=== PATIENT | female | born 1955 | race Caucasian/White ===

== ENCOUNTER → 2016-07-31 | Outpatient (CLI) | payer MEDICARE ==
[2016-07-31 10:47] LABS: APPEARANCE,URINE CLEAR; BILIRUBIN,URINE NEGATIVE (NEGATIVE); GLUCOSE, URINE >=500 mg/dL (NEGATIVE); KETONES,URINE NEGATIVE (NEGATIVE); LEUKOCYTE ESTERASE,URINE NEGATIVE (NEGATIVE); NITRITE,URINE NEGATIVE (NEGATIVE); PROTEIN,URINE >=500 mg/dL (NEGATIVE); URINE SPECIFIC GRAVITY 1.008; UROBILINOGEN,URINE NEGATIVE mg/dL (<2.0)
[2016-07-31 11:06] LABS: ANION GAP 12 (5-19); BLOOD UREA NITROGEN 33 mg/dL (7-20); CALCIUM 8.7 mg/dL (8.4-10.2); CARBON DIOXIDE 21 mmol/L (22-30); CHLORIDE 105 mmol/L (98-107); CREATININE RESULT 1.72 mg/dL (0.52-1.25); GLUCOSE 338 mg/dL (75-110); POTASSIUM 4.9 mmol/L (3.6-5.0); SODIUM 138.2 mmol/L (137-145)
== END ==
LOC: OD 09:41
PROVIDERS: ATTEND Internal Medicine Nephrology
DX: N18.4 Chronic kidney disease, stage 4 (severe) (principal); E11.9 Type 2 diabetes mellitus without complications; E87.5 Hyperkalemia; R80.9 Proteinuria, unspecified
CPT/HCPCS: 36415; 80048; 81001; 82570; 84156

== ENCOUNTER 2016-10-22 12:32 | Emergency (ER) | payer MEDICARE ==
[2016-10-22] MEDS ORDERED: NORMAL SALINE 1000 ML 1,000 ML IV ONE (13:02)
[2016-10-22] MEDS ORDERED: ONDANSETRON 4 MG TAB.RAPDIS PO ONE (13:02)
--- NOTE | 2016-10-22 13:04 | ER Document Report ---
ED Medical Screen (RME) - General Chief Complaint: Vomiting Stated Complaint: NAUSEA VOMITING Time Seen by Provider: 10/22/16 13:02 Notes: Patient started vomiting about 1 AM this morning and has vomited 4 or 5 times. Still feeling nauseated. Did have some diarrhea about 2 or 3 times but that has stopped now. Some mild nonspecific abdominal pain. Denies chest pain. No fevers. Seen at her private doctor's office this morning and referred here. Patient is an insulin-dependent diabetic. TRAVEL OUTSIDE OF THE [place] IN LAST 30 DAYS: No - Related Data Allergies/Adverse Reactions: metformin [Metformin] Allergy (Intermediate, Verified 01/05/16 13:28) Nausea Sulfa (Sulfonamide Antibiotics) Allergy (Mild, Verified 01/05/16 13:28) Nausea fluoxetine Allergy (Verified 10/22/16 12:46) trimethoprim Allergy (Verified 10/22/16 12:46) diazepam [From Valium] Adverse Reaction (Verified 01/05/16 13:28) "BOUNCES ME OFF THE STRAUSS, DOES NOT RELAX" Past Medical History - Past Medical History Cardiac Medical History: Reports: Hx Congestive Heart Failure, Hx Coronary Artery Disease, Hx Heart Attack, Hx Hypercholesterolemia, Hx Hypertension Pulmonary Medical History: Reports: Hx COPD, Hx Pneumonia, Hx Sleep Apnea Endocrine Medical History: Reports: Hx Diabetes Mellitus Type 1, Hx Diabetes Mellitus Type 2, Hx Hypothyroidism Renal/ Medical History: Reports: Hx Renal Insufficiency. Denies: Hx Peritoneal Dialysis GI Medical History: Reports: Hx Gastroesophageal Reflux Disease Musculoskeltal Medical History: Psychiatric Medical History: Reports: Hx Depression Infectious Medical History: Reports: Hx MRSA Past Surgical History: Reports: Hx Cardiac Surgery - A hole in the heart closed at age 65 years old., Hx Cholecystectomy, Hx Hysterectomy, Hx Open Heart Surgery - ASD or VSD closed at 4 years of age, Hx Orthopedic Surgery - 2 screws in the distal left femur, Hx Thyroid Surgery - Thyroidectomy, Hx Tonsillectomy. Denies : Hx Mastectomy - Immunizations Hx Diphtheria, Pertussis, Tetanus Vaccination: Yes Physical Exam - Vital signs Vitals: Temp Pulse Resp BP Pulse Ox 97.4 F 52 L 20 130/61 H 99 10/22/16 12:47 10/22/16 12:47 10/22/16 12:47 10/22/16 12:47 10/22/16 12:47 Course - Vital Signs Vital signs: Temp Pulse Resp BP Pulse Ox 97.4 F 52 L 20 130/61 H 99 10/22/16 12:47 10/22/16 12:47 10/22/16 12:47 10/22/16 12:47 10/22/16 12:47
[2016-10-22 13:43] LABS: ABSOLUTE BASOPHILS # (AUTO) 0.1 10^3/uL (0.0-0.2); ABSOLUTE EOSINOPHILS # (AUTO) 0.1 10^3/uL (0.0-0.6); ABSOLUTE LYMPHOCYTES (AUTO) 1.5 10^3/uL (0.5-4.7); ABSOLUTE MONOCYTES (AUTO) 0.6 10^3/uL (0.1-1.4); ABSOLUTE NEUT (AUTO) 6.4 10^3/uL (1.7-8.2); APPEARANCE,URINE CLOUDY; BASOPHILS % (AUTO) 1.1 % (0-2); BILIRUBIN,URINE NEGATIVE (NEGATIVE); EOSINOPHILS % (AUTO) 1.7 % (0-6); GLUCOSE, URINE >=500 mg/dL (NEGATIVE); HEMATOCRIT 35.4 % (36.0-47.0); HEMOGLOBIN 11.7 g/dL (12.0-15.5); HGB HCT DIFFERENCE -0.3; KETONES,URINE NEGATIVE (NEGATIVE); LEUKOCYTE ESTERASE,URINE MODERATE (NEGATIVE); LYMPHOCYTES % (AUTO) 16.9 % (13-45); MEAN CORPUSCULAR HEMOGLOBIN 30.7 pg (27.0-33.4); MEAN CORPUSCULAR VOLUME 93 fl (80-97); MONOCYTES % (AUTO) 7.2 % (3-13); NITRITE,URINE NEGATIVE (NEGATIVE); PROTEIN,URINE >=500 mg/dL (NEGATIVE); SEGMENTED NEUTROPHILS % (AUTO) 73.1 % (42-78); UROBILINOGEN,URINE NEGATIVE mg/dL (<2.0); WHITE BLOOD COUNT 8.7 10^3/uL (4.0-10.5)
[2016-10-22 13:52] LABS: ALANINE AMINOTRANSFERASE 23 U/L (9-52); ALBUMIN 3.6 g/dL (3.5-5.0); ALKALINE PHOSPHATASE 87 U/L (38-126); ANION GAP 14 (5-19); ASPARTATE AMINO TRANSFERASE 13 U/L (14-36); BILIRUBIN,DIRECT 0.4 mg/dL (0.0-0.4); BILIRUBIN,TOTAL 0.6 mg/dL (0.2-1.3); BLOOD UREA NITROGEN 28 mg/dL (7-20); CALCIUM 8.2 mg/dL (8.4-10.2); CARBON DIOXIDE 22 mmol/L (22-30); CHLORIDE 108 mmol/L (98-107); CREATININE RESULT 1.92 mg/dL (0.52-1.25); GLUCOSE 179 mg/dL (75-110); LIPASE 77.8 U/L (23-300); POTASSIUM 4.4 mmol/L (3.6-5.0); SODIUM 143.9 mmol/L (137-145); TOTAL PROTEIN 6.6 g/dL (6.3-8.2)
[2016-10-22] MEDS ORDERED: PHENAZOPYRIDINE HCL 200 MG TABLET PO ONE (15:14)
[2016-10-22] MEDS ORDERED: NITROFURANTOIN MONOHYD/M-CRYST 100 MG CAPSULE PO ONE (15:14)
--- NOTE | 2016-10-22 15:17 | ER Document Report ---
ED GI/ - General Chief Complaint: Vomiting Stated Complaint: NAUSEA VOMITING Time Seen by Provider: 10/22/16 13:02 TRAVEL OUTSIDE OF THE [place] IN LAST 30 DAYS: No - Related Data Allergies/Adverse Reactions: metformin [Metformin] Allergy (Intermediate, Verified 10/22/16 13:06) Nausea Sulfa (Sulfonamide Antibiotics) Allergy (Mild, Verified 10/22/16 13:06) Nausea fluoxetine Allergy (Verified 10/22/16 13:06) trimethoprim Allergy (Verified 10/22/16 13:06) diazepam [From Valium] Adverse Reaction (Verified 10/22/16 13:06) "BOUNCES ME OFF THE STRAUSS, DOES NOT RELAX" Past Medical History - Social History Smoking Status: Never Smoker Chew tobacco use (# tins/day): No Frequency of alcohol use: None Drug Abuse: None Family History: Reviewed & Not Pertinent Patient has suicidal ideation: No Patient has homicidal ideation: No - Past Medical History Cardiac Medical History: Reports: Hx Congestive Heart Failure, Hx Coronary Artery Disease, Hx Heart Attack, Hx Hypercholesterolemia, Hx Hypertension Pulmonary Medical History: Reports: Hx COPD, Hx Pneumonia, Hx Sleep Apnea Endocrine Medical History: Reports: Hx Diabetes Mellitus Type 1, Hx Diabetes Mellitus Type 2, Hx Hypothyroidism Renal/ Medical History: Reports: Hx Renal Insufficiency. Denies: Hx Peritoneal Dialysis GI Medical History: Reports: Hx Gastroesophageal Reflux Disease Musculoskeltal Medical History: Reports Hx Arthritis Psychiatric Medical History: Reports: Hx Depression Infectious Medical History: Reports: Hx MRSA Past Surgical History: Reports: Hx Cardiac Surgery - A hole in the heart closed at age 65 years old., Hx Cholecystectomy, Hx Hysterectomy, Hx Open Heart Surgery - ASD or VSD closed at 4 years of age, Hx Orthopedic Surgery - 2 screws in the distal left femur, Hx Thyroid Surgery - Thyroidectomy, Hx Tonsillectomy. Denies : Hx Mastectomy - Immunizations Hx Diphtheria, Pertussis, Tetanus Vaccination: Yes - unknown Hx Pneumococcal Vaccination: 04/23/12 Physical Exam - Vital signs Vitals: Temp Pulse Resp BP Pulse Ox 97.4 F 52 L 20 130/61 H 99 10/22/16 12:47 10/22/16 12:47 10/22/16 12:47 10/22/16 12:47 10/22/16 12:47 Course - Vital Signs Vital signs: Temp Pulse Resp BP Pulse Ox 97.4 F 52 L 20 130/61 H 99 10/22/16 12:47 10/22/16 12:47 10/22/16 12:47 10/22/16 12:47 10/22/16 12:47 - Laboratory Result Diagrams: 10/22/16 13:18 10/22/16 13:18 Laboratory results interpreted by me: 10/22/16 10/22/16 10/22/16 13:18 13:18 13:18 Hgb 11.7 L Hct 35.4 L Chloride 108 H BUN 28 H Creatinine 1.92 H Est GFR ( Amer) 32 L Est GFR (Non-Af Amer) 26 L Glucose 179 H Calcium 8.2 L AST 13 L Urine Protein >=500 H Urine Glucose (UA) >=500 H Ur Leukocyte Esterase MODERATE H
[2016-10-22] MEDS ORDERED: CEFTRIAXONE 1 GM/D5W RTU 50 ML IV ONE (15:18)
--- NOTE | 2016-10-22 15:57 | ER Document Report ---
ED GI/ - General Chief Complaint: Vomiting Stated Complaint: NAUSEA VOMITING Time Seen by Provider: 10/22/16 13:02 Mode of Arrival: Ambulatory Information source: Patient Notes: Patient is a 61-year-old female who presents to the ER today for burning with urination 1 week with lower abdominal pain in the center. Patient also complains of nausea and vomiting that began this morning when she woke up. Patient admits to chills but does not know she had a fever or not. She denies any acute low back pain. She denies any blood in her urine that she is seen. She has no history of kidney stones. TRAVEL OUTSIDE OF THE [place] IN LAST 30 DAYS: No - Related Data Allergies/Adverse Reactions: metformin [Metformin] Allergy (Intermediate, Verified 10/22/16 13:06) Nausea Sulfa (Sulfonamide Antibiotics) Allergy (Mild, Verified 10/22/16 13:06) Nausea fluoxetine Allergy (Verified 10/22/16 13:06) trimethoprim Allergy (Verified 10/22/16 13:06) diazepam [From Valium] Adverse Reaction (Verified 10/22/16 13:06) "BOUNCES ME OFF THE STRAUSS, DOES NOT RELAX" Past Medical History - General Information source: Patient - Social History Smoking Status: Never Smoker Chew tobacco use (# tins/day): No Frequency of alcohol use: None Drug Abuse: None Family History: Reviewed & Not Pertinent Patient has suicidal ideation: No Patient has homicidal ideation: No - Past Medical History Cardiac Medical History: Reports: Hx Congestive Heart Failure, Hx Coronary Artery Disease, Hx Heart Attack, Hx Hypercholesterolemia, Hx Hypertension Pulmonary Medical History: Reports: Hx COPD, Hx Pneumonia, Hx Sleep Apnea Endocrine Medical History: Reports: Hx Diabetes Mellitus Type 1, Hx Diabetes Mellitus Type 2, Hx Hypothyroidism Renal/ Medical History: Reports: Hx Renal Insufficiency. Denies: Hx Peritoneal Dialysis GI Medical History: Reports: Hx Gastroesophageal Reflux Disease Musculoskeltal Medical History: Reports Hx Arthritis Psychiatric Medical History: Reports: Hx Depression Infectious Medical History: Reports: Hx MRSA Past Surgical History: Reports: Hx Cardiac Surgery - A hole in the heart closed at age 65 years old., Hx Cholecystectomy, Hx Hysterectomy, Hx Open Heart Surgery - ASD or VSD closed at 4 years of age, Hx Orthopedic Surgery - 2 screws in the distal left femur, Hx Thyroid Surgery - Thyroidectomy, Hx Tonsillectomy. Denies : Hx Mastectomy - Immunizations Hx Diphtheria, Pertussis, Tetanus Vaccination: Yes - unknown Hx Pneumococcal Vaccination: 04/23/12 Review of Systems - Review of Systems Constitutional: See HPI EENT: No symptoms reported Cardiovascular: No symptoms reported Respiratory: No symptoms reported Gastrointestinal: See HPI Genitourinary: See HPI Female Genitourinary: No symptoms reported Musculoskeletal: No symptoms reported Skin: No symptoms reported Hematologic/Lymphatic: No symptoms reported Neurological/Psychological: No symptoms reported Physical Exam - Vital signs Vitals: Temp Pulse Resp BP Pulse Ox 97.4 F 52 L 20 130/61 H 99 10/22/16 12:47 10/22/16 12:47 10/22/16 12:47 10/22/16 12:47 10/22/16 12:47 - Notes Notes: PHYSICAL EXAMINATION: GENERAL: Chronically ill-appearing, but in no acute distress. HEAD: Atraumatic, normocephalic. EYES: Pupils equal round and reactive to light, extraocular movements intact, sclera anicteric, conjunctiva are normal. NECK: Normal range of motion, supple without lymphadenopathy LUNGS: CTAB and equal. No wheezes rales or rhonchi. HEART: Regular rate and rhythm without murmurs ABDOMEN: Soft, suprapubic mild tenderness. No guarding, no rebound BACK: no vertebral tenderness, normal ROM GI/: Left CVA tenderness EXTREMITIES: Normal range of motion, no pitting edema. No cyanosis. NEUROLOGICAL: Cranial nerves grossly intact. Normal sensory/motor exams. PSYCH: Normal mood, normal affect. SKIN: Warm, Dry, normal turgor, no rashes or lesions noted Course - Re-evaluation Re-evalutation: 10/22/16 15:54 Lab work today reveals more than 182 WBC on urinalysis. Patient has had E. coli and Klebsiella pneumoniae in the past and they are both susceptible to Macrobid. 10/22/16 15:56 - Vital Signs Vital signs: Temp Pulse Resp BP Pulse Ox 97.4 F 52 L 20 130/61 H 99 10/22/16 12:47 10/22/16 12:47 10/22/16 12:47 10/22/16 12:47 10/22/16 12:47 10/22/16 15:56 - Laboratory Result Diagrams: 10/22/16 13:18 10/22/16 13:18 Laboratory results interpreted by me: 10/22/16 10/22/16 10/22/16 13:18 13:18 13:18 Hgb 11.7 L Hct 35.4 L Chloride 108 H BUN 28 H Creatinine 1.92 H Est GFR ( Amer) 32 L Est GFR (Non-Af Amer) 26 L Glucose 179 H Calcium 8.2 L AST 13 L Urine Protein >=500 H Urine Glucose (UA) >=500 H Ur Leukocyte Esterase MODERATE H Discharge - Discharge Clinical Impression: UTI (urinary tract infection) Qualifiers: Urinary tract infection type: acute cystitis Hematuria presence: with hematuria Qualified Code(s): N30.01 - Acute cystitis with hematuria Nausea & vomiting Qualifiers: Vomiting type: unspecified Vomiting Intractability: non-intractable Qualified Code(s): R11.2 - Nausea with vomiting, unspecified Condition: Stable Disposition: HOME, SELF-CARE Instructions: Urinary Tract Infection ([facility]) Additional Instructions: Drink plenty of fluids. Return immediately for any new or worsening symptoms. Follow up with primary care provider, call tomorrow to make followup appointment. Prescriptions: Nitrofurantoin/Nitrofuran Mac [Macrobid 100 mg Capsule] 1 tab PO BID #20 capsule Phenazopyridine HCl [Pyridium 200 mg Tablet] 200 mg PO TID #15 tablet Promethazine HCl [Phenergan 25 mg Tablet] 1 - 2 tab PO Q6H PRN #15 tablet PRN Reason:
[2016-10-22] MEDS ORDERED: ONDANSETRON ODT 4 MG TAB (6 TAB/DSPK) PO PRN (16:00)
[2016-10-22] MEDS ORDERED: PROMETHAZINE HCL INJ 50 MG/1 ML VIAL IM PRN (16:03)
[2016-10-22 16:32] VITALS: BP 156/58
== END 2016-10-22 16:28 | disposition home or self-care (01) ==
LOC: ER 12:32
DX: N30.01 Acute cystitis with hematuria (principal); R11.2 Nausea with vomiting, unspecified; R30.0 Dysuria; R10.30 Lower abdominal pain, unspecified; I50.9 Heart failure, unspecified; I25.10 Atherosclerotic heart disease of native coronary artery without angina pectoris; E78.00 Pure hypercholesterolemia, unspecified; I11.0 Hypertensive heart disease with heart failure; J44.9 Chronic obstructive pulmonary disease, unspecified; E11.9 Type 2 diabetes mellitus without complications; E03.9 Hypothyroidism, unspecified; Z88.2 Allergy status to sulfonamides; Z86.14 Personal history of Methicillin resistant Staphylococcus aureus infection; Z90.49 Acquired absence of other specified parts of digestive tract; Z90.710 Acquired absence of both cervix and uterus; I25.2 Old myocardial infarction
CPT/HCPCS: 99283; 96372; 36415; 87086; 83690; 85025; 87088; 80053; 81001; 87186; A9270 ×4; J2550; J3490; J8499; S0119

== ENCOUNTER 2017-05-21 23:15 | Inpatient (IN) | payer MEDICARE ==
[2017-05-22] MEDS ORDERED: NORMAL SALINE 1000 ML 1,000 ML IV ONE (00:12)
--- NOTE | 2017-05-22 00:50 | ER Document Report ---
ED General - General Chief Complaint: Nausea/Vomiting/Diarrhea Stated Complaint: WEAKNESS Time Seen by Provider: 05/22/17 00:12 Notes: Patient is a 61-year-old female with a past medical history of hypertension, insulin-dependent diabetes, morbid obesity, coronary artery disease who presents with 24 hours of nausea, vomiting and diarrhea. Patient states that she has had difficulty tolerating oral intake over the last 24 hours. She denies any localized abdominal pain. Nothing improves or worsens her symptoms. She denies a history of similar symptoms in the past. No known sick contacts. She has not had a fever, chest pain or shortness of breath. No cough. No headache or neck pain. She has not seen her primary doctor regarding today's concerns. Symptoms were abrupt in onset and have gotten progressively worse since that time. TRAVEL OUTSIDE OF THE [place] IN LAST 30 DAYS: No - Related Data Allergies/Adverse Reactions: metformin [Metformin] Allergy (Intermediate, Verified 10/22/16 13:06) Nausea Sulfa (Sulfonamide Antibiotics) Allergy (Mild, Verified 10/22/16 13:06) Nausea fluoxetine Allergy (Verified 10/22/16 13:06) trimethoprim Allergy (Verified 10/22/16 13:06) diazepam [From Valium] Adverse Reaction (Verified 10/22/16 13:06) "BOUNCES ME OFF THE STRAUSS, DOES NOT RELAX" Past Medical History - General Information source: Patient - Social History Smoking Status: Never Smoker Frequency of alcohol use: None Drug Abuse: None Lives with: Alone Family History: Reviewed & Not Pertinent Patient has suicidal ideation: No Patient has homicidal ideation: No - Past Medical History Cardiac Medical History: Reports: Hx Congestive Heart Failure, Hx Coronary Artery Disease, Hx Heart Attack, Hx Hypercholesterolemia, Hx Hypertension Pulmonary Medical History: Reports: Hx COPD, Hx Pneumonia, Hx Sleep Apnea Endocrine Medical History: Reports: Hx Diabetes Mellitus Type 1, Hx Diabetes Mellitus Type 2, Hx Hypothyroidism Renal/ Medical History: Reports: Hx Renal Insufficiency. Denies: Hx Peritoneal Dialysis GI Medical History: Reports: Hx Gastroesophageal Reflux Disease Musculoskeltal Medical History: Reports Hx Arthritis Psychiatric Medical History: Reports: Hx Depression Infectious Medical History: Reports: Hx MRSA Past Surgical History: Reports: Hx Cardiac Surgery - A hole in the heart closed at age 65 years old., Hx Cholecystectomy, Hx Hysterectomy, Hx Open Heart Surgery - ASD or VSD closed at 4 years of age, Hx Orthopedic Surgery - 2 screws in the distal left femur, Hx Thyroid Surgery - Thyroidectomy, Hx Tonsillectomy. Denies : Hx Mastectomy - Immunizations Hx Diphtheria, Pertussis, Tetanus Vaccination: Yes - unknown Hx Pneumococcal Vaccination: 04/23/12 Review of Systems - Review of Systems Notes: Constitutional: Negative for fever. HENT: Negative for sore throat. Eyes: Negative for visual changes. Cardiovascular: Negative for chest pain. Respiratory: Negative for shortness of breath. Gastrointestinal: Positive for vomiting and diarrhea Genitourinary: Negative for dysuria. Musculoskeletal: Negative for back pain. Skin: Negative for rash. Neurological: Negative for headaches, weakness or numbness. 10 point ROS negative except as marked above and in HPI. Physical Exam - Vital signs Vitals: Temp Resp Pulse Ox 98.2 F 17 99 05/21/17 23:32 05/21/17 23:32 05/21/17 23:32 Interpretation: Normal Notes: PHYSICAL EXAMINATION: GENERAL: Somewhat lethargic but wakes and responds to questioning HEAD: Atraumatic, normocephalic. EYES: Pupils equal round and reactive to light, extraocular movements intact, sclera anicteric, conjunctiva are normal. ENT: nares patent, oropharynx clear without exudates. Dry mucous membranes. NECK: Normal range of motion, supple without lymphadenopathy LUNGS: Breath sounds clear to auscultation bilaterally and equal. No wheezes rales or rhonchi. HEART: Regular rate and rhythm without murmurs ABDOMEN: Soft, nontender, normoactive bowel sounds. No guarding, no rebound. No masses appreciated. EXTREMITIES: Normal range of motion, no pitting or edema. No cyanosis. NEUROLOGICAL: No focal neurological deficits. Moves all extremities spontaneously and on command. PSYCH: Normal mood, normal affect. SKIN: Warm, Dry, normal turgor, no rashes or lesions noted. Course - Re-evaluation Re-evalutation: 05/22/17 00:50 Patient presents with vomiting, diarrhea, initially hypotensive per EMS at 82 and 52 improved after 250 cc of fluid administration who presents somewhat lethargic but responsive to questions. Patient denies any focal symptoms on examination other than some mild generalized abdominal tenderness. Her laboratories demonstrate that she has acute on chronic kidney injury with a creatinine that is elevated relative to her December value. She also has pyelonephritis with clumps of white blood cells, greater than 180 white blood cells as well as large amounts of bacteria in her urinalysis. This likely accounts for her vomiting, increase acute kidney injury, as well as diarrhea. Given her worsening renal function initial hypotension, and moderate lethargy here in the emergency department along with pyelonephritis I do not believe it is safe for her to be discharged home. She has been started on IV ceftriaxone, IV fluids and will be hospitalized. I have discussed with Dr. Church was accepted the patient for admission. - Vital Signs Vital signs: Temp Pulse Resp BP Pulse Ox 98.2 F 16 120/40 L 99 05/21/17 23:32 05/21/17 23:34 05/21/17 23:34 05/21/17 23:34 - Laboratory Result Diagrams: 05/22/17 00:50 05/22/17 00:50 Laboratory results interpreted by me: 05/22/17 05/22/17 05/22/17 00:50 00:50 01:30 WBC 12.7 H RBC 3.52 L Hgb 10.6 L Hct 31.7 L RDW 14.5 H Seg Neutrophils % 81.3 H Lymphocytes % 10.7 L Absolute Neutrophils 10.3 H Chloride 113 H Carbon Dioxide 20 L BUN 52 H Creatinine 2.79 H Est GFR ( Amer) 21 L Est GFR (Non-Af Amer) 17 L Glucose 130 H Calcium 8.2 L AST 13 L Total Protein 6.1 L Albumin 3.2 L Urine Protein >=500 H Urine Glucose (UA) 50 H Urine Blood SMALL H Ur Leukocyte Esterase LARGE H - EKG Interpretation by Me Additional EKG results interpreted by me: 05/22/17 03:07 Sinus rhythm. Rate 66. No ST elevations or depressions. LVH. QTC is 508. Right bundle branch block pattern is present Discharge - Discharge Clinical Impression: Pyelonephritis [id number] kidney injury Qualifiers: Acute renal failure type: unspecified Chronic kidney disease stage: unspecified stage Qualified Code(s): N17.9 - Acute kidney failure, unspecified Condition: Fair Disposition: ADMITTED INPATIENT Admitting Provider: Eric Church Unit Admitted: [facility]
[2017-05-22 01:01] LABS: ABSOLUTE BASOPHILS # (AUTO) 0.1 10^3/uL (0.0-0.2); ABSOLUTE EOSINOPHILS # (AUTO) 0.1 10^3/uL (0.0-0.6); ABSOLUTE LYMPHOCYTES (AUTO) 1.4 10^3/uL (0.5-4.7); ABSOLUTE MONOCYTES (AUTO) 0.9 10^3/uL (0.1-1.4); ABSOLUTE NEUT (AUTO) 10.3 10^3/uL (1.7-8.2); BASOPHILS % (AUTO) 0.8 % (0-2); EOSINOPHILS % (AUTO) 0.5 % (0-6); HEMATOCRIT 31.7 % (36.0-47.0); HEMOGLOBIN 10.6 g/dL (12.0-15.5); LYMPHOCYTES % (AUTO) 10.7 % (13-45); MEAN CORPUSCULAR HEMOGLOBIN 30.1 pg (27.0-33.4); MEAN CORPUSCULAR HGB CONC 33.3 g/dL (32.0-36.0); MEAN CORPUSCULAR VOLUME 90 fl (80-97); MONOCYTES % (AUTO) 6.7 % (3-13); PLATELET COUNT 267 10^3/uL (150-450); RED BLOOD COUNT 3.52 10^6/uL (3.72-5.28); RED CELL DISTRIBUTION WIDTH 14.5 % (11.5-14.0); SEGMENTED NEUTROPHILS % (AUTO) 81.3 % (42-78); TOTAL CELLS COUNTED % (AUTO) 100 %; WHITE BLOOD COUNT 12.7 10^3/uL (4.0-10.5)
[2017-05-22 01:16] LABS: ALANINE AMINOTRANSFERASE 26 U/L (9-52); ALBUMIN 3.2 g/dL (3.5-5.0); ALKALINE PHOSPHATASE 97 U/L (38-126); ANION GAP 11 (5-19); ASPARTATE AMINO TRANSFERASE 13 U/L (14-36); BILIRUBIN,DIRECT 0.2 mg/dL (0.0-0.4); BILIRUBIN,TOTAL 0.2 mg/dL (0.2-1.3); BLOOD UREA NITROGEN 52 mg/dL (7-20); CALCIUM 8.2 mg/dL (8.4-10.2); CARBON DIOXIDE 20 mmol/L (22-30); CHLORIDE 113 mmol/L (98-107); GLUCOSE 130 mg/dL (75-110); LIPASE 192.4 U/L (23-300); SODIUM 143.8 mmol/L (137-145); TOTAL PROTEIN 6.1 g/dL (6.3-8.2)
[2017-05-22 01:58] LABS: APPEARANCE,URINE TURBID; BILIRUBIN,URINE NEGATIVE (NEGATIVE); GLUCOSE, URINE 50 mg/dL (NEGATIVE); KETONES,URINE NEGATIVE (NEGATIVE); LEUKOCYTE ESTERASE,URINE LARGE (NEGATIVE); NITRITE,URINE NEGATIVE (NEGATIVE); PROTEIN,URINE >=500 mg/dL (NEGATIVE); UROBILINOGEN,URINE NEGATIVE mg/dL (<2.0)
[2017-05-22 01:59] LABS: COLOR,URINE YELLOW
[2017-05-22] MEDS ORDERED: ACETAMINOPHEN 325 MG TABLET PO PRN (02:42)
[2017-05-22] MEDS ORDERED: CEFTRIAXONE 1 GM/D5W RTU 1 GM/50 ML RTUPB IV ONE (03:00)
[2017-05-22] MEDS ORDERED: NORMAL SALINE 1000 ML 500 ML IV ONE (03:06)
[2017-05-22] MEDS ORDERED: GLUCAGON,HUMAN RECOMB 1 MG INJ IM PRN (03:13)
[2017-05-22] MEDS ORDERED: DEXTROSE 40% GEL 15 GM TUBE PO PRN ×2 (03:13)
[2017-05-22] MEDS ORDERED: DEXTROSE 50%-WATER 25 GM/50 ML DISP.SYRIN IV PRN ×2 (03:13)
[2017-05-22] MEDS ORDERED: PHARMACY COMMUNICATION ORDER MC NR (03:15)
[2017-05-22] MEDS: NORMAL SALINE 1000 ML 1,000 ML IV PRN (03:31)
--- NOTE | 2017-05-22 03:53 | PDOC H&P ---
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 Patient reported that beginning yesterday she began having nausea and vomiting. She also complains of right-sided back pain. Patient reports chills. She reports some intermittent chest pain and shortness of breath but she reports these are no worse than normal. Patient does report diarrhea without hematochezia or melena. She denies going outside of the country or eating raw or undercooked meat. Patient is found to have significant urinary tract infection associated with right-sided back pain likely pyelonephritis with sepsis. Patient's medications are currently undergoing reconciliation. Current list is automatically generated by [employer] and does not reflect an accurate description of her medications. Due to the urgent/emergent nature of her condition, she is admitted without a full list. Bedside review of patient's medication reveals that she takes Brio Isosorbide mononitrate 120 mg p.o. daily Wellbutrin 150 mg p.o. daily Lipitor 80 mg p.o. nightly Plavix 75 mg p.o. daily Metoprolol XL 100 mg p.o. twice daily Zetia 10 mg p.o. daily Prilosec 20 mg p.o. daily Lasix 40 mg p.o. twice daily Ranexa 500 mg p.o. twice daily Levothyroxine 300 mcg p.o. every morning Patient reports that she takes Lantus 26 units subcu twice daily and a sliding scale prior to meals Past Medical History Cardiac Medical History: Reports: Congestive Heart Failure, Coronary Artery Disease, Myocardial Infarction, Hyperlipidema, Hypertension, Other - Structural heart disease repaired as a child Pulmonary Medical History: Reports: Chronic Obstructive Pulmonary Disease (COPD) , Pneumonia, Sleep Apnea Endocrine Medical History: Reports: Diabetes Mellitus Type 2, Hypothyroidism, Obesity Renal/ Medical History: Reports: Chronic Kidney Disease GI Medical History: Reports: Gastroesophageal Reflux Disease Musculoskeltal Medical History: Reports: Arthritis Psychiatric Medical History: Reports: Depression Hematology: Denies: Anemia, Sickle Cell Disease Infectious Medical History: Reports: Methicillin-Resistant Staph Aureus Past Surgical History Past Surgical History: Reports: Cholecystectomy, Hysterectomy, Orthopedic Surgery - 2 screws in the distal left femur, Tonsillectomy Denies: Amputation, Mastectomy Social History Lives with: Friend Smoking Status: Never Smoker Frequency of Alcohol Use: None Hx Recreational Drug Use: No Drugs: None Hx Prescription Drug Abuse: No - Advance Directive Resuscitation Status: Do Not Resuscitate Surrogate healthcare decision maker:: Miguelangel Moraes, roommate Family History Family History: CAD, CVA, DM, Hypertension, Thyroid Disfunction Parental Family History Reviewed: Yes Children Family History Reviewed: Yes Sibling(s) Family History Reviewed.: Yes Medication/Allergy Home Medications: Bupropion HCl [Bupropion HCl Sr] 150 mg PO DAILY 09/12/14 Furosemide [Lasix 20 mg Tablet] 40 mg PO QAM 09/12/14 Insulin Lispro [Humalog] 3 unit SQ Q1H 09/12/14 Isosorbide Mononitrate [Isosorbide Mononitrate ER] 120 mg PO DAILY 09/12/14 Ranolazine [Ranexa 500 mg Tab.sr] 500 mg PO Q12 #60 tab.sr.12h 09/14/14 Aspirin [Aspirin 81 mg Chewable Tablet] 81 mg PO DAILY #30 tab.chew 01/21/15 Clopidogrel Bisulfate [Plavix 75 mg Tablet] 75 mg PO DAILY #30 tablet 01/21/15 Ezetimibe [Zetia 10 mg Tablet] 10 mg PO DAILY #30 tablet 01/21/15 Hydralazine HCl 50 mg PO TID 09/10/15 Nitroglycerin [Nitrostat 0.4 mg (1/150 Gr) Tabs 25/Bottle] 1 tab SL Q5MP PRN Rosuvastatin Calcium [Crestor] 40 mg PO DAILY 09/10/15 Levothyroxine Sodium [Synthroid] 200 mcg PO DAILY 11/03/15 Metoprolol Succinate [Toprol Xl 50 mg Tab.sr] 100 mg PO Q12A 11/03/15 Amlodipine Besylate [Norvasc 5 mg Tablet] 5 mg PO DAILY 11/26/15 Docusate Sodium [Colace 100 mg Capsule] 100 mg PO BID 11/26/15 Nitrofurantoin/Nitrofuran Mac [Macrobid 100 mg Capsule] 1 tab PO BID #20 capsule 11/26/15 Nitrofurantoin/Nitrofuran Mac [Macrobid 100 mg Capsule] 1 tab PO BID #20 capsule 10/22/16 Phenazopyridine HCl [Pyridium 200 mg Tablet] 200 mg PO TID #15 tablet 10/22/16 Promethazine HCl [Phenergan 25 mg Tablet] 1 - 2 tab PO Q6H PRN #15 tablet Allergies/Adverse Reactions: metformin [Metformin] Allergy (Intermediate, Verified 10/22/16 13:06) Nausea Sulfa (Sulfonamide Antibiotics) Allergy (Mild, Verified 10/22/16 13:06) Nausea fluoxetine Allergy (Verified 10/22/16 13:06) trimethoprim Allergy (Verified 10/22/16 13:06) diazepam [From Valium] Adverse Reaction (Verified 10/22/16 13:06) "BOUNCES ME OFF THE STRAUSS, DOES NOT RELAX" Review of Systems Constitutional: PRESENT: anorexia, chills, fatigue, fever(s), weakness. ABSENT : headache(s), weight gain, weight loss Eyes: ABSENT: visual disturbances Ears: ABSENT: hearing changes Cardiovascular: PRESENT: chest pain. ABSENT: dyspnea on exertion, edema, orthropnea, palpitations Respiratory: PRESENT: dyspnea. ABSENT: cough, hemoptysis, sputum Gastrointestinal: PRESENT: abdominal pain, diarrhea, heartburn, nausea, vomiting. ABSENT: constipation, hematemesis, hematochezia, melena Genitourinary: ABSENT: dysuria, hematuria, nocturia Musculoskeletal: PRESENT: back pain. ABSENT: joint swelling Integumentary: ABSENT: rash, wounds Neurological: ABSENT: abnormal gait, abnormal speech, confusion, dizziness, focal weakness, syncope Psychiatric: PRESENT: depression. ABSENT: anxiety, homidical ideation, suicidal ideation Endocrine: ABSENT: cold intolerance, heat intolerance, polydipsia, polyuria Hematologic/Lymphatic: ABSENT: easy bleeding, easy bruising Physical Exam Vital Signs: Temp Pulse Resp BP Pulse Ox 98.2 F 16 120/40 L 99 05/21/17 23:32 05/21/17 23:34 05/21/17 23:34 05/21/17 23:34 General appearance: PRESENT: morbidly obese, well-developed, well-nourished Head exam: PRESENT: atraumatic, normocephalic Eye exam: PRESENT: conjunctiva pink, EOMI, PERRLA. ABSENT: scleral icterus Ear exam: PRESENT: normal external ear exam Mouth exam: PRESENT: dry mucosa, tongue midline Neck exam: ABSENT: JVD, lymphadenopathy, thyromegaly, tracheal deviation Respiratory exam: PRESENT: clear to auscultation paula, symmetrical, unlabored. ABSENT: accessory muscle use, prolonged expiratory phas, rales, retraction, rhonchi, tachypnea, wheezes Cardiovascular exam: PRESENT: RRR, +S1, +S2, systolic murmur. ABSENT: diastolic murmur, gallop, rubs Pulses: PRESENT: normal dorsalis pedis pul Vascular exam: PRESENT: normal capillary refill GI/Abdominal exam: PRESENT: normal bowel sounds, soft. ABSENT: distended, firm , guarding, mass, Arriaga's sign, organolmegaly, rebound, rigid, tenderness Rectal exam: PRESENT: deferred Extremities exam: PRESENT: calf tenderness - Left leg, reports this is chronic, full ROM, +1 edema. ABSENT: clubbing Neurological exam: PRESENT: alert, awake, oriented to person, oriented to place , oriented to time, oriented to situation, CN II-XII grossly intact. ABSENT: motor sensory deficit Psychiatric exam: PRESENT: appropriate affect, normal mood. ABSENT: homicidal ideation, suicidal ideation Skin exam: PRESENT: dry, intact, warm. ABSENT: cyanosis, rash Results Laboratory Results: 05/22/17 05/22/17 05/22/17 00:50 00:50 00:50 WBC 12.7 H Hgb 10.6 L Hct 31.7 L Plt Count 267 Sodium 143.8 Potassium 5.0 Chloride 113 H Carbon Dioxide 20 L Anion Gap 11 BUN 52 H Creatinine 2.79 H Est GFR (Non-Af Amer) 17 L Glucose 130 H Calcium 8.2 L Total Bilirubin 0.2 Direct Bilirubin 0.2 AST 13 L ALT 26 Alkaline Phosphatase 97 Troponin I 0.051 Total Protein 6.1 L Albumin 3.2 L Lipase 192.4 Ur Specific [place] Urine Protein Urine Glucose (UA) Urine Blood Ur Leukocyte Esterase Urine WBC (Auto) Urine RBC (Auto) U Hyaline Cast (Auto) Urine Bacteria (Auto) Urine WBC Clumps 05/22/17 01:30 WBC Hgb Hct Plt Count Sodium Potassium Chloride Carbon Dioxide Anion Gap BUN Creatinine Est GFR (Non-Af Amer) Glucose Calcium Total Bilirubin Direct Bilirubin AST ALT Alkaline Phosphatase Troponin I Total Protein Albumin Lipase Ur Specific [place] 1.020 Urine Protein >=500 H Urine Glucose (UA) 50 H Urine Blood SMALL H Ur Leukocyte Esterase LARGE H Urine WBC (Auto) >182 Urine RBC (Auto) 11 U Hyaline Cast (Auto) 73 Urine Bacteria (Auto) 3+ Urine WBC Clumps MOD Assessment & Plan - Diagnosis (1) Pyelonephritis Is this a current diagnosis for this admission?: Yes Plan: Place patient on Rocephin pending culture. Patient has grown out Klebsiella and E. coli in the past with which have been sensitive to this. Place patient on IV fluids gently as patient reports a history of severe congestive heart failure (2) Tabes-hy-zispifh kidney injury Qualifiers: Acute renal failure type: unspecified Chronic kidney disease stage: unspecified stage Qualified Code(s): N17.9 - Acute kidney failure, unspecified ; N18.9 - Chronic kidney disease, unspecified; N18.9 - Chronic kidney disease, unspecified Is this a current diagnosis for this admission?: Yes Plan: Gently rehydrate patient. It appears as though her baseline creatinine is approximately 1.9-2.2. 09/16/16 10/22/16 12/21/16 10:00 13:18 13:15 Creatinine 2.01 H 1.92 H 1.90 H 02/18/17 05/22/17 10:50 00:50 Creatinine 2.21 H 2.79 H (3) Coronary artery disease Qualifiers: Coronary Disease-Associated Artery/Lesion type: [place] artery [place] vs. transplanted heart: [place] heart Associated angina: angina presence unspecified Qualified Code(s): I25.10 - Atherosclerotic heart disease of [place] coronary artery without angina pectoris Is this a current diagnosis for this admission?: Yes (4) Diabetes mellitus Qualifiers: Diabetes mellitus type: type 2 Diabetes mellitus complication status: with neurologic complications Diabetes mellitus complication detail: with polyneuropathy Diabetes mellitus nipple threader insulin use: with nipple threader use Qualified Code(s): E11.42 - Type 2 diabetes mellitus with diabetic polyneuropathy; Z79.4 - [facility] (current) use of insulin; Z79.4 - [facility] ( current) use of insulin; Z79.4 - [facility] (current) use of insulin; 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 insulin Is this a current diagnosis for this admission?: Yes Plan: Continue patient's home Lantus and sliding scale insulin ADA diet (5) Hypertension Qualifiers: Hypertension type: essential hypertension Qualified Code(s): I10 - Essential (primary) hypertension Is this a current diagnosis for this admission?: Yes Plan: Hold antihypertensives as patient is hypotensive (6) Sleep apnea syndrome Qualifiers: Sleep apnea type: unspecified type Qualified Code(s): G47.30 - Sleep apnea , unspecified Is this a current diagnosis for this admission?: Yes Plan: Place patient on CPAP and will ask her sleep specialist/hand picker to evaluate her (7) CKD (chronic kidney disease) stage 3, GFR 30-59 ml/min Is this a current diagnosis for this admission?: Yes Plan: Renally adjust all medication (8) Hyperlipidemia Qualifiers: Hyperlipidemia type: unspecified Qualified Code(s): E78.5 - Hyperlipidemia , unspecified Is this a current diagnosis for this admission?: Yes Plan: Continue Lipitor and Zetia (9) Hypothyroidism Qualifiers: Hypothyroidism type: postoperative Qualified Code(s): E89.0 - Postprocedural hypothyroidism Is this a current diagnosis for this admission?: Yes Plan: Will check TSH. Continue levothyroxine (10) Morbid obesity with BMI of 50.0-59.9, adult Is this a current diagnosis for this admission?: Yes Plan: Patient is advised to engage actively in weight loss and increase activity as tolerated under the guidance/care of her primary care physician (11) DVT prophylaxis Is this a current diagnosis for this admission?: Yes Plan: Heparin and SCDs (12) Chronic congestive heart failure Qualifiers: Congestive heart failure type: unspecified congestive heart failure type Qualified Code(s): I50.9 - Heart failure, unspecified Is this a current diagnosis for this admission?: Yes Plan: will consult her hand picker At this time unable to resume her home medications due to her hypotension will be judicious with fluid administration in light of this - Time Time Spent: 50 to 70 Minutes Medications reviewed and adjusted accordingly: Yes Anticipated discharge: Home with Homehealth - Inpatient Certification Based on my medical assessment, after consideration of the patient's comorbidities, presenting symptoms, or acuity I expect that the services needed warrant INPATIENT care.: Yes I certify that my determination is in accordance with my understanding of Medicare's requirements for reasonable and necessary INPATIENT services [42 CFR 412.3e].: Yes Medical Necessity: Need For IV Fluids, Need For Continuous Telemetry Monitoring , Need for IV Antibiotics Post Hospital Care: D/C Associate Financial Advisor Documentation
[2017-05-22] MEDS: HEPARIN SOD (PORCINE) 5,000 UNIT/ML 1 ML SYRINGE SUBCUT SCH ×3 (06:20→22:42)
[2017-05-22] MEDS: DOCUSATE SODIUM 100 MG CAPSULE PO SCH ×2 (10:49→17:36)
[2017-05-22] MEDS: CLOPIDOGREL BISULFATE 75 MG TABLET PO SCH (10:50)
[2017-05-22] MEDS: ASPIRIN 81 MG TABLET, CHEWABLE PO SCH (10:52)
[2017-05-22] MEDS: RANOLAZINE 500 MG TAB.SR.12H PO SCH ×2 (10:52→22:43)
[2017-05-22] MEDS: CEFTRIAXONE 2 GM/D5W RTU 2 GM/50 ML RTUPB IV SCH (10:52)
[2017-05-22] MEDS: INSULIN GLARGINE,HUM.REC.ANLOG 300 UNIT/3 ML INSULN.PEN SUBCUT SCH ×2 (10:54→22:44)
--- NOTE | 2017-05-22 12:10 | EKG REPORT ---
SEVERITY:- ABNORMAL ECG - SINUS RHYTHM RIGHT BUNDLE BRANCH BLOCK LVH WITH IVCD AND SECONDARY REPOL ABNRM : Confirmed by: Breonna Llanes MD 22-May-2017 12:10:12
--- NOTE | 2017-05-22 12:11 | EKG REPORT ---
SEVERITY:- ABNORMAL ECG - SINUS RHYTHM RIGHT BUNDLE BRANCH BLOCK LVH WITH IVCD AND SECONDARY REPOL ABNRM : Confirmed by: Breonna Llanes MD 22-May-2017 12:10:52
--- NOTE | 2017-05-22 13:27 | PDOC PROGRESS REPORT ---
Subjective Progress Note for:: 05/22/17 Subjective:: Feeling better today. Reason For Visit: SEPSIS, PYELONEPHRITIS Physical Exam Vital Signs: Temp Pulse Resp BP Pulse Ox 98.2 F 68 18 149/37 H 97 05/22/17 07:38 05/22/17 07:38 05/22/17 07:38 05/22/17 07:38 05/22/17 07:38 Intake & Output 05/21/17 05/22/17 05/23/17 06:59 06:59 06:59 Weight 120.8 kg 120.8 kg General appearance: PRESENT: no acute distress, cooperative, morbidly obese Head exam: PRESENT: atraumatic, normocephalic Eye exam: PRESENT: conjunctiva pink, EOMI, PERRLA Mouth exam: PRESENT: moist Neck exam: ABSENT: carotid bruit, JVD, lymphadenopathy, thyromegaly Respiratory exam: PRESENT: clear to auscultation paula. ABSENT: rales, rhonchi, wheezes Cardiovascular exam: PRESENT: RRR. ABSENT: diastolic murmur, rubs, systolic murmur GI/Abdominal exam: PRESENT: normal bowel sounds, soft. ABSENT: distended, guarding, mass, organolmegaly, rebound, tenderness Extremities exam: PRESENT: full ROM, +2 edema - right pretibial. ABSENT: calf tenderness, clubbing, pedal edema Neurological exam: PRESENT: alert, awake, oriented to person, oriented to place , oriented to time, oriented to situation, CN II-XII grossly intact. ABSENT: motor sensory deficit Psychiatric exam: PRESENT: appropriate affect, normal mood. ABSENT: homicidal ideation, suicidal ideation Skin exam: PRESENT: dry, intact, warm. ABSENT: cyanosis, rash Results Laboratory Results: 05/22/17 06:50 Troponin I 0.040 Assessment & Plan - Diagnosis (1) Pyelonephritis Is this a current diagnosis for this admission?: Yes Plan: Day 2 ceftriaxone. follow up cultures. (2) [id number] kidney injury Qualifiers: Acute renal failure type: unspecified Chronic kidney disease stage: stage 3 (moderate) Qualified Code(s): N17.9 - Acute kidney failure, unspecified; N18.3 - Chronic kidney disease, stage 3 (moderate); N18.3 - Chronic kidney disease, stage 3 (moderate) Is this a current diagnosis for this admission?: Yes Plan: continue IVFs. recheck creatinine in am. (3) Chronic congestive heart failure Qualifiers: Congestive heart failure type: diastolic Qualified Code(s): I50.32 - Chronic diastolic (congestive) heart failure Is this a current diagnosis for this admission?: Yes Plan: She is asymptomatic. No changes for now. (4) Hypertension Qualifiers: Hypertension type: essential hypertension Qualified Code(s): I10 - Essential (primary) hypertension Is this a current diagnosis for this admission?: Yes Plan: BP okay. (5) Sleep apnea syndrome Qualifiers: Sleep apnea type: unspecified type Qualified Code(s): G47.30 - Sleep apnea , unspecified Is this a current diagnosis for this admission?: Yes Plan: CPAP Qhs (6) Hyperlipidemia Qualifiers: Hyperlipidemia type: unspecified Qualified Code(s): E78.5 - Hyperlipidemia , unspecified Is this a current diagnosis for this admission?: Yes Plan: Continue atorvastatin 80 mg Qhs. (7) Hypothyroidism Qualifiers: Hypothyroidism type: postoperative Qualified Code(s): E89.0 - Postprocedural hypothyroidism Is this a current diagnosis for this admission?: Yes Plan: TSH is low, suggesting that the dose of levothyroxine is too high. I will decrease the dose to 200 mcg daily (8) Morbid obesity with BMI of 50.0-59.9, adult Is this a current diagnosis for this admission?: Yes Plan: stable - Time Time Spent with patient: 25-34 minutes Medications reviewed and adjusted accordingly: Yes Anticipated discharge: Home - Inpatient Certification Medical Necessity: Need For IV Fluids, Need for IV Antibiotics
[2017-05-22] MEDS ORDERED: ATORVASTATIN CALCIUM 80 MG TABLET PO SCH (13:30)
--- NOTE | 2017-05-22 16:45 | PDOC CONSULTATION ---
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 Patient reported that beginning yesterday she began having nausea and vomiting. She also complains of right-sided back pain. Patient reports chills. She reports some intermittent chest pain and shortness of breath but she reports these are no worse than normal. Patient does report diarrhea without hematochezia or melena. She denies going outside of the country or eating raw or undercooked meat. Patient is found to have significant urinary tract infection associated with right-sided back pain likely pyelonephritis with sepsis. Patient's medications are currently undergoing reconciliation. Current list is automatically generated by [facility] and does not reflect an accurate description of her medications. Due to the urgent/emergent nature of her condition, she is admitted without a full list. Bedside review of patient's medication reveals that she takes Brio Isosorbide mononitrate 120 mg p.o. daily Wellbutrin 150 mg p.o. daily Lipitor 80 mg p.o. nightly Plavix 75 mg p.o. daily Metoprolol XL 100 mg p.o. twice daily Zetia 10 mg p.o. daily Prilosec 20 mg p.o. daily Lasix 40 mg p.o. twice daily Ranexa 500 mg p.o. twice daily Levothyroxine 300 mcg p.o. every morning Patient reports that she takes Lantus 26 units subcu twice daily and a sliding scale prior to meals. This history was reviewed and confirmed. Patient claims no recurrence of chest pain. She does have some shortness of breath. Patient did describe severe chills needing 4 out of 5 blankets. She did complain of some intermittently low blood pressures. Entries by other physicians on the chart was reviewed. This history was reviewed, supplemented and confirmed. Past Medical History Cardiac Medical History: Reports: Congestive Heart Failure, Coronary Artery Disease, Myocardial Infarction, Hyperlipidema, Hypertension, Other - Structural heart disease repaired as a child Pulmonary Medical History: Reports: Chronic Obstructive Pulmonary Disease (COPD) , Pneumonia, Sleep Apnea Endocrine Medical History: Reports: Diabetes Mellitus Type 1, Diabetes Mellitus Type 2, Hypothyroidism, Obesity Renal/ Medical History: Reports: Chronic Kidney Disease GI Medical History: Reports: Gastroesophageal Reflux Disease Musculoskeltal Medical History: Reports: Arthritis Psychiatric Medical History: Reports: Depression Hematology: Denies: Anemia, Sickle Cell Disease Infectious Medical History: Reports: Methicillin-Resistant Staph Aureus Past Surgical History Past Surgical History: Reports: Cardiac Catheterization, Cholecystectomy, Coronary Stent, Hysterectomy, Orthopedic Surgery - 2 screws in the distal left femur, Tonsillectomy Denies: Amputation, Mastectomy Social History Information Source: Patient Lives with: Friend Smoking Status: Never Smoker Frequency of Alcohol Use: None Hx Recreational Drug Use: No Drugs: None Hx Prescription Drug Abuse: No - Advance Directive Resuscitation Status: Do Not Resuscitate Surrogate healthcare decision maker:: Patient's daughter is the surrogate decision-maker Family History Family History: CAD, CVA, DM, Hypertension, Thyroid Disfunction Parental Family History Reviewed: Yes Children Family History Reviewed: Yes Sibling(s) Family History Reviewed.: Yes Medication/Allergy Home Medications: Aspirin [Ecotrin 325 mg EC Tablet] 325 mg PO QAM 05/22/17 Atorvastatin Calcium [Lipitor 80 mg Tablet] 80 mg PO QHS 05/22/17 Bupropion HCl [Wellbutrin Xl 150 mg 24hr Tablet] 150 mg PO DAILY 05/22/17 Clopidogrel Bisulfate [Plavix 75 mg Tablet] 75 mg PO DAILY 05/22/17 Ezetimibe [Zetia 10 mg Tablet] 10 mg PO DAILY 05/22/17 Fluticasone/Vilanterol [Breo Ellipta 100-25 Mcg INH] 1 puff IH DAILY 05/22/17 Insulin Aspart [Novolog Insulin (Aspart) 100 unit/mL] 0 units SQ .PERSLIDINGSCALE 05/22/17 Insulin Glargine,Hum.rec.anlog [Lantus Solostar] 26 units SQ BID 05/22/17 Isosorbide Mononitrate [Isosorbide Mononitrate ER] 120 mg PO DAILY 05/22/17 Levothyroxine Sodium [Synthroid] 300 mcg PO QAM 05/22/17 Nitroglycerin [Nitrostat] 0.4 mg SL Q5MP PRN 05/22/17 Omeprazole 20 mg PO QPM 05/22/17 Ranolazine [Ranexa 500 mg Tab.sr] 500 mg PO Q12 05/22/17 Amlodipine Besylate [Norvasc 10 mg Tablet] 10 mg PO DAILY #30 tablet 05/26/17 Cephalexin Monohydrate [Keflex 250 mg Capsule] 250 mg PO DAILY #30 capsule 05/26 Metoprolol Succinate [Toprol XL 100 mg Tablet] 50 mg PO DAILY #30 tab.sr.24h 08/08 Allergies/Adverse Reactions: metformin [Metformin] Allergy (Intermediate, Verified 10/22/16 13:06) Nausea Sulfa (Sulfonamide Antibiotics) Allergy (Mild, Verified 10/22/16 13:06) Nausea fluoxetine Allergy (Verified 10/22/16 13:06) trimethoprim Allergy (Verified 10/22/16 13:06) diazepam [From Valium] Adverse Reaction (Verified 10/22/16 13:06) "BOUNCES ME OFF THE STRAUSS, DOES NOT RELAX" Review of Systems Review of Systems: Please see history of present illness and past medical history as wall. Constitutional: Fever and chills reported. Head : No recent chronic headaches, recent head injury. Eyes: No recent eye pain, diplopia, redness, discharge, acute visual changes. Ears: No recent chronic ear pain, acute hearing loss, ear discharge. Oral cavity: No recent ulcerations, bleeding, oral cavity discomfort. Neck: No recent acute neck pain reported. Hematologic: No recent easy bruising or bleeding or hematologic malignancy reported. Lymphatic: No recent lymphatic malignancy, chronic lymphadenopathy reported yet Cardiovascular system review: See history of present illness. Respiratory system review: No recent chronic cough, hemoptysis, blood clots in the lungs reported. Mild Shortness of breath on exertion Gastrointestinal system review: Denies hematemesis, melena. Acute presentation with nausea vomiting and diarrhea as noted in HPI Genitourinary system review: No recent acute or chronic hematuria, flank pain, UTI etc. reported. Skin system review: Negative for any recent abnormal bruising, no rash, no pruritus reported. Neurologic: No prior history of strokes, mini strokes, seizure disorder. Psychologic: No history of major psychosis or major depression reported. Musculoskeletal: Minor aches and pains reported. No acute joint swelling reported. Endocrine: No recent polyuria, polydipsia, recent heat or cold intolerance. Physical Exam Vital Signs: Temp Pulse Resp BP Pulse Ox 98.7 F 66 18 152/49 H 99 05/22/17 12:19 05/22/17 12:19 05/22/17 12:19 05/22/17 12:19 05/22/17 12:19 Intake & Output 05/21/17 05/22/17 05/23/17 06:59 06:59 06:59 Intake Total 651 Balance 651 Weight 120.8 kg 120.8 kg Exam: GENERAL: well-nourished and in no acute distress. Alert and oriented x3 HEAD: Atraumatic, normocephalic. EYES: Pupils equal round and reactive to light, extraocular movements intact, sclera anicteric, conjunctiva are normal. ENT: TMs normal, nares patent, oropharynx clear without exudates. Moist mucous membranes. No oral ulcerations or bleeding gums noted NECK: supple without lymphadenopathy. Trachea is central. No cervical or axillary lymphadenopathy noted. Carotids are 2+, JVD WNL LUNGS: Respiration seems nonlabored, no significant accessory muscle action noted. Breath sounds clear to auscultation bilaterally and equal noted. No wheezes rales or rhonchi noted. No significant dullness noted on percussion. CHEST: Palpation of the chest wall shows no significant chest wall tenderness. No other significant abnormalities noted. HEART: [place] HOG PUSHER, No PSH, 1/6 [place] aortic area, 1/6 quinones systolic murmur mitral area, no rubs, no gallops. ABDOMEN: Soft, no significant tenderness appreciated, normoactive bowel sounds. No guarding, no rebound. No rigidity noted . No masses appreciated. EXTREMITIES: Pedal pulses are 1-2+, no calf tenderness noted. No clubbing or cyanosis. 1-2 + pedal edema noted NEUROLOGICAL: Focused neurological exam showed no significant neurologic deficit. Normal speech, no focal weakness appreciated. PSYCH: Normal mood, normal affect. Judgment and insight within normal limits. SKIN: No significant ecchymosis, rash, ulcerations or signs of pruritus noted. MUSCULOSKELETAL EXAM: No significant joint swelling noted. Results Laboratory Results: 05/22/17 05/22/17 06:50 12:55 Troponin I 0.040 0.039 EKG Comments: Sinus rhythm, nonspecific IVCD, nonspecific ST-T wave changes, left axis deviation Assessment & Plan - Diagnosis (1) Chest pain Qualifiers: Chest pain type: unspecified Qualified Code(s): R07.9 - Chest pain, unspecified Is this a current diagnosis for this admission?: Yes (2) Coronary artery disease Qualifiers: Coronary Disease-Associated Artery/Lesion type: [place] artery [place] vs. transplanted heart: [place] heart Associated angina: angina presence unspecified Qualified Code(s): I25.10 - Atherosclerotic heart disease of [place] coronary artery without angina pectoris Is this a current diagnosis for this admission?: Yes (3) Diabetes mellitus Qualifiers: Diabetes mellitus type: type 2 Diabetes mellitus complication status: with neurologic complications Diabetes mellitus complication detail: with polyneuropathy Diabetes mellitus fdc insulin use: with fdc use Qualified Code(s): E11.42 - Type 2 diabetes mellitus with diabetic polyneuropathy; Z79.4 - buttermaker continuous churn (current) use of insulin; Z79.4 - detention ( current) use of insulin; Z79.4 - buttermaker continuous churn (current) use of insulin; Z79.4 - buttermaker continuous churn (current) use of insulin Is this a current diagnosis for this admission?: Yes (4) Hypertension Qualifiers: Hypertension type: essential hypertension Qualified Code(s): I10 - Essential (primary) hypertension Is this a current diagnosis for this admission?: Yes (5) Sleep apnea syndrome Qualifiers: Sleep apnea type: unspecified type Qualified Code(s): G47.30 - Sleep apnea , unspecified Is this a current diagnosis for this admission?: Yes (6) Hyperlipidemia Qualifiers: Hyperlipidemia type: unspecified Qualified Code(s): E78.5 - Hyperlipidemia , unspecified Is this a current diagnosis for this admission?: Yes (7) Chronic kidney disease (CKD) Qualifiers: Chronic kidney disease stage: stage 4 (severe) Qualified Code(s): N18.4 - Chronic kidney disease, stage 4 (severe) Is this a current diagnosis for this admission?: Yes (8) Chronic congestive heart failure Qualifiers: Congestive heart failure type: diastolic Qualified Code(s): I50.32 - Chronic diastolic (congestive) heart failure Is this a current diagnosis for this admission?: No - Notes Notes: Chest pain: Patient describes history of chronic chest pain. Cardiac enzymes are negative. Currently chest pain-free. Patient has significant comorbid diagnosis including significant renal failure. Ischemia workup is not being planned at this time unless patient continues with recurrent chest pain. Coronary artery disease: Currently is stable. Will continue to observe very closely. Will optimize medical therapy. Patient seems to have been on metoprolol as an outpatient but currently not on MAR. Will start patient on metoprolol succinate at 25 mg p.o. twice daily and gradually increase as tolerated. Diabetes: Recommend good control but avoid any hyper or hypoglycemia. Sleep apnea syndrome: Patient advised to bring her own CPAP machine to the hospital and use it. Discussed improvement in cardiac status with treatment of sleep apnea. Dyslipidemia: Recommend high potency statin therapy. Chronic kidney disease: Currently stable. Patient maintaining her renal function. [place] to be stage III. Chronic congestive heart failure: Patient does have some residual edema however seems fairly compensated. Continue on current medications. - Time Time Spent: 30 to 50 Minutes - CODE STATUS was discussed, patient remains full code. Surrogate decision-maker unchanged. Multiple medical problems were addressed. More than 50% of the time spent coordinating care, discussing management plans with involved caregivers. Management plans discussed with involved personnels. Medical decision making was of moderate to high complexity , patient's has multiple comorbidities. Medications reviewed and adjusted accordingly: Yes
[2017-05-22] MEDS: INSULIN LISPRO 100 UNIT/ML 3 ML VIAL SUBCUT PRN ×2 (17:37→22:42)
[2017-05-22] MEDS ORDERED: METOPROLOL SUCCINATE 25 MG TAB.SR.24H PO ONE (17:45)
[2017-05-22] MEDS ORDERED: METOPROLOL SUCCINATE 25 MG TAB.SR.24H PO SCH (22:00)
[2017-05-22] MEDS: ATORVASTATIN CALCIUM 80 MG TABLET PO SCH (22:42)
[2017-05-22] MEDS: METOPROLOL SUCCINATE 25 MG TAB.SR.24H PO SCH (22:44)
[2017-05-23] MEDS: PROMETHAZINE HCL 25 MG TABLET PO PRN ×2 (04:05→21:40)
[2017-05-23] MEDS: LEVOTHYROXINE SODIUM 0.1 MG TABLET PO SCH (05:30)
[2017-05-23] MEDS: HEPARIN SOD (PORCINE) 5,000 UNIT/ML 1 ML SYRINGE SUBCUT SCH ×3 (05:30→21:30)
[2017-05-23 06:55] LABS: ABSOLUTE BASOPHILS # (AUTO) 0.1 10^3/uL (0.0-0.2); ABSOLUTE EOSINOPHILS # (AUTO) 0.1 10^3/uL (0.0-0.6); ABSOLUTE LYMPHOCYTES (AUTO) 1.3 10^3/uL (0.5-4.7); ABSOLUTE MONOCYTES (AUTO) 0.7 10^3/uL (0.1-1.4); ABSOLUTE NEUT (AUTO) 6.4 10^3/uL (1.7-8.2); BASOPHILS % (AUTO) 0.7 % (0-2); EOSINOPHILS % (AUTO) 1.4 % (0-6); HEMATOCRIT 32.7 % (36.0-47.0); HEMOGLOBIN 10.7 g/dL (12.0-15.5); MEAN CORPUSCULAR HEMOGLOBIN 29.8 pg (27.0-33.4); MEAN CORPUSCULAR HGB CONC 32.8 g/dL (32.0-36.0); MEAN CORPUSCULAR VOLUME 91 fl (80-97); MONOCYTES % (AUTO) 8.1 % (3-13); PLATELET COUNT 208 10^3/uL (150-450); RED CELL DISTRIBUTION WIDTH 14.8 % (11.5-14.0); SEGMENTED NEUTROPHILS % (AUTO) 74.8 % (42-78); TOTAL CELLS COUNTED % (AUTO) 100 %; WHITE BLOOD COUNT 8.5 10^3/uL (4.0-10.5)
[2017-05-23 07:28] LABS: ALANINE AMINOTRANSFERASE 28 U/L (9-52); ALBUMIN 3.3 g/dL (3.5-5.0); ALKALINE PHOSPHATASE 98 U/L (38-126); ANION GAP 13 (5-19); ASPARTATE AMINO TRANSFERASE 14 U/L (14-36); BILIRUBIN,DIRECT 0.3 mg/dL (0.0-0.4); BILIRUBIN,TOTAL 0.3 mg/dL (0.2-1.3); BLOOD UREA NITROGEN 53 mg/dL (7-20); CARBON DIOXIDE 14 mmol/L (22-30); CHLORIDE 113 mmol/L (98-107); GLUCOSE 211 mg/dL (75-110); MAGNESIUM 1.4 mg/dL (1.6-2.3); POTASSIUM 5.3 mmol/L (3.6-5.0); SODIUM 139.9 mmol/L (137-145); TOTAL PROTEIN 6.3 g/dL (6.3-8.2)
[2017-05-23] MEDS: INSULIN LISPRO 100 UNIT/ML 3 ML VIAL SUBCUT PRN ×4 (07:59→21:30)
[2017-05-23] MEDS: METOPROLOL SUCCINATE 25 MG TAB.SR.24H PO SCH ×2 (10:14→21:30)
[2017-05-23] MEDS: CEFTRIAXONE 2 GM/D5W RTU 2 GM/50 ML RTUPB IV SCH (10:15)
[2017-05-23] MEDS: ASPIRIN 81 MG TABLET, CHEWABLE PO SCH (10:15)
[2017-05-23] MEDS: CLOPIDOGREL BISULFATE 75 MG TABLET PO SCH (10:15)
[2017-05-23] MEDS: RANOLAZINE 500 MG TAB.SR.12H PO SCH ×2 (10:15→21:30)
[2017-05-23] MEDS: INSULIN GLARGINE,HUM.REC.ANLOG 300 UNIT/3 ML INSULN.PEN SUBCUT SCH ×2 (10:16→21:45)
[2017-05-23] MEDS: NORMAL SALINE 1000 ML 1,000 ML IV PRN (10:16)
[2017-05-23] MEDS: DOCUSATE SODIUM 100 MG CAPSULE PO SCH ×2 (10:29→17:13)
--- NOTE | 2017-05-23 11:41 | PDOC PROGRESS REPORT ---
Subjective Progress Note for:: 05/23/17 Subjective:: Patient seems to be doing better with gradual improvement. Pt is denying any chest arm or neck discomfort. Patient denying any PND, orthopnea. Patient denied any sustained palpitations, dizziness, syncope, near syncope. Patient denying any fever chills. Patient denying any other significant discomfort. Patient is maintaining sinus rhythm. Lab review shows worsening renal functions Review of systems: Rest review of systems negative. Medications: Medications have been reviewed. Reason For Visit: SEPSIS, PYELONEPHRITIS Physical Exam Vital Signs: Temp Pulse Resp BP Pulse Ox 98.1 F 66 16 177/39 H 99 05/23/17 07:44 05/23/17 07:44 05/23/17 07:44 05/23/17 07:44 05/23/17 07:44 Intake & Output 05/22/17 05/23/17 05/24/17 06:59 06:59 06:59 Intake Total 3577 Balance 3577 Weight 120.8 kg 120.9 kg Exam: GENERAL: well-nourished and in no acute distress. Alert and oriented x3 HEAD: Atraumatic, normocephalic. EYES: Pupils equal round and reactive to light, extraocular movements intact, sclera anicteric, conjunctiva are normal. ENT: TMs normal, nares patent, oropharynx clear without exudates. Moist mucous membranes. No oral ulcerations or bleeding gums noted NECK: supple without lymphadenopathy. Trachea is central. No cervical or axillary lymphadenopathy noted. Carotids are 2+, JVD WNL LUNGS: Respiration seems nonlabored, no significant accessory muscle action noted. Breath sounds clear to auscultation bilaterally and equal noted. No wheezes rales or rhonchi noted. No significant dullness noted on percussion. CHEST: Palpation of the chest wall shows no significant chest wall tenderness. No other significant abnormalities noted. 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 ABDOMEN: Soft, no significant tenderness appreciated, normoactive bowel sounds. No guarding, no rebound. No rigidity noted . No masses appreciated. EXTREMITIES: Pedal pulses are 1-2+, no calf tenderness noted. No clubbing or cyanosis. 1+ pedal edema noted NEUROLOGICAL: Focused neurological exam showed no significant neurologic deficit. Normal speech, no focal weakness appreciated. PSYCH: Normal mood, normal affect. Judgment and insight within normal limits. SKIN: No significant ecchymosis, rash, ulcerations or signs of pruritus noted. MUSCULOSKELETAL EXAM: No significant joint swelling noted. Results Laboratory Results: 05/23/17 05:56 05/23/17 05:56 05/23/17 05/23/17 05:56 05:56 WBC 8.5 RBC 3.60 L Hgb 10.7 L Hct 32.7 L MCV 91 MCH 29.8 MCHC 32.8 RDW 14.8 H Plt Count 208 Seg Neutrophils % 74.8 Lymphocytes % 15.0 Monocytes % 8.1 Eosinophils % 1.4 Basophils % 0.7 Absolute Neutrophils 6.4 Absolute Lymphocytes 1.3 Absolute Monocytes 0.7 Absolute Eosinophils 0.1 Absolute Basophils 0.1 Sodium 139.9 Potassium 5.3 H Chloride 113 H Carbon Dioxide 14 L Anion Gap 13 BUN 53 H Creatinine 3.26 H Est GFR ( Amer) 17 L Est GFR (Non-Af Amer) 14 L Glucose 211 H Calcium 8.0 L Phosphorus 5.0 H Magnesium 1.4 L Total Bilirubin 0.3 AST 14 ALT 28 Alkaline Phosphatase 98 Total Protein 6.3 Albumin 3.3 L 05/22/17 05/22/17 05/22/17 06:50 12:55 19:00 Troponin I 0.040 0.039 0.044 EKG Comments: Telemetry strips shows sinus rhythm without any sustained tachycardia or bradycardia arrhythmias. Assessment & Plan - Diagnosis (1) Chest pain Qualifiers: Chest pain type: unspecified Qualified Code(s): R07.9 - Chest pain, unspecified Is this a current diagnosis for this admission?: Yes (2) Coronary artery disease Qualifiers: Coronary Disease-Associated Artery/Lesion type: [place] artery [place] vs. transplanted heart: [place] heart Associated angina: angina presence unspecified Qualified Code(s): I25.10 - Atherosclerotic heart disease of [place] coronary artery without angina pectoris Is this a current diagnosis for this admission?: Yes (3) Diabetes mellitus Qualifiers: Diabetes mellitus type: type 2 Diabetes mellitus complication status: with neurologic complications Diabetes mellitus complication detail: with polyneuropathy Diabetes mellitus call center receptionist insulin use: with call center receptionist use Qualified Code(s): E11.42 - Type 2 diabetes mellitus with diabetic polyneuropathy; Z79.4 - sales account manager (current) use of insulin; Z79.4 - jail ( current) use of insulin; Z79.4 - jail (current) use of insulin; Z79.4 - jail (current) use of insulin Is this a current diagnosis for this admission?: Yes (4) Hypertension Qualifiers: Hypertension type: essential hypertension Qualified Code(s): I10 - Essential (primary) hypertension Is this a current diagnosis for this admission?: Yes (5) Sleep apnea syndrome Qualifiers: Sleep apnea type: unspecified type Qualified Code(s): G47.30 - Sleep apnea , unspecified Is this a current diagnosis for this admission?: Yes (6) Hyperlipidemia Qualifiers: Hyperlipidemia type: unspecified Qualified Code(s): E78.5 - Hyperlipidemia , unspecified Is this a current diagnosis for this admission?: Yes (7) Chronic kidney disease (CKD) Qualifiers: Chronic kidney disease stage: stage 4 (severe) Qualified Code(s): N18.4 - Chronic kidney disease, stage 4 (severe) Is this a current diagnosis for this admission?: Yes (8) Chronic congestive heart failure Qualifiers: Congestive heart failure type: diastolic Qualified Code(s): I50.32 - Chronic diastolic (congestive) heart failure Is this a current diagnosis for this admission?: No - Notes Notes: Chest pain: Patient denied any recurrence. Coronary artery disease: Symptomatically stable. Diabetes: Currently running high blood sugars. Hypertension: Seems reasonably well-controlled. Sleep apnea syndrome: Patient encouraged with compliance. Chronic kidney disease: Currently stage IV. Patient does follow-up with her reweaver. Chronic congestive heart failure: Currently stable. Continue with salt restriction. Patient seems euvolemic clinically. - Time Time with patient: 15-25 minutes - CODE STATUS : was discussed, patient remains DO NOT RESUSCITATE. Surrogate decision-maker unchanged. Multiple medical problems were addressed. More than 50% of the time spent coordinating care, discussing management plans with involved caregivers. Management plans discussed with involved personnels. Medical decision making was of moderate to high complexity, patient's has multiple comorbidities. Medications reviewed and adjusted accordingly: Yes
--- NOTE | 2017-05-23 12:20 | PDOC PROGRESS REPORT ---
Subjective Progress Note for:: 05/23/17 Subjective:: The patient is a 61-year-old female with complicated comorbid medical illnesses to include hypothyroidism, insulin-dependent diabetes mellitus, COPD, myocardial infarction, GERD, congestive heart failure, hyperlipidemia, hypertension, obstructive sleep apnea on CPAP and super morbid obesity. She is currently admitted with pyelonephritis. She is receiving 2 g of Rocephin every 24 hours. She has a chronic kidney disease stage III with acute impairment. Cardiology is following. Today, she is complaining of diarrhea. Reason For Visit: SEPSIS, PYELONEPHRITIS Physical Exam Vital Signs: Temp Pulse Resp BP Pulse Ox 98.1 F 66 16 177/39 H 99 05/23/17 07:44 05/23/17 07:44 05/23/17 07:44 05/23/17 07:44 05/23/17 07:44 Intake & Output 05/22/17 05/23/17 05/24/17 06:59 06:59 06:59 Intake Total 3577 Balance 3577 Weight 120.8 kg 120.9 kg Additional comments: The patient was asleep when I entered the room. Initially, she did not wake up with name call, but, she was able to wake up with making my voice latter. When she did wake up her mentation appeared to be appropriate. She appears to be pickwickian due to her super morbid obesity. She has a lesion on her top right shoulder which appears to be secondary to scratching. It does not appear to be superinfected. Her facial appearance is noteworthy for obesity but otherwise unremarkable. Her lungs are fairly clear anteriorly. Posteriorly, she has a few scattered crackles. Her cardiac exam is distant but regular without murmurs. The abdomen is obese and difficult to examine. The lower extremities are obese but she does not have any pitting edema. Other than the top of the right shoulder there are no acute skin lesions or rashes. Results Laboratory Results: 05/23/17 05:56 05/23/17 05:56 05/23/17 05/23/17 05:56 05:56 WBC 8.5 RBC 3.60 L Hgb 10.7 L Hct 32.7 L MCV 91 MCH 29.8 MCHC 32.8 RDW 14.8 H Plt Count 208 Seg Neutrophils % 74.8 Lymphocytes % 15.0 Monocytes % 8.1 Eosinophils % 1.4 Basophils % 0.7 Absolute Neutrophils 6.4 Absolute Lymphocytes 1.3 Absolute Monocytes 0.7 Absolute Eosinophils 0.1 Absolute Basophils 0.1 Sodium 139.9 Potassium 5.3 H Chloride 113 H Carbon Dioxide 14 L Anion Gap 13 BUN 53 H Creatinine 3.26 H Est GFR ( Amer) 17 L Est GFR (Non-Af Amer) 14 L Glucose 211 H Calcium 8.0 L Phosphorus 5.0 H Magnesium 1.4 L Total Bilirubin 0.3 AST 14 ALT 28 Alkaline Phosphatase 98 Total Protein 6.3 Albumin 3.3 L 05/22/17 05/22/17 05/22/17 06:50 12:55 19:00 Troponin I 0.040 0.039 0.044 Assessment & Plan - Diagnosis (1) Nekdr-jo-gjeilkd kidney injury Qualifiers: Acute renal failure type: unspecified Chronic kidney disease stage: stage 3 (moderate) Qualified Code(s): N17.9 - Acute kidney failure, unspecified; N18.3 - Chronic kidney disease, stage 3 (moderate); N18.3 - Chronic kidney disease, stage 3 (moderate) Is this a current diagnosis for this admission?: Yes Plan: The patient appears euvolemic. She does not appear to require fluids. IV fluids have aggravated a non-anion gap metabolic acidosis. Therefore, I am stopping fluids as her creatinine continues to rise despite fluids. This is certainly worrisome. We need to involve nephrology when able. (2) Chronic congestive heart failure Qualifiers: Congestive heart failure type: diastolic Qualified Code(s): I50.32 - Chronic diastolic (congestive) heart failure Is this a current diagnosis for this admission?: Yes Plan: Being managed by cardiology. I do agree that the patient is euvolemic. (3) Pyelonephritis Is this a current diagnosis for this admission?: Yes Plan: Culture is growing gram-negative rods. I will ensure that she is on an appropriate dose of ceftriaxone. (4) Coronary artery disease Qualifiers: Coronary Disease-Associated Artery/Lesion type: [place] artery [place] vs. transplanted heart: [place] heart Associated angina: angina presence unspecified Qualified Code(s): I25.10 - Atherosclerotic heart disease of [place] coronary artery without angina pectoris Is this a current diagnosis for this admission?: Yes Plan: Stable. Continue medical management. (5) DVT prophylaxis Is this a current diagnosis for this admission?: Yes Plan: Continue subcu heparin. (6) Diabetes mellitus Qualifiers: Diabetes mellitus type: type 2 Diabetes mellitus complication status: with neurologic complications Diabetes mellitus complication detail: with polyneuropathy Diabetes mellitus replenishment buyer insulin use: with replenishment buyer use Qualified Code(s): E11.42 - Type 2 diabetes mellitus with diabetic polyneuropathy; Z79.4 - snf (current) use of insulin; Z79.4 - snf ( current) use of insulin; Z79.4 - snf (current) use of insulin; Z79.4 - prop worker (current) use of insulin Is this a current diagnosis for this admission?: Yes Plan: Continue glargine and sliding scale insulin (7) Hyperkalemia Is this a current diagnosis for this admission?: Yes Plan: Mild. Will continue to follow. Patient is not receiving JOSE RAMON inhibitors or ARBS. (8) Hypertension Qualifiers: Hypertension type: essential hypertension Qualified Code(s): I10 - Essential (primary) hypertension Is this a current diagnosis for this admission?: Yes Plan: Patient has moderate systolic HTN, but, in the setting of worsening renal failure I do not want to overtreat as hypotension will be extremely deleterious. (9) Sleep apnea syndrome Qualifiers: Sleep apnea type: unspecified type Qualified Code(s): G47.30 - Sleep apnea , unspecified Is this a current diagnosis for this admission?: Yes Plan: Continue CPAP at at bedtime. (10) CKD (chronic kidney disease) stage 3, GFR 30-59 ml/min Is this a current diagnosis for this admission?: Yes Plan: See above. (11) Hyperlipidemia Qualifiers: Hyperlipidemia type: unspecified Qualified Code(s): E78.5 - Hyperlipidemia , unspecified Is this a current diagnosis for this admission?: Yes Plan: Continue statin. (12) Hypothyroidism Qualifiers: Hypothyroidism type: postoperative Qualified Code(s): E89.0 - Postprocedural hypothyroidism Is this a current diagnosis for this admission?: Yes Plan: Continue hypothyroidism supplementation (13) Morbid obesity with BMI of 50.0-59.9, adult Is this a current diagnosis for this admission?: Yes - Time Time Spent with patient: 25-34 minutes - Inpatient Certification Medical Necessity: Significant Comorbidiites Make Outpatient Treatment Too Risky , Need Close Monitoring Due to Risk of Patient Decompensation, Need For IV Fluids, Need for IV Antibiotics
[2017-05-23] MEDS: MAGNESIUM SULFATE/D5W 1 GM/100 ML RTUPB IV SCH ×3 (12:37→18:58)
[2017-05-23] MEDS ORDERED: LOPERAMIDE HCL 2 MG CAPSULE PO PRN (17:15)
[2017-05-23] MEDS: ATORVASTATIN CALCIUM 80 MG TABLET PO SCH (21:30)
[2017-05-24 05:12] LABS: ABSOLUTE EOSINOPHILS # (AUTO) 0.2 10^3/uL (0.0-0.6); ABSOLUTE LYMPHOCYTES (AUTO) 1.4 10^3/uL (0.5-4.7); ABSOLUTE MONOCYTES (AUTO) 0.7 10^3/uL (0.1-1.4); ABSOLUTE NEUT (AUTO) 5.3 10^3/uL (1.7-8.2); BASOPHILS % (AUTO) 0.4 % (0-2); EOSINOPHILS % (AUTO) 2.7 % (0-6); HEMATOCRIT 31.7 % (36.0-47.0); HEMOGLOBIN 10.4 g/dL (12.0-15.5); MEAN CORPUSCULAR HEMOGLOBIN 29.9 pg (27.0-33.4); MEAN CORPUSCULAR HGB CONC 32.9 g/dL (32.0-36.0); MEAN CORPUSCULAR VOLUME 91 fl (80-97); PLATELET COUNT 208 10^3/uL (150-450); RED BLOOD COUNT 3.49 10^6/uL (3.72-5.28); RED CELL DISTRIBUTION WIDTH 14.8 % (11.5-14.0); SEGMENTED NEUTROPHILS % (AUTO) 69.9 % (42-78); TOTAL CELLS COUNTED % (AUTO) 100 %; WHITE BLOOD COUNT 7.6 10^3/uL (4.0-10.5)
[2017-05-24 05:41] LABS: ANION GAP 11 (5-19); BLOOD UREA NITROGEN 49 mg/dL (7-20); CALCIUM 8.5 mg/dL (8.4-10.2); CARBON DIOXIDE 16 mmol/L (22-30); CHLORIDE 117 mmol/L (98-107); GLUCOSE 116 mg/dL (75-110); MAGNESIUM 2.2 mg/dL (1.6-2.3); PHOSPHORUS 5.1 mg/dL (2.5-4.5); POTASSIUM 4.7 mmol/L (3.6-5.0)
[2017-05-24] MEDS: LEVOTHYROXINE SODIUM 0.1 MG TABLET PO SCH (06:23)
[2017-05-24] MEDS: HEPARIN SOD (PORCINE) 5,000 UNIT/ML 1 ML SYRINGE SUBCUT SCH ×3 (06:23→22:35)
[2017-05-24] MEDS: CEFTRIAXONE 1 GM/D5W RTU 1 GM/50 ML RTUPB IV SCH (10:19)
[2017-05-24] MEDS: RANOLAZINE 500 MG TAB.SR.12H PO SCH ×2 (10:19→22:36)
[2017-05-24] MEDS: CLOPIDOGREL BISULFATE 75 MG TABLET PO SCH (10:19)
[2017-05-24] MEDS: METOPROLOL SUCCINATE 25 MG TAB.SR.24H PO SCH ×2 (10:20→22:36)
[2017-05-24] MEDS: ASPIRIN 81 MG TABLET, CHEWABLE PO SCH (10:20)
[2017-05-24] MEDS: INSULIN GLARGINE,HUM.REC.ANLOG 300 UNIT/3 ML INSULN.PEN SUBCUT SCH ×2 (10:22→22:35)
[2017-05-24] MEDS: DOCUSATE SODIUM 100 MG CAPSULE PO SCH ×2 (10:23→18:26)
--- NOTE | 2017-05-24 12:50 | PDOC PROGRESS REPORT ---
Subjective Progress Note for:: 05/24/17 Subjective:: The patient is a 61-year-old female with complicated comorbid medical illnesses to include hypothyroidism, insulin-dependent diabetes mellitus, COPD, myocardial infarction, GERD, congestive heart failure, hyperlipidemia, hypertension, obstructive sleep apnea on CPAP and super morbid obesity. She is currently admitted with pyelonephritis. She was receiving 2 g of Rocephin every 24 hours. Yesterday, I decreased this to 1 g per day. She has a chronic kidney disease stage III with acute impairment. Cardiology is following. Yesterday, she is complaining of diarrhea. She was ruled out for C. difficile colitis. The diarrhea has improved significantly without any intervention. Reason For Visit: SEPSIS, PYELONEPHRITIS Physical Exam Vital Signs: Temp Pulse Resp BP Pulse Ox 98.0 F 73 18 161/73 H 100 05/24/17 12:19 05/24/17 12:19 05/24/17 12:19 05/24/17 12:19 05/24/17 12:19 Intake & Output 05/23/17 05/24/17 05/25/17 06:59 06:59 06:59 Intake Total 3577 2485 Balance 3577 2485 Weight 120.9 kg 128.1 kg Additional comments: The patient actually looks well. She is nontoxic in appearance. She does not appear to be in any distress. Her cognition and mentation are normal. Her lungs do sound diminished throughout but are clear. Her cardiac exam is very distant but appears to be regular and I do not appreciate any murmurs, gallops or rubs. The abdomen is obese but soft. Bowel sounds are present in the lower quadrants. She does not have guarding or rebound noted. The lower extremities do not demonstrate any pitting edema. The skin demonstrates a few abrasions. She also has a burn area on the left upper extremity. She also has a small lesion on the left side of her nose. She states that this was a burn from hot oil when she was cooking for [employer]. Results Laboratory Results: 05/24/17 04:40 05/24/17 04:40 05/24/17 05/24/17 04:40 04:40 WBC 7.6 RBC 3.49 L Hgb 10.4 L Hct 31.7 L MCV 91 MCH 29.9 MCHC 32.9 RDW 14.8 H Plt Count 208 Seg Neutrophils % 69.9 Lymphocytes % 18.0 Monocytes % 9.0 Eosinophils % 2.7 Basophils % 0.4 Absolute Neutrophils 5.3 Absolute Lymphocytes 1.4 Absolute Monocytes 0.7 Absolute Eosinophils 0.2 Absolute Basophils 0.0 Sodium 144.0 Potassium 4.7 Chloride 117 H Carbon Dioxide 16 L Anion Gap 11 BUN 49 H Creatinine 3.25 H Est GFR ( Amer) 17 L Est GFR (Non-Af Amer) 14 L Glucose 116 H Calcium 8.5 Phosphorus 5.1 H Magnesium 2.2 05/22/17 05/22/17 05/22/17 06:50 12:55 19:00 Troponin I 0.040 0.039 0.044 Assessment & Plan - Diagnosis (1) Gxgop-kh-hlpwldp kidney injury Qualifiers: Acute renal failure type: unspecified Chronic kidney disease stage: stage 3 (moderate) Qualified Code(s): N17.9 - Acute kidney failure, unspecified; N18.3 - Chronic kidney disease, stage 3 (moderate); N18.3 - Chronic kidney disease, stage 3 (moderate) Is this a current diagnosis for this admission?: Yes Plan: The patient appears euvolemic. She does not appear to require fluids. IV fluids have aggravated a non-anion gap metabolic acidosis. Therefore, I stopped fluids yesterday as her creatinine continued to rise despite fluids. This is certainly worrisome. We need to involve nephrology when able. (2) Chronic congestive heart failure Qualifiers: Congestive heart failure type: diastolic Qualified Code(s): I50.32 - Chronic diastolic (congestive) heart failure Is this a current diagnosis for this admission?: Yes Plan: Being managed by cardiology. I do agree that the patient is euvolemic. (3) Pyelonephritis Is this a current diagnosis for this admission?: Yes Plan: The culture is growing E. coli. Yesterday, I decreased the dose of ceftriaxone. I do not see that an imaging study has been done. I will order a renal us (clarence in setting of renal failure). (4) Coronary artery disease Qualifiers: Coronary Disease-Associated Artery/Lesion type: [place] artery [place] vs. transplanted heart: [place] heart Associated angina: angina presence unspecified Qualified Code(s): I25.10 - Atherosclerotic heart disease of [place] coronary artery without angina pectoris Is this a current diagnosis for this admission?: Yes Plan: Stable. Continue medical management. (5) DVT prophylaxis Is this a current diagnosis for this admission?: Yes Plan: Continue subcu heparin. (6) Diabetes mellitus Qualifiers: Diabetes mellitus type: type 2 Diabetes mellitus complication status: with neurologic complications Diabetes mellitus complication detail: with polyneuropathy Diabetes mellitus mcc insulin use: with vermin exterminator use Qualified Code(s): E11.42 - Type 2 diabetes mellitus with diabetic polyneuropathy; Z79.4 - termite control representative (current) use of insulin; Z79.4 - [facility] ( current) use of insulin; Z79.4 - [facility] (current) use of insulin; Z79.4 - termite control representative (current) use of insulin Is this a current diagnosis for this admission?: Yes Plan: Continue glargine and sliding scale insulin (7) Hyperkalemia Is this a current diagnosis for this admission?: Yes Plan: Normal today. Will continue to follow. Patient is not receiving JOSE RAMON inhibitors or ARBS. (8) Hypertension Qualifiers: Hypertension type: essential hypertension Qualified Code(s): I10 - Essential (primary) hypertension Is this a current diagnosis for this admission?: Yes Plan: Patient has moderate systolic HTN, but, in the setting of worsening renal failure I do not want to overtreat as hypotension will be extremely deleterious. (9) Sleep apnea syndrome Qualifiers: Sleep apnea type: unspecified type Qualified Code(s): G47.30 - Sleep apnea , unspecified Is this a current diagnosis for this admission?: Yes Plan: Continue CPAP at at bedtime. (10) CKD (chronic kidney disease) stage 3, GFR 30-59 ml/min Is this a current diagnosis for this admission?: Yes Plan: See above. (11) Hyperlipidemia Qualifiers: Hyperlipidemia type: unspecified Qualified Code(s): E78.5 - Hyperlipidemia , unspecified Is this a current diagnosis for this admission?: Yes Plan: Continue statin. (12) Hypothyroidism Qualifiers: Hypothyroidism type: postoperative Qualified Code(s): E89.0 - Postprocedural hypothyroidism Is this a current diagnosis for this admission?: Yes Plan: Continue hypothyroidism supplementation (13) Morbid obesity with BMI of 50.0-59.9, adult Is this a current diagnosis for this admission?: Yes - Time Time Spent with patient: 25-34 minutes - Inpatient Certification Medical Necessity: Significant Comorbidiites Make Outpatient Treatment Too Risky , Need Close Monitoring Due to Risk of Patient Decompensation, Need for IV Antibiotics
--- NOTE | 2017-05-24 14:37 | PDOC PROGRESS REPORT ---
Subjective Progress Note for:: 05/24/17 Subjective:: Patient seems to be doing better with gradual improvement. Pt is denying any chest arm or neck discomfort. Patient denying any PND, orthopnea. Patient denied any sustained palpitations, dizziness, syncope, near syncope. Patient denying any fever chills. Patient denying any other significant discomfort. Patient is maintaining sinus rhythm. Patient claims to have had some diarrhea yesterday. Review of systems: Rest review of systems negative. Medications: Medications have been reviewed. Reason For Visit: SEPSIS, PYELONEPHRITIS Physical Exam Vital Signs: Temp Pulse Resp BP Pulse Ox 98.0 F 73 18 161/73 H 100 05/24/17 12:19 05/24/17 12:19 05/24/17 12:19 05/24/17 12:19 05/24/17 12:19 Intake & Output 05/23/17 05/24/17 05/25/17 06:59 06:59 06:59 Intake Total 3577 2485 Balance 3577 2485 Weight 120.9 kg 128.1 kg Exam: GENERAL: well-nourished and in no acute distress. Alert and oriented x3 HEAD: Atraumatic, normocephalic. EYES: Pupils equal round and reactive to light, extraocular movements intact, sclera anicteric, conjunctiva are normal. ENT: TMs normal, nares patent, oropharynx clear without exudates. Moist mucous membranes. No oral ulcerations or bleeding gums noted NECK: supple without lymphadenopathy. Trachea is central. No cervical or axillary lymphadenopathy noted. Carotids are 2+, JVD WNL LUNGS: Respiration seems nonlabored, no significant accessory muscle action noted. Breath sounds clear to auscultation bilaterally and equal noted. No wheezes rales or rhonchi noted. No significant dullness noted on percussion. CHEST: Palpation of the chest wall shows no significant chest wall tenderness. No other significant abnormalities noted. HEART: [place] MACHINE STAMPER, No PSH, 1/6 [place] aortic area, 1/6 quin[place] systolic murmur mitral area, no rubs, no gallops. ABDOMEN: Soft, no significant tenderness appreciated, normoactive bowel sounds. No guarding, no rebound. No rigidity noted . No masses appreciated. EXTREMITIES: Pedal pulses are 1-2+, no calf tenderness noted. No clubbing or cyanosis. 1+ pedal edema noted NEUROLOGICAL: Focused neurological exam showed no significant neurologic deficit. Normal speech, no focal weakness appreciated. PSYCH: Normal mood, normal affect. Judgment and insight within normal limits. SKIN: No significant ecchymosis, rash, ulcerations or signs of pruritus noted. MUSCULOSKELETAL EXAM: No significant joint swelling noted. Results Laboratory Results: 05/24/17 04:40 05/24/17 04:40 05/24/17 05/24/17 04:40 04:40 WBC 7.6 RBC 3.49 L Hgb 10.4 L Hct 31.7 L MCV 91 MCH 29.9 MCHC 32.9 RDW 14.8 H Plt Count 208 Seg Neutrophils % 69.9 Lymphocytes % 18.0 Monocytes % 9.0 Eosinophils % 2.7 Basophils % 0.4 Absolute Neutrophils 5.3 Absolute Lymphocytes 1.4 Absolute Monocytes 0.7 Absolute Eosinophils 0.2 Absolute Basophils 0.0 Sodium 144.0 Potassium 4.7 Chloride 117 H Carbon Dioxide 16 L Anion Gap 11 BUN 49 H Creatinine 3.25 H Est GFR ( Amer) 17 L Est GFR (Non-Af Amer) 14 L Glucose 116 H Calcium 8.5 Phosphorus 5.1 H Magnesium 2.2 05/22/17 05/22/17 05/22/17 06:50 12:55 19:00 Troponin I 0.040 0.039 0.044 EKG Comments: Telemetry strips shows sinus rhythm without any sustained tacky or bradycardia arrhythmias. Assessment & Plan - Diagnosis (1) Chest pain Qualifiers: Chest pain type: unspecified Qualified Code(s): R07.9 - Chest pain, unspecified Is this a current diagnosis for this admission?: Yes (2) Coronary artery disease Qualifiers: Coronary Disease-Associated Artery/Lesion type: [place] artery [place] vs. transplanted heart: [place] heart Associated angina: angina presence unspecified Qualified Code(s): I25.10 - Atherosclerotic heart disease of [place] coronary artery without angina pectoris Is this a current diagnosis for this admission?: Yes (3) Diabetes mellitus Qualifiers: Diabetes mellitus type: type 2 Diabetes mellitus complication status: with neurologic complications Diabetes mellitus complication detail: with polyneuropathy Diabetes mellitus marine oil terminal superintendent insulin use: with residential use Qualified Code(s): E11.42 - Type 2 diabetes mellitus with diabetic polyneuropathy; Z79.4 - group home (current) use of insulin; Z79.4 - group home ( current) use of insulin; Z79.4 - terminologist (current) use of insulin; Z79.4 - terminologist (current) use of insulin Is this a current diagnosis for this admission?: Yes (4) Hypertension Qualifiers: Hypertension type: essential hypertension Qualified Code(s): I10 - Essential (primary) hypertension Is this a current diagnosis for this admission?: Yes (5) Sleep apnea syndrome Qualifiers: Sleep apnea type: unspecified type Qualified Code(s): G47.30 - Sleep apnea , unspecified Is this a current diagnosis for this admission?: Yes (6) Hyperlipidemia Qualifiers: Hyperlipidemia type: unspecified Qualified Code(s): E78.5 - Hyperlipidemia , unspecified Is this a current diagnosis for this admission?: Yes (7) Chronic kidney disease (CKD) Qualifiers: Chronic kidney disease stage: stage 4 (severe) Qualified Code(s): N18.4 - Chronic kidney disease, stage 4 (severe) Is this a current diagnosis for this admission?: Yes (8) Chronic congestive heart failure Qualifiers: Congestive heart failure type: diastolic Qualified Code(s): I50.32 - Chronic diastolic (congestive) heart failure Is this a current diagnosis for this admission?: Yes - Notes Notes: Chest pain: Patient denied any recurrence. Coronary artery disease: Symptomatically stable. Diabetes: Currently under reasonable control. Hypertension: Seems reasonably well-controlled. Sleep apnea syndrome: Patient encouraged with compliance. Patient today has her own CPAP machine. Chronic kidney disease: Currently stage IV. Patient does follow-up with her graphite mill operator. Labs reviewed. Renal functions have stabilized. Chronic congestive heart failure: Currently stable. Continue with salt restriction. Patient seems euvolemic clinically. Continue current antibiotic therapy. - Time Time with patient: 15-25 minutes - CODE STATUS : was discussed, patient remains DO NOT RESUSCITATE. Surrogate decision-maker unchanged. Multiple medical problems were addressed. More than 50% of the time spent coordinating care, discussing management plans with involved caregivers. Management plans discussed with involved personnels. Medical decision making was of moderate to high complexity, patient's has multiple comorbidities. Medications reviewed and adjusted accordingly: Yes
--- NOTE | 2017-05-24 16:46 | RADIOLOGY REPORT (SQ) ---
EXAM DESCRIPTION: [facility] COMPLETED DATE/TIME: 05/24/2017 4:10 pm REASON FOR STUDY: Pyelonephritis and acute on chronic renal failure COMPARISON: CT 2016. TECHNIQUE: Dynamic and static grayscale images acquired of the kidneys and bladder and recorded on P ACS. Additional selected color Doppler and spectral images recorded. LIMITATIONS: This study is significantly compromised by body habitus and difficulty penetrating the soft tissues to visualize the kidneys. FINDINGS: RIGHT KIDNEY: 13.9 cm, grossly normal size. Limited assessment for mass or stones, but no suggestion of overt hydronephrosis. LEFT KIDNEY: Not visualized as a discrete structure. Regional obscuring bowel gas and soft tissues. BLADDER: Relatively decompressed and difficult to further evaluate. OTHER FINDINGS: No other significant finding. IMPRESSION: Extremely limited study. No evidence of right urinary obstruction. Left kidney not vis ualized and bladder poorly assessed. TECHNICAL DOCUMENTATION: JOB ID: [id number] [employer]- All Rights Reserved
[2017-05-24] MEDS: LACTOBACILLUS ACIDOPHILUS 250 MG TAB PO SCH (18:25)
[2017-05-24] MEDS: INSULIN LISPRO 100 UNIT/ML 3 ML VIAL SUBCUT PRN (22:35)
[2017-05-24] MEDS: ATORVASTATIN CALCIUM 80 MG TABLET PO SCH (22:36)
[2017-05-25] MEDS: PROMETHAZINE HCL 25 MG TABLET PO PRN (02:51)
[2017-05-25] MEDS: HEPARIN SOD (PORCINE) 5,000 UNIT/ML 1 ML SYRINGE SUBCUT SCH ×3 (06:22→21:12)
[2017-05-25] MEDS: LEVOTHYROXINE SODIUM 0.1 MG TABLET PO SCH (06:23)
[2017-05-25 06:37] LABS: ANION GAP 13 (5-19); BLOOD UREA NITROGEN 44 mg/dL (7-20); CALCIUM 9.1 mg/dL (8.4-10.2); CARBON DIOXIDE 16 mmol/L (22-30); CHLORIDE 112 mmol/L (98-107); GLUCOSE 140 mg/dL (75-110); POTASSIUM 5.1 mmol/L (3.6-5.0); SODIUM 140.8 mmol/L (137-145)
[2017-05-25] MEDS: ASPIRIN 81 MG TABLET, CHEWABLE PO SCH (10:19)
[2017-05-25] MEDS: CLOPIDOGREL BISULFATE 75 MG TABLET PO SCH (10:19)
[2017-05-25] MEDS: RANOLAZINE 500 MG TAB.SR.12H PO SCH ×2 (10:19→21:12)
[2017-05-25] MEDS: METOPROLOL SUCCINATE 25 MG TAB.SR.24H PO SCH ×2 (10:20→21:12)
[2017-05-25] MEDS: LACTOBACILLUS ACIDOPHILUS 250 MG TAB PO SCH ×2 (10:20→17:34)
[2017-05-25] MEDS: CEFTRIAXONE 1 GM/D5W RTU 1 GM/50 ML RTUPB IV SCH (10:21)
[2017-05-25] MEDS: INSULIN GLARGINE,HUM.REC.ANLOG 300 UNIT/3 ML INSULN.PEN SUBCUT SCH ×2 (10:22→21:14)
[2017-05-25] MEDS: DOCUSATE SODIUM 100 MG CAPSULE PO SCH ×2 (10:23→17:35)
[2017-05-25] MEDS: INSULIN LISPRO 100 UNIT/ML 3 ML VIAL SUBCUT PRN ×2 (17:34→21:23)
--- NOTE | 2017-05-25 17:36 | PDOC PROGRESS REPORT ---
Subjective Progress Note for:: 05/25/17 Subjective:: The patient is a 61-year-old female with complicated comorbid medical illnesses to include hypothyroidism, insulin-dependent diabetes mellitus, COPD, myocardial infarction, GERD, congestive heart failure, hyperlipidemia, hypertension, obstructive sleep apnea on CPAP and super morbid obesity. She is currently admitted with pyelonephritis. She was receiving 2 g of Rocephin every 24 hours. 05/23/17, I decreased this to 1 g per day. She has a chronic kidney disease stage III with acute impairment. Cardiology is following. 05/23 diarrhea began. She was ruled out for C. difficile colitis. The diarrhea has improved significantly without any intervention. Reason For Visit: SEPSIS, PYELONEPHRITIS Physical Exam Vital Signs: Temp Pulse Resp BP Pulse Ox 97.5 F 69 20 186/47 H 97 05/25/17 15:43 05/25/17 15:43 05/25/17 15:43 05/25/17 15:43 05/25/17 15:43 Intake & Output 05/24/17 05/25/17 05/26/17 06:59 06:59 06:59 Intake Total 2485 2007 Balance 2485 2007 Weight 128.1 kg 123.4 kg Additional comments: The patient was in good spirits this morning. Her cognition and mentation are appropriate. Her lungs are clear to auscultation bilaterally. Her cardiac exam demonstrates a regular rate and rhythm without murmurs, gallops or rubs. The abdomen is obese but soft. She does not have any guarding or rebound or hernias or masses. The lower extremities demonstrate 1+ edema. The skin is otherwise warm, dry and intact without lesions or rashes. Results Laboratory Results: 05/24/17 04:40 05/25/17 05:21 05/25/17 05:21 Sodium 140.8 Potassium 5.1 H Chloride 112 H Carbon Dioxide 16 L Anion Gap 13 BUN 44 H Creatinine 3.09 H Est GFR ( Amer) 18 L Est GFR (Non-Af Amer) 15 L Glucose 140 H Calcium 9.1 Magnesium 2.0 05/22/17 05/22/17 05/22/17 06:50 12:55 19:00 Troponin I 0.040 0.039 0.044 Impressions: Renal Ultrasound 05/24/17 00:00 IMPRESSION: Extremely limited study. No evidence of right urinary obstruction. Left kidney not visualized and bladder poorly assessed. Assessment & Plan - Diagnosis (1) Qrmbz-dx-alujdcz kidney injury Qualifiers: Acute renal failure type: unspecified Chronic kidney disease stage: stage 3 (moderate) Qualified Code(s): N17.9 - Acute kidney failure, unspecified; N18.3 - Chronic kidney disease, stage 3 (moderate); N18.3 - Chronic kidney disease, stage 3 (moderate) Is this a current diagnosis for this admission?: Yes Plan: The patient appears euvolemic. She does not appear to require fluids. IV fluids have aggravated a non-anion gap metabolic acidosis. Therefore, I stopped fluids 2 days as her creatinine continued to rise despite fluids. This is certainly worrisome. We need to involve nephrology when able. (2) Chronic congestive heart failure Qualifiers: Congestive heart failure type: diastolic Qualified Code(s): I50.32 - Chronic diastolic (congestive) heart failure Is this a current diagnosis for this admission?: Yes Plan: Being managed by cardiology. I do agree that the patient is euvolemic. (3) Pyelonephritis Is this a current diagnosis for this admission?: Yes Plan: The culture is growing E. coli. Renal ultrasound was done yesterday. This was a poor study but did not demonstrate any obvious obstruction or reason for pyelonephritis. The patient is on ceftriaxone. (4) Coronary artery disease Qualifiers: Coronary Disease-Associated Artery/Lesion type: [place] artery [place] vs. transplanted heart: [place] heart Associated angina: angina presence unspecified Qualified Code(s): I25.10 - Atherosclerotic heart disease of [place] coronary artery without angina pectoris Is this a current diagnosis for this admission?: Yes Plan: Stable. Continue medical management. Input from cardiology is appreciated. (5) DVT prophylaxis Is this a current diagnosis for this admission?: Yes Plan: Continue subcu heparin. (6) Diabetes mellitus Qualifiers: Diabetes mellitus type: type 2 Diabetes mellitus complication status: with neurologic complications Diabetes mellitus complication detail: with polyneuropathy Diabetes mellitus intermodal truck driver insulin use: with intermodal truck driver use Qualified Code(s): E11.42 - Type 2 diabetes mellitus with diabetic polyneuropathy; Z79.4 - ferry terminal supervisor (current) use of insulin; Z79.4 - ferry terminal supervisor ( current) use of insulin; Z79.4 - ferry terminal supervisor (current) use of insulin; Z79.4 - ferry terminal supervisor (current) use of insulin Is this a current diagnosis for this admission?: Yes Plan: Continue glargine and sliding scale insulin (7) Hyperkalemia Is this a current diagnosis for this admission?: Yes Plan: Mildly elevated. Will continue to follow. Patient is not receiving JOSE RAMON inhibitors or ARBS. (8) Hypertension Qualifiers: Hypertension type: essential hypertension Qualified Code(s): I10 - Essential (primary) hypertension Is this a current diagnosis for this admission?: Yes Plan: Patient has moderate systolic HTN, but, in the setting of worsening renal failure I do not want to overtreat as hypotension will be extremely deleterious. (9) Sleep apnea syndrome Qualifiers: Sleep apnea type: unspecified type Qualified Code(s): G47.30 - Sleep apnea , unspecified Is this a current diagnosis for this admission?: Yes Plan: Continue CPAP at at bedtime. (10) CKD (chronic kidney disease) stage 3, GFR 30-59 ml/min Is this a current diagnosis for this admission?: Yes Plan: See above. (11) Hyperlipidemia Qualifiers: Hyperlipidemia type: unspecified Qualified Code(s): E78.5 - Hyperlipidemia , unspecified Is this a current diagnosis for this admission?: Yes Plan: Continue statin. (12) Hypothyroidism Qualifiers: Hypothyroidism type: postoperative Qualified Code(s): E89.0 - Postprocedural hypothyroidism Is this a current diagnosis for this admission?: Yes Plan: Continue hypothyroidism supplementation (13) Morbid obesity with BMI of 50.0-59.9, adult Is this a current diagnosis for this admission?: Yes - Time Time Spent with patient: 15-24 minutes - Inpatient Certification Medical Necessity: Need for IV Antibiotics
[2017-05-25] MEDS: ATORVASTATIN CALCIUM 80 MG TABLET PO SCH (21:11)
--- NOTE | 2017-05-25 21:18 | PDOC PROGRESS REPORT ---
Subjective Progress Note for:: 05/25/17 Subjective:: Patient seems to be doing better with gradual improvement. Pt is denying any chest arm or neck discomfort. Patient denying any PND, orthopnea. Patient denied any sustained palpitations, dizziness, syncope, near syncope. Patient denying any fever chills. Patient denying any other significant discomfort. Patient claims diarrhea has resolved. Patient is maintaining sinus rhythm. Review of systems: Rest review of systems negative. Medications: Medications have been reviewed. Reason For Visit: SEPSIS, PYELONEPHRITIS Physical Exam Vital Signs: Temp Pulse Resp BP Pulse Ox 97.5 F 69 20 186/47 H 97 05/25/17 15:43 05/25/17 15:43 05/25/17 15:43 05/25/17 15:43 05/25/17 15:43 Intake & Output 05/24/17 05/25/17 05/26/17 06:59 06:59 06:59 Intake Total 2485 2007 111 Balance 2485 2007 111 Weight 128.1 kg 123.4 kg Exam: GENERAL: well-nourished and in no acute distress. Alert and oriented x3 HEAD: Atraumatic, normocephalic. EYES: Pupils equal round and reactive to light, extraocular movements intact, sclera anicteric, conjunctiva are normal. ENT: TMs normal, nares patent, oropharynx clear without exudates. Moist mucous membranes. No oral ulcerations or bleeding gums noted NECK: supple without lymphadenopathy. Trachea is central. No cervical or axillary lymphadenopathy noted. Carotids are 2+, JVD WNL LUNGS: Respiration seems nonlabored, no significant accessory muscle action noted. Breath sounds clear to auscultation bilaterally and equal noted. No wheezes rales or rhonchi noted. No significant dullness noted on percussion. CHEST: Palpation of the chest wall shows no significant chest wall tenderness. No other significant abnormalities noted. HEART: Andreas HOUSING INSPECTORS, No PSH, 1/6 [place] aortic area, 1/6 quinones systolic murmur mitral area, no rubs, no gallops. ABDOMEN: Soft, no significant tenderness appreciated, normoactive bowel sounds. No guarding, no rebound. No rigidity noted . No masses appreciated. EXTREMITIES: Pedal pulses are 1-2+, no calf tenderness noted. No clubbing or cyanosis. 1+ pedal edema noted NEUROLOGICAL: Focused neurological exam showed no significant neurologic deficit. Normal speech, no focal weakness appreciated. PSYCH: Normal mood, normal affect. Judgment and insight within normal limits. SKIN: No significant ecchymosis, rash, ulcerations or signs of pruritus noted. MUSCULOSKELETAL EXAM: No significant joint swelling noted. Results Laboratory Results: 05/24/17 04:40 05/25/17 05:21 05/25/17 05:21 Sodium 140.8 Potassium 5.1 H Chloride 112 H Carbon Dioxide 16 L Anion Gap 13 BUN 44 H Creatinine 3.09 H Est GFR ( Amer) 18 L Est GFR (Non-Af Amer) 15 L Glucose 140 H Calcium 9.1 Magnesium 2.0 05/22/17 05/22/17 05/22/17 06:50 12:55 19:00 Troponin I 0.040 0.039 0.044 EKG Comments: Telemetry strip shows sinus rhythm without any sustained tacky or bradyarrhythmias. Impressions: Renal Ultrasound 05/24/17 00:00 IMPRESSION: Extremely limited study. No evidence of right urinary obstruction. Left kidney not visualized and bladder poorly assessed. Assessment & Plan - Diagnosis (1) Chest pain Qualifiers: Chest pain type: unspecified Qualified Code(s): R07.9 - Chest pain, unspecified Is this a current diagnosis for this admission?: Yes (2) Coronary artery disease Qualifiers: Coronary Disease-Associated Artery/Lesion type: [place] artery [place] vs. transplanted heart: [place] heart Associated angina: angina presence unspecified Qualified Code(s): I25.10 - Atherosclerotic heart disease of [place] coronary artery without angina pectoris Is this a current diagnosis for this admission?: Yes (3) Diabetes mellitus Qualifiers: Diabetes mellitus type: type 2 Diabetes mellitus complication status: with neurologic complications Diabetes mellitus complication detail: with polyneuropathy Diabetes mellitus penitentiary insulin use: with penitentiary use Qualified Code(s): E11.42 - Type 2 diabetes mellitus with diabetic polyneuropathy; Z79.4 - skilled nursing (current) use of insulin; Z79.4 - assistant terminal manager ( current) use of insulin; Z79.4 - skilled nursing (current) use of insulin; Z79.4 - assistant terminal manager (current) use of insulin Is this a current diagnosis for this admission?: Yes (4) Hypertension Qualifiers: Hypertension type: essential hypertension Qualified Code(s): I10 - Essential (primary) hypertension Is this a current diagnosis for this admission?: Yes (5) Sleep apnea syndrome Qualifiers: Sleep apnea type: unspecified type Qualified Code(s): G47.30 - Sleep apnea , unspecified Is this a current diagnosis for this admission?: Yes (6) Hyperlipidemia Qualifiers: Hyperlipidemia type: unspecified Qualified Code(s): E78.5 - Hyperlipidemia , unspecified Is this a current diagnosis for this admission?: Yes (7) Chronic kidney disease (CKD) Qualifiers: Chronic kidney disease stage: stage 4 (severe) Qualified Code(s): N18.4 - Chronic kidney disease, stage 4 (severe) Is this a current diagnosis for this admission?: Yes (8) Chronic congestive heart failure Qualifiers: Congestive heart failure type: diastolic Qualified Code(s): I50.32 - Chronic diastolic (congestive) heart failure Is this a current diagnosis for this admission?: Yes - Notes Notes: Chest pain: Patient describes history of chronic chest pain. Cardiac enzymes are negative. Currently chest pain-free. Patient has significant comorbid diagnosis including significant renal failure. Ischemia workup is not being planned at this time unless patient continues with recurrent chest pain. Patient has been chest pain-free for several days. Coronary artery disease: Currently is stable. Will continue to observe very closely. Continue current regimen., Continue home medication as patient's regimen was satisfactory.. Diabetes: Recommend good control but avoid any hyper or hypoglycemia. Sleep apnea syndrome: Patient advised compliance with CPAP therapy.. Discussed improvement in cardiac status with treatment of sleep apnea. Dyslipidemia: Recommend high potency statin therapy. Chronic kidney disease: Currently stable. Patient maintaining her renal function. [place] to be a stage IV. Patient being monitored by ornamenter. Chronic congestive heart failure: Patient does have some residual edema however seems fairly compensated. Continue on current medications. Patient has been stable from cardiac standpoint for several days. Will therefore sign off. Please reconsult if needed. - Time Time with patient: 15-25 minutes - CODE STATUS was discussed, patient remains DNR. Surrogate decision-maker unchanged. Multiple medical problems were addressed. More than 50% of the time spent coordinating care, discussing management plans with involved caregivers. Management plans discussed with involved personnels. Medical decision making was of moderate to high complexity , patient's has multiple comorbidities. Medications reviewed and adjusted accordingly: Yes
[2017-05-26] MEDS: LEVOTHYROXINE SODIUM 0.1 MG TABLET PO SCH (05:37)
[2017-05-26] MEDS: HEPARIN SOD (PORCINE) 5,000 UNIT/ML 1 ML SYRINGE SUBCUT SCH (05:38)
[2017-05-26 07:06] LABS: ANION GAP 12 (5-19); BLOOD UREA NITROGEN 44 mg/dL (7-20); CALCIUM 8.7 mg/dL (8.4-10.2); CARBON DIOXIDE 18 mmol/L (22-30); CHLORIDE 112 mmol/L (98-107); GLUCOSE 131 mg/dL (75-110); SODIUM 141.9 mmol/L (137-145)
[2017-05-26 09:35] VITALS: BP 187/51
[2017-05-26] MEDS: LACTOBACILLUS ACIDOPHILUS 250 MG TAB PO SCH (09:45)
[2017-05-26] MEDS: ASPIRIN 81 MG TABLET, CHEWABLE PO SCH (09:45)
[2017-05-26] MEDS: RANOLAZINE 500 MG TAB.SR.12H PO SCH (09:45)
[2017-05-26] MEDS: METOPROLOL SUCCINATE 25 MG TAB.SR.24H PO SCH (09:46)
[2017-05-26] MEDS: CLOPIDOGREL BISULFATE 75 MG TABLET PO SCH (09:46)
[2017-05-26] MEDS: INSULIN GLARGINE,HUM.REC.ANLOG 300 UNIT/3 ML INSULN.PEN SUBCUT SCH (09:49)
[2017-05-26] MEDS: CEFTRIAXONE 1 GM/D5W RTU 1 GM/50 ML RTUPB IV SCH (09:50)
[2017-05-26] MEDS: DOCUSATE SODIUM 100 MG CAPSULE PO SCH (09:50)
--- NOTE | 2017-05-26 10:07 | RADIOLOGY REPORT (SQ) ---
EXAM DESCRIPTION: CT LTD RENAL STONE PROTOCOL ON CLINICAL HISTORY: 61 years Female, pyelo CKD COMPARISON: 11/03/2015, report only. TECHNIQUE: No contrast. This exam was performed according to our departmental dose-optimization program, which includes automated exposure control, adjustment of the mA and/or kV according to patient size and/or use of iterative reconstruction technique. Limitation: As below. FINDINGS: No acute findings. No significant free fluid. No hydronephrosis or hydroureter. No evidence of appendicitis. 5.9 cm right adrenal lesion with fat and calcific components consistent with adrenal myolipoma as also described on prior CT, 11/03/2015. Cholecystectomy clips and small intrabiliary gas. Moderate malrotation of the right kidney. Mild bilateral perinephric fat stranding. Protuberant abdomen is partially clipped off the image anteriorly. Atherosclerosis. Moderate vacuum disc desiccation. Small coronary arterial calcification. Subcentimeter bilateral lower lobar calcified granulomata. Unenhanced inferior chest, intra-abdominal/intrapelvic structures, and musculoskeleton appear otherwise grossly intact. IMPRESSION: No acute findings. 5.9 cm right adrenal myelolipoma.
--- NOTE | 2017-05-26 10:46 | PDOC DISCHARGE SUMMARY ---
General - Admit/Disc Date/PCP Admission Date/Primary Care Provider: 05/22/17 02:27 MATIAS SOLIZ MD Discharge Date: 05/26/17 - Discharge Diagnosis (1) Yzqql-cy-frombgs kidney injury Is this a current diagnosis for this admission?: Yes (2) Chronic kidney disease (CKD) Is this a current diagnosis for this admission?: Yes (3) Pyelonephritis Is this a current diagnosis for this admission?: Yes (4) Sleep apnea syndrome Is this a current diagnosis for this admission?: Yes (5) Chronic congestive heart failure Is this a current diagnosis for this admission?: Yes (6) Hyperlipidemia Is this a current diagnosis for this admission?: Yes - Additional Information Resuscitation Status: Do Not Resuscitate Home Medications: Aspirin [Ecotrin 325 mg EC Tablet] 325 mg PO QAM 05/22/17 Atorvastatin Calcium [Lipitor 80 mg Tablet] 80 mg PO QHS 05/22/17 Bupropion HCl [Wellbutrin Xl 150 mg 24hr Tablet] 150 mg PO DAILY 05/22/17 Clopidogrel Bisulfate [Plavix 75 mg Tablet] 75 mg PO DAILY 05/22/17 Ezetimibe [Zetia 10 mg Tablet] 10 mg PO DAILY 05/22/17 Fluticasone/Vilanterol [Breo Ellipta 100-25 Mcg INH] 1 puff IH DAILY 05/22/17 Furosemide [Lasix 40 mg Tablet] 40 mg PO Q48H 05/22/17 Insulin Aspart [Novolog Insulin (Aspart) 100 unit/mL] 0 units SQ .PERSLIDINGSCALE 05/22/17 Insulin Glargine,Hum.rec.anlog [Lantus Solostar] 26 units SQ BID 05/22/17 Isosorbide Mononitrate [Isosorbide Mononitrate ER] 120 mg PO DAILY 05/22/17 Levothyroxine Sodium [Synthroid] 300 mcg PO QAM 05/22/17 Metoprolol Succinate [Toprol XL 100 mg Tablet] 100 mg PO BID 05/22/17 Nitroglycerin [Nitrostat] 0.4 mg SL Q5MP PRN 05/22/17 Omeprazole 20 mg PO QPM 05/22/17 Ranolazine [Ranexa 500 mg Tab.sr] 500 mg PO Q12 05/22/17 History of Present Illness History of Present Illness: KARINA ROGERS is a 61 year old female with past medical history of hypothyroidism, insulin dependent diabetes mellitus, COPD, myocardial infarction , GERD, congestive heart failure, hyperlipidemia, hypertension, obstructive sleep apnea on CPAP, 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 Patient reported that beginning yesterday she began having nausea and vomiting. She also complains of right-sided back pain. Patient reports chills. She reports some intermittent chest pain and shortness of breath but she reports these are no worse than normal. Patient does report diarrhea without hematochezia or melena. She denies going outside of the country or eating raw or undercooked meat. Patient is found to have significant urinary tract infection associated with right-sided back pain likely pyelonephritis with sepsis. Hospital Course Hospital Course: (1) Sivva-nl-npszzmr kidney injury Qualifiers: Acute renal failure type: unspecified Chronic kidney disease stage: stage 3 (moderate) Qualified Code(s): N17.9 - Acute kidney failure, unspecified; N18.3 - Chronic kidney disease, stage 3 (moderate); N18.3 - Chronic kidney disease, stage 3 (moderate) Is this a current diagnosis for this admission?: Yes Plan: Baseline creatinine is 2.7; creatinine is now 3.3 did not improve with hydration Creatinine likely to be secondary to uncontrolled hypertension patient is not on any nephrotoxic medications We will prescribe Norvasc to control the blood pressure and referred the patient to Dr. Zhu in a week with a repeat BMP There no evidence of post obstructive uropathy. (2) Chronic congestive heart failure Qualifiers: Congestive heart failure type: diastolic Qualified Code(s): I50.32 - Chronic diastolic (congestive) heart failure Is this a current diagnosis for this admission?: Yes Plan: Being managed by cardiology. I do agree that the patient is euvolemic. (3) Pyelonephritis Is this a current diagnosis for this admission?: Yes Plan: CT abdomen and pelvis showed no evidence of post obstructive uropathy; for 10 days patient will be discharged on Keflex p.o. (4) Coronary artery disease Qualifiers: Coronary Disease-Associated Artery/Lesion type: [place] artery [place] vs. transplanted heart: [place] heart Associated angina: angina presence unspecified Qualified Code(s): I25.10 - Atherosclerotic heart disease of [place] coronary artery without angina pectoris Is this a current diagnosis for this admission?: Yes Plan: Stable. Continue medical management. (5) DVT prophylaxis Is this a current diagnosis for this admission?: Yes Plan: Patient received subcu heparin (6) Diabetes mellitus Qualifiers: Diabetes mellitus type: type 2 Diabetes mellitus complication status: with neurologic complications Diabetes mellitus complication detail: with polyneuropathy Diabetes mellitus ad terminal makeup operator insulin use: with ad terminal makeup operator use Qualified Code(s): E11.42 - Type 2 diabetes mellitus with diabetic polyneuropathy; Z79.4 - residential (current) use of insulin; Z79.4 - rat exterminator ( current) use of insulin; Z79.4 - rat exterminator (current) use of insulin; Z79.4 - rat exterminator (current) use of insulin Is this a current diagnosis for this admission?: Yes Plan: Continue Lantus and sliding scale (7) Hyperkalemia Is this a current diagnosis for this admission?: Yes Plan: Normal today. Will continue to follow. Patient is not receiving JOSE RAMON inhibitors or ARBS. (8) Hypertension Qualifiers: Hypertension type: essential hypertension Qualified Code(s): I10 - Essential (primary) hypertension Is this a current diagnosis for this admission?: Yes Plan: Patient's blood pressure remained elevated during her stay ; we added Norvasc 10 mg p.o. daily to her present medication (9) Sleep apnea syndrome Qualifiers: Sleep apnea type: unspecified type Qualified Code(s): G47.30 - Sleep apnea , unspecified Is this a current diagnosis for this admission?: Yes Plan: Continue CPAP at at bedtime. (10) CKD (chronic kidney disease) stage 3, GFR 30-59 ml/min Is this a current diagnosis for this admission?: Yes Plan: Stable (11) Hyperlipidemia Qualifiers: Hyperlipidemia type: unspecified Qualified Code(s): E78.5 - Hyperlipidemia , unspecified Is this a current diagnosis for this admission?: Yes Plan: Continue statin. (12) Hypothyroidism Qualifiers: Hypothyroidism type: postoperative Qualified Code(s): E89.0 - Postprocedural hypothyroidism Is this a current diagnosis for this admission?: Yes Plan: Continue hypothyroidism supplementation (13) Morbid obesity with BMI of 50.0-59.9, adult Is this a current diagnosis for this admission?: Yes Physical Exam Vital Signs: Temp Pulse Resp BP Pulse Ox 97.5 F 66 16 187/51 H 100 01/03/18 08:11 05/26/17 08:11 05/26/17 08:11 05/26/17 08:11 05/26/17 08:11 Intake & Output 05/25/17 05/26/17 05/27/17 00:59 00:59 00:59 Intake Total 2579 1588 400 Balance 2579 1588 400 Weight 128.1 kg 123.4 kg 127.3 kg General appearance: PRESENT: no acute distress, obese Head exam: PRESENT: atraumatic, normocephalic Eye exam: PRESENT: conjunctiva pink, EOMI, PERRLA. ABSENT: scleral icterus Neck exam: ABSENT: carotid bruit, JVD, lymphadenopathy, thyromegaly Respiratory exam: PRESENT: clear to auscultation [place]. ABSENT: rales, rhonchi, wheezes Cardiovascular exam: PRESENT: RRR. ABSENT: diastolic murmur, rubs, systolic murmur GI/Abdominal exam: PRESENT: normal bowel sounds, soft. ABSENT: distended, guarding, mass, organolmegaly, rebound, tenderness Extremities exam: PRESENT: full ROM. ABSENT: calf tenderness, clubbing, pedal edema Results Laboratory Results: 05/24/17 04:40 05/26/17 05:53 05/26/17 05:53 Sodium 141.9 Potassium 5.0 Chloride 112 H Carbon Dioxide 18 L Anion Gap 12 BUN 44 H Creatinine 3.33 H Est GFR ( Amer) 17 L Est GFR (Non-Af Amer) 14 L Glucose 131 H Calcium 8.7 Magnesium 2.0 05/22/17 05/22/17 05/22/17 06:50 12:55 19:00 Troponin I 0.040 0.039 0.044 Impressions: Renal Ultrasound 05/24/17 00:00 IMPRESSION: Extremely limited study. No evidence of right urinary obstruction. Left kidney not visualized and bladder poorly assessed. Limited or Localized CT 05/26/17 06:44 IMPRESSION: No acute findings. 5.9 cm right adrenal myelolipoma. Plan Discharge Plan: We prescribed Keflex p.o. for 10 days Continue Norvasc 10 mg daily Resume prior medications Follow-up within a week time with Dr. Zhu and Dr. Prado
[2017-05-26] MEDS ORDERED: AMLODIPINE BESYLATE 10 MG TABLET PO ONE (11:30)
[2017-05-27] MEDS ORDERED: AMLODIPINE BESYLATE 10 MG TABLET PO SCH (10:00)
--- NOTE | 2017-06-18 09:00 | Physician Advisory Note ---
Physician Advisor ProgressNote .: Pursuant to the plan for [facility], I have reviewed the medical record for this patient. Physician Advisor Statement: Nice documentation of chronic diastolic CHF, RAMÓN on CKD stage 3. Please consider documenting, if you agree: 1. "ACUTE pyelo" (otherwise, a payer will be happy to say it was "chronic pyelo" with correspondingly lower severity of illness/reimbursement - nothing can be assumed or inferred - must be spelled out) 2. "suspected sepsis, present on adm, due to acute pyelo, evidenced by (1) acute metabolic acidosis due to sepsis, (2) altered mental status w/lethargy due to sepsis, (3) hypotension as low as 82/52 due to sepsis, (4) leukocytosis, (5) tachypnea up to 23; I expect there would have been (6) tachycardia, too, if she were not on high dose beta-erich" (only state those points with which you agree) - or do you feel the acidosis, AMS, hypotension were due to other issues? - or do you feel sepsis was ruled out? Thanks! CK
--- NOTE | 2017-07-06 19:29 | Progress Note ---
Provider Note Provider Note: 07/06 patient was admitted with sepsis sepsis was secondary to urinary tract infection and acute pyelonephritis
== END 2017-05-26 12:31 | disposition home or self-care (01) | DRG 872 ==
LOC: ER 23:15 → EH 05-22 02:27 → 3S 05-22 06:35
PROVIDERS: ADMIT Family Medicine; ATTEND Family Medicine
DX: A41.9 Sepsis, unspecified organism (principal); N10 Acute pyelonephritis; I13.0 Hypertensive heart and chronic kidney disease with heart failure and stage 1 through stage 4 chronic kidney disease, or unspecified chronic kidney disease; I50.32 Chronic diastolic (congestive) heart failure; Z68.43 Body mass index [BMI] 50.0-59.9, adult; E66.2 Morbid (severe) obesity with alveolar hypoventilation; N17.9 Acute kidney failure, unspecified; E11.22 Type 2 diabetes mellitus with diabetic chronic kidney disease; E78.5 Hyperlipidemia, unspecified; E11.42 Type 2 diabetes mellitus with diabetic polyneuropathy; I25.10 Atherosclerotic heart disease of native coronary artery without angina pectoris; N18.3 Chronic kidney disease, stage 3 (moderate); I25.2 Old myocardial infarction; K21.9 Gastro-esophageal reflux disease without esophagitis; J44.9 Chronic obstructive pulmonary disease, unspecified; M19.90 Unspecified osteoarthritis, unspecified site; E89.0 Postprocedural hypothyroidism; F32.9 Major depressive disorder, single episode, unspecified; Z66 Do not resuscitate; B96.20 Unspecified Escherichia coli [E. coli] as the cause of diseases classified elsewhere; E87.5 Hyperkalemia; Z79.02 Long term (current) use of antithrombotics/antiplatelets; Z79.4 Long term (current) use of insulin; Z86.14 Personal history of Methicillin resistant Staphylococcus aureus infection; Z90.49 Acquired absence of other specified parts of digestive tract; Z90.710 Acquired absence of both cervix and uterus; Z88.2 Allergy status to sulfonamides; Z88.8 Allergy status to other drugs, medicaments and biological substances; T22.00XA Burn of unspecified degree of shoulder and upper limb, except wrist and hand, unspecified site, initial encounter; T20.04XA Burn of unspecified degree of nose (septum), initial encounter; X10.2XXA Contact with fats and cooking oils, initial encounter; Y92.000 Kitchen of unspecified non-institutional (private) residence as the place of occurrence of the external cause; Z82.49 Family history of ischemic heart disease and other diseases of the circulatory system; Z83.3 Family history of diabetes mellitus; Z82.3 Family history of stroke
CPT/HCPCS: 36415; 76380; 76775; 80048; 80053; 81001; 82962; 83690; 83735; 84100; 84443; 84484; 85025; 87040; 87086; 87088; 87186; 87493; 93005; 93010; 94660; 99285; J0696; J1644; J1815; J3475; J7030

== ENCOUNTER → 2017-06-02 | Outpatient (CLI) | payer MEDICARE ==
[2017-06-02 15:16] LABS: HEMATOCRIT 31.4 % (36.0-47.0); HEMOGLOBIN 10.3 g/dL (12.0-15.5); MEAN CORPUSCULAR HEMOGLOBIN 29.6 pg (27.0-33.4); MEAN CORPUSCULAR HGB CONC 32.9 g/dL (32.0-36.0); MEAN CORPUSCULAR VOLUME 90 fl (80-97); PLATELET COUNT 290 10^3/uL (150-450); RED BLOOD COUNT 3.48 10^6/uL (3.72-5.28); RED CELL DISTRIBUTION WIDTH 14.9 % (11.5-14.0); WHITE BLOOD COUNT 12.7 10^3/uL (4.0-10.5)
[2017-06-02 15:30] LABS: APPEARANCE,URINE SLIGHTLY-CLOUDY; BILIRUBIN,URINE NEGATIVE (NEGATIVE); COLOR,URINE YELLOW; GLUCOSE, URINE 150 mg/dL (NEGATIVE); KETONES,URINE NEGATIVE (NEGATIVE); LEUKOCYTE ESTERASE,URINE NEGATIVE (NEGATIVE); NITRITE,URINE NEGATIVE (NEGATIVE); PROTEIN,URINE >=500 mg/dL (NEGATIVE); URINE SPECIFIC GRAVITY 1.012; UROBILINOGEN,URINE NEGATIVE mg/dL (<2.0)
[2017-06-02 15:48] LABS: URINE CREATININE 96.2 mg/dL (15-278)
[2017-06-02 15:53] LABS: ALANINE AMINOTRANSFERASE 30 U/L (9-52); ALBUMIN 3.4 g/dL (3.5-5.0); ALKALINE PHOSPHATASE 98 U/L (38-126); ANION GAP 15 (5-19); ASPARTATE AMINO TRANSFERASE 19 U/L (14-36); BILIRUBIN,DIRECT 0.2 mg/dL (0.0-0.4); BILIRUBIN,TOTAL 0.5 mg/dL (0.2-1.3); BLOOD UREA NITROGEN 41 mg/dL (7-20); CALCIUM 8.8 mg/dL (8.4-10.2); CARBON DIOXIDE 16 mmol/L (22-30); CHLORIDE 111 mmol/L (98-107); GLUCOSE 157 mg/dL (75-110); POTASSIUM 5.5 mmol/L (3.6-5.0); TOTAL PROTEIN 6.2 g/dL (6.3-8.2)
[2017-06-02 16:21] LABS: UR PRO/CREAT RATIO RESULT 6.7 mg/mg (0.0-0.2); URINE PROTEIN 646.1 mg/dL (<12)
== END ==
LOC: OD 14:05
PROVIDERS: ATTEND Internal Medicine Nephrology
DX: N18.4 Chronic kidney disease, stage 4 (severe) (principal); E11.9 Type 2 diabetes mellitus without complications; R80.9 Proteinuria, unspecified
CPT/HCPCS: 36415; 80053; 81001; 82570; 84156; 85027

== ENCOUNTER → 2017-06-04 | Outpatient (CLI) | payer MEDICARE | LOC: OD 14:11 | PROVIDERS: ATTEND Internal Medicine Nephrology | DX: E87.5 Hyperkalemia (principal) | CPT/HCPCS: 36415; 84132 ==

== ENCOUNTER → 2017-06-14 | Outpatient (CLI) | payer MEDICARE ==
[2017-06-14 09:32] LABS: HEMATOCRIT 29.6 % (36.0-47.0); HEMOGLOBIN 9.9 g/dL (12.0-15.5); MEAN CORPUSCULAR HEMOGLOBIN 30.1 pg (27.0-33.4); MEAN CORPUSCULAR HGB CONC 33.5 g/dL (32.0-36.0); MEAN CORPUSCULAR VOLUME 90 fl (80-97); PLATELET COUNT 242 10^3/uL (150-450); RED CELL DISTRIBUTION WIDTH 14.3 % (11.5-14.0); WHITE BLOOD COUNT 9.7 10^3/uL (4.0-10.5)
[2017-06-14 09:38] LABS: APPEARANCE,URINE CLEAR; BILIRUBIN,URINE NEGATIVE (NEGATIVE); COLOR,URINE YELLOW; GLUCOSE, URINE >=500 mg/dL (NEGATIVE); KETONES,URINE NEGATIVE (NEGATIVE); LEUKOCYTE ESTERASE,URINE NEGATIVE (NEGATIVE); NITRITE,URINE NEGATIVE (NEGATIVE); PROTEIN,URINE >=500 mg/dL (NEGATIVE); URINE SPECIFIC GRAVITY 1.008; UROBILINOGEN,URINE NEGATIVE mg/dL (<2.0)
[2017-06-14 09:52] LABS: ALANINE AMINOTRANSFERASE 22 U/L (9-52); ALBUMIN 3.2 g/dL (3.5-5.0); ALKALINE PHOSPHATASE 96 U/L (38-126); ANION GAP 10 (5-19); ASPARTATE AMINO TRANSFERASE 10 U/L (14-36); BILIRUBIN,DIRECT 0.3 mg/dL (0.0-0.4); BILIRUBIN,TOTAL 0.3 mg/dL (0.2-1.3); BLOOD UREA NITROGEN 46 mg/dL (7-20); CALCIUM 8.1 mg/dL (8.4-10.2); CARBON DIOXIDE 19 mmol/L (22-30); CHLORIDE 107 mmol/L (98-107); GLUCOSE 390 mg/dL (75-110); PHOSPHORUS 5.8 mg/dL (2.5-4.5); POTASSIUM 5.2 mmol/L (3.6-5.0); TOTAL PROTEIN 5.7 g/dL (6.3-8.2)
[2017-06-14 09:54] LABS: URINE CREATININE 54.8 mg/dL (15-278)
[2017-06-14 10:02] LABS: URINE PROTEIN 384.9 mg/dL (<12)
[2017-06-14 10:40] LABS: URINE CREATININE 69.6 mg/dL (15-278)
[2017-06-14 10:49] LABS: CREATININE 2.71 mg/dL (0.52-1.25)
== END ==
LOC: OD 08:55
PROVIDERS: ATTEND Physician Assistant Medical
DX: N18.4 Chronic kidney disease, stage 4 (severe) (principal); E11.9 Type 2 diabetes mellitus without complications; N04.9 Nephrotic syndrome with unspecified morphologic changes
CPT/HCPCS: 36415; 80053; 81001; 82533; 82570; 82575; 83970; 84100; 84156; 85027

== ENCOUNTER 2017-07-12 12:18 | Inpatient (IN) | payer MEDICARE ==
--- NOTE | 2017-07-12 13:29 | EKG REPORT ---
SEVERITY:- ABNORMAL ECG - SINUS RHYTHM FIRST DEGREE AV BLOCK RBBB AND LAFB POSSIBLE OLD ANTERIOR [place] : Confirmed by: Martin Bear MD 12-Jul-2017 13:29:27
[2017-07-12] MEDS ORDERED: NORMAL SALINE 1000 ML 1,000 ML IV ONE (13:48)
--- NOTE | 2017-07-12 13:49 | ER Document Report ---
ED Medical Screen (RME) - General Chief Complaint: Abdominal Pain Stated Complaint: NAUSEA Time Seen by Provider: 07/12/17 13:47 Mode of Arrival: Wheelchair Information source: Patient Notes: Patient complains of weakness fatigue nausea shortness of breath and dysuria. TRAVEL OUTSIDE OF THE [place] IN LAST 30 DAYS: No - Related Data Allergies/Adverse Reactions: metformin [Metformin] Allergy (Intermediate, Verified 07/12/17 12:19) Nausea Sulfa (Sulfonamide Antibiotics) Allergy (Mild, Verified 07/12/17 12:19) Nausea fluoxetine Allergy (Verified 07/12/17 12:19) trimethoprim Allergy (Verified 07/12/17 12:19) diazepam [From Valium] Adverse Reaction (Verified 07/12/17 12:19) "BOUNCES ME OFF THE STRAUSS, DOES NOT RELAX" Past Medical History - Social History Chew tobacco use (# tins/day): No Frequency of alcohol use: None Drug Abuse: None - Past Medical History Cardiac Medical History: Reports: Hx Congestive Heart Failure, Hx Coronary Artery Disease, Hx Heart Attack, Hx Hypercholesterolemia, Hx Hypertension Pulmonary Medical History: Reports: Hx COPD, Hx Pneumonia, Hx Sleep Apnea Endocrine Medical History: Reports: Hx Diabetes Mellitus Type 1, Hx Diabetes Mellitus Type 2, Hx Hypothyroidism Renal/ Medical History: Reports: Hx Renal Insufficiency. Denies: Hx Peritoneal Dialysis GI Medical History: Reports: Hx Gastroesophageal Reflux Disease Musculoskeltal Medical History: Reports Hx Arthritis Psychiatric Medical History: Reports: Hx Depression Infectious Medical History: Reports: Hx MRSA Past Surgical History: Reports: Hx Cardiac Catheterization, Hx Cardiac Surgery - A hole in the heart closed at age 65 years old., Hx Cholecystectomy, Hx Coronary Stent, Hx Hysterectomy, Hx Open Heart Surgery - ASD or VSD closed at 4 years of age, Hx Orthopedic Surgery - 2 screws in the distal left femur, Hx Thyroid Surgery - Thyroidectomy, Hx Tonsillectomy. Denies: Hx Mastectomy - Immunizations Hx Diphtheria, Pertussis, Tetanus Vaccination: Yes - unknown History of Influenza Vaccine for 02/2017 - 07/2017 Season: Yes Influenza Administration Date for 02/2017 - 07/2017 Season: 02/25/17 Physical Exam - Vital signs Vitals: Temp Pulse Resp BP Pulse Ox 97.5 F 57 L 22 H 119/50 L 97 07/12/17 12:36 07/12/17 12:36 07/12/17 12:36 07/12/17 12:36 07/12/17 12:36 Course - Vital Signs Vital signs: Temp Pulse Resp BP Pulse Ox 97.5 F 57 L 22 H 119/50 L 97 07/12/17 12:36 07/12/17 12:36 07/12/17 12:36 07/12/17 12:36 07/12/17 12:36
[2017-07-12 14:03] LABS: ABSOLUTE BASOPHILS # (AUTO) 0.1 10^3/uL (0.0-0.2); ABSOLUTE EOSINOPHILS # (AUTO) 0.3 10^3/uL (0.0-0.6); ABSOLUTE MONOCYTES (AUTO) 0.7 10^3/uL (0.1-1.4); ABSOLUTE NEUT (AUTO) 4.9 10^3/uL (1.7-8.2); BASOPHILS % (AUTO) 1.4 % (0-2); EOSINOPHILS % (AUTO) 3.9 % (0-6); HEMATOCRIT 30.9 % (36.0-47.0); HEMOGLOBIN 10.3 g/dL (12.0-15.5); LYMPHOCYTES % (AUTO) 13.6 % (13-45); MEAN CORPUSCULAR HEMOGLOBIN 29.8 pg (27.0-33.4); MEAN CORPUSCULAR HGB CONC 33.4 g/dL (32.0-36.0); MEAN CORPUSCULAR VOLUME 89 fl (80-97); MONOCYTES % (AUTO) 10.6 % (3-13); PLATELET COUNT 263 10^3/uL (150-450); RED BLOOD COUNT 3.46 10^6/uL (3.72-5.28); RED CELL DISTRIBUTION WIDTH 14.4 % (11.5-14.0); SEGMENTED NEUTROPHILS % (AUTO) 70.5 % (42-78); TOTAL CELLS COUNTED % (AUTO) 100 %
[2017-07-12 14:43] LABS: ALANINE AMINOTRANSFERASE 19 U/L (9-52); ALBUMIN 3.3 g/dL (3.5-5.0); ALKALINE PHOSPHATASE 105 U/L (38-126); ANION GAP 10 (5-19); ASPARTATE AMINO TRANSFERASE 12 U/L (14-36); BILIRUBIN,DIRECT 0.3 mg/dL (0.0-0.4); BILIRUBIN,TOTAL 0.3 mg/dL (0.2-1.3); BLOOD UREA NITROGEN 38 mg/dL (7-20); CARBON DIOXIDE 20 mmol/L (22-30); CHLORIDE 108 mmol/L (98-107); GLUCOSE 316 mg/dL (75-110); SODIUM 137.9 mmol/L (137-145); TOTAL PROTEIN 6.1 g/dL (6.3-8.2)
[2017-07-12] MEDS ORDERED: SODIUM POLYSTYRENE SULFONATE 15 GM/60 ML PO ONE (14:54)
[2017-07-12] MEDS ORDERED: CALCIUM GLUCONATE 1000 MG/10 ML INJ IV ONE (14:56)
[2017-07-12 14:58] LABS: CALCIUM 6.8 mg/dL (8.4-10.2); POTASSIUM 6.6 mmol/L (3.6-5.0)
[2017-07-12 15:24] LABS: APPEARANCE,URINE CLOUDY; BILIRUBIN,URINE NEGATIVE (NEGATIVE); COLOR,URINE YELLOW; GLUCOSE, URINE >=500 mg/dL (NEGATIVE); KETONES,URINE NEGATIVE (NEGATIVE); LEUKOCYTE ESTERASE,URINE SMALL (NEGATIVE); NITRITE,URINE NEGATIVE (NEGATIVE); PROTEIN,URINE >=500 mg/dL (NEGATIVE); URINE SPECIFIC GRAVITY 1.021; UROBILINOGEN,URINE NEGATIVE mg/dL (<2.0)
[2017-07-12] MEDS ORDERED: DEXTROSE 50%-WATER 25 GM/50 ML DISP.SYRIN IV ONE (15:25)
[2017-07-12] MEDS ORDERED: ALBUTEROL SULFATE 0.083% NEB 2.5 MG/3 ML AMPUL NEB ONE (15:25)
[2017-07-12] MEDS ORDERED: INSULIN REG, HUMAN 100 UNIT/ML 3 ML VIAL (PYX) IV ONE (15:25)
[2017-07-12] MEDS ORDERED: SODIUM BICARBONATE 4.2% INJ 5 MEQ/10 ML DISP.SYRIN IV ONE (15:25)
[2017-07-12] MEDS ORDERED: CEFTRIAXONE INJ 1000 MG VIAL IV ONE (15:27)
--- NOTE | 2017-07-12 15:29 | ER Document Report ---
ED General - General Chief Complaint: Abdominal Pain Stated Complaint: NAUSEA Time Seen by Provider: 07/12/17 13:47 Mode of Arrival: Wheelchair Information source: Patient Notes: 61-year-old female history of chronic kidney disease presents with complaints of 4 day duration of nausea vomiting not feeling well, patient notes she has not been able to hold anything down. Patient denies any fevers or chills TRAVEL OUTSIDE OF THE [place] IN LAST 30 DAYS: No - HPI Onset: Last week Onset/Duration: Persistent Quality of pain: Achy Severity: Mild Pain Level: 1 Associated symptoms: Nausea, Vomiting Exacerbated by: Denies Relieved by: Denies Similar symptoms previously: Yes Recently seen / treated by doctor: Yes - Related Data Allergies/Adverse Reactions: metformin [Metformin] Allergy (Intermediate, Verified 07/12/17 12:19) Nausea Sulfa (Sulfonamide Antibiotics) Allergy (Mild, Verified 07/12/17 12:19) Nausea fluoxetine Allergy (Verified 07/12/17 12:19) trimethoprim Allergy (Verified 07/12/17 12:19) diazepam [From Valium] Adverse Reaction (Verified 07/12/17 12:19) "BOUNCES ME OFF THE STRAUSS, DOES NOT RELAX" Past Medical History - General Information source: Patient - Social History Smoking Status: Former Smoker Cigarette use (# per day): No Chew tobacco use (# tins/day): No Smoking Education Provided: No Frequency of alcohol use: None Drug Abuse: None Family History: CAD, CVA, DM, Hypertension, Thyroid Disfunction Patient has suicidal ideation: No Patient has homicidal ideation: No - Past Medical History Cardiac Medical History: Reports: Hx Congestive Heart Failure, Hx Coronary Artery Disease, Hx Heart Attack, Hx Hypercholesterolemia, Hx Hypertension Pulmonary Medical History: Reports: Hx COPD, Hx Pneumonia, Hx Sleep Apnea Endocrine Medical History: Reports: Hx Diabetes Mellitus Type 1, Hx Diabetes Mellitus Type 2, Hx Hypothyroidism Renal/ Medical History: Reports: Hx Renal Insufficiency. Denies: Hx Peritoneal Dialysis GI Medical History: Reports: Hx Gastroesophageal Reflux Disease Musculoskeltal Medical History: Reports Hx Arthritis Psychiatric Medical History: Reports: Hx Depression Infectious Medical History: Reports: Hx MRSA Past Surgical History: Reports: Hx Cardiac Catheterization, Hx Cardiac Surgery - A hole in the heart closed at age 65 years old., Hx Cholecystectomy, Hx Coronary Stent, Hx Hysterectomy, Hx Open Heart Surgery - ASD or VSD closed at 4 years of age, Hx Orthopedic Surgery - 2 screws in the distal left femur, Hx Thyroid Surgery - Thyroidectomy, Hx Tonsillectomy. Denies: Hx Mastectomy - Immunizations Hx Diphtheria, Pertussis, Tetanus Vaccination: Yes - unknown Hx Pneumococcal Vaccination: 04/23/12 Review of Systems - Review of Systems Notes: REVIEW OF SYSTEMS: CONSTITUTIONAL : Denies fever, chills, or sweats. Denies recent illness. EENT: Denies eye, ear, throat, or mouth pain or symptoms. Denies nasal or sinus congestion or discharge. Denies throat, tongue, or mouth swelling or difficulty swallowing. CARDIOVASCULAR: Denies chest pain. Denies palpitations or racing or irregular heart beat. Denies ankle edema. RESPIRATORY: Denies cough, cold, or chest congestion. Denies shortness of breath, difficulty breathing, or wheezing. GASTROINTESTINAL: Admits to nausea vomiting GENITOURINARY: Denies difficulty urinating, painful urination, burning, frequency, blood in urine, or discharge. FEMALE GENITOURINARY: Denies vaginal bleeding, heavy or abnormal periods, irregular periods. Denies vaginal discharge or odor. MUSCULOSKELETAL: Denies back or neck pain or stiffness. Denies joint pain or swelling. SKIN: Denies rash, lesions or sores. HEMATOLOGIC : Denies easy bruising or bleeding. LYMPHATIC: Denies swollen, enlarged glands. NEUROLOGICAL: Denies confusion or altered mental status. Denies passing out or loss of consciousness. Denies dizziness or lightheadedness. Denies headache. Denies weakness or paralysis or loss of use of either side. Denies problems with gait or speech. Denies sensory loss, numbness, or tingling. Denies seizures. PSYCHIATRIC: Denies anxiety or stress. Denies depression, suicidal ideation, or homicidal ideation. ALL OTHER SYSTEMS REVIEWED AND NEGATIVE. PHYSICAL EXAMINATION: GENERAL: Obese female no acute distress HEAD: Atraumatic, normocephalic. EYES: Pupils equal round and reactive to light, extraocular movements intact, conjunctiva are normal. ENT: Nares patent, oropharynx clear without exudates. Moist mucous membranes. NECK: Normal range of motion, supple without lymphadenopathy LUNGS: Breath sounds clear to auscultation bilaterally and equal. No wheezes rales or rhonchi. HEART: Regular rate and rhythm without murmurs ABDOMEN: Soft, nontender, nondistended abdomen. No guarding, no rebound. No masses appreciated. Female : deferred Musculoskeletal: Normal range of motion, no pitting or edema. No cyanosis. NEUROLOGICAL: Cranial nerves grossly intact. Normal speech, normal gait. Normal sensory, motor exams PSYCH: Normal mood, normal affect. SKIN: Warm, Dry, normal turgor, no rashes or lesions noted. Dictation was performed using [employer] voice recognition software Physical Exam - Vital signs Vitals: Temp Pulse Resp BP Pulse Ox 97.5 F 57 L 22 H 119/50 L 97 07/12/17 12:36 07/12/17 12:36 07/12/17 12:36 07/12/17 12:36 07/12/17 12:36 Course - Re-evaluation Re-evalutation: 07/12/17 15:28 It is noted that the patient creatinine has worsened from her baseline, her potassium is noted to be 6.6, she has been given emergent dosages of medications. It is noted on urinalysis that her white blood cell count was significantly elevated consistent with a UTI Rocephin has been ordered. Patient will be admitted to the hospitalist service at this time - Vital Signs Vital signs: Temp Pulse Resp BP Pulse Ox 97.5 F 57 L 15 165/54 H 97 07/12/17 12:36 07/12/17 12:36 07/12/17 18:01 07/12/17 18:01 07/12/17 18:01 - Laboratory Result Diagrams: 07/12/17 11:37 07/12/17 18:00 Laboratory results interpreted by me: 07/12/17 07/12/17 07/12/17 11:37 14:15 15:05 RBC 3.46 L Hgb 10.3 L Hct 30.9 L RDW 14.4 H Potassium 6.6 H* Chloride 108 H Carbon Dioxide 20 L BUN 38 H Creatinine 3.24 H Est GFR ( Amer) 18 L Est GFR (Non-Af Amer) 14 L Glucose 316 H Calcium 6.8 L* AST 12 L Total Protein 6.1 L Albumin 3.3 L Urine Protein >=500 H Urine Glucose (UA) >=500 H Ur Leukocyte Esterase SMALL H Critical Care Note - Critical Care Note Total time excluding time spent on procedures (mins): 34 Comments: 34 minutes of critical care time spent in direct contact evaluating and reevaluating the patient, treating symptoms, reviewing labs and studies and speaking with family and consultants excluding any procedures Discharge - Discharge Clinical Impression: Hyperkalemia, CKD (chronic kidney disease) stage 3, GFR 30-59 ml/min, Pyelonephritis [id number] kidney injury Qualifiers: Acute renal failure type: unspecified Chronic kidney disease stage: stage 3 ( moderate) Qualified Code(s): N17.9 - Acute kidney failure, unspecified Condition: Fair Disposition: ADMITTED INPATIENT Admitting Provider: Hospitalist Unit Admitted: [facility]
[2017-07-12] MEDS ORDERED: SODIUM BICARBONATE 8.4% INJ 50 MEQ/50 ML DISP.SYRIN IV ONE (15:38)
[2017-07-12] MEDS ORDERED: MAGNESIUM HYDROXIDE SUSP 30 ML UDCUP PO PRN (15:53)
[2017-07-12] MEDS ORDERED: NITROGLYCERIN 0.4 MG/TAB 25 TAB/BOTTLE SL PRN (16:02)
[2017-07-12] MEDS ORDERED: DEXTROSE 40% GEL 15 GM TUBE PO PRN ×2 (16:04)
[2017-07-12] MEDS ORDERED: DEXTROSE 50%-WATER 25 GM/50 ML DISP.SYRIN IV PRN ×2 (16:04)
[2017-07-12] MEDS ORDERED: GLUCAGON,HUMAN RECOMB 1 MG INJ IM PRN (16:04)
[2017-07-12] MEDS: ONDANSETRON HCL INJ/PF 4 MG/2 ML SDV IV PRN ×2 (17:03→23:39)
[2017-07-12] MEDS: OXYCODONE-ACETAMINOPHEN 5-325 MG TABLET PO PRN (17:05)
[2017-07-12] MEDS: DOCUSATE SODIUM 100 MG CAPSULE PO SCH (17:30)
--- NOTE | 2017-07-12 17:43 | PDOC H&P ---
History of Present Illness Admission Date/PCP: 07/12/17 16:01 MATIAS SOLIZ MD Patient complains of: Nausea, vomiting, and diarrhea History of Present Illness: KARINA ROGERS is a 61 year old female 61-year-old history of chronic kidney disease who presents with complaints of 4 day duration of nausea, vomiting, diarrhea and not feeling well. The patient notes she has not been able to hold anything down for the last 2 days. Patient denies any fevers or chills at present. Her diarrhea has resolved. She denies any other symptoms Past Medical History Cardiac Medical History: Reports: Congestive Heart Failure, Coronary Artery Disease - Grade 2/4 diastolic dysfunction, Myocardial Infarction, Hyperlipidema , Hypertension Pulmonary Medical History: Reports: Chronic Obstructive Pulmonary Disease (COPD) , Pneumonia, Sleep Apnea EENT Medical History: Reports: None Neurological Medical History: Reports: None Endocrine Medical History: Reports: Diabetes Mellitus Type 1, Hypothyroidism Renal/ Medical History: Reports: Chronic Kidney Disease Malignancy Medical History: Reports: None GI Medical History: Reports: Gastroesophageal Reflux Disease Musculoskeltal Medical History: Reports: Arthritis Skin Medical History: Reports: None Psychiatric Medical History: Reports: Depression Traumatic Medical History: Reports: None Hematology: Denies: Anemia, Sickle Cell Disease Infectious Medical History: Reports: Methicillin-Resistant Staph Aureus Past Surgical History Past Surgical History: Reports: Cardiac Catheterization, Cholecystectomy, Hysterectomy, Orthopedic Surgery - 2 screws in the distal left femur, Tonsillectomy, Other - Cardiac surgery at age 4, Patent ductus? Denies: Amputation, Mastectomy Social History Information Source: Patient Lives with: Friend Smoking Status: Never Smoker Frequency of Alcohol Use: None Hx Recreational Drug Use: No Drugs: None Hx Prescription Drug Abuse: No - Advance Directive Resuscitation Status: Full Code Family History Family History: CAD, CVA, DM, Hypertension, Thyroid Disfunction Parental Family History Reviewed: Yes Children Family History Reviewed: Yes Sibling(s) Family History Reviewed.: Yes Medication/Allergy Home Medications: Aspirin [Ecotrin 325 mg EC Tablet] 325 mg PO QAM 05/22/17 Atorvastatin Calcium [Lipitor 80 mg Tablet] 80 mg PO QHS 05/22/17 Bupropion HCl [Wellbutrin Xl 150 mg 24hr Tablet] 150 mg PO DAILY 05/22/17 Clopidogrel Bisulfate [Plavix 75 mg Tablet] 75 mg PO DAILY 05/22/17 Ezetimibe [Zetia 10 mg Tablet] 10 mg PO DAILY 05/22/17 Fluticasone/Vilanterol [Breo Ellipta 100-25 Mcg INH] 1 puff IH DAILY 05/22/17 Insulin Aspart [Novolog Insulin (Aspart) 100 unit/mL] 0 units SQ .PERSLIDINGSCALE 05/22/17 Insulin Glargine,Hum.rec.anlog [Lantus Solostar] 26 units SQ BID 05/22/17 Isosorbide Mononitrate [Isosorbide Mononitrate ER] 120 mg PO DAILY 05/22/17 Levothyroxine Sodium [Synthroid] 300 mcg PO QAM 05/22/17 Nitroglycerin [Nitrostat] 0.4 mg SL Q5MP PRN 05/22/17 Omeprazole 20 mg PO QPM 05/22/17 Ranolazine [Ranexa 500 mg Tab.sr] 500 mg PO Q12 05/22/17 Amlodipine Besylate [Norvasc 10 mg Tablet] 10 mg PO DAILY #30 tablet 05/26/17 Cephalexin Monohydrate [Keflex 250 mg Capsule] 250 mg PO DAILY #30 capsule 05/26 Metoprolol Succinate [Toprol XL 100 mg Tablet] 50 mg PO DAILY #30 tab.sr.24h 08/08 Allergies/Adverse Reactions: metformin [Metformin] Allergy (Intermediate, Verified 07/12/17 12:19) Nausea Sulfa (Sulfonamide Antibiotics) Allergy (Mild, Verified 07/12/17 12:19) Nausea fluoxetine Allergy (Verified 07/12/17 12:19) trimethoprim Allergy (Verified 07/12/17 12:19) diazepam [From Valium] Adverse Reaction (Verified 07/12/17 12:19) "BOUNCES ME OFF THE STRAUSS, DOES NOT RELAX" Review of Systems Constitutional: PRESENT: anorexia, chills, fatigue, weakness Eyes: ABSENT: visual disturbances Ears: ABSENT: hearing changes Cardiovascular: ABSENT: chest pain, dyspnea on exertion, edema, orthropnea, palpitations Respiratory: ABSENT: cough, hemoptysis Gastrointestinal: PRESENT: abdominal pain, nausea, vomiting Genitourinary: ABSENT: dysuria, hematuria Musculoskeletal: ABSENT: joint swelling Integumentary: ABSENT: rash, wounds Neurological: ABSENT: abnormal gait, abnormal speech, confusion, dizziness, focal weakness, syncope Psychiatric: ABSENT: anxiety, depression, homidical ideation, suicidal ideation Endocrine: ABSENT: cold intolerance, heat intolerance, polydipsia, polyuria Hematologic/Lymphatic: ABSENT: easy bleeding, easy bruising Physical Exam Vital Signs: Temp Pulse Resp BP Pulse Ox 97.5 F 57 L 23 H 135/53 H 99 07/12/17 12:36 07/12/17 12:36 07/12/17 16:00 07/12/17 15:45 07/12/17 16:00 Intake & Output 07/11/17 07/12/17 07/13/17 06:59 06:59 06:59 Weight 124.738 kg General appearance: PRESENT: no acute distress, morbidly obese, well-developed, well-nourished Head exam: PRESENT: atraumatic, normocephalic Eye exam: PRESENT: conjunctiva pale Ear exam: PRESENT: normal external ear exam Mouth exam: PRESENT: dry mucosa, neck supple, tongue midline Neck exam: ABSENT: carotid bruit, JVD, lymphadenopathy, thyromegaly Respiratory exam: PRESENT: clear to auscultation [place]. ABSENT: rales, rhonchi, wheezes Cardiovascular exam: PRESENT: RRR. ABSENT: diastolic murmur, rubs, systolic murmur Vascular exam: PRESENT: normal capillary refill GI/Abdominal exam: PRESENT: normal bowel sounds, soft. ABSENT: distended, guarding, mass, organolmegaly, rebound, tenderness Rectal exam: PRESENT: deferred Extremities exam: PRESENT: full ROM. ABSENT: calf tenderness, clubbing, pedal edema Musculoskeletal exam: PRESENT: ambulatory, full ROM, normal inspection Neurological exam: PRESENT: alert, awake, oriented to person, oriented to place , oriented to time, oriented to situation, CN II-XII grossly intact. ABSENT: motor sensory deficit Psychiatric exam: PRESENT: appropriate affect, normal mood. ABSENT: homicidal ideation, suicidal ideation Skin exam: PRESENT: dry, intact, warm. ABSENT: cyanosis, rash Results Laboratory Results: 07/12/17 16:17 07/12/17 16:17 Potassium 5.8 H Assessment & Plan - Diagnosis (1) Hyperkalemia Is this a current diagnosis for this admission?: Yes Plan: Patient was given D50, insulin, calcium, sodium bicarbonate and albuterol for hypokalemia. Potassium one hour later was 5.8 will recheck again in 2 hours (2) [id number] kidney injury Qualifiers: Acute renal failure type: unspecified Chronic kidney disease stage: stage 3 (moderate) Qualified Code(s): N17.9 - Acute kidney failure, unspecified; N18.3 - Chronic kidney disease, stage 3 (moderate); N18.3 - Chronic kidney disease, stage 3 (moderate) Is this a current diagnosis for this admission?: Yes Plan: We will gently rehydrate and monitor. Avoid nephrotoxic dosages and medications Will consult Dr. Zhu, patient's certified hyperbaric technician (3) UTI (urinary tract infection) Qualifiers: Urinary tract infection type: acute cystitis Is this a current diagnosis for this admission?: Yes Plan: Ceftriazone (4) Coronary artery disease Qualifiers: Coronary Disease-Associated Artery/Lesion type: [place] artery [place] vs. transplanted heart: [place] heart Associated angina: angina presence unspecified Qualified Code(s): I25.10 - Atherosclerotic heart disease of [place] coronary artery without angina pectoris Is this a current diagnosis for this admission?: Yes Plan: Continue home medications (5) Diabetes mellitus Qualifiers: Diabetes mellitus type: type 2 Diabetes mellitus complication status: with neurologic complications Diabetes mellitus complication detail: with polyneuropathy Diabetes mellitus group home insulin use: with remote computer terminal operator use Qualified Code(s): E11.42 - Type 2 diabetes mellitus with diabetic polyneuropathy; Z79.4 - residential (current) use of insulin; Z79.4 - termite exterminator helper ( current) use of insulin; Z79.4 - termite exterminator helper (current) use of insulin; Z79.4 - termite exterminator helper (current) use of insulin Is this a current diagnosis for this admission?: Yes Plan: Continue insulin and sliding scale (6) Hypertension Qualifiers: Hypertension type: essential hypertension Qualified Code(s): I10 - Essential (primary) hypertension Plan: She is presently normotensive (7) Sleep apnea syndrome Qualifiers: Sleep apnea type: unspecified type Qualified Code(s): G47.30 - Sleep apnea , unspecified Is this a current diagnosis for this admission?: Yes Plan: CPAP at (8) Hyperlipidemia Qualifiers: Hyperlipidemia type: unspecified Qualified Code(s): E78.5 - Hyperlipidemia , unspecified Is this a current diagnosis for this admission?: Yes Plan: Continue statin (9) Morbid obesity with BMI of 50.0-59.9, adult Is this a current diagnosis for this admission?: Yes Plan: Counseled - Time Time Spent: 50 to 70 Minutes Critical Time spent with patient: 25-34 minutes Medications reviewed and adjusted accordingly: Yes Anticipated discharge: Home with Homehealth - Inpatient Certification Based on my medical assessment, after consideration of the patient's comorbidities, presenting symptoms, or acuity I expect that the services needed warrant INPATIENT care.: Yes Medical Necessity: Need For IV Fluids, Need For Continuous Telemetry Monitoring
[2017-07-12] MEDS: NORMAL SALINE 1000 ML 1,000 ML IV PRN (18:22)
[2017-07-12] MEDS ORDERED: (PENDING PHARMACY ID) (Fluticasone/Vilanterol [Breo Ellipta 100-25 Mcg Inh] 1 PUFF) IH SCH (19:00)
[2017-07-12] MEDS ORDERED: CEFTRIAXONE SODIUM 1,000 MG in DEXTROSE 5%-WATER 50 ML IV SCH (22:00)
[2017-07-12] MEDS ORDERED: FAMOTIDINE 20 MG TABLET PO SCH (22:00)
[2017-07-12] MEDS: CEFTRIAXONE SODIUM 1,000 MG in NORMAL SALINE 100 ML IV SCH (23:39)
[2017-07-12] MEDS: ATORVASTATIN CALCIUM 80 MG TABLET PO SCH (23:39)
[2017-07-12] MEDS: RANOLAZINE 500 MG TAB.SR.12H PO SCH (23:40)
[2017-07-12] MEDS: INSULIN LISPRO 100 UNIT/ML 3 ML VIAL SUBCUT PRN (23:53)
[2017-07-13] MEDS: OXYCODONE-ACETAMINOPHEN 5-325 MG TABLET PO PRN (02:15)
[2017-07-13] MEDS: IPRATROPIUM/ALBUTEROL 0.5-2.5 MG/3 ML AMPUL NEB PRN (02:46)
[2017-07-13 05:10] LABS: ABSOLUTE BASOPHILS # (AUTO) 0.1 10^3/uL (0.0-0.2); ABSOLUTE EOSINOPHILS # (AUTO) 0.1 10^3/uL (0.0-0.6); ABSOLUTE LYMPHOCYTES (AUTO) 0.8 10^3/uL (0.5-4.7); ABSOLUTE MONOCYTES (AUTO) 0.9 10^3/uL (0.1-1.4); ABSOLUTE NEUT (AUTO) 9.2 10^3/uL (1.7-8.2); EOSINOPHILS % (AUTO) 0.7 % (0-6); HEMATOCRIT 29.4 % (36.0-47.0); HEMOGLOBIN 9.8 g/dL (12.0-15.5); LYMPHOCYTES % (AUTO) 7.5 % (13-45); MEAN CORPUSCULAR HEMOGLOBIN 29.6 pg (27.0-33.4); MEAN CORPUSCULAR HGB CONC 33.2 g/dL (32.0-36.0); MEAN CORPUSCULAR VOLUME 89 fl (80-97); MONOCYTES % (AUTO) 8.1 % (3-13); PLATELET COUNT 247 10^3/uL (150-450); RED CELL DISTRIBUTION WIDTH 14.4 % (11.5-14.0); SEGMENTED NEUTROPHILS % (AUTO) 82.7 % (42-78); TOTAL CELLS COUNTED % (AUTO) 100 %; WHITE BLOOD COUNT 11.2 10^3/uL (4.0-10.5)
[2017-07-13 05:28] LABS: ANION GAP 16 (5-19); BLOOD UREA NITROGEN 34 mg/dL (7-20); CARBON DIOXIDE 15 mmol/L (22-30); CHLORIDE 110 mmol/L (98-107); GLUCOSE 227 mg/dL (75-110); PHOSPHORUS 4.5 mg/dL (2.5-4.5); POTASSIUM 4.8 mmol/L (3.6-5.0); SODIUM 140.9 mmol/L (137-145)
[2017-07-13 05:46] LABS: CALCIUM 6.7 mg/dL (8.4-10.2)
[2017-07-13] MEDS: LEVOTHYROXINE SODIUM 0.15 MG TABLET PO SCH (06:29)
--- NOTE | 2017-07-13 07:45 | EKG REPORT ---
SEVERITY:- ABNORMAL ECG - SINUS RHYTHM RBBB AND LAFB : Confirmed by: Martin Bear MD 13-Jul-2017 07:44:15
[2017-07-13] MEDS ORDERED: (PENDING PHARMACY ID) (Levothyroxine Sodium [Synthroid] 300 MCG) PO SCH (08:00)
[2017-07-13] MEDS: INSULIN LISPRO 100 UNIT/ML 3 ML VIAL SUBCUT PRN ×4 (08:18→22:37)
[2017-07-13] MEDS: ASPIRIN 325 MG TABLET, ENT COATED PO SCH (08:19)
[2017-07-13] MEDS: NORMAL SALINE 1000 ML 1,000 ML IV PRN (08:20)
[2017-07-13] MEDS ORDERED: MAGNESIUM OXIDE 400 MG TABLET PO ONE (08:56)
[2017-07-13] MEDS: ENOXAPARIN SODIUM INJ 30 MG/0.3 ML DISP.SYRIN SUBCUT SCH (09:54)
[2017-07-13] MEDS: AMLODIPINE BESYLATE 10 MG TABLET PO SCH (09:56)
[2017-07-13] MEDS: DOCUSATE SODIUM 100 MG CAPSULE PO SCH ×2 (09:56→17:23)
[2017-07-13] MEDS: ISOSORBIDE MONONITRATE 60 MG TAB.ER.24H PO SCH (09:57)
[2017-07-13] MEDS: RANOLAZINE 500 MG TAB.SR.12H PO SCH ×2 (09:59→22:37)
[2017-07-13] MEDS: FAMOTIDINE 20 MG TABLET PO SCH (09:59)
[2017-07-13] MEDS ORDERED: (PENDING PHARMACY ID) (Metoprolol Succinate [Toprol Xl 100 Mg Tablet] 50 MG) PO SCH (10:00)
[2017-07-13] MEDS ORDERED: METOPROLOL SUCCINATE 50 MG TAB.SR.24H PO SCH (10:00)
[2017-07-13] MEDS ORDERED: METOPROLOL SUCCINATE 25 MG TAB.SR.24H PO SCH ×2 (10:00→11:12)
[2017-07-13] MEDS ORDERED: (PENDING PHARMACY ID) (Isosorbide Mononitrate [Isosorbide Mononitrate Er] 120 MG) PO SCH (10:00)
[2017-07-13] MEDS ORDERED: (PENDING PHARMACY ID) (Fluticasone/Vilanterol [Breo Ellipta 100-25 Mcg Inh] 1 PUFF) IH SCH (10:00)
[2017-07-13] MEDS ORDERED: CEFTRIAXONE 1 GM/D5W RTU 1 GM/50 ML RTUPB IV SCH (10:00)
[2017-07-13] MEDS ORDERED: CALCIUM GLUCONATE 1,000 MG in DEXTROSE 5%-WATER 50 ML IV SCH (10:00)
[2017-07-13] MEDS: MAGNESIUM SULFATE/D5W 1 GM/100 ML RTUPB IV SCH ×2 (10:01→13:17)
--- NOTE | 2017-07-13 11:13 | PDOC CONSULTATION ---
Consultation Consult Date: 07/13/17 Consult reason:: RAMÓN on CKD History of Present Illness Admission Date/PCP: 07/12/17 16:01 MATIAS SOLIZ MD History of Present Illness: KARINA ROGERS is a 61 year old female 61-year-old history of long standing and complicated diabetes with retinopathy, neuropathy, autonomic dysfunction , Hypertension, chronic kidney disease 3/4, presented with generalised weakness and pre syncope. She has been having dysuria x few days without any abdominal pains, fever or chills. She does have a h/o recurrent UTI. Patient denies any fevers or chills at present. She had an episode of transient diarrhea 2 weeks or so ago that has resolved. No c/o chest pains, cough, headaches, focal deficits. She denies any other symptoms. Admission vitals were stable though her BP was lowish as to now. Past Medical History Cardiac Medical History: Reports: Coronary Artery Disease, Hyperlipidemia, Hypertension-primary, Myocardial Infarction Pulmonary Medical History: Reports: Chronic Obstructive Pulmonary Disease (COPD) , Pneumonia, Sleep Apnea EENT Medical History: Reports: None Neurological Medical History: Reports: None Endocrine Medical History: Reports: Diabetes Mellitus Type 1, Diabetes Mellitus Type 2, Hypothyroidism Complications of Diabetes: Reports: None Renal/ Medical History: Reports: Chronic Kidney Disease Stage III Malignancy Medical History: Reports: None GI Medical History: Reports: Gastroesophageal Reflux Disease Musculoskeltal Medical History: Reports: Arthritis Skin Medical History: Reports: None Psychiatric Medical History: Reports: Depression Traumatic Medical History: Reports: None Infectious Medical History: Reports: Methicillin-resist Staph Aureus Past Surgical History Past Surgical History: Reports: Cardiac Catheterization, Cholecystectomy, Coronary Stent, Hysterectomy, Orthopedic Surgery - 2 screws in the distal left femur, Tonsillectomy, Other - Cardiac surgery at age 4, Patent ductus? Denies: Mastectomy Social History Lives with: Friend Smoking Status: Former Smoker Frequency of Alcohol Use: None Hx Recreational Drug Use: No Drugs: None Hx Prescription Drug Abuse: No - Advance Directive Resuscitation Status: Full Code Family History Parental Family History Reviewed: Yes Children Family History Reviewed: No Sibling(s) Family History Reviewed.: No Medication/Allergy Home Medications: Amlodipine Besylate [Norvasc 10 mg Tablet] 10 mg PO DAILY 07/12/17 Aspirin [Ecotrin] 325 mg PO DAILY 07/12/17 Atorvastatin Calcium [Lipitor 80 mg Tablet] 80 mg PO QHS 07/12/17 Bupropion HCl [Wellbutrin Xl 150 mg 24hr Tablet] 1 tab PO DAILY 07/12/17 Clopidogrel Bisulfate [Plavix 75 mg Tablet] 75 mg PO DAILY 07/12/17 Ezetimibe [Zetia 10 mg Tablet] 10 mg PO DAILY 07/12/17 Fluticasone/Vilanterol [Breo Ellipta 100-25 Mcg INH] 1 puff IH DAILY 07/12/17 Furosemide [Lasix 40 mg Tablet] 40 mg PO DAILYP PRN 07/12/17 Insulin Aspart [Novolog Insulin 100 Unit/1 ml 10 ml] 0 unit SUBCUT .SLD SCALE Insulin Glargine,Hum.rec.anlog [Lantus Solostar] 26 unit SQ Q12 07/12/17 Isosorbide Mononitrate [Isosorbide Mononitrate ER] 120 mg PO DAILY 07/12/17 Levothyroxine Sodium [Synthroid] 300 mcg PO Q6AM 07/12/17 Metoprolol Succinate [Toprol Xl 25 mg Tab.sr] 25 mg PO DAILY 07/12/17 Nitroglycerin [Nitrostat 0.4 mg (1/150 Gr) Tabs 25/Bottle] 1 tab SL Q5MP PRN Omeprazole 20 mg PO QHS 07/12/17 Ondansetron [Zofran Odt 4 mg Tablet] 4 mg PO Q8HP PRN 07/12/17 Ranolazine [Ranexa 500 mg Tab.sr] 500 mg PO Q12 07/12/17 Allergies/Adverse Reactions: metformin [Metformin] Allergy (Intermediate, Verified 07/12/17 12:19) Nausea Sulfa (Sulfonamide Antibiotics) Allergy (Mild, Verified 07/12/17 12:19) Nausea fluoxetine Allergy (Verified 07/12/17 12:19) trimethoprim Allergy (Verified 07/12/17 12:19) diazepam [From Valium] Adverse Reaction (Verified 07/12/17 12:19) "BOUNCES ME OFF THE STRAUSS, DOES NOT RELAX" Review of Systems Constitutional: PRESENT: fatigue, weakness. ABSENT: fever(s), headache(s), night sweats Nose, Mouth, and Throat: ABSENT: mouth pain, sore throat Cardiovascular: PRESENT: dyspnea on exertion. ABSENT: edema, orthropnea, palpitations Respiratory: ABSENT: cough, hemoptysis Gastrointestinal: PRESENT: nausea. ABSENT: abdominal pain, bloating, coffee ground emesis, constipation, diarrhea, hematemesis, melena Genitourinary: PRESENT: dysuria. ABSENT: difficulty urinating Integumentary: ABSENT: pruritus Neurological: PRESENT: dizziness. ABSENT: abnormal speech, confusion, convulsions, focal weakness Hematologic/Lymphatic: ABSENT: easy bruising, lymphadenopathy Physical Exam Vital Signs: Temp Pulse Resp BP Pulse Ox 99.4 F 79 16 177/58 H 97 07/13/17 08:05 07/13/17 08:09 07/13/17 08:05 07/13/17 08:09 07/13/17 08:05 Intake & Output 07/12/17 07/13/17 07/14/17 06:59 06:59 06:59 Intake Total 1290 Balance 1290 Weight 134.1 kg General appearance: PRESENT: no acute distress Eye exam: PRESENT: conjunctiva pink, EOMI, PERRLA. ABSENT: nystagmus, scleral icterus Ear exam: PRESENT: normal external ear exam Mouth exam: PRESENT: dry mucosa, moist, neck supple Neck exam: ABSENT: lymphadenopathy, meningismus, tenderness, thyromegaly, tracheal deviation Respiratory exam: PRESENT: clear to auscultation paula. ABSENT: crackles, rhonchi Cardiovascular exam: PRESENT: +S1, +S2 GI/Abdominal exam: PRESENT: normal bowel sounds, soft. ABSENT: organomegaly, tenderness Extremities exam: PRESENT: pedal edema, +1 edema Neurological exam: PRESENT: alert, awake, oriented to person, oriented to place Skin exam: ABSENT: cyanosis, mottled, petechiae Results Laboratory Results: 07/13/17 04:54 07/13/17 04:54 07/12/17 07/12/17 07/13/17 16:17 18:00 04:54 WBC 11.2 H RBC 3.30 L Hgb 9.8 L Hct 29.4 L MCV 89 MCH 29.6 MCHC 33.2 RDW 14.4 H Plt Count 247 Seg Neutrophils % 82.7 H Lymphocytes % 7.5 L Monocytes % 8.1 Eosinophils % 0.7 Basophils % 1.0 Absolute Neutrophils 9.2 H Absolute Lymphocytes 0.8 Absolute Monocytes 0.9 Absolute Eosinophils 0.1 Absolute Basophils 0.1 Sodium Potassium 5.8 H 5.5 H Chloride Carbon Dioxide Anion Gap BUN Creatinine Est GFR ( Amer) Est GFR (Non-Af Amer) Glucose Calcium Phosphorus Magnesium 07/13/17 04:54 WBC RBC Hgb Hct MCV MCH MCHC RDW Plt Count Seg Neutrophils % Lymphocytes % Monocytes % Eosinophils % Basophils % Absolute Neutrophils Absolute Lymphocytes Absolute Monocytes Absolute Eosinophils Absolute Basophils Sodium 140.9 Potassium 4.8 Chloride 110 H Carbon Dioxide 15 L Anion Gap 16 BUN 34 H Creatinine 2.58 H Est GFR ( Amer) 23 L Est GFR (Non-Af Amer) 19 L Glucose 227 H Calcium 6.7 L* Phosphorus 4.5 Magnesium 1.4 L Assessment & Plan - Diagnosis (1) Deblb-jv-hrgiwnr kidney injury Qualifiers: Acute renal failure type: unspecified Chronic kidney disease stage: stage 3 (moderate) Qualified Code(s): N17.9 - Acute kidney failure, unspecified; N18.3 - Chronic kidney disease, stage 3 (moderate); N18.3 - Chronic kidney disease, stage 3 (moderate) Is this a current diagnosis for this admission?: Yes Plan: Likely from UTI and sepsis. Monitor. (2) Hyperkalemia Is this a current diagnosis for this admission?: Yes Plan: resolving with hydration. Monitor. (3) UTI (urinary tract infection) Qualifiers: Urinary tract infection type: acute cystitis Is this a current diagnosis for this admission?: Yes Plan: Will order c&s.She is on IV rocephin and will wait c&s before confirming antibiotics. (4) Diabetes mellitus Qualifiers: Diabetes mellitus type: type 2 Diabetes mellitus complication status: with neurologic complications Diabetes mellitus complication detail: with polyneuropathy Diabetes mellitus snf insulin use: with oil heaterman use Qualified Code(s): E11.42 - Type 2 diabetes mellitus with diabetic polyneuropathy; Z79.4 - nursing home (current) use of insulin; Z79.4 - nursing home ( current) use of insulin; Z79.4 - marine oil terminal superintendent (current) use of insulin; Z79.4 - marine oil terminal superintendent (current) use of insulin Is this a current diagnosis for this admission?: Yes Plan: Adv on need for tight control. (5) Hypertension Qualifiers: Hypertension type: essential hypertension Qualified Code(s): I10 - Essential (primary) hypertension Plan: Uncontrolled.Titrate meds. Increased toprol xl to 50 mg.
[2017-07-13] MEDS: CALCIUM GLUCONATE 1000 MG/10 ML INJ IV SCH ×2 (11:34→22:37)
[2017-07-13] MEDS: ONDANSETRON HCL INJ/PF 4 MG/2 ML SDV IV PRN ×2 (11:53→22:50)
[2017-07-13] MEDS ORDERED: LABETALOL HCL INJ 20 MG/4 ML DISP.SYRIN IV ONE (13:00)
[2017-07-13] MEDS ORDERED: NITROGLYCERIN 0.4 MG/TAB 25 TAB/BOTTLE SL PRN (20:38)
[2017-07-13] MEDS: ATORVASTATIN CALCIUM 80 MG TABLET PO SCH (22:37)
[2017-07-13] MEDS: CEFTRIAXONE SODIUM 1,000 MG in NORMAL SALINE 100 ML IV SCH (22:37)
[2017-07-13] MEDS: BUPROPION HCL 75 MG TABLET PO SCH (22:37)
[2017-07-14] MEDS: LEVOTHYROXINE SODIUM 0.15 MG TABLET PO SCH (05:03)
[2017-07-14] MEDS ORDERED: LEVOTHYROXINE SODIUM 0.15 MG TABLET PO SCH (06:00)
[2017-07-14] MEDS ORDERED: (PENDING PHARMACY ID) (Levothyroxine Sodium [Synthroid] 300 MCG) PO SCH (06:00)
[2017-07-14 07:22] LABS: ABSOLUTE BASOPHILS # (AUTO) 0.1 10^3/uL (0.0-0.2); ABSOLUTE MONOCYTES (AUTO) 0.8 10^3/uL (0.1-1.4); ABSOLUTE NEUT (AUTO) 9.1 10^3/uL (1.7-8.2); BASOPHILS % (AUTO) 1.3 % (0-2); EOSINOPHILS % (AUTO) 0.4 % (0-6); HEMATOCRIT 27.5 % (36.0-47.0); HEMOGLOBIN 9.2 g/dL (12.0-15.5); LYMPHOCYTES % (AUTO) 9.1 % (13-45); MEAN CORPUSCULAR HEMOGLOBIN 29.8 pg (27.0-33.4); MEAN CORPUSCULAR HGB CONC 33.2 g/dL (32.0-36.0); MEAN CORPUSCULAR VOLUME 90 fl (80-97); MONOCYTES % (AUTO) 7.6 % (3-13); PLATELET COUNT 255 10^3/uL (150-450); RED BLOOD COUNT 3.08 10^6/uL (3.72-5.28); RED CELL DISTRIBUTION WIDTH 14.5 % (11.5-14.0); SEGMENTED NEUTROPHILS % (AUTO) 81.6 % (42-78); TOTAL CELLS COUNTED % (AUTO) 100 %; WHITE BLOOD COUNT 11.2 10^3/uL (4.0-10.5)
[2017-07-14 07:27] LABS: ANION GAP 13 (5-19); BLOOD UREA NITROGEN 30 mg/dL (7-20); CALCIUM 7.7 mg/dL (8.4-10.2); CARBON DIOXIDE 17 mmol/L (22-30); CHLORIDE 109 mmol/L (98-107); GLUCOSE 246 mg/dL (75-110); PHOSPHORUS 4.9 mg/dL (2.5-4.5); POTASSIUM 5.2 mmol/L (3.6-5.0); SODIUM 139.3 mmol/L (137-145)
[2017-07-14] MEDS: ASPIRIN 325 MG TABLET, ENT COATED PO SCH (07:40)
[2017-07-14] MEDS: ONDANSETRON HCL INJ/PF 4 MG/2 ML SDV IV PRN ×3 (07:40→19:57)
[2017-07-14] MEDS: INSULIN LISPRO 100 UNIT/ML 3 ML VIAL SUBCUT PRN ×4 (08:57→22:55)
[2017-07-14] MEDS: CALCIUM GLUCONATE 1000 MG/10 ML INJ IV SCH ×2 (09:39→22:53)
[2017-07-14] MEDS: DOCUSATE SODIUM 100 MG CAPSULE PO SCH ×2 (09:39→18:07)
[2017-07-14] MEDS: METOPROLOL SUCCINATE 50 MG TAB.SR.24H PO SCH (09:39)
[2017-07-14] MEDS: ENOXAPARIN SODIUM INJ 30 MG/0.3 ML DISP.SYRIN SUBCUT SCH (09:39)
[2017-07-14] MEDS: CLOPIDOGREL BISULFATE 75 MG TABLET PO SCH (09:40)
[2017-07-14] MEDS: RANOLAZINE 500 MG TAB.SR.12H PO SCH ×2 (09:40→22:50)
[2017-07-14] MEDS: BUPROPION HCL 75 MG TABLET PO SCH ×2 (09:40→22:51)
[2017-07-14] MEDS: ISOSORBIDE MONONITRATE 60 MG TAB.ER.24H PO SCH (09:40)
[2017-07-14] MEDS: FAMOTIDINE 20 MG TABLET PO SCH (09:40)
[2017-07-14] MEDS: AMLODIPINE BESYLATE 10 MG TABLET PO SCH (09:40)
[2017-07-14] MEDS ORDERED: METOPROLOL SUCCINATE 25 MG TAB.SR.24H PO SCH (10:00)
[2017-07-14] MEDS ORDERED: (PENDING PHARMACY ID) (Bupropion Hcl [Wellbutrin Xl 150 Mg 24hr Tablet] 1 TAB) PO SCH (10:00)
[2017-07-14] MEDS: IPRATROPIUM/ALBUTEROL 0.5-2.5 MG/3 ML AMPUL NEB PRN (12:00)
[2017-07-14] MEDS: NORMAL SALINE 1000 ML 1,000 ML IV PRN (16:05)
--- NOTE | 2017-07-14 22:23 | PDOC PROGRESS REPORT ---
Subjective Progress Note for:: 07/14/17 Subjective:: Patient at the time of examination was laying comfortably in her bed. She was not short of breath at the time. She has been on and off nauseas without vomiting. She says right now she is not able to drink water or consume food. She also has not had a bowel movement since she has gotten here. Reason For Visit: HYPERKALEMIA,ACUTE ON CHRONIC KIDNEY INJURY, UTI Physical Exam Vital Signs: Temp Pulse Resp BP Pulse Ox 98.7 F 84 22 H 176/68 H 95 07/14/17 16:58 07/14/17 16:58 07/14/17 16:58 07/14/17 16:58 07/14/17 16:58 Intake & Output 07/13/17 07/14/17 07/15/17 06:59 06:59 06:59 Intake Total 1290 3763 1216 Output Total 1225 975 Balance 1290 2538 241 Weight 134.1 kg 134.6 kg 134.6 kg General appearance: PRESENT: no acute distress, well-developed, well-nourished Mouth exam: PRESENT: moist, neck supple Neck exam: PRESENT: full ROM. ABSENT: JVD Respiratory exam: PRESENT: clear to auscultation paula. ABSENT: accessory muscle use, crackles, rales, rhonchi, wheezes Cardiovascular exam: PRESENT: +S1, +S2 GI/Abdominal exam: PRESENT: soft. ABSENT: normal bowel sounds, organomegaly, tenderness Extremities exam: ABSENT: pedal edema, tenderness Musculoskeletal exam: PRESENT: normal inspection. ABSENT: tenderness Neurological exam: PRESENT: alert, awake, oriented to person, oriented to place , oriented to time, oriented to situation Psychiatric exam: PRESENT: appropriate affect, normal mood Skin exam: PRESENT: dry, intact, warm Results Laboratory Results: 07/14/17 05:19 07/14/17 05:19 07/14/17 07/14/17 07/14/17 05:19 05:19 05:19 WBC 11.2 H RBC 3.08 L Hgb 9.2 L Hct 27.5 L MCV 90 MCH 29.8 MCHC 33.2 RDW 14.5 H Plt Count 255 Seg Neutrophils % 81.6 H Lymphocytes % 9.1 L Monocytes % 7.6 Eosinophils % 0.4 Basophils % 1.3 Absolute Neutrophils 9.1 H Absolute Lymphocytes 1.0 Absolute Monocytes 0.8 Absolute Eosinophils 0.0 Absolute Basophils 0.1 Sodium 139.3 Potassium 5.2 H Chloride 109 H Carbon Dioxide 17 L Anion Gap 13 BUN 30 H Creatinine 2.53 H Est GFR ( Amer) 23 L Est GFR (Non-Af Amer) 19 L Glucose 246 H Calcium 7.7 L Phosphorus 4.9 H Magnesium 2.0 PTH Intact 127.9 H Assessment & Plan - Diagnosis (1) Jbsed-hv-zxeyuzy kidney injury Qualifiers: Acute renal failure type: unspecified Chronic kidney disease stage: stage 3 (moderate) Qualified Code(s): N17.9 - Acute kidney failure, unspecified; N18.3 - Chronic kidney disease, stage 3 (moderate); N18.3 - Chronic kidney disease, stage 3 (moderate) Is this a current diagnosis for this admission?: Yes Plan: currently no growth for the blood and urine cultures, other consideration is dehydration from the patient not being able to drink fluids. Continue current IV fluid regiment. (2) Nausea Plan: currently nauseated, considering constipation with small bowel obstruction. If she is not having BMs after tomorrow, will consider a KUB. (3) Hyperkalemia Is this a current diagnosis for this admission?: Yes Plan: If potassium keeps elevating may need to switch from her current beta erich (5) UTI (urinary tract infection) Qualifiers: Urinary tract infection type: acute cystitis Is this a current diagnosis for this admission?: Yes Plan: currently no growth (6) Anemia Plan: will start work up (7) Diabetes mellitus Qualifiers: Diabetes mellitus type: type 2 Diabetes mellitus complication status: with neurologic complications Diabetes mellitus complication detail: with polyneuropathy Diabetes mellitus chcf insulin use: with chcf use Qualified Code(s): E11.42 - Type 2 diabetes mellitus with diabetic polyneuropathy; Z79.4 - senior care (current) use of insulin; Z79.4 - rn long term care ( current) use of insulin; Z79.4 - rn long term care (current) use of insulin; Z79.4 - rn long term care (current) use of insulin Is this a current diagnosis for this admission?: Yes - Notes Notes: Patient was reviewed with Dr. Zhu
[2017-07-14] MEDS: ATORVASTATIN CALCIUM 80 MG TABLET PO SCH (22:50)
[2017-07-14] MEDS: ACETAMINOPHEN 325 MG TABLET PO PRN (22:52)
[2017-07-14] MEDS: CEFTRIAXONE SODIUM 1,000 MG in NORMAL SALINE 100 ML IV SCH (22:54)
[2017-07-15] MEDS: LEVOTHYROXINE SODIUM 0.15 MG TABLET PO SCH (05:43)
[2017-07-15 06:01] LABS: ABSOLUTE RETICS # 0.072 10^6/uL (0.028-0.122); HEMATOCRIT 26.8 % (36.0-47.0); HEMOGLOBIN 8.8 g/dL (12.0-15.5); MEAN CORPUSCULAR HEMOGLOBIN 29.5 pg (27.0-33.4); MEAN CORPUSCULAR HGB CONC 32.9 g/dL (32.0-36.0); MEAN CORPUSCULAR VOLUME 90 fl (80-97); PLATELET COUNT 249 10^3/uL (150-450); RED BLOOD COUNT 2.99 10^6/uL (3.72-5.28); RED CELL DISTRIBUTION WIDTH 14.3 % (11.5-14.0); RETICULOCYTE COUNT (AUTO) 2.42 % (0.66-2.85)
[2017-07-15 06:18] LABS: ANION GAP 12 (5-19); BLOOD UREA NITROGEN 27 mg/dL (7-20); CALCIUM 8.3 mg/dL (8.4-10.2); CARBON DIOXIDE 20 mmol/L (22-30); CHLORIDE 109 mmol/L (98-107); GLUCOSE 184 mg/dL (75-110); IRON(TIBC) 14.3 ug/dL (37-170); POTASSIUM 4.7 mmol/L (3.6-5.0); SODIUM 141.4 mmol/L (137-145)
[2017-07-15] MEDS: NORMAL SALINE 1000 ML 1,000 ML IV PRN ×2 (07:10→08:05)
[2017-07-15] MEDS: INSULIN LISPRO 100 UNIT/ML 3 ML VIAL SUBCUT PRN ×3 (08:03→17:05)
[2017-07-15] MEDS: ASPIRIN 325 MG TABLET, ENT COATED PO SCH (08:04)
[2017-07-15] MEDS: ENOXAPARIN SODIUM INJ 30 MG/0.3 ML DISP.SYRIN SUBCUT SCH (09:15)
[2017-07-15] MEDS: FAMOTIDINE 20 MG TABLET PO SCH (09:15)
[2017-07-15] MEDS: METOPROLOL SUCCINATE 50 MG TAB.SR.24H PO SCH (09:16)
[2017-07-15] MEDS: BUPROPION HCL 75 MG TABLET PO SCH ×2 (09:16→22:32)
[2017-07-15] MEDS: RANOLAZINE 500 MG TAB.SR.12H PO SCH ×2 (09:16→22:32)
[2017-07-15] MEDS: ISOSORBIDE MONONITRATE 60 MG TAB.ER.24H PO SCH (09:16)
[2017-07-15] MEDS: AMLODIPINE BESYLATE 10 MG TABLET PO SCH (09:16)
[2017-07-15] MEDS: CLOPIDOGREL BISULFATE 75 MG TABLET PO SCH (09:17)
[2017-07-15] MEDS: DOCUSATE SODIUM 100 MG CAPSULE PO SCH ×2 (09:17→17:06)
[2017-07-15] MEDS ORDERED: FERUMOXYTOL 510 MG in NORMAL SALINE 100 ML IV ONE (11:13)
[2017-07-15] MEDS ORDERED: DIPHENHYDRAMINE HCL 50 MG/ML VIAL IV PRN (11:14)
[2017-07-15] MEDS ORDERED: NORMAL SALINE 1000 ML 1,000 ML IV PRN (11:21)
[2017-07-15] MEDS ORDERED: LISINOPRIL 10 MG TABLET PO SCH (11:30)
[2017-07-15] MEDS ORDERED: FUROSEMIDE INJ/PF 20 MG/2 ML SDV IV ONE (11:45)
[2017-07-15] MEDS ORDERED: FERUMOXYTOL (NON-ESRD) 510 MG/NS 100 ML IV ONE ×2 (12:30)
[2017-07-15] MEDS: HYDRALAZINE HCL 25 MG TABLET PO SCH ×2 (14:00→22:32)
--- NOTE | 2017-07-15 16:04 | PDOC PROGRESS REPORT ---
Subjective Progress Note for:: 07/15/17 Subjective:: Patient at the time of examination was laying in her bed on bipap and appeared to be more short of breath than yesterday. She denies chest pain, nausea, vomiting, fevers or chills. She still has not had a bowel movement, but she also has not eaten due to nausea. According to the nurse she was going to try eating something. Reason For Visit: HYPERKALEMIA,ACUTE ON CHRONIC KIDNEY INJURY, UTI Physical Exam Vital Signs: Temp Pulse Resp BP Pulse Ox 98.3 F 82 19 150/53 H 95 07/15/17 12:10 07/15/17 14:00 07/15/17 12:10 07/15/17 12:10 07/15/17 12:10 Intake & Output 07/14/17 07/15/17 07/16/17 06:59 06:59 06:59 Intake Total 3763 2628 150 Output Total 1225 975 950 Balance 2538 1653 -800 Weight 134.6 kg 134 kg General appearance: PRESENT: no acute distress, well-developed, well-nourished Mouth exam: PRESENT: moist, neck supple Respiratory exam: PRESENT: accessory muscle use, decreased breath sounds, tachypnea, other - -unable to hear lung sounds due to body habitus and position of the patient Cardiovascular exam: PRESENT: +S1, +S2 GI/Abdominal exam: PRESENT: soft. ABSENT: normal bowel sounds, organomegaly, tenderness Extremities exam: PRESENT: +1 edema. ABSENT: tenderness Musculoskeletal exam: ABSENT: normal inspection, tenderness Neurological exam: PRESENT: alert, awake, oriented to person, oriented to place , oriented to time, oriented to situation Psychiatric exam: PRESENT: appropriate affect, normal mood Skin exam: PRESENT: dry, intact, warm. ABSENT: cyanosis Results Laboratory Results: 07/15/17 05:11 07/15/17 05:11 07/15/17 07/15/17 05:11 05:11 WBC 11.0 H RBC 2.99 L Hgb 8.8 L Hct 26.8 L MCV 90 MCH 29.5 MCHC 32.9 RDW 14.3 H Plt Count 249 Retic Count (auto) 2.42 Absolute Retic 0.072 Sodium 141.4 Potassium 4.7 Chloride 109 H Carbon Dioxide 20 L Anion Gap 12 BUN 27 H Creatinine 2.35 H Est GFR ( Amer) 25 L Est GFR (Non-Af Amer) 21 L Glucose 184 H Calcium 8.3 L Iron 14.3 L TIBC 222 L % Saturation 6 Ferritin 123.00 Vitamin B12 294.0 Folate 8.10 Assessment & Plan - Diagnosis (1) Uytpt-iw-lrrpqum kidney injury Qualifiers: Acute renal failure type: unspecified Chronic kidney disease stage: stage 3 (moderate) Qualified Code(s): N17.9 - Acute kidney failure, unspecified; N18.3 - Chronic kidney disease, stage 3 (moderate); N18.3 - Chronic kidney disease, stage 3 (moderate) Is this a current diagnosis for this admission?: Yes Plan: looks to be fluid overloaded now, will hold fluids and start on IV lasix at a low dose. Also will do a chest x-ray (2) Nausea Plan: will reassess tomorrow to see if she was able to eat (3) Hyperkalemia Is this a current diagnosis for this admission?: Yes Plan: stable (4) CKD (chronic kidney disease) stage 3, GFR 30-59 ml/min Plan: previous creatinine at last couple of visits has been in the 2.7 to 3.1 range. Her baseline prior to RAMÓN was 1.8. (5) Anemia Qualifiers: Anemia type: unspecified type Qualified Code(s): D64.9 - Anemia, unspecified Plan: low iron saturations, giving 500mg of feraheme. Reassess tomorrow after receiving IV iron. Patient was made aware of the risk and benefits of IV feraheme, including the risk allergic reaction/anaphylaxis. (6) UTI (urinary tract infection) Qualifiers: Urinary tract infection type: acute cystitis Is this a current diagnosis for this admission?: Yes Plan: no growth seen after 48 hours (7) Diabetes mellitus Qualifiers: Diabetes mellitus type: type 2 Diabetes mellitus complication status: with neurologic complications Diabetes mellitus complication detail: with polyneuropathy Diabetes mellitus custodial insulin use: with termite renewal inspector use Qualified Code(s): E11.42 - Type 2 diabetes mellitus with diabetic polyneuropathy; Z79.4 - senior care (current) use of insulin; Z79.4 - buttermilk drier operator ( current) use of insulin; Z79.4 - senior care (current) use of insulin; Z79.4 - buttermilk drier operator (current) use of insulin Is this a current diagnosis for this admission?: Yes - Notes Notes: Patient was reviewed with Dr. Zhu.
--- NOTE | 2017-07-15 16:45 | RADIOLOGY REPORT (SQ) ---
EXAM DESCRIPTION: CHEST SINGLE VIEW COMPLETED DATE/TIME: 07/15/2017 4:12 pm REASON FOR STUDY: SOB, possible CHF COMPARISON: None. EXAM PARAMETERS: NUMBER OF VIEWS: One view. TECHNIQUE: Single frontal radiographic view of the chest acquired. RADIATION DOSE: NA LIMITATIONS: None. FINDINGS: LUNGS AND PLEURA: Patchy abnormal air space density throughout the right lung and to a les ser extent the left parahilar distribution. Differential includes pneumonia and asymmetric pulmonary edema. No effusions are identified. MEDIASTINUM AND HILAR STRUCTURES: No masses. Contour normal. HEART AND VASCULAR STRUCTURES: Heart normal in size. Normal vasculature. BONES: No acute findings. HARDWARE: None in the chest. OTHER: No other significant finding. IMPRESSION: Abnormal air space density bilaterally greater on the right than left with differential including pulmonary edema and pneumonia. Appearance is more suggestive of pneumonia. TECHNICAL DOCUMENTATION: JOB ID: [id number] [employer]- All Rights Reserved
[2017-07-15] MEDS: FUROSEMIDE INJ/PF 20 MG/2 ML SDV IV SCH (17:06)
[2017-07-15] MEDS: ONDANSETRON HCL INJ/PF 4 MG/2 ML SDV IV PRN ×2 (17:06→21:34)
--- NOTE | 2017-07-15 17:51 | PDOC PROGRESS REPORT ---
Subjective Progress Note for:: 07/15/17 Subjective:: .Patient complains of shortness of breath. She has not been able to move her bowels since she came in Review of system All organ systems evaluated and negative except as in subjective All laboratories and significant diagnostics have been reviewed Reason For Visit: HYPERKALEMIA,ACUTE ON CHRONIC KIDNEY INJURY, UTI Physical Exam Vital Signs: Temp Pulse Resp BP Pulse Ox 97.6 F 78 24 H 149/73 H 97 07/15/17 04:17 07/15/17 04:17 07/15/17 04:17 07/15/17 04:17 07/15/17 04:17 Intake & Output 07/14/17 07/15/17 07/16/17 06:59 06:59 06:59 Intake Total 3763 2628 Output Total 1225 975 Balance 2538 1653 Weight 134.6 kg 134 kg General appearance: PRESENT: cooperative, morbidly obese Head exam: PRESENT: atraumatic, normocephalic Eye exam: PRESENT: conjunctiva pink, EOMI, PERRLA Ear exam: PRESENT: normal external ear exam Mouth exam: PRESENT: moist Neck exam: PRESENT: full ROM. ABSENT: JVD, lymphadenopathy, tenderness Respiratory exam: PRESENT: crackles, decreased breath sounds Cardiovascular exam: PRESENT: RRR. ABSENT: diastolic murmur, systolic murmur Vascular exam: PRESENT: normal capillary refill GI/Abdominal exam: PRESENT: normal bowel sounds, soft. ABSENT: tenderness Extremities exam: PRESENT: full ROM, +2 edema Musculoskeletal exam: ABSENT: ambulatory Neurological exam: PRESENT: alert, awake, oriented to person, oriented to place , oriented to time, oriented to situation Psychiatric exam: PRESENT: appropriate affect, normal mood Skin exam: PRESENT: intact, normal color Results Laboratory Results: 07/15/17 05:11 07/15/17 05:11 07/14/17 07/14/17 07/15/17 05:19 05:19 05:11 WBC 11.2 H 11.0 H RBC 3.08 L 2.99 L Hgb 9.2 L 8.8 L Hct 27.5 L 26.8 L MCV 90 90 MCH 29.8 29.5 MCHC 33.2 32.9 RDW 14.5 H 14.3 H Plt Count 255 249 Seg Neutrophils % 81.6 H Lymphocytes % 9.1 L Monocytes % 7.6 Eosinophils % 0.4 Basophils % 1.3 Absolute Neutrophils 9.1 H Absolute Lymphocytes 1.0 Absolute Monocytes 0.8 Absolute Eosinophils 0.0 Absolute Basophils 0.1 Retic Count (auto) 2.42 Absolute Retic 0.072 Sodium Potassium Chloride Carbon Dioxide Anion Gap BUN Creatinine Est GFR ( Amer) Est GFR (Non-Af Amer) Glucose Calcium Iron TIBC % Saturation Ferritin Vitamin B12 Folate PTH Intact 127.9 H 07/15/17 05:11 WBC RBC Hgb Hct MCV MCH MCHC RDW Plt Count Seg Neutrophils % Lymphocytes % Monocytes % Eosinophils % Basophils % Absolute Neutrophils Absolute Lymphocytes Absolute Monocytes Absolute Eosinophils Absolute Basophils Retic Count (auto) Absolute Retic Sodium 141.4 Potassium 4.7 Chloride 109 H Carbon Dioxide 20 L Anion Gap 12 BUN 27 H Creatinine 2.35 H Est GFR ( Amer) 25 L Est GFR (Non-Af Amer) 21 L Glucose 184 H Calcium 8.3 L Iron 14.3 L TIBC 222 L % Saturation 6 Ferritin 123.00 Vitamin B12 294.0 Folate 8.10 PTH Intact Assessment & Plan - Diagnosis (1) Right-sided congestive heart failure Qualifiers: Heart failure chronicity: acute on chronic Qualified Code(s): I50.813 - Acute on chronic right heart failure Is this a current diagnosis for this admission?: Yes Plan: Will reduce IV fluids. Will place patient on IV Lasix and will trend renal since expected may worsen which likely contributes to her current presentation (2) Constipation Qualifiers: Constipation type: unspecified constipation type Qualified Code(s): K59.00 - Constipation, unspecified Is this a current diagnosis for this admission?: Yes Plan: Will place on bowel regimen (3) Fvrck-hd-orezhyn kidney injury Qualifiers: Acute renal failure type: unspecified Chronic kidney disease stage: stage 3 (moderate) Qualified Code(s): N17.9 - Acute kidney failure, unspecified; N18.3 - Chronic kidney disease, stage 3 (moderate); N18.3 - Chronic kidney disease, stage 3 (moderate) Is this a current diagnosis for this admission?: Yes Plan: Suspect acute component may relate to right-sided failure (4) Anemia Qualifiers: Anemia type: unspecified type Qualified Code(s): D64.9 - Anemia, unspecified Is this a current diagnosis for this admission?: Yes Plan: Stable (5) Diabetes mellitus Qualifiers: Diabetes mellitus type: type 2 Diabetes mellitus complication status: with neurologic complications Diabetes mellitus complication detail: with polyneuropathy Diabetes mellitus paper carrier insulin use: with longterm use Qualified Code(s): E11.42 - Type 2 diabetes mellitus with diabetic polyneuropathy; Z79.4 - cutting and printing machine operator (current) use of insulin; Z79.4 - cutting and printing machine operator ( current) use of insulin; Z79.4 - cutting and printing machine operator (current) use of insulin; Z79.4 - long-term (current) use of insulin Is this a current diagnosis for this admission?: Yes Plan: Continue current management (6) Morbid obesity with BMI of 50.0-59.9, adult Is this a current diagnosis for this admission?: Yes Plan: Will educate once patient feels better (7) PNA (pneumonia) Qualifiers: Pneumonia type: due to unspecified organism Laterality: bilateral Is this a current diagnosis for this admission?: Yes Plan: Will place on Rocephin and Zithromax - Time Time Spent with patient: 15-24 minutes Medications reviewed and adjusted accordingly: Yes Anticipated discharge: Acute Rehab Within: within 72 hours - Inpatient Certification Based on my medical assessment, after consideration of the patient's comorbidities, presenting symptoms, or acuity I expect that the services needed warrant INPATIENT care.: Yes I certify that my determination is in accordance with my understanding of Medicare's requirements for reasonable and necessary INPATIENT services [42 CFR 412.3e].: Yes Medical Necessity: Need Close Monitoring Due to Risk of Patient Decompensation, Need For IV Fluids, Need for IV Antibiotics
[2017-07-15] MEDS: AZITHROMYCIN 250 MG TABLET PO SCH (17:57)
[2017-07-15] MEDS ORDERED: CEFTRIAXONE 1 GM/D5W RTU 1 GM/50 ML RTUPB IV SCH (18:00)
[2017-07-15] MEDS ORDERED: FUROSEMIDE INJ/PF 100 MG/10 ML SDV IV SCH ×2 (22:00)
[2017-07-15] MEDS: CEFTRIAXONE SODIUM 1,000 MG in NORMAL SALINE 100 ML IV SCH (22:30)
[2017-07-15] MEDS: ATORVASTATIN CALCIUM 80 MG TABLET PO SCH (22:32)
[2017-07-16 05:47] LABS: ABSOLUTE BASOPHILS # (AUTO) 0.1 10^3/uL (0.0-0.2); ABSOLUTE EOSINOPHILS # (AUTO) 0.1 10^3/uL (0.0-0.6); ABSOLUTE LYMPHOCYTES (AUTO) 1.1 10^3/uL (0.5-4.7); ABSOLUTE NEUT (AUTO) 8.3 10^3/uL (1.7-8.2); BASOPHILS % (AUTO) 1.1 % (0-2); EOSINOPHILS % (AUTO) 1.1 % (0-6); HEMATOCRIT 27.1 % (36.0-47.0); HEMOGLOBIN 9.3 g/dL (12.0-15.5); LYMPHOCYTES % (AUTO) 10.1 % (13-45); MEAN CORPUSCULAR HEMOGLOBIN 29.9 pg (27.0-33.4); MEAN CORPUSCULAR HGB CONC 34.1 g/dL (32.0-36.0); MEAN CORPUSCULAR VOLUME 88 fl (80-97); MONOCYTES % (AUTO) 9.6 % (3-13); PLATELET COUNT 294 10^3/uL (150-450); RED BLOOD COUNT 3.09 10^6/uL (3.72-5.28); RED CELL DISTRIBUTION WIDTH 14.5 % (11.5-14.0); SEGMENTED NEUTROPHILS % (AUTO) 78.1 % (42-78); TOTAL CELLS COUNTED % (AUTO) 100 %; WHITE BLOOD COUNT 10.6 10^3/uL (4.0-10.5)
[2017-07-16 06:01] LABS: ANION GAP 11 (5-19); BLOOD UREA NITROGEN 30 mg/dL (7-20); CALCIUM 7.7 mg/dL (8.4-10.2); CARBON DIOXIDE 19 mmol/L (22-30); CHLORIDE 109 mmol/L (98-107); GLUCOSE 201 mg/dL (75-110); POTASSIUM 4.2 mmol/L (3.6-5.0)
[2017-07-16] MEDS: HYDRALAZINE HCL 25 MG TABLET PO SCH ×3 (06:51→22:23)
[2017-07-16] MEDS: LEVOTHYROXINE SODIUM 0.15 MG TABLET PO SCH (06:51)
[2017-07-16] MEDS: FUROSEMIDE INJ/PF 20 MG/2 ML SDV IV SCH ×2 (06:53→17:32)
[2017-07-16] MEDS: INSULIN LISPRO 100 UNIT/ML 3 ML VIAL SUBCUT PRN ×4 (07:51→22:24)
[2017-07-16] MEDS: ONDANSETRON HCL INJ/PF 4 MG/2 ML SDV IV PRN ×2 (07:51→22:24)
[2017-07-16] MEDS: ASPIRIN 325 MG TABLET, ENT COATED PO SCH (07:51)
[2017-07-16] MEDS: ENOXAPARIN SODIUM INJ 30 MG/0.3 ML DISP.SYRIN SUBCUT SCH (10:23)
[2017-07-16] MEDS: ISOSORBIDE MONONITRATE 60 MG TAB.ER.24H PO SCH (10:25)
[2017-07-16] MEDS: BUPROPION HCL 75 MG TABLET PO SCH ×2 (10:25→22:24)
[2017-07-16] MEDS: AMLODIPINE BESYLATE 10 MG TABLET PO SCH (10:26)
[2017-07-16] MEDS: CLOPIDOGREL BISULFATE 75 MG TABLET PO SCH (10:26)
[2017-07-16] MEDS: RANOLAZINE 500 MG TAB.SR.12H PO SCH ×2 (10:26→22:24)
[2017-07-16] MEDS: FAMOTIDINE 20 MG TABLET PO SCH (10:27)
[2017-07-16] MEDS: METOPROLOL SUCCINATE 50 MG TAB.SR.24H PO SCH (10:27)
[2017-07-16] MEDS: POLYETHYLENE GLYCOL 3350 POWDER 17 GM/1 PACKET PO SCH (10:29)
[2017-07-16] MEDS: DOCUSATE SODIUM 100 MG CAPSULE PO SCH ×2 (10:29→17:32)
--- NOTE | 2017-07-16 11:40 | PDOC PROGRESS REPORT ---
Subjective Progress Note for:: 07/16/17 Subjective:: Patient at the time of examination was sitting up in her bed. She felt much better and did not feel SOB. She said that she was able to eat her full meal this morning, which was the first time since Wednesday. She currently has not had bowel movement, but that is because she says she won't go if she is not at home. Yesterday she produced 2.2L of urine. Reason For Visit: HYPERKALEMIA,ACUTE ON CHRONIC KIDNEY INJURY, UTI Physical Exam Vital Signs: Temp Pulse Resp BP Pulse Ox 98.3 F 79 21 H 153/55 H 97 07/16/17 08:08 07/16/17 08:08 07/16/17 08:08 07/16/17 08:08 07/16/17 08:13 Intake & Output 07/15/17 07/16/17 07/17/17 06:59 06:59 06:59 Intake Total 2628 1285 Output Total 975 2250 Balance 1653 -965 Weight 134 kg 133.3 kg General appearance: PRESENT: no acute distress, well-developed, well-nourished Mouth exam: PRESENT: moist, neck supple Respiratory exam: PRESENT: crackles - -bases, rhonchi, wheezes. ABSENT: accessory muscle use Cardiovascular exam: PRESENT: RRR, +S1, +S2 GI/Abdominal exam: PRESENT: soft. ABSENT: normal bowel sounds, organomegaly, tenderness Extremities exam: PRESENT: pedal edema, +1 edema. ABSENT: tenderness Musculoskeletal exam: PRESENT: normal inspection. ABSENT: tenderness Neurological exam: PRESENT: alert, awake, oriented to person, oriented to place , oriented to time, oriented to situation Psychiatric exam: PRESENT: appropriate affect, normal mood Skin exam: PRESENT: dry, intact, warm Results Laboratory Results: 07/16/17 05:35 07/16/17 05:35 07/15/17 07/16/17 07/16/17 05:11 05:35 05:35 WBC 10.6 H RBC 3.09 L Hgb 9.3 L Hct 27.1 L MCV 88 MCH 29.9 MCHC 34.1 RDW 14.5 H Plt Count 294 Seg Neutrophils % 78.1 H Lymphocytes % 10.1 L Monocytes % 9.6 Eosinophils % 1.1 Basophils % 1.1 Absolute Neutrophils 8.3 H Absolute Lymphocytes 1.1 Absolute Monocytes 1.0 Absolute Eosinophils 0.1 Absolute Basophils 0.1 Sodium 139.0 Potassium 4.2 Chloride 109 H Carbon Dioxide 19 L Anion Gap 11 BUN 30 H Creatinine 2.41 H Est GFR ( Amer) 25 L Est GFR (Non-Af Amer) 20 L Glucose 201 H Calcium 7.7 L Magnesium 1.8 Transferrin 148 L 07/13/17 11:45 Clean Catch Midstream Urine Culture - Final NO GROWTH 2 DAYS Impressions: Chest X-Ray 07/15/17 15:49 IMPRESSION: Abnormal air space density bilaterally greater on the right than left with differential including pulmonary edema and pneumonia. Appearance is more suggestive of pneumonia. Assessment & Plan - Diagnosis (1) Jvpfe-yq-afxcsig kidney injury Qualifiers: Acute renal failure type: unspecified Chronic kidney disease stage: stage 3 (moderate) Qualified Code(s): N17.9 - Acute kidney failure, unspecified; N18.3 - Chronic kidney disease, stage 3 (moderate); N18.3 - Chronic kidney disease, stage 3 (moderate) Is this a current diagnosis for this admission?: Yes Plan: currently creatinine is stable, currently producing a significant amount of urine. (2) Right-sided congestive heart failure Qualifiers: Heart failure chronicity: acute on chronic Qualified Code(s): I50.813 - Acute on chronic right heart failure Is this a current diagnosis for this admission?: Yes Plan: On IV lasix, showing some improvement (3) Nausea Plan: looks to have resolved (4) Hyperkalemia Is this a current diagnosis for this admission?: Yes Plan: stable (5) CKD (chronic kidney disease) stage 3, GFR 30-59 ml/min Plan: previous creatinine at last couple of visits has been in the 2.7 to 3.1 range. Her baseline prior to RAMÓN was 1.8. (6) Anemia Qualifiers: Anemia type: due to chronic kidney disease Chronic kidney disease stage: stage 3 (moderate) Is this a current diagnosis for this admission?: Yes Plan: looks to be improving after receiving IV feraheme (7) UTI (urinary tract infection) Qualifiers: Urinary tract infection type: acute cystitis Is this a current diagnosis for this admission?: Yes Plan: no growth on the culture after 72 hours (8) Diabetes mellitus Qualifiers: Diabetes mellitus type: type 2 Diabetes mellitus complication status: with neurologic complications Diabetes mellitus complication detail: with polyneuropathy Diabetes mellitus assisted insulin use: with assisted use Qualified Code(s): E11.42 - Type 2 diabetes mellitus with diabetic polyneuropathy; Z79.4 - halfway (current) use of insulin; Z79.4 - terminal operator ( current) use of insulin; Z79.4 - halfway (current) use of insulin; Z79.4 - terminal operator (current) use of insulin Is this a current diagnosis for this admission?: Yes - Notes Notes: Patients case was reviewed and discussed with Dr. Zhu.
[2017-07-16] MEDS ORDERED: SORBITOL 70% SOLUTION 30 ML UDC PO PRN (12:15)
--- NOTE | 2017-07-16 12:22 | PDOC PROGRESS REPORT ---
Subjective Progress Note for:: 07/16/17 Subjective:: Patient relates that shortness of breath is better and was wondering if she could go home because her [birth year] is on [birth year]. She still has not been able to move her bowels. Accordingly whenever she is outside home she gets constipated. Patient had been seen by renal and that she was refusing second dose of Lasix. Patient was approached and accordingly is difficult for her to get to the bathroom on time. She was offered a bedside commode Review of system All organ systems evaluated and negative except as in subjective All laboratories and significant diagnostics have been reviewed Reason For Visit: HYPERKALEMIA,ACUTE ON CHRONIC KIDNEY INJURY, UTI Physical Exam Vital Signs: Temp Pulse Resp BP Pulse Ox 98.7 F 79 22 H 149/58 H 92 07/16/17 03:29 07/16/17 03:29 07/16/17 04:03 07/16/17 03:29 07/16/17 04:03 Intake & Output 07/15/17 07/16/17 07/17/17 06:59 06:59 06:59 Intake Total 2628 1285 Output Total 975 2250 Balance 1653 -965 Weight 134 kg 133.3 kg General appearance: PRESENT: cooperative, morbidly obese Head exam: PRESENT: atraumatic, normocephalic Eye exam: PRESENT: conjunctiva pink, EOMI, PERRLA Ear exam: PRESENT: normal external ear exam Mouth exam: PRESENT: moist Neck exam: PRESENT: full ROM. ABSENT: JVD, lymphadenopathy, tenderness Respiratory exam: PRESENT: clear to auscultation paula, decreased breath sounds Cardiovascular exam: PRESENT: RRR. ABSENT: diastolic murmur, systolic murmur Vascular exam: PRESENT: normal capillary refill GI/Abdominal exam: PRESENT: normal bowel sounds, soft. ABSENT: tenderness Extremities exam: PRESENT: full ROM Musculoskeletal exam: PRESENT: ambulatory - 1+ edema right lower extremity 2+ edema left lower extremity (patient states that is mostly chronic after injury) Neurological exam: PRESENT: alert, awake, oriented to person, oriented to place , oriented to time, oriented to situation, CN II-XII grossly intact Psychiatric exam: PRESENT: appropriate affect, normal mood Skin exam: PRESENT: intact, normal color Results Laboratory Results: 07/16/17 05:35 07/16/17 05:35 07/15/17 07/16/1707/16/18 05:11 05:35 05:35 WBC 10.6 H RBC 3.09 L Hgb 9.3 L Hct 27.1 L MCV 88 MCH 29.9 MCHC 34.1 RDW 14.5 H Plt Count 294 Seg Neutrophils % 78.1 H Lymphocytes % 10.1 L Monocytes % 9.6 Eosinophils % 1.1 Basophils % 1.1 Absolute Neutrophils 8.3 H Absolute Lymphocytes 1.1 Absolute Monocytes 1.0 Absolute Eosinophils 0.1 Absolute Basophils 0.1 Sodium 139.0 Potassium 4.2 Chloride 109 H Carbon Dioxide 19 L Anion Gap 11 BUN 30 H Creatinine 2.41 H Est GFR ( Amer) 25 L Est GFR (Non-Af Amer) 20 L Glucose 201 H Calcium 7.7 L Magnesium 1.8 Ferritin 123.00 Vitamin B12 294.0 Folate 8.10 Impressions: Chest X-Ray 07/15/17 15:49 IMPRESSION: Abnormal air space density bilaterally greater on the right than left with differential including pulmonary edema and pneumonia. Appearance is more suggestive of pneumonia. Assessment & Plan - Diagnosis (1) Right-sided congestive heart failure Qualifiers: Heart failure chronicity: acute on chronic Qualified Code(s): I50.813 - Acute on chronic right heart failure Is this a current diagnosis for this admission?: Yes Plan: Will discontinue IV fluids. Continue Lasix IV with close monitoring of renal function as she may become cardiorenal. Discussed with renal (2) Constipation Qualifiers: Constipation type: unspecified constipation type Qualified Code(s): K59.00 - Constipation, unspecified Is this a current diagnosis for this admission?: Yes Plan: To add Reglan IV as promotility agent. Continue MiraLAX and sorbitol (3) Uvwpi-fq-wyfawih kidney injury Qualifiers: Acute renal failure type: unspecified Chronic kidney disease stage: stage 3 (moderate) Qualified Code(s): N17.9 - Acute kidney failure, unspecified; N18.3 - Chronic kidney disease, stage 3 (moderate); N18.3 - Chronic kidney disease, stage 3 (moderate) Is this a current diagnosis for this admission?: Yes Plan: Suspect acute component may relate to right-sided failure. Stable (4) Anemia Qualifiers: Anemia type: due to chronic kidney disease Chronic kidney disease stage: stage 3 (moderate) Qualified Code(s): N18.3 - Chronic kidney disease, stage 3 (moderate); D63.1 - Anemia in chronic kidney disease; D63.1 - Anemia in chronic kidney disease Is this a current diagnosis for this admission?: Yes Plan: Stable (5) Diabetes mellitus Qualifiers: Diabetes mellitus type: type 2 Diabetes mellitus complication status: with neurologic complications Diabetes mellitus complication detail: with polyneuropathy Diabetes mellitus mcc insulin use: with extermination inspector use Qualified Code(s): E11.42 - Type 2 diabetes mellitus with diabetic polyneuropathy; Z79.4 - [facility] (current) use of insulin; Z79.4 - extermination inspector ( current) use of insulin; Z79.4 - extermination inspector (current) use of insulin; Z79.4 - extermination inspector (current) use of insulin Is this a current diagnosis for this admission?: Yes Plan: Will restart Lantus 25 units subcu twice daily. Will add Humalog pre-meal doses and continue Humalog sliding scale (6) Morbid obesity with BMI of 50.0-59.9, adult Is this a current diagnosis for this admission?: Yes Plan: Patient educated about losing weight and is receptive (7) PNA (pneumonia) Qualifiers: Pneumonia type: due to unspecified organism Laterality: bilateral Is this a current diagnosis for this admission?: Yes Plan: Continue Rocephin and Zithromax. Will order follow-up chest x-ray in a.m. - Time Time Spent with patient: 15-24 minutes Medications reviewed and adjusted accordingly: Yes Anticipated discharge: Home with Homehealth Within: within 48 hours - Inpatient Certification Based on my medical assessment, after consideration of the patient's comorbidities, presenting symptoms, or acuity I expect that the services needed warrant INPATIENT care.: Yes I certify that my determination is in accordance with my understanding of Medicare's requirements for reasonable and necessary INPATIENT services [42 CFR 412.3e].: Yes Medical Necessity: Need Close Monitoring Due to Risk of Patient Decompensation, Need For Continuous Telemetry Monitoring, Need for IV Antibiotics
[2017-07-16] MEDS ORDERED: METOCLOPRAMIDE HCL INJ/PF 10 MG/2 ML SDV IV ONE (13:00)
[2017-07-16] MEDS: INSULIN LISPRO 100 UNIT/ML 3 ML VIAL SUBCUT SCH (16:34)
[2017-07-16] MEDS: METOCLOPRAMIDE HCL INJ/PF 10 MG/2 ML SDV IV SCH (17:31)
[2017-07-16] MEDS: AZITHROMYCIN 250 MG TABLET PO SCH (17:32)
[2017-07-16] MEDS: INSULIN GLARGINE,HUM.REC.ANLOG 1,000 UNIT/10 ML UNIT SUBCUT SCH (17:52)
[2017-07-16] MEDS ORDERED: INSULIN GLARGINE,HUM.REC.ANLOG 1,000 UNIT/10 ML UNIT SUBCUT SCH (18:00)
--- NOTE | 2017-07-16 18:09 | XCELERA REPORT ---
[address] [address] Transthoracic Echocardiogram Report Name: KARINA ROGERS Age: 61 yrs Gender: Female : 1955 Patient Status: Inpatient Patient Location: [address] [place] [address] Study Date: 07/16/2017 09:48 AM Height: 61 in Weight: 295 lb BSA: 2.2 m2 Procedure: A complete two-dimensional transthoracic echocardiogram was performed (2D, M-mode, spectral and color flow Doppler). The study was technically difficult with many images being suboptimal in quality. Reason For Study: dyspnea Ordering Physician: SYBIL CASE Performed By: Lorna Hodge Interpretation Summary The study was technically difficult with many images being suboptimal in quality. The left ventricular ejection fraction is preserved. Consider additional methods to assess LVEF such as MUGA scan, CTA heart, cardiac MRI, LATHA, etc. if clinically indicated. There is mild to moderate concentric left ventricular hypertrophy. Doppler measurements suggest pseudonormalized left ventricular relaxation, which is associated with grade II/IV or mild to moderate diastolic dysfunction The left ventricle is grossly normal size. Regional wall motion abnormalities cannot be excluded due to limited visualization. The right ventricle is mild to moderately dilated. The right ventricular systolic function is borderline reduced. The left atrium is mildly dilated. The right atrium is mildly dilated. There is a trace amount of mitral regurgitation There is no mitral valve stenosis. There is no aortic valve stenosis No aortic regurgitation is present. There is a trace or physiologic amount of tricuspid regurgitation Tricuspid regurgitation jet envelope not well defined to measure RV systolic pressure accurately. The aortic root is not well visualized but is probably normal size. The inferior vena cava appeared normal and decreased > 50% with respiration (RAP 5-10 mmHg) Minimal pericardial effusion. MMode/2D Measurements & Calculations RVDd: 3.9 cm LVIDd: 4.4 cm FS: 43.5 % Ao root diam: 2.4 cm IVSd: 1.4 cm LVIDs: 2.5 cm EDV(Teich): 87.9 ml LVPWd: 1.4 cm ESV(Teich): 22.1 ml Ao root area: 4.4 cm2 EF(Teich): 74.9 % LA dimension: 3.9 cm Doppler Measurements & Calculations MV E max mc: MV P1/2t max mc: Ao V2 max: LV V1 max P.0 cm/sec 116.5 cm/sec 164.0 cm/sec 7.4 mmHg MV A max mc: MV P1/2t: 62.7 msec Ao max PG: LV V1 max: 105.6 cm/sec 10.8 mmHg 136.2 cm/sec MV E/A: 1.1 MVA(P1/2t): 3.5 cm2 MV dec slope: 544.4 cm/sec2 MV dec time: 0.21 sec PA V2 max: TR max mc: 106.1 cm/sec 259.5 cm/sec PA max PG: TR max P.9 mmHg 4.5 mmHg Left Ventricle The left ventricle is grossly normal size. There is mild to moderate concentric left ventricular hypertrophy. The left ventricular ejection fraction is preserved. Consider additional methods to assess LVEF such as MUGA scan, CTA heart, cardiac MRI, LATHA, etc. if clinically indicated. Doppler measurements suggest pseudonormalized left ventricular relaxation, which is associated with grade II/IV or mild to moderate diastolic dysfunction. Regional wall motion abnormalities cannot be excluded due to limited visualization. Right Ventricle The right ventricle is mild to moderately dilated. There is normal right ventricular wall thickness. The right ventricular systolic function is borderline reduced. Atria The right atrium is mildly dilated. The left atrium is mildly dilated. Interarterial septum not well visualized and not well dopplered. Cannot comment on ASD/PFO presence. Mitral Valve There is mild to moderate mitral annular calcification. There is no mitral valve stenosis. There is a trace amount of mitral regurgitation. Aortic Valve The aortic valve is not well visualized secondary to technical limitations. There is no aortic valve stenosis. No aortic regurgitation is present. Tricuspid Valve The tricuspid valve is not well visualized secondary to technical limitations. There is no tricuspid stenosis. There is a trace or physiologic amount of tricuspid regurgitation. Tricuspid regurgitation jet envelope not well defined to measure RV systolic pressure accurately. Pulmonic Valve The pulmonic valve is not well visualized. Great Vessels The aortic root is not well visualized but is probably normal size. The inferior vena cava appeared normal and decreased > 50% with respiration (RAP 5-10 mmHg). Effusions Minimal pericardial effusion. : SYBIL CASE > Toni Heller
[2017-07-16] MEDS: ATORVASTATIN CALCIUM 80 MG TABLET PO SCH (22:23)
[2017-07-16] MEDS: CEFTRIAXONE SODIUM 1,000 MG in NORMAL SALINE 100 ML IV SCH (22:23)
[2017-07-16] MEDS: OXYCODONE-ACETAMINOPHEN 5-325 MG TABLET PO PRN (22:24)
[2017-07-17] MEDS: METOCLOPRAMIDE HCL INJ/PF 10 MG/2 ML SDV IV SCH ×5 (00:08→23:29)
[2017-07-17] MEDS: LEVOTHYROXINE SODIUM 0.15 MG TABLET PO SCH (06:05)
[2017-07-17] MEDS: FUROSEMIDE INJ/PF 20 MG/2 ML SDV IV SCH (06:05)
[2017-07-17] MEDS: HYDRALAZINE HCL 25 MG TABLET PO SCH (06:05)
[2017-07-17 06:48] LABS: ABSOLUTE BASOPHILS # (AUTO) 0.1 10^3/uL (0.0-0.2); ABSOLUTE EOSINOPHILS # (AUTO) 0.3 10^3/uL (0.0-0.6); ABSOLUTE LYMPHOCYTES (AUTO) 1.2 10^3/uL (0.5-4.7); ABSOLUTE MONOCYTES (AUTO) 0.8 10^3/uL (0.1-1.4); ABSOLUTE NEUT (AUTO) 7.3 10^3/uL (1.7-8.2); BASOPHILS % (AUTO) 0.9 % (0-2); EOSINOPHILS % (AUTO) 2.8 % (0-6); HEMATOCRIT 27.9 % (36.0-47.0); HEMOGLOBIN 9.4 g/dL (12.0-15.5); LYMPHOCYTES % (AUTO) 12.3 % (13-45); MEAN CORPUSCULAR HEMOGLOBIN 29.9 pg (27.0-33.4); MEAN CORPUSCULAR HGB CONC 33.6 g/dL (32.0-36.0); MEAN CORPUSCULAR VOLUME 89 fl (80-97); MONOCYTES % (AUTO) 7.9 % (3-13); PLATELET COUNT 340 10^3/uL (150-450); RED BLOOD COUNT 3.14 10^6/uL (3.72-5.28); RED CELL DISTRIBUTION WIDTH 14.3 % (11.5-14.0); SEGMENTED NEUTROPHILS % (AUTO) 76.1 % (42-78); TOTAL CELLS COUNTED % (AUTO) 100 %; WHITE BLOOD COUNT 9.6 10^3/uL (4.0-10.5)
[2017-07-17 07:33] LABS: ANION GAP 14 (5-19); BLOOD UREA NITROGEN 38 mg/dL (7-20); CARBON DIOXIDE 20 mmol/L (22-30); CHLORIDE 107 mmol/L (98-107); GLUCOSE 225 mg/dL (75-110); POTASSIUM 4.4 mmol/L (3.6-5.0); SODIUM 141.2 mmol/L (137-145)
[2017-07-17] MEDS: ASPIRIN 325 MG TABLET, ENT COATED PO SCH (07:42)
[2017-07-17] MEDS: INSULIN LISPRO 100 UNIT/ML 3 ML VIAL SUBCUT PRN ×4 (07:42→23:29)
[2017-07-17] MEDS: INSULIN LISPRO 100 UNIT/ML 3 ML VIAL SUBCUT SCH ×3 (07:43→17:47)
[2017-07-17] MEDS: ENOXAPARIN SODIUM INJ 30 MG/0.3 ML DISP.SYRIN SUBCUT SCH (10:23)
[2017-07-17] MEDS: ISOSORBIDE MONONITRATE 60 MG TAB.ER.24H PO SCH (10:25)
[2017-07-17] MEDS: INSULIN GLARGINE,HUM.REC.ANLOG 1,000 UNIT/10 ML UNIT SUBCUT SCH ×2 (10:25→17:47)
[2017-07-17] MEDS: AMLODIPINE BESYLATE 10 MG TABLET PO SCH (10:26)
[2017-07-17] MEDS: CLOPIDOGREL BISULFATE 75 MG TABLET PO SCH (10:26)
[2017-07-17] MEDS: FAMOTIDINE 20 MG TABLET PO SCH (10:26)
[2017-07-17] MEDS: BUPROPION HCL 75 MG TABLET PO SCH ×2 (10:26→21:19)
[2017-07-17] MEDS: METOPROLOL SUCCINATE 50 MG TAB.SR.24H PO SCH (10:27)
[2017-07-17] MEDS: ASPIRIN 81 MG TABLET, ENT COATED PO SCH (10:27)
[2017-07-17] MEDS: RANOLAZINE 500 MG TAB.SR.12H PO SCH ×2 (10:27→21:19)
[2017-07-17] MEDS: POLYETHYLENE GLYCOL 3350 POWDER 17 GM/1 PACKET PO SCH (10:29)
[2017-07-17] MEDS: DOCUSATE SODIUM 100 MG CAPSULE PO SCH ×2 (10:29→17:21)
[2017-07-17] MEDS ORDERED: BUMETANIDE 1 MG TABLET PO ONE (10:30)
[2017-07-17] MEDS ORDERED: CEFUROXIME 250 MG TABLET PO ONE (10:30)
--- NOTE | 2017-07-17 12:27 | PDOC PROGRESS REPORT ---
Subjective Progress Note for:: 07/17/17 Subjective:: Patient relates that her breathing is a lot better. No other complaints Review of system All organ systems evaluated and negative except as in subjective All laboratories and significant diagnostics have been reviewed Reason For Visit: HYPERKALEMIA,ACUTE ON CHRONIC KIDNEY INJURY, UTI Physical Exam Vital Signs: Temp Pulse Resp BP Pulse Ox 97.8 F 70 16 129/76 H 97 07/17/17 03:17 07/17/17 03:17 07/17/17 03:17 07/17/17 03:17 07/17/17 03:17 Intake & Output 07/16/17 07/17/17 07/18/17 06:59 06:59 06:59 Intake Total 1285 1305 Output Total 2250 900 Balance -965 405 Weight 133.3 kg 132.2 kg General appearance: PRESENT: cooperative, morbidly obese Head exam: PRESENT: atraumatic, normocephalic Eye exam: PRESENT: conjunctiva pink, EOMI, PERRLA Ear exam: PRESENT: normal external ear exam Mouth exam: PRESENT: moist Neck exam: PRESENT: full ROM. ABSENT: JVD, lymphadenopathy, tenderness Respiratory exam: PRESENT: clear to auscultation paula Cardiovascular exam: PRESENT: RRR. ABSENT: diastolic murmur, systolic murmur Vascular exam: PRESENT: normal capillary refill GI/Abdominal exam: PRESENT: normal bowel sounds, soft. ABSENT: tenderness Extremities exam: PRESENT: +2 edema. ABSENT: full ROM Musculoskeletal exam: PRESENT: ambulatory Neurological exam: PRESENT: alert, awake, oriented to person, oriented to place , oriented to time, oriented to situation, CN II-XII grossly intact Psychiatric exam: PRESENT: appropriate affect, normal mood Skin exam: PRESENT: intact, normal color Results Laboratory Results: 07/17/17 06:30 07/15/17 07/17/17 05:11 06:30 WBC 9.6 RBC 3.14 L Hgb 9.4 L Hct 27.9 L MCV 89 MCH 29.9 MCHC 33.6 RDW 14.3 H Plt Count 340 Seg Neutrophils % 76.1 Lymphocytes % 12.3 L Monocytes % 7.9 Eosinophils % 2.8 Basophils % 0.9 Absolute Neutrophils 7.3 Absolute Lymphocytes 1.2 Absolute Monocytes 0.8 Absolute Eosinophils 0.3 Absolute Basophils 0.1 Transferrin 148 L 07/13/17 11:45 Clean Catch Midstream Urine Culture - Final NO GROWTH 2 DAYS Impressions: Chest X-Ray 07/15/17 15:49 IMPRESSION: Abnormal air space density bilaterally greater on the right than left with differential including pulmonary edema and pneumonia. Appearance is more suggestive of pneumonia. Assessment & Plan - Diagnosis (1) Right-sided congestive heart failure Qualifiers: Heart failure chronicity: acute on chronic Qualified Code(s): I50.813 - Acute on chronic right heart failure Is this a current diagnosis for this admission?: Yes Plan: Improve. To discontinue Lasix IV and place patient on Bumex 1 mg twice a day (2) Constipation Qualifiers: Constipation type: unspecified constipation type Qualified Code(s): K59.00 - Constipation, unspecified Is this a current diagnosis for this admission?: Yes Plan: Continue current regimen (3) Ftqyn-vk-akzmdkx kidney injury Qualifiers: Acute renal failure type: unspecified Chronic kidney disease stage: stage 3 (moderate) Qualified Code(s): N17.9 - Acute kidney failure, unspecified; N18.3 - Chronic kidney disease, stage 3 (moderate); N18.3 - Chronic kidney disease, stage 3 (moderate) Is this a current diagnosis for this admission?: Yes Plan: Patient at the present time at baseline (4) Anemia Qualifiers: Anemia type: due to chronic kidney disease Chronic kidney disease stage: stage 3 (moderate) Qualified Code(s): N18.3 - Chronic kidney disease, stage 3 (moderate); D63.1 - Anemia in chronic kidney disease; D63.1 - Anemia in chronic kidney disease Is this a current diagnosis for this admission?: Yes Plan: Stable (5) Diabetes mellitus Qualifiers: Diabetes mellitus type: type 2 Diabetes mellitus complication status: with neurologic complications Diabetes mellitus complication detail: with polyneuropathy Diabetes mellitus alf insulin use: with alf use Qualified Code(s): E11.42 - Type 2 diabetes mellitus with diabetic polyneuropathy; Z79.4 - intermediate accountant (current) use of insulin; Z79.4 - jail ( current) use of insulin; Z79.4 - jail (current) use of insulin; Z79.4 - jail (current) use of insulin Is this a current diagnosis for this admission?: Yes Plan: Continue Lantus 25 units subcu twice daily, Humalog pre-meal doses and Humalog sliding scale (6) Morbid obesity with BMI of 50.0-59.9, adult Is this a current diagnosis for this admission?: Yes Plan: Patient educated about losing weight and is receptive (7) PNA (pneumonia) Qualifiers: Pneumonia type: due to unspecified organism Laterality: bilateral Is this a current diagnosis for this admission?: Yes Plan: Discontinue Rocephin IV and placed on Ceftin. Continue Zithromax. Chest x-ray order an official result pending - Time Time Spent with patient: 15-24 minutes Medications reviewed and adjusted accordingly: Yes Anticipated discharge: Home Within: within 48 hours - Inpatient Certification Based on my medical assessment, after consideration of the patient's comorbidities, presenting symptoms, or acuity I expect that the services needed warrant INPATIENT care.: Yes I certify that my determination is in accordance with my understanding of Medicare's requirements for reasonable and necessary INPATIENT services [42 CFR 412.3e].: Yes Medical Necessity: Need Close Monitoring Due to Risk of Patient Decompensation
[2017-07-17] MEDS ORDERED: HYDRALAZINE HCL 25 MG TABLET PO SCH (14:00)
[2017-07-17] MEDS: HYDRALAZINE HCL 50 MG TABLET PO SCH ×2 (14:08→21:19)
--- NOTE | 2017-07-17 14:27 | RADIOLOGY REPORT (SQ) ---
EXAM DESCRIPTION: CHEST PA/LAT COMPLETED DATE/TIME: 07/17/2017 8:53 am REASON FOR STUDY: follow up COMPARISON: Chest films 09/09/2015, 11/02/2015, 01/05/2016, 07/15/2017 EXAM PARAMETERS: NUMBER OF VIEWS: two views TECHNIQUE: Digital Frontal and Lateral radiographic views of the chest acquired. RADIATION DOSE: NA LIMITATIONS: none FINDINGS: LUNGS AND PLEURA: Diffuse pulmonary vascular congestion is present with trace fluid in the fissures. Opacification of the right and left posterior costophrenic sulci, effusions versus atelectasis/pneumo rebeka. There is multifocal airspace disease edema versus pneumonia. No pneumothorax MEDIASTINUM AND HILAR STRUCTURES: No masses or contour abnormalities. HEART AND VASCULAR STRUCTURES: Mild cardiomegaly BONES: No acute findings. HARDWARE: Clips post thyroidectomy OTHER: No other significant finding. IMPRESSION: Pulmonary vascular congestion with multifocal airspace disease worrisome for edema. Trace pleural fluid in the fissures and small pleural effusions in the posterior costophrenic sulci TECHNICAL DOCUMENTATION: JOB ID: [id number] [employer]- All Rights Reserved Reading location - IP/workstation name: [email or web address]
[2017-07-17] MEDS: AZITHROMYCIN 250 MG TABLET PO SCH (17:46)
[2017-07-17] MEDS: CEFUROXIME 250 MG TABLET PO SCH (17:46)
[2017-07-17] MEDS ORDERED: BUMETANIDE 1 MG TABLET PO SCH (18:00)
[2017-07-17] MEDS: ATORVASTATIN CALCIUM 80 MG TABLET PO SCH (21:18)
[2017-07-17] MEDS: OXYCODONE-ACETAMINOPHEN 5-325 MG TABLET PO PRN (21:19)
[2017-07-18] MEDS: LEVOTHYROXINE SODIUM 0.15 MG TABLET PO SCH (05:25)
[2017-07-18] MEDS: METOCLOPRAMIDE HCL INJ/PF 10 MG/2 ML SDV IV SCH ×4 (05:25→23:37)
[2017-07-18] MEDS: HYDRALAZINE HCL 50 MG TABLET PO SCH ×3 (05:25→22:47)
[2017-07-18 06:23] LABS: HEMATOCRIT 28.7 % (36.0-47.0); HEMOGLOBIN 9.6 g/dL (12.0-15.5); MEAN CORPUSCULAR HEMOGLOBIN 29.7 pg (27.0-33.4); MEAN CORPUSCULAR HGB CONC 33.4 g/dL (32.0-36.0); MEAN CORPUSCULAR VOLUME 89 fl (80-97); PLATELET COUNT 379 10^3/uL (150-450); RED BLOOD COUNT 3.23 10^6/uL (3.72-5.28); RED CELL DISTRIBUTION WIDTH 14.6 % (11.5-14.0); WHITE BLOOD COUNT 9.6 10^3/uL (4.0-10.5)
[2017-07-18 06:31] LABS: ANION GAP 16 (5-19); BLOOD UREA NITROGEN 39 mg/dL (7-20); CALCIUM 8.3 mg/dL (8.4-10.2); CARBON DIOXIDE 18 mmol/L (22-30); CHLORIDE 107 mmol/L (98-107); GLUCOSE 196 mg/dL (75-110); POTASSIUM 4.1 mmol/L (3.6-5.0); SODIUM 141.4 mmol/L (137-145)
[2017-07-18 07:11] LABS: ABSOLUTE LYMPHOCYTES# (MANUAL) 1.1 10^3/uL (0.5-4.7); ABSOLUTE MONOCYTES # (MANUAL) 0.3 10^3/uL (0.1-1.4); ABSOLUTE NEUTROPHILS# (MANUAL) 7.6 10^3/uL (1.7-8.2); BASOPHILS % (MANUAL) 1 % (0-2); EOSINOPHILS % (MANUAL) 4 % (0-6); LYMPHOCYTES % (MANUAL) 11 % (13-45); MONOCYTES % (MANUAL) 3 % (3-13); SEGMENTED NEUTROPHILS % (MAN) 79 % (42-78); TOTAL CELLS COUNTED 100
[2017-07-18 07:13] LABS: PLATELET COMMENT ADEQUATE; POLYCHROMASIA SLIGHT; RBC MORPHOLOGY COMMENT NORMO-CYTIC/CHROMIC
[2017-07-18 07:14] LABS: IMMATURE MONONUCLEAR% (MANUAL) 2 % (0)
[2017-07-18] MEDS: INSULIN LISPRO 100 UNIT/ML 3 ML VIAL SUBCUT PRN ×4 (07:50→22:47)
[2017-07-18] MEDS: INSULIN LISPRO 100 UNIT/ML 3 ML VIAL SUBCUT SCH ×3 (07:50→15:35)
[2017-07-18] MEDS: ACETAMINOPHEN 325 MG TABLET PO PRN (07:50)
[2017-07-18] MEDS: ENOXAPARIN SODIUM INJ 30 MG/0.3 ML DISP.SYRIN SUBCUT SCH (09:51)
[2017-07-18] MEDS: CLOPIDOGREL BISULFATE 75 MG TABLET PO SCH (09:53)
[2017-07-18] MEDS: FAMOTIDINE 20 MG TABLET PO SCH (09:53)
[2017-07-18] MEDS: INSULIN GLARGINE,HUM.REC.ANLOG 1,000 UNIT/10 ML UNIT SUBCUT SCH ×2 (09:53→17:11)
[2017-07-18] MEDS: AMLODIPINE BESYLATE 10 MG TABLET PO SCH (09:53)
[2017-07-18] MEDS: BUPROPION HCL 75 MG TABLET PO SCH ×2 (09:54→22:47)
[2017-07-18] MEDS: ASPIRIN 81 MG TABLET, ENT COATED PO SCH (09:54)
[2017-07-18] MEDS: CEFUROXIME 250 MG TABLET PO SCH (09:54)
[2017-07-18] MEDS: METOPROLOL SUCCINATE 50 MG TAB.SR.24H PO SCH (09:55)
[2017-07-18] MEDS: ISOSORBIDE MONONITRATE 60 MG TAB.ER.24H PO SCH (09:55)
[2017-07-18] MEDS: RANOLAZINE 500 MG TAB.SR.12H PO SCH ×2 (09:55→22:47)
[2017-07-18] MEDS: DOCUSATE SODIUM 100 MG CAPSULE PO SCH ×2 (09:56→16:58)
[2017-07-18] MEDS: POLYETHYLENE GLYCOL 3350 POWDER 17 GM/1 PACKET PO SCH (09:56)
[2017-07-18] MEDS: FUROSEMIDE INJ/PF 20 MG/2 ML SDV IV SCH ×2 (12:14→22:47)
[2017-07-18] MEDS ORDERED: ALBUTEROL SULFATE 0.083% NEB 2.5 MG/3 ML AMPUL NEB PRN (12:54)
--- NOTE | 2017-07-18 13:05 | PDOC PROGRESS REPORT ---
Subjective Progress Note for:: 07/18/17 Subjective:: Patient refers that she feels better. Nurse reports that patient refused a second dose of Lasix and that patient was quite short of breath last night Review of system All organ systems evaluated and negative except as in subjective All laboratories and significant diagnostics have been reviewed Reason For Visit: HYPERKALEMIA,ACUTE ON CHRONIC KIDNEY INJURY, UTI Physical Exam Vital Signs: Temp Pulse Resp BP Pulse Ox 97.4 F 74 22 H 143/59 H 95 07/18/17 03:12 07/18/17 03:12 07/18/17 03:12 07/18/17 03:12 07/18/17 03:12 Intake & Output 07/17/17 07/18/17 07/19/17 06:59 06:59 06:59 Intake Total 1305 575 Output Total 900 1100 Balance 405 -525 Weight 132.2 kg 135.4 kg General appearance: PRESENT: cooperative, morbidly obese Head exam: PRESENT: atraumatic, normocephalic Eye exam: PRESENT: conjunctiva pink, EOMI, PERRLA Ear exam: PRESENT: normal external ear exam Mouth exam: PRESENT: moist Neck exam: PRESENT: full ROM. ABSENT: JVD, lymphadenopathy, tenderness Respiratory exam: PRESENT: crackles, decreased breath sounds, wheezes Cardiovascular exam: PRESENT: RRR. ABSENT: diastolic murmur, systolic murmur Vascular exam: PRESENT: normal capillary refill GI/Abdominal exam: PRESENT: normal bowel sounds, soft. ABSENT: tenderness Extremities exam: PRESENT: full ROM, +2 edema Musculoskeletal exam: PRESENT: ambulatory Neurological exam: PRESENT: alert, awake, oriented to person, oriented to place , oriented to time, oriented to situation, CN II-XII grossly intact Psychiatric exam: PRESENT: appropriate affect, normal mood Skin exam: PRESENT: intact, normal color Results Laboratory Results: 07/18/17 05:45 07/18/17 05:45 07/17/17 07/18/17 07/18/17 06:30 05:45 05:45 WBC 9.6 RBC 3.23 L Hgb 9.6 L Hct 28.7 L MCV 89 MCH 29.7 MCHC 33.4 RDW 14.6 H Plt Count 379 Seg Neutrophils % Not Reportable Lymphocytes % Not Reportable Monocytes % Not Reportable Eosinophils % Not Reportable Basophils % Not Reportable Absolute Neutrophils Not Reportable Absolute Lymphocytes Not Reportable Absolute Monocytes Not Reportable Absolute Eosinophils Not Reportable Absolute Basophils Not Reportable Sodium 141.2 141.4 Potassium 4.4 4.1 Chloride 107 107 Carbon Dioxide 20 L 18 L Anion Gap 14 16 BUN 38 H 39 H Creatinine 2.65 H 2.93 H Est GFR ( Amer) 22 L 20 L Est GFR (Non-Af Amer) 18 L 16 L Glucose 225 H 196 H Calcium 8.0 L 8.3 L Magnesium 1.9 2.0 07/12/17 16:36 Blood Blood Culture - Final NO GROWTH IN 5 DAYS 07/12/17 16:17 Blood Blood Culture - Final NO GROWTH IN 5 DAYS Impressions: Chest X-Ray 07/17/17 00:00 IMPRESSION: Pulmonary vascular congestion with multifocal airspace disease worrisome for edema. Trace pleural fluid in the fissures and small pleural effusions in the posterior costophrenic sulci Assessment & Plan - Diagnosis (1) Right-sided congestive heart failure Qualifiers: Heart failure chronicity: acute on chronic Qualified Code(s): I50.813 - Acute on chronic right heart failure Is this a current diagnosis for this admission?: Yes Plan: Chest x-ray is discouraging and patient has been informed. Will order Delgado cath and patient made aware need to not to refuse Lasix treatment as ordered. She was made aware that this sort of habit will put her in a dangerous situation as outpatient (2) Constipation Qualifiers: Constipation type: unspecified constipation type Qualified Code(s): K59.00 - Constipation, unspecified Is this a current diagnosis for this admission?: Yes Plan: Continue current regimen (3) Mvlot-bj-aokachy kidney injury Qualifiers: Acute renal failure type: unspecified Chronic kidney disease stage: stage 3 (moderate) Qualified Code(s): N17.9 - Acute kidney failure, unspecified; N18.3 - Chronic kidney disease, stage 3 (moderate); N18.3 - Chronic kidney disease, stage 3 (moderate) Is this a current diagnosis for this admission?: Yes Plan: There has been a slight bump in creatinine and as expected patient comes cardiorenal. 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 insulin use: with residential use Qualified Code(s): E11.42 - Type 2 diabetes mellitus with diabetic polyneuropathy; Z79.4 - nursing home (current) use of insulin; Z79.4 - nursing home ( current) use of insulin; Z79.4 - petroleum terminal plant operator (current) use of insulin; Z79.4 - nursing home (current) use of insulin Is this a current diagnosis for this admission?: Yes Plan: Continue lantus twice daily, increase Humalog pre-meal doses and continue Humalog sliding scale (6) Morbid obesity with BMI of 50.0-59.9, adult Is this a current diagnosis for this admission?: Yes Plan: Patient educated about losing weight and is receptive (7) PNA (pneumonia) Qualifiers: Pneumonia type: due to unspecified organism Laterality: bilateral Is this a current diagnosis for this admission?: Yes Plan: Since chest x-ray raises the concern about pneumonia and will place on Zosyn instead of going back to rocephin and continue Zithromax - Time Time Spent with patient: 15-24 minutes Medications reviewed and adjusted accordingly: Yes Anticipated discharge: Home with Homehealth Within: within 72 hours - Inpatient Certification Based on my medical assessment, after consideration of the patient's comorbidities, presenting symptoms, or acuity I expect that the services needed warrant INPATIENT care.: Yes I certify that my determination is in accordance with my understanding of Medicare's requirements for reasonable and necessary INPATIENT services [42 CFR 412.3e].: Yes Medical Necessity: Need Close Monitoring Due to Risk of Patient Decompensation, Need for IV Antibiotics
[2017-07-18] MEDS: IPRATROPIUM/ALBUTEROL 0.5-2.5 MG/3 ML AMPUL NEB SCH ×2 (13:58→20:11)
[2017-07-18] MEDS: PIPERACILLIN SODIUM/TAZOBACTAM 2.25 GM in NORMAL SALINE 50 ML IV SCH ×2 (15:36→20:55)
[2017-07-18] MEDS: AZITHROMYCIN 250 MG TABLET PO SCH (17:11)
[2017-07-18] MEDS: BUDESONIDE NEB 0.5 MG/2 ML AMPUL NEB SCH (20:11)
[2017-07-18] MEDS: ATORVASTATIN CALCIUM 80 MG TABLET PO SCH (22:47)
[2017-07-19] MEDS: PIPERACILLIN SODIUM/TAZOBACTAM 2.25 GM in NORMAL SALINE 50 ML IV SCH ×2 (03:34→08:12)
[2017-07-19] MEDS: HYDRALAZINE HCL 50 MG TABLET PO SCH ×3 (05:31→21:46)
[2017-07-19] MEDS: LEVOTHYROXINE SODIUM 0.15 MG TABLET PO SCH (05:32)
[2017-07-19] MEDS: METOCLOPRAMIDE HCL INJ/PF 10 MG/2 ML SDV IV SCH ×2 (05:32→12:14)
[2017-07-19 05:45] LABS: HEMATOCRIT 27.7 % (36.0-47.0); HEMOGLOBIN 9.2 g/dL (12.0-15.5); MEAN CORPUSCULAR HEMOGLOBIN 29.9 pg (27.0-33.4); MEAN CORPUSCULAR HGB CONC 33.3 g/dL (32.0-36.0); MEAN CORPUSCULAR VOLUME 90 fl (80-97); PLATELET COUNT 382 10^3/uL (150-450); RED BLOOD COUNT 3.09 10^6/uL (3.72-5.28); RED CELL DISTRIBUTION WIDTH 14.6 % (11.5-14.0); WHITE BLOOD COUNT 10.4 10^3/uL (4.0-10.5)
[2017-07-19 06:14] LABS: ANION GAP 17 (5-19); BLOOD UREA NITROGEN 40 mg/dL (7-20); CALCIUM 7.7 mg/dL (8.4-10.2); CARBON DIOXIDE 20 mmol/L (22-30); CHLORIDE 104 mmol/L (98-107); GLUCOSE 164 mg/dL (75-110); POTASSIUM 4.1 mmol/L (3.6-5.0); SODIUM 140.8 mmol/L (137-145)
[2017-07-19 06:24] LABS: ABSOLUTE MONOCYTES # (MANUAL) 0.8 10^3/uL (0.1-1.4); ABSOLUTE NEUTROPHILS# (MANUAL) 8.2 10^3/uL (1.7-8.2); BAND NEUTROPHILS % (MANUAL) 3 % (3-5); BASOPHILS % (MANUAL) 0 % (0-2); EOSINOPHILS % (MANUAL) 3 % (0-6); LYMPHOCYTES % (MANUAL) 8 % (13-45); MONOCYTES % (MANUAL) 8 % (3-13); SEGMENTED NEUTROPHILS % (MAN) 76 % (42-78); TOTAL CELLS COUNTED 100
[2017-07-19 06:26] LABS: ANISOCYTOSIS SLIGHT; OVALOCYTES SLIGHT; PLATELET COMMENT ADEQUATE; POIKILOCYTOSIS SLIGHT
[2017-07-19] MEDS: INSULIN LISPRO 100 UNIT/ML 3 ML VIAL SUBCUT SCH ×3 (08:12→16:56)
[2017-07-19] MEDS: INSULIN LISPRO 100 UNIT/ML 3 ML VIAL SUBCUT PRN ×3 (08:12→23:33)
[2017-07-19] MEDS: IPRATROPIUM/ALBUTEROL 0.5-2.5 MG/3 ML AMPUL NEB SCH ×3 (08:24→20:21)
[2017-07-19] MEDS: BUDESONIDE NEB 0.5 MG/2 ML AMPUL NEB SCH ×2 (08:24→20:21)
[2017-07-19] MEDS: CLOPIDOGREL BISULFATE 75 MG TABLET PO SCH (10:00)
[2017-07-19] MEDS: BUPROPION HCL 75 MG TABLET PO SCH ×2 (10:00→21:47)
[2017-07-19] MEDS: FUROSEMIDE INJ/PF 20 MG/2 ML SDV IV SCH (10:00)
[2017-07-19] MEDS: ENOXAPARIN SODIUM INJ 30 MG/0.3 ML DISP.SYRIN SUBCUT SCH (10:00)
[2017-07-19] MEDS: FAMOTIDINE 20 MG TABLET PO SCH (10:00)
[2017-07-19] MEDS: METOPROLOL SUCCINATE 50 MG TAB.SR.24H PO SCH (10:00)
[2017-07-19] MEDS: AMLODIPINE BESYLATE 10 MG TABLET PO SCH (10:00)
[2017-07-19] MEDS: INSULIN GLARGINE,HUM.REC.ANLOG 1,000 UNIT/10 ML UNIT SUBCUT SCH ×2 (10:00→17:26)
[2017-07-19] MEDS: DOCUSATE SODIUM 100 MG CAPSULE PO SCH ×2 (10:01→17:27)
[2017-07-19] MEDS: RANOLAZINE 500 MG TAB.SR.12H PO SCH ×2 (10:01→21:47)
[2017-07-19] MEDS: ISOSORBIDE MONONITRATE 60 MG TAB.ER.24H PO SCH (10:01)
[2017-07-19] MEDS: ASPIRIN 81 MG TABLET, ENT COATED PO SCH (10:01)
[2017-07-19] MEDS: POLYETHYLENE GLYCOL 3350 POWDER 17 GM/1 PACKET PO SCH (10:02)
--- NOTE | 2017-07-19 10:28 | PDOC PROGRESS REPORT ---
Subjective Progress Note for:: 07/19/17 Subjective:: Patient states she feels better less shortness of breath no chest pain Reason For Visit: HYPERKALEMIA,ACUTE ON CHRONIC KIDNEY INJURY, UTI Physical Exam Vital Signs: Temp Pulse Resp BP Pulse Ox 98.0 F 79 16 161/52 H 97 07/19/17 07:30 07/19/17 08:25 07/19/17 08:25 07/19/17 07:30 07/19/17 08:25 Intake & Output 07/18/17 07/19/17 07/20/17 00:59 00:59 00:59 Intake Total 919 1095 500 Output Total 1100 1400 600 Balance -181 -305 -100 Weight 132.2 kg 135.4 kg 131.7 kg General appearance: PRESENT: no acute distress, morbidly obese Head exam: PRESENT: atraumatic, normocephalic Eye exam: PRESENT: conjunctiva pink, EOMI, PERRLA. ABSENT: scleral icterus Neck exam: ABSENT: carotid bruit, JVD, lymphadenopathy, thyromegaly Respiratory exam: PRESENT: decreased breath sounds. ABSENT: accessory muscle use, rhonchi, wheezes Cardiovascular exam: PRESENT: RRR. ABSENT: diastolic murmur, rubs, systolic murmur GI/Abdominal exam: PRESENT: normal bowel sounds, soft. ABSENT: distended, guarding, mass, organolmegaly, rebound, tenderness Extremities exam: PRESENT: +1 edema. ABSENT: clubbing, tenderness Neurological exam: PRESENT: alert, CN II-XII grossly intact Results Laboratory Results: 07/19/17 04:28 07/19/17 04:28 07/19/17 07/19/17 04:28 04:28 WBC 10.4 RBC 3.09 L Hgb 9.2 L Hct 27.7 L MCV 90 MCH 29.9 MCHC 33.3 RDW 14.6 H Plt Count 382 Seg Neutrophils % Not Reportable Lymphocytes % Not Reportable Monocytes % Not Reportable Eosinophils % Not Reportable Basophils % Not Reportable Absolute Neutrophils Not Reportable Absolute Lymphocytes Not Reportable Absolute Monocytes Not Reportable Absolute Eosinophils Not Reportable Absolute Basophils Not Reportable Sodium 140.8 Potassium 4.1 Chloride 104 Carbon Dioxide 20 L Anion Gap 17 BUN 40 H Creatinine 2.93 H Est GFR ( Amer) 20 L Est GFR (Non-Af Amer) 16 L Glucose 164 H Calcium 7.7 L Impressions: Chest X-Ray 07/17/17 00:00 IMPRESSION: Pulmonary vascular congestion with multifocal airspace disease worrisome for edema. Trace pleural fluid in the fissures and small pleural effusions in the posterior costophrenic sulci Assessment & Plan - Time Time Spent with patient: (1) Right-sided congestive heart failure Qualifiers: Heart failure chronicity: acute on chronic Qualified Code(s): I50.813 - Acute on chronic right heart failure Is this a current diagnosis for this admission?: Yes Plan: Lasix is currently on hold because of worsening renal function reevaluate management We will repeat labs and chest x-ray in a.m. Patient is clinically very stable (2) Constipation Qualifiers: Constipation type: unspecified constipation type Qualified Code(s): K59.00 - Constipation, unspecified Is this a current diagnosis for this admission?: Yes Plan: Continue current regimen (3) Pgydu-ra-fdapxux kidney injury Qualifiers: Acute renal failure type: unspecified Chronic kidney disease stage: stage 3 (moderate) Qualified Code(s): N17.9 - Acute kidney failure, unspecified; N18.3 - Chronic kidney disease, stage 3 (moderate); N18.3 - Chronic kidney disease, stage 3 (moderate) Is this a current diagnosis for this admission?: Yes Plan: There has been a slight bump in creatinine and as expected patient comes cardiorenal. Continue trending since will place her on IV lasix again Creatinine is stable at 2.9 Continue to hold diuretics We will discussed the case with nephrology (4) Anemia Qualifiers: Anemia type: due to chronic kidney disease Chronic kidney disease stage: stage 3 (moderate) Qualified Code(s): N18.3 - Chronic kidney disease, stage 3 (moderate); D63.1 - Anemia in chronic kidney disease; D63.1 - Anemia in chronic kidney disease Is this a current diagnosis for this admission?: Yes Plan: Stable (5) Diabetes mellitus Qualifiers: Diabetes mellitus type: type 2 Diabetes mellitus complication status: with neurologic complications Diabetes mellitus complication detail: with polyneuropathy 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: with long lines operator use Qualified Code(s): E11.42 - Type 2 diabetes mellitus with diabetic polyneuropathy; 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: Yes Plan: Since chest x-ray raises the concern about pneumonia and will place on Zosyn instead of going back to rocephin and continue Zithromax Continue antibiotic management Overall patient is extremely stable She wishes to go home with home health We will initiate physical therapy
--- NOTE | 2017-07-19 11:18 | PDOC PROGRESS REPORT ---
Subjective Progress Note for:: 07/13/17 Subjective:: Patient states she is nauseated and vomiting. Patient vomiting when she drinks water. Patient complains of swelling and pain in her left leg which is chronic. Despite feeling nauseated patient will still like to eat. Reason For Visit: HYPERKALEMIA,ACUTE ON CHRONIC KIDNEY INJURY, UTI Physical Exam Vital Signs: Temp Pulse Resp BP Pulse Ox 99.0 F 78 22 H 151/62 H 99 07/13/17 17:24 07/13/17 17:24 07/13/17 17:24 07/13/17 17:24 07/13/17 17:24 Intake & Output 07/12/17 07/13/17 07/14/17 06:59 06:59 06:59 Intake Total 1290 1547 Balance 1290 1547 Weight 134.1 kg General appearance: PRESENT: no acute distress, obese Head exam: PRESENT: normocephalic Eye exam: PRESENT: EOMI. ABSENT: scleral icterus Ear exam: PRESENT: normal external ear exam Mouth exam: PRESENT: moist, neck supple - thick Neck exam: ABSENT: carotid bruit, JVD, lymphadenopathy, thyromegaly Respiratory exam: PRESENT: clear to auscultation paula. ABSENT: rales, rhonchi, wheezes Cardiovascular exam: PRESENT: RRR. ABSENT: diastolic murmur, rubs, systolic murmur Pulses: PRESENT: normal dorsalis pedis pul Vascular exam: PRESENT: normal capillary refill GI/Abdominal exam: PRESENT: normal bowel sounds, soft. ABSENT: distended, guarding, mass, organolmegaly, rebound, tenderness Rectal exam: PRESENT: deferred Extremities exam: PRESENT: full ROM, tenderness - left leg. ABSENT: calf tenderness, clubbing, pedal edema Musculoskeletal exam: PRESENT: other Neurological exam: PRESENT: alert, awake, oriented to person, oriented to place , oriented to time, oriented to situation, CN II-XII grossly intact. ABSENT: motor sensory deficit Psychiatric exam: PRESENT: appropriate affect, normal mood. ABSENT: homicidal ideation, suicidal ideation Skin exam: PRESENT: dry, intact, warm. ABSENT: cyanosis, rash Results Laboratory Results: 07/13/17 04:54 07/13/17 04:54 07/13/17 07/13/17 04:54 04:54 WBC 11.2 H RBC 3.30 L Hgb 9.8 L Hct 29.4 L MCV 89 MCH 29.6 MCHC 33.2 RDW 14.4 H Plt Count 247 Seg Neutrophils % 82.7 H Lymphocytes % 7.5 L Monocytes % 8.1 Eosinophils % 0.7 Basophils % 1.0 Absolute Neutrophils 9.2 H Absolute Lymphocytes 0.8 Absolute Monocytes 0.9 Absolute Eosinophils 0.1 Absolute Basophils 0.1 Sodium 140.9 Potassium 4.8 Chloride 110 H Carbon Dioxide 15 L Anion Gap 16 BUN 34 H Creatinine 2.58 H Est GFR ( Amer) 23 L Est GFR (Non-Af Amer) 19 L Glucose 227 H Calcium 6.7 L* Phosphorus 4.5 Magnesium 1.4 L Assessment & Plan - Diagnosis (1) Uihbr-kj-swhhxkr kidney injury Qualifiers: Acute renal failure type: unspecified Chronic kidney disease stage: stage 3 (moderate) Qualified Code(s): N17.9 - Acute kidney failure, unspecified; N18.3 - Chronic kidney disease, stage 3 (moderate); N18.3 - Chronic kidney disease, stage 3 (moderate) Is this a current diagnosis for this admission?: Yes (2) Anemia Qualifiers: Anemia type: due to chronic kidney disease Chronic kidney disease stage: stage 3 (moderate) Is this a current diagnosis for this admission?: Yes (3) Hyperkalemia Is this a current diagnosis for this admission?: Yes Plan: Secondary to acute on chronic renal failure. Resolved but will continue to monitor. (4) Nausea Is this a current diagnosis for this admission?: Yes Plan: Possible gastroporesis as patient does have history of diabetes. Patient may benefit from reglan which should be used cautiously considering history of CKD. (5) Right-sided congestive heart failure Qualifiers: Heart failure chronicity: acute on chronic Qualified Code(s): I50.813 - Acute on chronic right heart failure Is this a current diagnosis for this admission?: Yes Plan: Patient with diastolic heart failure and swelling. Patient currently receiving gentle hydration for acute on chronic renal failure. Monitor for volume overload. Continue beta erich. NO ACEI or ARB due to renal failure. (6) UTI (urinary tract infection) Qualifiers: Urinary tract infection type: acute cystitis Is this a current diagnosis for this admission?: Yes Plan: No growth on urine culture. Will discontinue ceftriaxone. (7) CKD (chronic kidney disease) stage 3, GFR 30-59 ml/min Is this a current diagnosis for this admission?: Yes Plan: Nephrology consulted and following. Dr. 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 (8) Coronary artery disease Qualifiers: Coronary Disease-Associated Artery/Lesion type: [place] artery [place] vs. transplanted heart: [place] heart Associated angina: angina presence unspecified Qualified Code(s): I25.10 - Atherosclerotic heart disease of [place] coronary artery without angina pectoris Is this a current diagnosis for this admission?: Yes Plan: Continue medications. (9) Diabetes mellitus Qualifiers: Diabetes mellitus type: type 2 Diabetes mellitus complication status: with neurologic complications Diabetes mellitus complication detail: with polyneuropathy Diabetes mellitus fci insulin use: with long term care pharmacist use Qualified Code(s): E11.42 - Type 2 diabetes mellitus with diabetic polyneuropathy; Z79.4 - buttermaker continuous churn (current) use of insulin; Z79.4 - buttermaker continuous churn ( current) use of insulin; Z79.4 - buttermaker continuous churn (current) use of insulin; Z79.4 - buttermaker continuous churn (current) use of insulin Is this a current diagnosis for this admission?: Yes Plan: Continue insulin regimen. Monitor and adjust accordingly. (10) Sleep apnea syndrome Qualifiers: Sleep apnea type: unspecified type Qualified Code(s): G47.30 - Sleep apnea , unspecified Is this a current diagnosis for this admission?: Yes (11) Hyperlipidemia Qualifiers: Hyperlipidemia type: unspecified Qualified Code(s): E78.5 - Hyperlipidemia , unspecified Is this a current diagnosis for this admission?: Yes Plan: Continue statin. (12) Morbid obesity with BMI of 50.0-59.9, adult Is this a current diagnosis for this admission?: Yes Plan: Patient need counseling and diet and physical activity. Patient weight is contributing to her ANUPAM, diabetes and heart failure. - Time Time Spent with patient: 15-24 minutes Anticipated discharge: Home - Inpatient Certification Medical Necessity: Significant Comorbidiites Make Outpatient Treatment Too Risky , Need Close Monitoring Due to Risk of Patient Decompensation, Need For IV Fluids
--- NOTE | 2017-07-19 11:30 | PDOC PROGRESS REPORT ---
Subjective Progress Note for:: 07/14/17 Subjective:: Patient resting. Nurse dose not report any vomiting. Reason For Visit: HYPERKALEMIA,ACUTE ON CHRONIC KIDNEY INJURY, UTI Physical Exam Vital Signs: Temp Pulse Resp BP Pulse Ox 98.7 F 84 22 H 176/68 H 95 07/14/17 16:58 07/14/17 16:58 07/14/17 16:58 07/14/17 16:58 07/14/17 16:58 Intake & Output 07/13/17 07/14/17 07/15/17 06:59 06:59 06:59 Intake Total 1290 3763 1216 Output Total 1225 975 Balance 1290 2538 241 Weight 134.1 kg 134.6 kg 134.6 kg General appearance: PRESENT: no acute distress, obese Head exam: PRESENT: normocephalic Eye exam: PRESENT: EOMI. ABSENT: scleral icterus Ear exam: PRESENT: normal external ear exam Mouth exam: PRESENT: moist, neck supple - thick Neck exam: ABSENT: carotid bruit, JVD, lymphadenopathy, thyromegaly Respiratory exam: PRESENT: clear to auscultation paula. ABSENT: rales, rhonchi, wheezes Cardiovascular exam: PRESENT: RRR. ABSENT: diastolic murmur, rubs, systolic murmur Vascular exam: PRESENT: normal capillary refill GI/Abdominal exam: PRESENT: normal bowel sounds, soft. ABSENT: distended, guarding, mass, organolmegaly, rebound, tenderness Rectal exam: PRESENT: deferred Extremities exam: PRESENT: full ROM, pedal edema, tenderness. ABSENT: calf tenderness, clubbing Neurological exam: ABSENT: motor sensory deficit Psychiatric exam: ABSENT: homicidal ideation, suicidal ideation Skin exam: PRESENT: dry, intact, warm. ABSENT: cyanosis, rash Results Laboratory Results: 07/14/17 05:19 07/14/17 05:19 07/14/17 07/14/17 07/14/17 05:19 05:19 05:19 WBC 11.2 H RBC 3.08 L Hgb 9.2 L Hct 27.5 L MCV 90 MCH 29.8 MCHC 33.2 RDW 14.5 H Plt Count 255 Seg Neutrophils % 81.6 H Lymphocytes % 9.1 L Monocytes % 7.6 Eosinophils % 0.4 Basophils % 1.3 Absolute Neutrophils 9.1 H Absolute Lymphocytes 1.0 Absolute Monocytes 0.8 Absolute Eosinophils 0.0 Absolute Basophils 0.1 Sodium 139.3 Potassium 5.2 H Chloride 109 H Carbon Dioxide 17 L Anion Gap 13 BUN 30 H Creatinine 2.53 H Est GFR ( Amer) 23 L Est GFR (Non-Af Amer) 19 L Glucose 246 H Calcium 7.7 L Phosphorus 4.9 H Magnesium 2.0 PTH Intact 127.9 H Assessment & Plan - Diagnosis (1) Nausea Is this a current diagnosis for this admission?: Yes Plan: Possible gastroporesis as patient does have history of diabetes. Will continue PRN antiemetics. (2) Hypomagnesemia Is this a current diagnosis for this admission?: Yes Plan: Patient given IV and oral replacement. Will monitor and replace accordingly. (3) Bbeme-iw-uuatrvh kidney injury Qualifiers: Acute renal failure type: unspecified Chronic kidney disease stage: stage 3 (moderate) Qualified Code(s): N17.9 - Acute kidney failure, unspecified; N18.3 - Chronic kidney disease, stage 3 (moderate); N18.3 - Chronic kidney disease, stage 3 (moderate) Is this a current diagnosis for this admission?: Yes Plan: Creatinine in the 3's now trending down in the 2's with IV fluids. Nephrology following. Will continue to monitor creatinine and urine output. (4) Anemia Qualifiers: Anemia type: due to chronic kidney disease Chronic kidney disease stage: stage 3 (moderate) Is this a current diagnosis for this admission?: Yes Plan: Continue to monitor. (5) Hyperkalemia Is this a current diagnosis for this admission?: Yes Plan: Secondary to acute on chronic renal failure. Potassium trending back up. Will continue to monitor. (6) Right-sided congestive heart failure Qualifiers: Heart failure chronicity: acute on chronic Qualified Code(s): I50.813 - Acute on chronic right heart failure Is this a current diagnosis for this admission?: Yes Plan: Patient with diastolic heart failure and swelling. Patient currently receiving gentle hydration for acute on chronic renal failure. Monitor for volume overload. Continue beta erich. NO ACEI or ARB due to renal failure. (7) UTI (urinary tract infection) Qualifiers: Urinary tract infection type: acute cystitis Is this a current diagnosis for this admission?: Yes Plan: No growth on urine culture. Will discontinue ceftriaxone. (8) CKD (chronic kidney disease) stage 3, GFR 30-59 ml/min Is this a current diagnosis for this admission?: Yes Plan: Nephrology consulted and following. Dr. Zhu is patient's restoration ecologist. Avoid nephrotoxins. (9) Diabetes mellitus Qualifiers: Diabetes mellitus type: type 2 Diabetes mellitus complication status: with neurologic complications Diabetes mellitus complication detail: with polyneuropathy Diabetes mellitus termination clerk insulin use: with termination clerk use Qualified Code(s): E11.42 - Type 2 diabetes mellitus with diabetic polyneuropathy; Z79.4 - senior living (current) use of insulin; Z79.4 - senior living ( current) use of insulin; Z79.4 - senior living (current) use of insulin; Z79.4 - senior living (current) use of insulin Is this a current diagnosis for this admission?: Yes Plan: Continue insulin regimen. Monitor and adjust accordingly. (10) Hypertension Qualifiers: Hypertension type: essential hypertension Qualified Code(s): I10 - Essential (primary) hypertension (11) Sleep apnea syndrome Qualifiers: Sleep apnea type: unspecified type Qualified Code(s): G47.30 - Sleep apnea , unspecified Is this a current diagnosis for this admission?: Yes Plan: Continue CPAP. (12) Hyperlipidemia Qualifiers: Hyperlipidemia type: unspecified Qualified Code(s): E78.5 - Hyperlipidemia , unspecified Is this a current diagnosis for this admission?: Yes Plan: Continue statin. (13) Hypothyroidism Qualifiers: Hypothyroidism type: postoperative Qualified Code(s): E89.0 - Postprocedural hypothyroidism Plan: Continue thyroid replacement. (14) Morbid obesity with BMI of 50.0-59.9, adult Is this a current diagnosis for this admission?: Yes Plan: Patient need counseling and diet and physical activity. Patient weight is contributing to her ANUPAM, diabetes and heart failure. - Time Time Spent with patient: Less than 15 minutes Anticipated discharge: Home - Inpatient Certification Medical Necessity: Significant Comorbidiites Make Outpatient Treatment Too Risky , Need Close Monitoring Due to Risk of Patient Decompensation
--- NOTE | 2017-07-19 13:44 | PDOC PROGRESS REPORT ---
Subjective Progress Note for:: 07/19/17 Subjective:: Patient at the time of exam denied chest pain, SOB, nausea/vomiting, fevers, chills, sputum production. She says she feels much better since coming into the hospital. She is also talking about wanting to head home soon. Reason For Visit: HYPERKALEMIA,ACUTE ON CHRONIC KIDNEY INJURY, UTI Physical Exam Vital Signs: Temp Pulse Resp BP Pulse Ox 97.7 F 78 24 H 138/44 H 97 07/19/17 12:46 07/19/17 12:46 07/19/17 12:46 07/19/17 12:46 07/19/17 12:46 Intake & Output 07/18/17 07/19/17 07/20/17 06:59 06:59 06:59 Intake Total 575 1583 277 Output Total 1100 2000 400 Balance -525 -417 -123 Weight 135.4 kg 131.7 kg General appearance: PRESENT: no acute distress, morbidly obese, obese, well- developed, well-nourished Mouth exam: PRESENT: moist, neck supple Respiratory exam: PRESENT: crackles, rhonchi, wheezes. ABSENT: accessory muscle use, clear to auscultation paula Cardiovascular exam: PRESENT: RRR, +S1, +S2 GI/Abdominal exam: PRESENT: soft. ABSENT: normal bowel sounds, organomegaly, tenderness Extremities exam: PRESENT: pedal edema - -trace+. ABSENT: tenderness Musculoskeletal exam: PRESENT: normal inspection. ABSENT: tenderness Neurological exam: PRESENT: alert, awake, oriented to person, oriented to place , oriented to time, oriented to situation Psychiatric exam: PRESENT: appropriate affect, normal mood Skin exam: PRESENT: dry, intact, warm. ABSENT: cyanosis, skin tears Results Laboratory Results: 07/19/17 04:28 07/19/17 04:28 07/19/17 07/19/17 04:28 04:28 WBC 10.4 RBC 3.09 L Hgb 9.2 L Hct 27.7 L MCV 90 MCH 29.9 MCHC 33.3 RDW 14.6 H Plt Count 382 Seg Neutrophils % Not Reportable Lymphocytes % Not Reportable Monocytes % Not Reportable Eosinophils % Not Reportable Basophils % Not Reportable Absolute Neutrophils Not Reportable Absolute Lymphocytes Not Reportable Absolute Monocytes Not Reportable Absolute Eosinophils Not Reportable Absolute Basophils Not Reportable Sodium 140.8 Potassium 4.1 Chloride 104 Carbon Dioxide 20 L Anion Gap 17 BUN 40 H Creatinine 2.93 H Est GFR ( Amer) 20 L Est GFR (Non-Af Amer) 16 L Glucose 164 H Calcium 7.7 L Impressions: Chest X-Ray 07/17/17 00:00 IMPRESSION: Pulmonary vascular congestion with multifocal airspace disease worrisome for edema. Trace pleural fluid in the fissures and small pleural effusions in the posterior costophrenic sulci Assessment & Plan - Diagnosis (1) [id number] kidney injury Qualifiers: Acute renal failure type: unspecified Chronic kidney disease stage: stage 3 (moderate) Qualified Code(s): N17.9 - Acute kidney failure, unspecified; N18.3 - Chronic kidney disease, stage 3 (moderate); N18.3 - Chronic kidney disease, stage 3 (moderate) Is this a current diagnosis for this admission?: Yes Plan: currently creatinine is elevating up, creatinine at the past couple visits has ranged from mid 2s to low 3s. Currently being affected by CHF and current antibiotic use. Going to continue lasix at current dose, but move to qd. (2) Right-sided congestive heart failure Qualifiers: Heart failure chronicity: acute on chronic Qualified Code(s): I50.813 - Acute on chronic right heart failure Is this a current diagnosis for this admission?: Yes Plan: looks to be resolving, adjusting lasix to 20mg IV qd (3) Nausea Is this a current diagnosis for this admission?: Yes Plan: resolved (4) Hyperkalemia Is this a current diagnosis for this admission?: Yes Plan: resolved (5) CKD (chronic kidney disease) stage 3, GFR 30-59 ml/min Is this a current diagnosis for this admission?: Yes Plan: previous creatinine at last couple of visits has been in the 2.7 to 3.1 range. Her baseline prior to being lost to follow up for a a year was 1.8. From the kidney standpoint she good to go home and follow up in 10 days. (6) Anemia Qualifiers: Anemia type: due to chronic kidney disease Chronic kidney disease stage: stage 3 (moderate) Qualified Code(s): N18.3 - Chronic kidney disease, stage 3 (moderate); D63.1 - Anemia in chronic kidney disease; D63.1 - Anemia in chronic kidney disease Is this a current diagnosis for this admission?: Yes Plan: currently ranging in the 9s, patient is unsure if she wants to do procrit (7) UTI (urinary tract infection) Qualifiers: Urinary tract infection type: acute cystitis Is this a current diagnosis for this admission?: Yes Plan: final report shows no bacterial growth (8) Diabetes mellitus Qualifiers: Diabetes mellitus type: type 2 Diabetes mellitus complication status: with neurologic complications Diabetes mellitus complication detail: with polyneuropathy Diabetes mellitus buttermaker helper insulin use: with fdc use Qualified Code(s): E11.42 - Type 2 diabetes mellitus with diabetic polyneuropathy; Z79.4 - jail (current) use of insulin; Z79.4 - jail ( current) use of insulin; Z79.4 - jail (current) use of insulin; Z79.4 - buttermaker helper (current) use of insulin Is this a current diagnosis for this admission?: Yes - Notes Notes: patient was discussed with Dr. Zhu
[2017-07-19] MEDS: AZITHROMYCIN 250 MG TABLET PO SCH (17:27)
[2017-07-19] MEDS: METOCLOPRAMIDE HCL 10 MG TABLET PO SCH ×2 (17:27→23:34)
[2017-07-19] MEDS: PIPERACILLIN SODIUM/TAZOBACTAM 2.25 GM in NORMAL SALINE 100 ML IV SCH (20:37)
[2017-07-19] MEDS: ATORVASTATIN CALCIUM 80 MG TABLET PO SCH (21:47)
[2017-07-19] MEDS: ACETAMINOPHEN 325 MG TABLET PO PRN (21:47)
[2017-07-20] MEDS: PIPERACILLIN SODIUM/TAZOBACTAM 2.25 GM in NORMAL SALINE 100 ML IV SCH ×2 (03:19→08:20)
[2017-07-20] MEDS: HYDRALAZINE HCL 50 MG TABLET PO SCH (05:09)
[2017-07-20] MEDS: METOCLOPRAMIDE HCL 10 MG TABLET PO SCH ×2 (05:09→11:20)
[2017-07-20] MEDS: LEVOTHYROXINE SODIUM 0.15 MG TABLET PO SCH (05:10)
[2017-07-20 06:25] LABS: ANION GAP 11 (5-19); BLOOD UREA NITROGEN 41 mg/dL (7-20); CARBON DIOXIDE 22 mmol/L (22-30); CHLORIDE 108 mmol/L (98-107); GLUCOSE 115 mg/dL (75-110); POTASSIUM 3.9 mmol/L (3.6-5.0); SODIUM 141.3 mmol/L (137-145)
[2017-07-20] MEDS: INSULIN LISPRO 100 UNIT/ML 3 ML VIAL SUBCUT SCH ×2 (08:19→11:56)
[2017-07-20] MEDS: IPRATROPIUM/ALBUTEROL 0.5-2.5 MG/3 ML AMPUL NEB SCH (08:30)
[2017-07-20] MEDS: BUDESONIDE NEB 0.5 MG/2 ML AMPUL NEB SCH (08:30)
--- NOTE | 2017-07-20 08:47 | RADIOLOGY REPORT (SQ) ---
EXAM DESCRIPTION: CHEST SINGLE VIEW COMPLETED DATE/TIME: 07/20/2017 8:03 am REASON FOR STUDY: SOB COMPARISON: Chest films 07/17/2017, 07/15/2017, 11/18/2015 EXAM PARAMETERS: NUMBER OF VIEWS: One view. TECHNIQUE: Single frontal radiographic view of the chest acquired. RADIATION DOSE: NA LIMITATIONS: Portable technique, large patient, EKG leads over the chest. Two-view chest upright in the department is recommended for this patient if possible FINDINGS: LUNGS AND PLEURA: Partial clearing of the multifocal pulmonary edema. Minimal persistent airspace disease in the right upper lobe. No pleural effusions. No pneumothorax. MEDIASTINUM AND HILAR STRUCTURES: No masses. Contour normal. HEART AND VASCULAR STRUCTURES: Borderline cardiomegaly BONES: No acute findings. HARDWARE: Clips post total thyroidectomy OTHER: No other significant finding. IMPRESSION: Partial clearing of the pulmonary edema pattern TECHNICAL DOCUMENTATION: JOB ID: [id number] [employer]- All Rights Reserved Reading location - IP/workstation name: [email or web address]
[2017-07-20 09:58] LABS: PATH REVIEW PATHOLOGIST REVIEWED
[2017-07-20] MEDS ORDERED: FUROSEMIDE INJ/PF 20 MG/2 ML SDV IV SCH (10:00)
[2017-07-20] MEDS: CLOPIDOGREL BISULFATE 75 MG TABLET PO SCH (10:11)
[2017-07-20] MEDS: FAMOTIDINE 20 MG TABLET PO SCH (10:12)
[2017-07-20] MEDS: BUPROPION HCL 75 MG TABLET PO SCH (10:12)
[2017-07-20] MEDS: ISOSORBIDE MONONITRATE 60 MG TAB.ER.24H PO SCH (10:12)
[2017-07-20] MEDS: DOCUSATE SODIUM 100 MG CAPSULE PO SCH (10:12)
[2017-07-20] MEDS: ASPIRIN 81 MG TABLET, ENT COATED PO SCH (10:13)
[2017-07-20] MEDS: METOPROLOL SUCCINATE 50 MG TAB.SR.24H PO SCH (10:13)
[2017-07-20] MEDS: RANOLAZINE 500 MG TAB.SR.12H PO SCH (10:13)
[2017-07-20] MEDS: POLYETHYLENE GLYCOL 3350 POWDER 17 GM/1 PACKET PO SCH (10:14)
[2017-07-20] MEDS: ENOXAPARIN SODIUM INJ 30 MG/0.3 ML DISP.SYRIN SUBCUT SCH (10:14)
[2017-07-20] MEDS: INSULIN GLARGINE,HUM.REC.ANLOG 1,000 UNIT/10 ML UNIT SUBCUT SCH (10:15)
[2017-07-20] MEDS ORDERED: LOSARTAN POTASSIUM 50 MG TABLET PO SCH (11:00)
[2017-07-20 12:31] VITALS: BP 154/84
--- NOTE | 2017-07-20 13:02 | PDOC CONSULTATION ---
Consultation Consult Date: 07/19/17 Attending physician:: MATTHEW HAMMOND Consult reason:: Shortness of breath History of Present Illness Admission Date/PCP: 07/12/17 16:01 MATIAS SOLIZ MD Patient complains of: Shortness of breath History of Present Illness: KARINA ROGERS is a 61 year old female 61-year-old history of long standing and complicated diabetes with retinopathy, neuropathy, autonomic dysfunction , Hypertension, chronic kidney disease 3/4, presented with generalised weakness and pre syncope. She has been having dysuria x few days without any abdominal pains, fever or chills. She does have a h/o recurrent UTI. Patient denies any fevers or chills at present. She had an episode of transient diarrhea 2 weeks or so ago that has resolved. No c/o chest pains, cough, headaches, focal deficits. She denies any other symptoms. Admission vitals were stable though her BP was lowish as to now. I was asked to evaluate her because of symptoms of shortness of breath and known history of coronary artery disease. On repeated questioning however patient denied any chest discomfort. Her shortness of breath has significantly improved since admission. Patient denied any sustained palpitations, syncope, near syncope. Past Medical History Cardiac Medical History: Reports: Congestive Heart Failure, Coronary Artery Disease, Myocardial Infarction, Hyperlipidema, Hypertension Pulmonary Medical History: Reports: Chronic Obstructive Pulmonary Disease (COPD) , Pneumonia, Sleep Apnea EENT Medical History: Reports: None Neurological Medical History: Reports: None Endocrine Medical History: Reports: Diabetes Mellitus Type 1, Diabetes Mellitus Type 2, Hypothyroidism Renal/ Medical History: Reports: Chronic Kidney Disease Malignancy Medical History: Reports: None GI Medical History: Reports: Gastroesophageal Reflux Disease Musculoskeltal Medical History: Reports: Arthritis Skin Medical History: Reports: None Psychiatric Medical History: Reports: Depression Traumatic Medical History: Reports: None Hematology: Denies: Anemia, Sickle Cell Disease Infectious Medical History: Reports: Methicillin-Resistant Staph Aureus Past Surgical History Past Surgical History: Reports: Cardiac Catheterization, Cholecystectomy, Coronary Stent, Hysterectomy, Orthopedic Surgery - 2 screws in the distal left femur, Tonsillectomy, Other - Cardiac surgery at age 4, Patent ductus? Denies: Amputation, Mastectomy Social History Information Source: Patient Lives with: Friend Smoking Status: Former Smoker Frequency of Alcohol Use: None Hx Recreational Drug Use: No Drugs: None Hx Prescription Drug Abuse: No - Advance Directive Resuscitation Status: Full Code Family History Family History: CAD, CVA, DM, Hypertension, Thyroid Disfunction Parental Family History Reviewed: Yes Children Family History Reviewed: Yes Sibling(s) Family History Reviewed.: Yes Medication/Allergy Home Medications: Atorvastatin Calcium [Lipitor 80 mg Tablet] 80 mg PO QHS 07/12/17 Bupropion HCl [Wellbutrin Xl 150 mg 24hr Tablet] 1 tab PO DAILY 07/12/17 Clopidogrel Bisulfate [Plavix 75 mg Tablet] 75 mg PO DAILY 07/12/17 Ezetimibe [Zetia 10 mg Tablet] 10 mg PO DAILY 07/12/17 Fluticasone/Vilanterol [Breo Ellipta 100-25 Mcg INH] 1 puff IH DAILY 07/12/17 Furosemide [Lasix 40 mg Tablet] 40 mg PO DAILYP PRN 07/12/17 Insulin Aspart [Novolog Insulin (Aspart) 100 unit/mL] 0 unit SUBCUT .SLD SCALE 07/12/17 Insulin Glargine,Hum.rec.anlog [Lantus Solostar] 26 unit SQ Q12 07/12/17 Isosorbide Mononitrate [Isosorbide Mononitrate ER] 120 mg PO DAILY 07/12/17 Levothyroxine Sodium [Synthroid] 300 mcg PO Q6AM 07/12/17 Metoprolol Succinate [Toprol Xl 25 mg Tab.sr] 25 mg PO DAILY 07/12/17 Nitroglycerin [Nitrostat 0.4 mg (1/150 Gr) Tabs 25/Bottle] 1 tab SL Q5MP PRN Omeprazole 20 mg PO QHS 07/12/17 Ondansetron [Zofran Odt 4 mg Tablet] 4 mg PO Q8HP PRN 07/12/17 Ranolazine [Ranexa 500 mg Tab.sr] 500 mg PO Q12 07/12/17 Aspirin [Ecotrin 81 mg EC Tablet] 81 mg PO DAILY 30 Days #30 tabec 07/20/17 Azithromycin [Zithromax 250 mg Tablet] 500 mg PO QPM #5 tablet 07/20/17 Clopidogrel Bisulfate [Plavix 75 mg Tablet] 75 mg PO DAILY 30 Days #30 tablet Furosemide [Lasix 20 mg Tablet] 20 mg PO QAM 30 Days #30 tablet 07/20/17 Hydralazine HCl [Apresoline 50 mg Tablet] 100 mg PO Q8 30 Days #90 tablet Insulin Glargine,Hum.rec.anlog [Lantus Insulin 100 Unit/1 ml 10 ml] 26 unit SUBCUT BID #3 pe 07/20/17 Insulin Lispro [Humalog Insulin (Lispro) 100 unit/mL] 0 - 12 unit SUBCUT ACHSP PRN 30 Days #3 pe 07/20/17 Insulin Lispro [Humalog Insulin (Lispro) 100 unit/mL] 6 unit SUBCUT AC 30 Days # 1 pe 07/20/17 Ipratropium/Albuterol Sulfate [Duoneb 3 ml Ampul] 3 ml NEB [id number] 30 Days #30 vial.neb 07/20/17 Losartan Potassium [Cozaar 50 mg Tablet] 50 mg PO DAILY@1100 30 Days #30 tablet 07/20/17 Metoprolol Succinate [Toprol Xl 50 mg Tab.sr] 50 mg PO DAILY 30 Days #30 tab.sr.24h 07/20/17 Polyethylene Glycol 3350 [Miralax Powder 17 gm/Packet] 17 gm PO DAILY #0 powd.pack 07/20/17 Allergies/Adverse Reactions: metformin [Metformin] Allergy (Intermediate, Verified 07/12/17 12:19) Nausea Sulfa (Sulfonamide Antibiotics) Allergy (Mild, Verified 07/12/17 12:19) Nausea fluoxetine Allergy (Verified 07/12/17 12:19) trimethoprim Allergy (Verified 07/12/17 12:19) diazepam [From Valium] Adverse Reaction (Verified 07/12/17 12:19) "BOUNCES ME OFF THE STRAUSS, DOES NOT RELAX" Review of Systems Review of Systems: Please see history of present illness and past medical history as wall. Constitutional: No fever or chills reported. Head : No recent chronic headaches, recent head injury. Eyes: No recent eye pain, diplopia, redness, discharge, acute visual changes. Ears: No recent chronic ear pain, acute hearing loss, ear discharge. Oral cavity: No recent ulcerations, bleeding, oral cavity discomfort. Neck: No recent acute neck pain reported. Hematologic: No recent easy bruising or bleeding or hematologic malignancy reported. Lymphatic: No recent lymphatic malignancy, chronic lymphadenopathy reported yet Cardiovascular system review: See history of present illness. No sustained palpitations, syncope, near syncope. Respiratory system review: No recent chronic cough, hemoptysis, blood clots in the lungs reported. Mild Shortness of breath on exertion Gastrointestinal system review: Negative for any recent acute or chronic abdominal pain, hematemesis, melena, recent change in bowel habits. Genitourinary system review: Symptoms indicative of UTI etc. reported. Skin system review: Negative for any recent abnormal bruising, no rash, no pruritus reported. Neurologic: No prior history of strokes, mini strokes, seizure disorder. Psychologic: No history of major psychosis or major depression reported. Musculoskeletal: Minor aches and pains reported. No acute joint swelling reported. Endocrine: No recent polyuria, polydipsia, recent heat or cold intolerance. Physical Exam Vital Signs: Temp Pulse Resp BP Pulse Ox 98.9 F 77 20 155/48 H 98 07/19/17 16:25 07/19/17 19:00 07/19/17 16:25 07/19/17 16:25 07/19/17 16:41 Intake & Output 07/18/17 07/19/17 07/20/17 06:59 06:59 06:59 Intake Total 575 1583 907 Output Total 1100 2000 950 Balance -525 -417 -43 Weight 135.4 kg 131.7 kg Exam: GENERAL: well-nourished and in no acute distress. Alert and oriented x3 HEAD: Atraumatic, normocephalic. EYES: Pupils equal round and reactive to light, extraocular movements intact, sclera anicteric, conjunctiva are normal. ENT: TMs normal, nares patent, oropharynx clear without exudates. Moist mucous membranes. No oral ulcerations or bleeding gums noted NECK: supple without lymphadenopathy. Trachea is central. No cervical or axillary lymphadenopathy noted. Carotids are 2+, JVD WNL LUNGS: Respiration seems nonlabored, no significant accessory muscle action noted. Breath sounds clear to auscultation bilaterally and equal noted. No wheezes rales or rhonchi noted. No significant dullness noted on percussion. CHEST: Palpation of the chest wall shows no significant chest wall tenderness. No other significant abnormalities noted. 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 ABDOMEN: Soft, no significant tenderness appreciated, normoactive bowel sounds. No guarding, no rebound. No rigidity noted . No masses appreciated. EXTREMITIES: Pedal pulses are 1-2+, no calf tenderness noted. No clubbing or cyanosis.1+ pedal edema noted NEUROLOGICAL: Focused neurological exam showed no significant neurologic deficit. Normal speech, no focal weakness appreciated. PSYCH: Normal mood, normal affect. Judgment and insight within normal limits. SKIN: No significant ecchymosis, rash, ulcerations or signs of pruritus noted. MUSCULOSKELETAL EXAM: No significant joint swelling noted. Results Laboratory Results: 07/19/17 04:28 07/19/17 04:28 07/19/17 07/19/17 04:28 04:28 WBC 10.4 RBC 3.09 L Hgb 9.2 L Hct 27.7 L MCV 90 MCH 29.9 MCHC 33.3 RDW 14.6 H Plt Count 382 Seg Neutrophils % Not Reportable Lymphocytes % Not Reportable Monocytes % Not Reportable Eosinophils % Not Reportable Basophils % Not Reportable Absolute Neutrophils Not Reportable Absolute Lymphocytes Not Reportable Absolute Monocytes Not Reportable Absolute Eosinophils Not Reportable Absolute Basophils Not Reportable Sodium 140.8 Potassium 4.1 Chloride 104 Carbon Dioxide 20 L Anion Gap 17 BUN 40 H Creatinine 2.93 H Est GFR ( Amer) 20 L Est GFR (Non-Af Amer) 16 L Glucose 164 H Calcium 7.7 L EKG Comments: Sinus rhythm, left axis deviation, no acute ST-T wave changes noted. Impressions: Chest X-Ray 07/17/17 00:00 IMPRESSION: Pulmonary vascular congestion with multifocal airspace disease worrisome for edema. Trace pleural fluid in the fissures and small pleural effusions in the posterior costophrenic sulci Assessment & Plan - Diagnosis (1) Congestive heart failure (CHF) Qualifiers: Heart failure chronicity: acute on chronic Is this a current diagnosis for this admission?: Yes (2) Coronary artery disease Qualifiers: Coronary Disease-Associated Artery/Lesion type: [place] artery [place] vs. transplanted heart: [place] heart Associated angina: angina presence unspecified Qualified Code(s): I25.10 - Atherosclerotic heart disease of [place] coronary artery without angina pectoris Is this a current diagnosis for this admission?: Yes (3) Diabetes mellitus Qualifiers: Diabetes mellitus type: type 2 Diabetes mellitus complication status: with neurologic complications Diabetes mellitus complication detail: with polyneuropathy Diabetes mellitus intermediate accountant insulin use: with halfway use Qualified Code(s): E11.42 - Type 2 diabetes mellitus with diabetic polyneuropathy; Z79.4 - exterminator termite (current) use of insulin; Z79.4 - nursing home ( current) use of insulin; Z79.4 - nursing home (current) use of insulin; Z79.4 - nursing home (current) use of insulin Is this a current diagnosis for this admission?: Yes (4) Hypertension Qualifiers: Hypertension type: essential hypertension Qualified Code(s): I10 - Essential (primary) hypertension Is this a current diagnosis for this admission?: Yes (5) Sleep apnea syndrome Qualifiers: Sleep apnea type: unspecified type Qualified Code(s): G47.30 - Sleep apnea , unspecified Is this a current diagnosis for this admission?: Yes (6) Hyperlipidemia Qualifiers: Hyperlipidemia type: unspecified Qualified Code(s): E78.5 - Hyperlipidemia , unspecified Is this a current diagnosis for this admission?: Yes (7) Hypothyroidism Qualifiers: Hypothyroidism type: unspecified Qualified Code(s): E03.9 - Hypothyroidism , unspecified Is this a current diagnosis for this admission?: Yes (8) Chronic kidney disease (CKD), stage IV (severe) Is this a current diagnosis for this admission?: Yes - Notes Notes: Congestive heart failure:: Acute on chronic diastolic heart failure with some contribution from right-sided heart failure. Patient chest x-ray confirmed along with elevated BNP level noted early this morning. At this point will recommend IV diuretics, switch to p.o. diuretics prior to discharge. 2D echo reviewed. It was technically difficult but feel that LVEF is relatively well- preserved. No significant valvular abnormalities noted. Coronary artery disease: Patient is noted to have coronary artery disease with prior coronary intervention. Currently symptomatically stable without any angina symptoms. Patient had declined heart cath in the past as she is worried about ending up on dialysis. Do not feel a heart catheterization is indicated at this time. Diabetes: Recommend good control but avoid any hyper or hypoglycemia. Chronic kidney disease: [place] to be stage IV. Nephrology following. Dyslipidemia: Continue high potency statin therapy. Hypothyroidism: Continue with replacement therapy. Obesity: Patient will benefit from aggressive weight loss. Sleep apnea syndrome: Patient claims compliance with CPAP therapy. Recommend follow-up in the CPAP clinic. - Time Time Spent: 30 to 50 Minutes - Patient used to be DNR but this admission she is full code. More than 50% of the time spent coordinating care, discussing management plans with involved caregivers. Management plans discussed with involved personnels. Medical decision making was of moderate to high complexity , patient's has multiple comorbidities. Medications reviewed and adjusted accordingly: Yes
--- NOTE | 2017-07-20 13:05 | PDOC PROGRESS REPORT ---
Subjective Progress Note for:: 07/20/17 Subjective:: Patient noted comfortable sitting at bedside chair. She did not use CPAP therapy last night. Chest x-ray reviewed showed significant improvement since admission chest x-ray. BNP elevated but probably baseline for this patient. Patient seems to be doing better with gradual improvement. Pt is denying any chest arm or neck discomfort. Patient denying any PND, orthopnea. Patient denied any sustained palpitations, dizziness, syncope, near syncope. Patient denying any fever chills. Patient denying any other significant discomfort. Patient is maintaining sinus rhythm. Review of systems: Rest review of systems negative. Medications: Medications have been reviewed. Reason For Visit: HYPERKALEMIA,ACUTE ON CHRONIC KIDNEY INJURY, UTI Physical Exam Vital Signs: Temp Pulse Resp BP Pulse Ox 97.9 F 82 16 138/44 H 97 07/20/17 11:59 07/20/17 11:59 07/20/17 11:59 07/20/17 11:59 07/20/17 11:59 Intake & Output 07/19/17 07/20/17 07/21/17 06:59 06:59 06:59 Intake Total 1583 1127 120 Output Total 2000 950 400 Balance -417 177 -280 Weight 131.7 kg 132.8 kg Exam: GENERAL: well-nourished and in no acute distress. Alert and oriented x3 HEAD: Atraumatic, normocephalic. EYES: Pupils equal round and reactive to light, extraocular movements intact, sclera anicteric, conjunctiva are normal. ENT: TMs normal, nares patent, oropharynx clear without exudates. Moist mucous membranes. No oral ulcerations or bleeding gums noted NECK: supple without lymphadenopathy. Trachea is central. No cervical or axillary lymphadenopathy noted. Carotids are 2+, JVD WNL LUNGS: Respiration seems nonlabored, no significant accessory muscle action noted. Breath sounds clear to auscultation bilaterally and equal noted. No wheezes rales or rhonchi noted. No significant dullness noted on percussion. CHEST: Palpation of the chest wall shows no significant chest wall tenderness. No other significant abnormalities noted. HEART: [place] SIGNAL WIRER, No PSH, 1/6 [place] aortic area, 1/6 quinones systolic murmur mitral area, no rubs, no gallops. ABDOMEN: Soft, no significant tenderness appreciated, normoactive bowel sounds. No guarding, no rebound. No rigidity noted . No masses appreciated. EXTREMITIES: Pedal pulses are 1-2+, no calf tenderness noted. No clubbing or cyanosis. 1+ pedal edema noted NEUROLOGICAL: Focused neurological exam showed no significant neurologic deficit. Normal speech, no focal weakness appreciated. PSYCH: Normal mood, normal affect. Judgment and insight within normal limits. SKIN: No significant ecchymosis, rash, ulcerations or signs of pruritus noted. MUSCULOSKELETAL EXAM: No significant joint swelling noted. Results Laboratory Results: 07/19/17 04:28 07/20/17 05:29 07/20/17 05:29 Sodium 141.3 Potassium 3.9 Chloride 108 H Carbon Dioxide 22 Anion Gap 11 BUN 41 H Creatinine 3.04 H Est GFR ( Amer) 19 L Est GFR (Non-Af Amer) 16 L Glucose 115 H Calcium 8.0 L 07/20/17 05:29 NT-Pro-B Natriuret Pep 5140 H EKG Comments: Shows sinus rhythm without any sustained tacky or bradyarrhythmias. Impressions: Chest X-Ray 07/20/17 06:00 IMPRESSION: Partial clearing of the pulmonary edema pattern Assessment & Plan - Diagnosis (1) Congestive heart failure (CHF) Qualifiers: Heart failure chronicity: acute on chronic Is this a current diagnosis for this admission?: Yes (2) Coronary artery disease Qualifiers: Coronary Disease-Associated Artery/Lesion type: [place] artery [place] vs. transplanted heart: [place] heart Associated angina: angina presence unspecified Qualified Code(s): I25.10 - Atherosclerotic heart disease of [place] coronary artery without angina pectoris Is this a current diagnosis for this admission?: Yes (3) Diabetes mellitus Qualifiers: Diabetes mellitus type: type 2 Diabetes mellitus complication status: with neurologic complications Diabetes mellitus complication detail: with polyneuropathy Diabetes mellitus ancient art curator insulin use: with ancient art curator use Qualified Code(s): E11.42 - Type 2 diabetes mellitus with diabetic polyneuropathy; Z79.4 - half-way (current) use of insulin; Z79.4 - half-way ( current) use of insulin; Z79.4 - half-way (current) use of insulin; Z79.4 - digital design engineer (current) use of insulin Is this a current diagnosis for this admission?: Yes (4) Hypertension Qualifiers: Hypertension type: essential hypertension Qualified Code(s): I10 - Essential (primary) hypertension Is this a current diagnosis for this admission?: Yes (5) Sleep apnea syndrome Qualifiers: Sleep apnea type: unspecified type Qualified Code(s): G47.30 - Sleep apnea , unspecified Is this a current diagnosis for this admission?: Yes (6) Hyperlipidemia Qualifiers: Hyperlipidemia type: unspecified Qualified Code(s): E78.5 - Hyperlipidemia , unspecified Is this a current diagnosis for this admission?: Yes (7) Hypothyroidism Qualifiers: Hypothyroidism type: unspecified Qualified Code(s): E03.9 - Hypothyroidism , unspecified Is this a current diagnosis for this admission?: Yes (8) Chronic kidney disease (CKD), stage IV (severe) Is this a current diagnosis for this admission?: Yes - Notes Notes: Patient significantly improved. Continue current management plans. Congestive heart failure: Acute on chronic diastolic heart failure with some contribution from right-sided heart failure. Patient symptomatically much improved. Chest x-ray showed significant improvement and clearing of infiltrate. Patient will need some baseline diuretics. Will be happy to follow patient in the office. Coronary artery disease: Patient is noted to have coronary artery disease with prior coronary intervention. Currently symptomatically stable without any angina symptoms. Patient had declined heart cath in the past as she is worried about ending up on dialysis. Do not feel a heart catheterization is indicated at this time. Diabetes: Recommend good control but avoid any hyper or hypoglycemia. Chronic kidney disease: [place] to be stage IV. Nephrology following. Dyslipidemia: Continue high potency statin therapy. Hypothyroidism: Continue with replacement therapy. Obesity: Patient will benefit from aggressive weight loss. Sleep apnea syndrome: Patient claims compliance with CPAP therapy. Recommend follow-up in the CPAP clinic. - Time Time with patient: Greater than 35 minutes - CODE STATUS was discussed, patient remains full code. Surrogate decision-maker patient's daughter and friend. Multiple medical problems were addressed. More than 50% of the time spent coordinating care, discussing management plans with involved caregivers. Management plans discussed with involved personnels. Medical decision making was of moderate to high complexity, patient's has multiple comorbidities. Medications reviewed and adjusted accordingly: Yes
--- NOTE | 2017-07-20 14:08 | PDOC PROGRESS REPORT ---
Subjective Progress Note for:: 07/20/17 Reason For Visit: Saw patient today.She is feeling lots better .Been ambulating some in the corridors. She denies any chest pains, dyspnea. Labs and meds were reviewed with her.She is eager to go home. Physical Exam Vital Signs: Temp Pulse Resp BP Pulse Ox 97.9 F 82 16 138/44 H 97 07/20/17 11:59 07/20/17 11:59 07/20/17 11:59 07/20/17 11:59 07/20/17 11:59 Intake & Output 07/19/17 07/20/17 07/21/17 06:59 06:59 06:59 Intake Total 1583 1127 120 Output Total 2000 950 400 Balance -417 177 -280 Weight 131.7 kg 132.8 kg General appearance: PRESENT: no acute distress Respiratory exam: PRESENT: clear to auscultation paula. ABSENT: crackles, rhonchi Cardiovascular exam: PRESENT: RRR, +S1, +S2 GI/Abdominal exam: PRESENT: soft. ABSENT: normal bowel sounds, organomegaly, tenderness Extremities exam: PRESENT: pedal edema - - Trace+ Neurological exam: PRESENT: alert, awake, oriented to person, oriented to place Results Laboratory Results: 07/19/17 04:28 07/20/17 05:29 07/20/17 05:29 Sodium 141.3 Potassium 3.9 Chloride 108 H Carbon Dioxide 22 Anion Gap 11 BUN 41 H Creatinine 3.04 H Est GFR ( Amer) 19 L Est GFR (Non-Af Amer) 16 L Glucose 115 H Calcium 8.0 L 07/20/17 05:29 NT-Pro-B Natriuret Pep 5140 H Impressions: Chest X-Ray 07/20/17 06:00 IMPRESSION: Partial clearing of the pulmonary edema pattern Assessment & Plan - Diagnosis (1) Pfcdg-kw-oaelcja kidney injury Qualifiers: Acute renal failure type: unspecified Chronic kidney disease stage: stage 3 (moderate) Qualified Code(s): N17.9 - Acute kidney failure, unspecified; N18.3 - Chronic kidney disease, stage 3 (moderate); N18.3 - Chronic kidney disease, stage 3 (moderate) Is this a current diagnosis for this admission?: Yes Plan: Stable. Looks like her latest creatinine is her base line. If discharged she should follow with me in office in ten days with labs. Monitor. (2) Hyperkalemia Is this a current diagnosis for this admission?: Yes Plan: resolved. Monitor. (3) UTI (urinary tract infection) Qualifiers: Urinary tract infection type: acute cystitis Is this a current diagnosis for this admission?: Yes (4) Diabetes mellitus Qualifiers: Diabetes mellitus type: type 2 Diabetes mellitus complication status: with neurologic complications Diabetes mellitus complication detail: with polyneuropathy Diabetes mellitus exterminator insulin use: with exterminator use Qualified Code(s): E11.42 - Type 2 diabetes mellitus with diabetic polyneuropathy; Z79.4 - detention (current) use of insulin; Z79.4 - rat exterminator ( current) use of insulin; Z79.4 - rat exterminator (current) use of insulin; Z79.4 - rat exterminator (current) use of insulin Is this a current diagnosis for this admission?: Yes (5) Hypertension Qualifiers: Hypertension type: essential hypertension Qualified Code(s): I10 - Essential (primary) hypertension Is this a current diagnosis for this admission?: Yes Plan: Relatively controlled.Titrate meds as OP. (6) Anemia Qualifiers: Anemia type: due to chronic kidney disease Chronic kidney disease stage: stage 3 (moderate) Is this a current diagnosis for this admission?: Yes Plan: She has some iron deficiency and see how she responds to PO iron.Needs additional work up for the anemia.Later consider EPO.
--- NOTE | 2017-07-21 20:15 | PDOC DISCHARGE SUMMARY ---
General - Admit/Disc Date/PCP Admission Date/Primary Care Provider: 07/12/17 16:01 MATIAS SOLIZ MD Discharge Date: 07/20/17 - Additional Information Resuscitation Status: Full Code Discharge Diet: Cardiac, Diabetic Discharge Activity: Activity As Tolerated Prescriptions: Aspirin [Ecotrin 81 mg EC Tablet] 81 mg PO DAILY 30 Days #30 tabec Azithromycin [Zithromax 250 mg Tablet] 500 mg PO QPM #5 tablet Clopidogrel Bisulfate [Plavix 75 mg Tablet] 75 mg PO DAILY 30 Days #30 tablet Furosemide [Lasix 20 mg Tablet] 20 mg PO QAM 30 Days #30 tablet Hydralazine HCl [Apresoline 50 mg Tablet] 100 mg PO Q8 30 Days #90 tablet Insulin Glargine,Hum.rec.anlog [Lantus Insulin 100 Unit/1 ml 10 ml] 26 unit SUBCUT BID #3 pe Insulin Lispro [Humalog Insulin (Lispro) 100 unit/mL] 0 - 12 unit SUBCUT ACHSP PRN 30 Days #3 pe PRN Reason: Insulin Lispro [Humalog Insulin (Lispro) 100 unit/mL] 6 unit SUBCUT AC 30 Days # 1 pe Ipratropium/Albuterol Sulfate [Duoneb 3 ml Ampul] 3 ml NEB [id number] 30 Days #30 vial.neb Losartan Potassium [Cozaar 50 mg Tablet] 50 mg PO DAILY@1100 30 Days #30 tablet Metoprolol Succinate [Toprol Xl 50 mg Tab.sr] 50 mg PO DAILY 30 Days #30 tab.sr.24h Home Medications: Atorvastatin Calcium [Lipitor 80 mg Tablet] 80 mg PO QHS 07/12/17 Bupropion HCl [Wellbutrin Xl 150 mg 24hr Tablet] 1 tab PO DAILY 07/12/17 Clopidogrel Bisulfate [Plavix 75 mg Tablet] 75 mg PO DAILY 07/12/17 Ezetimibe [Zetia 10 mg Tablet] 10 mg PO DAILY 07/12/17 Fluticasone/Vilanterol [Breo Ellipta 100-25 Mcg INH] 1 puff IH DAILY 07/12/17 Furosemide [Lasix 40 mg Tablet] 40 mg PO DAILYP PRN 07/12/17 Insulin Aspart [Novolog Insulin (Aspart) 100 unit/mL] 0 unit SUBCUT .SLD SCALE 07/12/17 Insulin Glargine,Hum.rec.anlog [Lantus Solostar] 26 unit SQ Q12 07/12/17 Isosorbide Mononitrate [Isosorbide Mononitrate ER] 120 mg PO DAILY 07/12/17 Levothyroxine Sodium [Synthroid] 300 mcg PO Q6AM 07/12/17 Metoprolol Succinate [Toprol Xl 25 mg Tab.sr] 25 mg PO DAILY 07/12/17 Nitroglycerin [Nitrostat 0.4 mg (1/150 Gr) Tabs 25/Bottle] 1 tab SL Q5MP PRN Omeprazole 20 mg PO QHS 07/12/17 Ondansetron [Zofran Odt 4 mg Tablet] 4 mg PO Q8HP PRN 07/12/17 Ranolazine [Ranexa 500 mg Tab.sr] 500 mg PO Q12 07/12/17 Aspirin [Ecotrin 81 mg EC Tablet] 81 mg PO DAILY 30 Days #30 tabec 07/20/17 Azithromycin [Zithromax 250 mg Tablet] 500 mg PO QPM #5 tablet 07/20/17 Clopidogrel Bisulfate [Plavix 75 mg Tablet] 75 mg PO DAILY 30 Days #30 tablet Furosemide [Lasix 20 mg Tablet] 20 mg PO QAM 30 Days #30 tablet 07/20/17 Hydralazine HCl [Apresoline 50 mg Tablet] 100 mg PO Q8 30 Days #90 tablet Insulin Glargine,Hum.rec.anlog [Lantus Insulin 100 Unit/1 ml 10 ml] 26 unit SUBCUT BID #3 pe 07/20/17 Insulin Lispro [Humalog Insulin (Lispro) 100 unit/mL] 0 - 12 unit SUBCUT ACHSP PRN 30 Days #3 pe 07/20/17 Insulin Lispro [Humalog Insulin (Lispro) 100 unit/mL] 6 unit SUBCUT AC 30 Days # 1 pe 07/20/17 Ipratropium/Albuterol Sulfate [Duoneb 3 ml Ampul] 3 ml NEB [id number] 30 Days #30 vial.neb 07/20/17 Losartan Potassium [Cozaar 50 mg Tablet] 50 mg PO DAILY@1100 30 Days #30 tablet 07/20/17 Metoprolol Succinate [Toprol Xl 50 mg Tab.sr] 50 mg PO DAILY 30 Days #30 tab.sr.24h 07/20/17 Polyethylene Glycol 3350 [Miralax Powder 17 gm/Packet] 17 gm PO DAILY #0 powd.pack 07/20/17 History of Present Illness Patient complains of: generalised weakness nausea vomiting History of Present Illness: KARINA ROGERS is a 61 year old female 61-year-old history of chronic kidney disease who presents with complaints of 4 day duration of nausea, vomiting, diarrhea and not feeling well. The patient notes she has not been able to hold anything down for the last 2 days. Patient denies any fevers or chills at present. Her diarrhea has resolved. She denies any other symptoms Upon evaluation in the ED patient was diagnosed of acute on chronic renal failure with a creatinine of 2.7 and a potassium of 6.2 She was subsequently admitted to [facility] under hospitalist service Hospital Course Hospital Course: 1) Right-sided congestive heart failure Improved Improvement peripheral edema ; diuretics were adjusted Patient is oxygenating adequately on room air at discharge (2) Ruxio-le-gfmxqhd kidney injury CKD stage III-IV Patient was followed by Dr. Zhu nephrology She will be followed in a few days with repeat BMP (4) Anemia stable (5) Diabetes mellitus Lantus was increased and patient was given small doses of lispro before meals (6) PNA (pneumonia) Had full antibiotic treatment for pneumonia and improved (7) hyperkalemia resolved Physical Exam Vital Signs: Temp Pulse Resp BP Pulse Ox 97.9 F 82 16 138/44 H 97 07/20/17 11:59 07/20/17 11:59 07/20/17 11:59 07/20/17 11:59 07/20/17 11:59 Intake & Output 07/20/17 07/21/17 07/22/17 00:59 00:59 00:59 Intake Total 1407 340 Output Total 1550 400 Balance -143 -60 Weight 131.7 kg 132.8 kg General appearance: PRESENT: no acute distress, morbidly obese, well-developed, well-nourished Head exam: PRESENT: atraumatic, normocephalic Eye exam: PRESENT: conjunctiva pale Ear exam: PRESENT: normal external ear exam Mouth exam: PRESENT: dry mucosa, neck supple, tongue midline Neck exam: ABSENT: carotid bruit, JVD, lymphadenopathy, thyromegaly Respiratory exam: PRESENT: clear to auscultation paula. ABSENT: rales, rhonchi, wheezes Cardiovascular exam: PRESENT: RRR. ABSENT: diastolic murmur, rubs, systolic murmur Vascular exam: PRESENT: normal capillary refill GI/Abdominal exam: PRESENT: normal bowel sounds, soft. ABSENT: distended, guarding, mass, organolmegaly, rebound, tenderness Rectal exam: PRESENT: deferred Extremities exam: PRESENT: full ROM. ABSENT: calf tenderness, clubbing, pedal edema Musculoskeletal exam: PRESENT: ambulatory, full ROM, normal inspection Neurological exam: PRESENT: alert, awake, oriented to person, oriented to place , oriented to time, oriented to situation, CN II-XII grossly intact. ABSENT: motor sensory deficit Psychiatric exam: PRESENT: appropriate affect, normal mood. ABSENT: homicidal ideation, suicidal ideation Skin exam: PRESENT: dry, intact, warm. ABSENT: cyanosis, rash Results Laboratory Results: 07/19/17 04:28 07/20/17 05:29 07/20/17 05:29 NT-Pro-B Natriuret Pep 5140 H Impressions: Chest X-Ray 07/20/17 06:00 IMPRESSION: Partial clearing of the pulmonary edema pattern Qualifiers - * PATEINT BEING DISCHARGED WITH ANY OF THE FOLLOWING DIAGNOSIS?: No Plan Discharge Plan: Follow-up is Dr. Zhu in a few days with repeat BMP Time Spent: Greater than 30 Minutes
--- NOTE | 2017-08-09 14:17 | Physician Advisory Note ---
Physician Advisor ProgressNote .: [facility], I have reviewed the medical record for this patient. Physician Advisor Statement: Please clarify in an addendum to Hannah (1) which type of pneumonia was present, (2) whether or not it was already developing in the first 48 hours of admission, (3) most likely pathogen type (GPos, GNeg, ...): A. Community-Acquired Pneumonia (CAP) = present on admission (or starting to show itself in the 1st 48 hours of admission), community pathogens likely. B. HEALTHCARE-ACQUIRED pneumonia (HCAP) = due to recent contact w/ healthcare setting, typically present on admission (or beginning to show itself in the 1st 48 hours of admission). C. HOSPITAL-ACQUIRED pneumonia (HAP) = NOT present at time of this admission. Developed 48+ hours after admission (or causing readmission within 48 hours). CAUSED BY THIS ADMISSION. D. Aspiration PNA Findings that support dx of PNA include, per UpToDate: cough, sputum, fever, pleuritic CP, SOB, MS changes, chills, rigors, GI sx (N/V/D), RR>24, fever ( often absent in older pts), tachycardia, crackles, leukocytosis w/Lt shift - or leukopenia, & infiltrate. Other findings supporting dx of PNA, per AAFP article 2006 on CAP, also include malaise, fatigue, rhonchi, "atypical sx in older pts" Relevant findings in this case: Pt came in 07/12 w/sx including prominent N/V, with anorexia, chills, fatigue, tachypnea up to 24, but WBC 7 & lungs CTAB. Next day, 07/13, pt had tachypnea again up to 24, with leukocytosis up to 11.2, & slight temp elevation to 99.4. HR climbed from 50s-60s initially (pt on beta- erich) to 80s. Day 3, 07/14, pt's tachypnea was up to 36 (frequently 24+ through the day). Day 4, 07/15, pt specifically c/o SOB, had RR up to 26, tachycardia up to 100 ( despite beta-erich), WBC 11, evidenced crackles on exam, decreased breath sounds, & CXR (1st one done this admission) showed abnormal densities consistent w/PNA. Thanks for your help! CK
--- NOTE | 2017-09-04 11:15 | Progress Note ---
Provider Note Provider Note: admission 07/12/17 pneumonia was present on admission likely community acquired pneumonia
== END 2017-07-20 12:32 | disposition home health service (06) | DRG 682 ==
LOC: ER 12:18 → EH 16:01 → 3W 20:09
PROVIDERS: ADMIT Internal Medicine; ATTEND Internal Medicine
PROC: 5A09557 Assistance with Respiratory Ventilation, Greater than 96 Consecutive Hours, Continuous Positive Airway Pressure (ICD-10-PCS; principal; 2017-07-12)
DX: N17.9 Acute kidney failure, unspecified (principal); I50.33 Acute on chronic diastolic (congestive) heart failure; J18.9 Pneumonia, unspecified organism; N39.0 Urinary tract infection, site not specified; I13.0 Hypertensive heart and chronic kidney disease with heart failure and stage 1 through stage 4 chronic kidney disease, or unspecified chronic kidney disease; Z68.43 Body mass index [BMI] 50.0-59.9, adult; E87.5 Hyperkalemia; I50.813 Acute on chronic right heart failure; E11.42 Type 2 diabetes mellitus with diabetic polyneuropathy; E11.22 Type 2 diabetes mellitus with diabetic chronic kidney disease; E11.319 Type 2 diabetes mellitus with unspecified diabetic retinopathy without macular edema; N18.3 Chronic kidney disease, stage 3 (moderate); I25.10 Atherosclerotic heart disease of native coronary artery without angina pectoris; J44.9 Chronic obstructive pulmonary disease, unspecified; E03.9 Hypothyroidism, unspecified; K21.9 Gastro-esophageal reflux disease without esophagitis; M19.90 Unspecified osteoarthritis, unspecified site; E66.01 Morbid (severe) obesity due to excess calories; E78.5 Hyperlipidemia, unspecified; K59.00 Constipation, unspecified; D63.1 Anemia in chronic kidney disease; E83.42 Hypomagnesemia; G47.33 Obstructive sleep apnea (adult) (pediatric); I25.2 Old myocardial infarction; Z87.440 Personal history of urinary (tract) infections; Z86.14 Personal history of Methicillin resistant Staphylococcus aureus infection; Z88.2 Allergy status to sulfonamides; Z88.8 Allergy status to other drugs, medicaments and biological substances; Z87.891 Personal history of nicotine dependence; Z82.49 Family history of ischemic heart disease and other diseases of the circulatory system; Z82.3 Family history of stroke; Z83.3 Family history of diabetes mellitus; Z90.49 Acquired absence of other specified parts of digestive tract; Z95.5 Presence of coronary angioplasty implant and graft; Z87.74 Personal history of (corrected) congenital malformations of heart and circulatory system; Z79.4 Long term (current) use of insulin; Z79.82 Long term (current) use of aspirin; Z79.899 Other long term (current) drug therapy
CPT/HCPCS: 36415; 71045; 71046; 80048; 80053; 81001; 82533; 82607; 82728; 82746; 82962; 83540; 83550; 83735; 83880; 83970; 84100; 84132; 84466; 85025; 85027; 85045; 87040; 87086; 93005; 93010; 93306; 94640; 94660; 96361; 96374; 99291; G8978-GP; G8979-GP; J0610; J0696; J1650; J1815; J1940; J2405; J2543; J2765; J3475; J3490; J7030; J7620; Q0138

== ENCOUNTER 2017-07-27 03:58 | Emergency (ER) | payer MEDICARE ==
[2017-07-27] MEDS ORDERED: NITROGLYCERIN/D5W 50 MG/250 ML RTUINJ IV PRN (04:27)
[2017-07-27] MEDS ORDERED: FUROSEMIDE INJ/PF 40 MG/4 ML SDV IV ONE (04:28)
[2017-07-27] MEDS ORDERED: NITROGLYCERIN/D5W 50 MG/250 ML RTUINJ IV ONE (04:31)
[2017-07-27 04:34] LABS: HEMATOCRIT 32.2 % (36.0-47.0); HEMOGLOBIN 10.4 g/dL (12.0-15.5); MEAN CORPUSCULAR HEMOGLOBIN 29.7 pg (27.0-33.4); MEAN CORPUSCULAR HGB CONC 32.3 g/dL (32.0-36.0); MEAN CORPUSCULAR VOLUME 92 fl (80-97); PLATELET COUNT 407 10^3/uL (150-450); RED BLOOD COUNT 3.51 10^6/uL (3.72-5.28); RED CELL DISTRIBUTION WIDTH 15.8 % (11.5-14.0); WHITE BLOOD COUNT 21.6 10^3/uL (4.0-10.5)
[2017-07-27 04:46] LABS: ALANINE AMINOTRANSFERASE 26 U/L (9-52); ALBUMIN 3.8 g/dL (3.5-5.0); ALKALINE PHOSPHATASE 128 U/L (38-126); ANION GAP 13 (5-19); ASPARTATE AMINO TRANSFERASE 17 U/L (14-36); BILIRUBIN,DIRECT 0.2 mg/dL (0.0-0.4); BILIRUBIN,TOTAL 0.3 mg/dL (0.2-1.3); BLOOD UREA NITROGEN 37 mg/dL (7-20); CALCIUM 8.3 mg/dL (8.4-10.2); CARBON DIOXIDE 20 mmol/L (22-30); CHLORIDE 109 mmol/L (98-107); GLUCOSE 320 mg/dL (75-110); POTASSIUM 4.9 mmol/L (3.6-5.0); SODIUM 142.4 mmol/L (137-145); TOTAL PROTEIN 6.8 g/dL (6.3-8.2)
--- NOTE | 2017-07-27 04:53 | RADIOLOGY REPORT (SQ) ---
EXAM DESCRIPTION: CHEST SINGLE VIEW CLINICAL HISTORY: pulmonary edema COMPARISON: 07/20/2017 FINDINGS: Single frontal view of the chest. Tiny megaly. Pulmonary vascular congestion with interstitial edema as well as alveolar opacities and possible small bilateral pleural effusions. No definite pneumothorax. Leads overlie the chest. No acute osseous abnormality. Upper abdominal soft tissues are unremarkable. IMPRESSION: 1. Cardiomegaly with alveolar and interstitial edema as well as small bilateral pleural effusions.
[2017-07-27 04:55] LABS: ABSOLUTE LYMPHOCYTES# (MANUAL) 1.3 10^3/uL (0.5-4.7); ABSOLUTE MONOCYTES # (MANUAL) 0.9 10^3/uL (0.1-1.4); ABSOLUTE NEUTROPHILS# (MANUAL) 19.4 10^3/uL (1.7-8.2); BAND NEUTROPHILS % (MANUAL) 2 % (3-5); BASOPHILS % (MANUAL) 0 % (0-2); EOSINOPHILS % (MANUAL) 0 % (0-6); LYMPHOCYTES % (MANUAL) 6 % (13-45); METAMYELOCYTES % (MANUAL) 1 % (0); MONOCYTES % (MANUAL) 4 % (3-13); SEGMENTED NEUTROPHILS % (MAN) 87 % (42-78); TOTAL CELLS COUNTED 100
[2017-07-27 05:00] LABS: ANISOCYTOSIS 1+; PLATELET COMMENT ADEQUATE; PLATELET LARGE PRESENT; POIKILOCYTOSIS 1+; SCHISTOCYTES 1+; TEAR DROP CELLS 2+; TOXIC GRANULATION 1+
[2017-07-27 05:11] LABS: TROPONIN I 0.126 ng/mL
--- NOTE | 2017-07-27 05:40 | ER Document Report ---
ED General - General Chief Complaint: Shortness Of Breath Stated Complaint: BREATHING DIFFICULTY Time Seen by Provider: 07/27/17 04:27 Notes: Patient is a 62-year-old female presents with complaint of difficulty breathing. Difficulty breathing starts night. No chest pain. Patient does have previous history of flash pulmonary edema in the past. She called the months. Paramedics arrived and her oxygen saturation was 72%. He placed her on nonrebreather which brought her to 94% on prior to the ER. Patient has large mandibular extremities she sounds fluid overload on lung auscultation. Patient says this feels very similar to when she had flash pulmonary edema once before in 2014. According to records from that visit the patient had rising troponins. There is decided to keep her here and was seen by Dr. Heller. He ordered a cardiac stress test which was positive for a small area of infarction. She than had another stress in [place] 2015 which also showed infarction and recommendation was heart cath if she has recurrent symptoms or decreased EF on echo. I do not see results from an echo following this stress test.At that time it was decided to do medical management. TRAVEL OUTSIDE OF THE [place] IN LAST 30 DAYS: No - Related Data Allergies/Adverse Reactions: metformin [Metformin] Allergy (Intermediate, Verified 07/12/17 12:19) Nausea Sulfa (Sulfonamide Antibiotics) Allergy (Mild, Verified 07/12/17 12:19) Nausea fluoxetine Allergy (Verified 07/12/17 12:19) trimethoprim Allergy (Verified 07/12/17 12:19) diazepam [From Valium] Adverse Reaction (Verified 07/12/17 12:19) "BOUNCES ME OFF THE STRAUSS, DOES NOT RELAX" Past Medical History - Social History Smoking Status: Never Smoker Frequency of alcohol use: None Drug Abuse: None Family History: CAD, CVA, DM, Hypertension, Thyroid Disfunction - Past Medical History Cardiac Medical History: Reports: Hx Congestive Heart Failure, Hx Coronary Artery Disease, Hx Heart Attack, Hx Hypercholesterolemia, Hx Hypertension Pulmonary Medical History: Reports: Hx COPD, Hx Pneumonia, Hx Sleep Apnea Endocrine Medical History: Reports: Hx Diabetes Mellitus Type 1, Hx Diabetes Mellitus Type 2, Hx Hypothyroidism Renal/ Medical History: Reports: Hx Renal Insufficiency. Denies: Hx Peritoneal Dialysis GI Medical History: Reports: Hx Gastroesophageal Reflux Disease Musculoskeltal Medical History: Reports Hx Arthritis Psychiatric Medical History: Reports: Hx Depression Infectious Medical History: Reports: Hx MRSA Past Surgical History: Reports: Hx Cardiac Catheterization, Hx Cardiac Surgery - A hole in the heart closed at age 65 years old., Hx Cholecystectomy, Hx Coronary Stent, Hx Hysterectomy, Hx Open Heart Surgery - ASD or VSD closed at 4 years of age, Hx Orthopedic Surgery - 2 screws in the distal left femur, Hx Thyroid Surgery - Thyroidectomy, Hx Tonsillectomy, Other - Cardiac surgery at age 4, Patent ductus?. Denies: Hx Mastectomy - Immunizations Hx Diphtheria, Pertussis, Tetanus Vaccination: Yes - unknown Hx Pneumococcal Vaccination: 04/23/12 Review of Systems - Review of Systems Notes: My Normal Review Basic REVIEW OF SYSTEMS: CONSTITUTIONAL : Denies fever, chills, or sweats. Denies recent illness. EENT: Denies eye, ear, throat, or mouth pain or symptoms. Denies nasal or sinus congestion. CARDIOVASCULAR: No Chest pain but has some heaviness in the chest. RESPIRATORY: Difficulty breathing GASTROINTESTINAL: Denies abdominal pain. Denies nausea, vomiting, or diarrhea. MUSCULOSKELETAL: Extremity edema. SKIN: Denies rash or skin lesions. NEUROLOGICAL: Denies altered mental status or loss of consciousness. Denies headache. Denies weakness or paralysis or loss of use of either side. Denies problems with gait or speech. Denies sensory or motor loss. ALL OTHER SYSTEMS REVIEWED AND NEGATIVE. Physical Exam - Notes Notes: General Appearance: Well nourished, alert, cooperative, moderate acute distress , no obvious discomfort. Vitals: reviewed, See vital signs table. Head: no swelling or tenderness to the head Eyes: PERRL, EOMI, Conjuctiva clear Mouth: No decreasd moisture Neck: Supple, no neck tenderness Lungs: No wheezing, she has bilateral rales., No rhonci, No accessory muscle use , good air exchange bilaterally. Heart: Normal rate, Regular rythm, No murmur, no rub Abdomen: Normal BS, soft, No rigidity, No abdominal tenderness, No guarding, no rebound Extremities: strength 5/5 in all extremities, good pulses in all extremities, no swelling or tenderness in the extremities, 3+ bilateral lower extremity edema. Skin: warm, dry, appropriate color, no rash Neuro: speech clear, oriented x 3, normal affect, responds appropriately to questions. Course - Re-evaluation Re-evalutation: 07/27/17 05:39 On reevaluation patient looks much improved after receiving the nitro and being placed on BiPAP. Blood pressure is improving as well. Patient's troponin is elevated above acute HI. This could be related to infarction or could also be related to cardiac strain from her flash pulmonary edema as well as her having chronic renal sufficiency. Review the records patient had a similar presentation 2 years ago and that of having a positive stress test. Due to her previous history of positive stress test with no follow-up heart catheterization and recurrence of her symptoms tonight with an already positive troponin I decided to call [facility] to speak with them to see about possible transfer being that we do not have interventional cardiology here to perform a cath they feel it is needed after evaluation. I am waiting to hear back from hospitalist. 07/27/17 06:[address] Christian Tineo, hospitalist at [facility]. He agrees to accept the patient for transfer. Patient continues to be doing well on the BiPAP. At this point will hold off on anticoagulation. Dr. Tineo since that if the patient's troponin goes up significantly then we will reconsider any coagulation at that time. Dictation of this chart was performed using voice recognition software; therefore, there may be some unintended grammatical errors. - Laboratory Result Diagrams: 07/27/17 04:18 07/27/17 04:18 Laboratory results interpreted by me: 07/27/17 07/27/17 07/27/17 04:18 04:18 04:18 WBC 21.6 H RBC 3.51 L Hgb 10.4 L Hct 32.2 L RDW 15.8 H Seg Neuts % (Manual) 87 H Band Neutrophils % 2 L Lymphocytes % (Manual) 6 L Metamyelocytes % 1 H Abs Neuts (Manual) 19.4 H Chloride 109 H Carbon Dioxide 20 L BUN 37 H Creatinine 2.27 H Est GFR ( Amer) 26 L Est GFR (Non-Af Amer) 22 L Glucose 320 H Calcium 8.3 L Alkaline Phosphatase 128 H NT-Pro-B Natriuret Pep 4360 H - EKG Interpretation by Me Additional EKG results interpreted by me: 07/27/17 05:45 EKG is reviewed and interpreted by me. EKG shows sinus rhythm with rate of 93 bpm occasional PVC. No concerning ST segment changes. Patient does have a right bundle branch block which is unchanged comparison to her old EKG from July 12, 2017. HI interval is within normal range. QRS duration and QTc intervals are prolonged. Discharge - Discharge Clinical Impression: Elevated troponin, Renal insufficiency, mild Pulmonary edema Qualifiers: Chronicity: acute Qualified Code(s): J81.0 - Acute pulmonary edema Condition: Stable Disposition: [facility] Referrals: MATIAS SOLIZ MD [Primary Care Provider] - Follow up as needed
[2017-07-27] MEDS ORDERED: ENALAPRILAT DIHYDRATE INJ/PF 1.25 MG/1 ML SDV IV ONE (07:14)
[2017-07-27] MEDS ORDERED: HYDRALAZINE HCL 25 MG TABLET PO ONE (07:16)
--- NOTE | 2017-07-27 09:10 | EKG REPORT ---
SEVERITY:- ABNORMAL ECG - SINUS RHYTHM VENTRICULAR PREMATURE COMPLEX RIGHT BUNDLE BRANCH BLOCK LVH WITH IVCD AND SECONDARY REPOL ABNRM : Confirmed by: Toni Heller 27-Jul-2017 09:10:25
--- NOTE | 2017-07-27 11:09 | ER Document Report ---
Doctor's Note Notes: 07/27/17 11:09 Patient has been reevaluated stable at this time, blood pressure is now 183/68 nitro drip has been maxed. Patient overall is stable
[2017-07-27 11:27] VITALS: BP 183/74
== END 2017-07-27 11:39 | disposition short-term general hospital (02) ==
LOC: ER 03:58
DX: J81.0 Acute pulmonary edema (principal); R74.8 Abnormal levels of other serum enzymes; I12.9 Hypertensive chronic kidney disease with stage 1 through stage 4 chronic kidney disease, or unspecified chronic kidney disease; E11.22 Type 2 diabetes mellitus with diabetic chronic kidney disease; N18.9 Chronic kidney disease, unspecified; I49.3 Ventricular premature depolarization; I45.10 Unspecified right bundle-branch block; I25.10 Atherosclerotic heart disease of native coronary artery without angina pectoris; I25.2 Old myocardial infarction; J44.9 Chronic obstructive pulmonary disease, unspecified; Z86.14 Personal history of Methicillin resistant Staphylococcus aureus infection; Z95.5 Presence of coronary angioplasty implant and graft; Z88.8 Allergy status to other drugs, medicaments and biological substances; Z88.2 Allergy status to sulfonamides
CPT/HCPCS: 93005; 99285; 96375; 96365; 96366; 36415; 85025; 80053; 84484; 83880; 71045; 93010; 94660; J1940; J3490

== ENCOUNTER 2017-09-04 10:37 | Inpatient (IN) | payer MEDICARE ==
--- NOTE | 2017-09-04 10:58 | ER Document Report ---
ED Cardiac - General Chief Complaint: Shortness Of Breath Stated Complaint: CHEST PAIN Time Seen by Provider: 09/04/17 10:57 Mode of Arrival: Wheelchair Information source: Patient, Emergency Med Personnel TRAVEL OUTSIDE OF THE [place] IN LAST 30 DAYS: No - HPI Notes: 62-year-old lady with past medical history of heart failure, COPD, obesity who presented today for evaluation of chest pain as well as shortness of breath that started this morning. According to patient she has been getting progressively short of breath for the past few days. 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 Zhu as her skewer up. Patient also has history of chronic kidney disease. Patient denies any fevers, productive cough, nausea vomiting. - Related Data Allergies/Adverse Reactions: metformin [Metformin] Allergy (Intermediate, Verified 07/12/17 12:19) Nausea Sulfa (Sulfonamide Antibiotics) Allergy (Mild, Verified 07/12/17 12:19) Nausea fluoxetine Allergy (Verified 07/12/17 12:19) trimethoprim Allergy (Verified 07/12/17 12:19) diazepam [From Valium] Adverse Reaction (Verified 07/12/17 12:19) "BOUNCES ME OFF THE STRAUSS, DOES NOT RELAX" Past Medical History - General Information source: Patient - Social History Smoking Status: Unknown if Ever Smoked Family History: CAD, CVA, DM, Hypertension, Thyroid Disfunction - Past Medical History Cardiac Medical History: Reports: Hx Congestive Heart Failure, Hx Coronary Artery Disease, Hx Heart Attack, Hx Hypercholesterolemia, Hx Hypertension Pulmonary Medical History: Reports: Hx COPD, Hx Pneumonia, Hx Sleep Apnea Endocrine Medical History: Reports: Hx Diabetes Mellitus Type 1, Hx Diabetes Mellitus Type 2, Hx Hypothyroidism Renal/ Medical History: Reports: Hx Renal Insufficiency. Denies: Hx Peritoneal Dialysis GI Medical History: Reports: Hx Gastroesophageal Reflux Disease Musculoskeltal Medical History: Reports Hx Arthritis Psychiatric Medical History: Reports: Hx Depression Infectious Medical History: Reports: Hx MRSA Past Surgical History: Reports: Hx Cardiac Catheterization, Hx Cardiac Surgery - A hole in the heart closed at age 65 years old., Hx Cholecystectomy, Hx Coronary Stent, Hx Hysterectomy, Hx Open Heart Surgery - ASD or VSD closed at 4 years of age, Hx Orthopedic Surgery - 2 screws in the distal left femur, Hx Thyroid Surgery - Thyroidectomy, Hx Tonsillectomy, Other - Cardiac surgery at age 4, Patent ductus?. Denies: Hx Mastectomy - Immunizations Hx Diphtheria, Pertussis, Tetanus Vaccination: Yes - unknown Hx Pneumococcal Vaccination: 04/23/12 Review of Systems - Review of Systems Notes: REVIEW OF SYSTEMS: CONSTITUTIONAL: -fevers, -chills EENT: -eye pain, -difficulty swallowing, -nasal congestion CARDIOVASCULAR: + Chest pain, -syncope, + lower extremity edema RESPIRATORY: -cough, + shortness of breath GASTROINTESTINAL: -abdominal pain, -nausea, -vomiting, -diarrhea GENITOURINARY: -dysuria, -hematuria MUSCULOSKELETAL: -back pain, -neck pain SKIN: -rash or skin lesions. HEMATOLOGIC: -easy bruising or bleeding. LYMPHATIC: -swollen, enlarged glands. NEUROLOGICAL: -altered mental status or loss of consciousness, -headache, - neurologic symptoms PSYCHIATRIC: -anxiety, -depression. ALL OTHER SYSTEMS REVIEWED AND NEGATIVE. Physical Exam - Vital signs Vitals: BP 133/59 H 09/04/17 10:47 - Notes Notes: Reviewed vital signs and nursing note as charted by RN. CONSTITUTIONAL: Alert and oriented and responds appropriately to questions, obese HEAD: Normocephalic; atraumatic EYES: PERRL; Conjunctivae clear, sclerae non-icteric ENT: normal nose NECK: Supple without meningismus CARD: Regular rate and rhythm; no murmurs, no clicks, no rubs, no gallops; symmetric distal pulses RESP: Normal chest excursion without splinting or tachypnea; breath sounds with crackles at the bases, mild tachypnea ABD/GI: Normal bowel sounds; non-distended; soft, nondistended BACK: The back appears normal and is non-tender to palpation EXT: Normal ROM in all joints; non-tender to palpation; no cyanosis, no effusions, bilateral lower extremity edema SKIN: Normal color for age and race; warm; dry; good turgor; capillary refill < 2 seconds; no acute lesions noted NEURO: Cranial nerves 3-12 intact. Motor strength 5/5 bilaterally. Sensation intact to touch bilaterally. No pronator drift. Finger to nose intact bilaterally PSYCH: The patient's mood and manner are appropriate. Grooming and personal hygiene are appropriate. Course - Re-evaluation Re-evalutation: 62-year-old lady with past medical history of right-sided heart failure, hypertension, CKD as well as obesity who presented today for evaluation of chest pain as well as shortness of breath Differential diagnoses includes ACS, heart failure exacerbation, pulmonary edema , bilateral pleural effusions We will obtain basic lab work including CBC, BMP, BNP, troponin, chest x-ray, EKG Will place patient on oxygen, will give patient a dose of Lasix Reassess patient 09/04/17 12:43 Patient has elevated BNP as well as troponin, chest x-ray with bilateral pleural effusions Patient appears to be in acute heart failure exacerbation, will Place Delgado as well as start patient on Lasix for diuresis Anticipate admission for investigation of chest pain as well as management of acute heart failure exacerbation 09/04/17 12:48 Discussed the case with hospitalist, Dr. Thomas, agree with admission to telemetry bed as an inpatient Admit to hospitalist service - Vital Signs Vital signs: Temp Pulse Resp BP Pulse Ox 97.5 F 18 134/46 H 96 09/04/17 10:50 09/04/17 11:00 09/04/17 11:02 09/04/17 11:00 - Laboratory Result Diagrams: 09/04/17 10:51 09/04/17 10:51 Laboratory results interpreted by me: 09/04/17 09/04/17 09/04/17 10:51 10:51 10:51 RBC 3.43 L Hgb 10.3 L Hct 30.9 L RDW 15.4 H Sodium 146.1 H BUN 49 H Creatinine 2.51 H Est GFR ( Amer) 23 L Est GFR (Non-Af Amer) 19 L Glucose 139 H Calcium 7.8 L NT-Pro-B Natriuret Pep 6160 H - Diagnostic Test Radiology reviewed: Image reviewed - Bilateral pleural effusions with pulmonary congestion - EKG Interpretation by Me Additional EKG results interpreted by me: 09/04/17 12:49 EKG obtained 10:45 AM Sinus rhythm, patient has heart rate of 76, patient has wide QRS with normal OH interval Patient has right bundle branch block, with no acute ST elevations no significant change from her prior EKG Critical Care Note - Critical Care Note Comments: Critical Care Time: 35 minutes Critical care provider statement: Critical care time was exclusive of: Separately billable procedures and treating other patients and teaching time Critical care was time spent personally by me on the following activities: Blood draw for specimens, development of treatment plan with patient or surrogate, evaluation of patient's response to treatment, examination of patient , obtaining history from patient or surrogate, ordering and performing treatments and interventions, ordering and review of laboratory studies, ordering and review of radiographic studies, pulse oximetry, re-evaluation of patient's condition and review of old charts I assumed direction of critical care for this patient from another provider in my specialty: no Discharge - Discharge Clinical Impression: Acute heart failure, Chest pain, Chronic congestive heart failure, CKD ( chronic kidney disease) Condition: Stable Disposition: ADMITTED INPATIENT Admitting Provider: Hospitalist Unit Admitted: Telemetry Referrals: MATIAS SOLIZ MD [Primary Care Provider] - Follow up as needed
[2017-09-04 11:12] LABS: ABSOLUTE BASOPHILS # (AUTO) 0.1 10^3/uL (0.0-0.2); ABSOLUTE EOSINOPHILS # (AUTO) 0.2 10^3/uL (0.0-0.6); ABSOLUTE LYMPHOCYTES (AUTO) 1.3 10^3/uL (0.5-4.7); ABSOLUTE MONOCYTES (AUTO) 0.6 10^3/uL (0.1-1.4); ABSOLUTE NEUT (AUTO) 6.1 10^3/uL (1.7-8.2); BASOPHILS % (AUTO) 1.5 % (0-2); EOSINOPHILS % (AUTO) 2.8 % (0-6); HEMATOCRIT 30.9 % (36.0-47.0); HEMOGLOBIN 10.3 g/dL (12.0-15.5); LYMPHOCYTES % (AUTO) 15.8 % (13-45); MEAN CORPUSCULAR HGB CONC 33.4 g/dL (32.0-36.0); MEAN CORPUSCULAR VOLUME 90 fl (80-97); MONOCYTES % (AUTO) 6.8 % (3-13); PLATELET COUNT 360 10^3/uL (150-450); RED BLOOD COUNT 3.43 10^6/uL (3.72-5.28); RED CELL DISTRIBUTION WIDTH 15.4 % (11.5-14.0); SEGMENTED NEUTROPHILS % (AUTO) 73.1 % (42-78); TOTAL CELLS COUNTED % (AUTO) 100 %; WHITE BLOOD COUNT 8.3 10^3/uL (4.0-10.5)
[2017-09-04 11:24] LABS: INTERNATIONAL RATION (INR) 1.05; PROTHROMBIN TIME 14.2 SEC (11.4-15.4)
[2017-09-04 11:27] LABS: ALANINE AMINOTRANSFERASE 15 U/L (9-52); ALBUMIN 3.5 g/dL (3.5-5.0); ALKALINE PHOSPHATASE 83 U/L (38-126); ANION GAP 13 (5-19); ASPARTATE AMINO TRANSFERASE 16 U/L (14-36); BILIRUBIN,DIRECT 0.3 mg/dL (0.0-0.4); BILIRUBIN,TOTAL 0.4 mg/dL (0.2-1.3); BLOOD UREA NITROGEN 49 mg/dL (7-20); CALCIUM 7.8 mg/dL (8.4-10.2); CARBON DIOXIDE 27 mmol/L (22-30); CHLORIDE 106 mmol/L (98-107); GLUCOSE 139 mg/dL (75-110); POTASSIUM 4.4 mmol/L (3.6-5.0); SODIUM 146.1 mmol/L (137-145); TOTAL PROTEIN 6.5 g/dL (6.3-8.2)
[2017-09-04 11:39] LABS: TROPONIN I 0.025 ng/mL
--- NOTE | 2017-09-04 12:16 | RADIOLOGY REPORT (SQ) ---
EXAM DESCRIPTION: CHEST 2 VIEWS COMPLETED DATE/TIME: 09/04/2017 12:07 pm REASON FOR STUDY: chest pain COMPARISON: 07/17/2017 EXAM PARAMETERS: NUMBER OF VIEWS: two views TECHNIQUE: Digital Frontal and Lateral radiographic views of the chest acquired. RADIATION DOSE: NA LIMITATIONS: Patient positioning. FINDINGS: LUNGS AND PLEURA: Limited evaluation of the lung bases, however small to moderate bilatera l pleural effusions are present. MEDIASTINUM AND HILAR STRUCTURES: No masses or contour abnormalities. HEART AND VASCULAR STRUCTURES: Not well evaluated secondary to patient positioning and possible bilat eral pleural effusions. BONES: No acute findings. HARDWARE: None in the chest. OTHER: No other significant finding. IMPRESSION: Limited exam secondary to positioning with small to moderate bilateral pleural effusions . TECHNICAL DOCUMENTATION: JOB ID: [id number] [employer]- All Rights Reserved Reading location - IP/workstation name: [email or web address]
[2017-09-04] MEDS ORDERED: FUROSEMIDE INJ/PF 40 MG/4 ML SDV IV ONE (12:39)
[2017-09-04] MEDS: HEPARIN SOD (PORCINE) 5,000 UNIT/ML 1 ML SYRINGE SUBCUT SCH ×2 (14:04→22:10)
--- NOTE | 2017-09-04 14:04 | PDOC H&P ---
History of Present Illness Admission Date/PCP: 09/04/17 13:19 MATIAS SOLIZ MD Patient complains of: Chest pain and shortness of breath History of Present Illness: KARINA ROGERS is a 62 year old female with a known history of diabetes mellitus type 1, morbid obesity, obstructive sleep apnea, chronic right-sided CHF, coronary artery disease CKD stage IV who presented to the ED with a history of chest pain Patient woke up this morning at around 9 AM with precordial chest pressure The pain was 8/10 radiating to the right arm; it was associated with shortness of breath It was pressure-like and extremely uncomfortable Patient called 911 she was brought to the ED for evaluation Patient was treated during transport the pain; eventually resolved It lasted a total of 2 hours Upon evaluation in the ED patient had an EKG suggestive of a right bundle branch block ST-T changes unchanged from the previous EKG; Troponins were in intermediate range; the BNP was 6000; chest x-ray showed bilateral pleural effusions Patient was given 40 mg of IV Lasix Hospitalist was called for admission A cardiology consult was obtained Past Medical History Cardiac Medical History: Reports: Congestive Heart Failure, Coronary Artery Disease, Myocardial Infarction, Hyperlipidema, Hypertension Pulmonary Medical History: Reports: Chronic Obstructive Pulmonary Disease (COPD) , Pneumonia, Sleep Apnea Endocrine Medical History: Reports: Diabetes Mellitus Type 1, Diabetes Mellitus Type 2, Hypothyroidism GI Medical History: Reports: Gastroesophageal Reflux Disease Musculoskeltal Medical History: Reports: Arthritis Psychiatric Medical History: Reports: Depression Hematology: Denies: Anemia, Sickle Cell Disease Infectious Medical History: Reports: Methicillin-Resistant Staph Aureus Past Surgical History Past Surgical History: Reports: Cardiac Catheterization, Cholecystectomy, Coronary Stent, Hysterectomy, Orthopedic Surgery - 2 screws in the distal left femur, Tonsillectomy, Other - Cardiac surgery at age 4, Patent ductus? Denies: Amputation, Mastectomy Social History Information Source: Patient Smoking Status: Never Smoker Frequency of Alcohol Use: None Hx Recreational Drug Use: No Drugs: None Hx Prescription Drug Abuse: No - Advance Directive Resuscitation Status: Do Not Resuscitate Surrogate healthcare decision maker:: Her friend Sarita Family History Family History: CAD, CVA, DM, Hypertension, Thyroid Disfunction Parental Family History Reviewed: Yes Children Family History Reviewed: Yes Sibling(s) Family History Reviewed.: Yes Medication/Allergy Allergies/Adverse Reactions: metformin [Metformin] Allergy (Intermediate, Verified 07/12/17 12:19) Nausea Sulfa (Sulfonamide Antibiotics) Allergy (Mild, Verified 07/12/17 12:19) Nausea fluoxetine Allergy (Verified 07/12/17 12:19) trimethoprim Allergy (Verified 07/12/17 12:19) diazepam [From Valium] Adverse Reaction (Verified 07/12/17 12:19) "BOUNCES ME OFF THE STRAUSS, DOES NOT RELAX" Review of Systems Constitutional: PRESENT: chills. ABSENT: anorexia, fever(s), headache(s), weakness, weight gain, weight loss Cardiovascular: PRESENT: as per HPI, chest pain, dyspnea on exertion Respiratory: PRESENT: as per HPI, dyspnea. ABSENT: cough, hemoptysis, sputum Gastrointestinal: ABSENT: abdominal pain, constipation, diarrhea, hematemesis, hematochezia, nausea, vomiting Genitourinary: ABSENT: dysuria, hematuria Musculoskeletal: ABSENT: joint swelling Integumentary: ABSENT: rash, wounds Neurological: ABSENT: abnormal gait, abnormal speech, confusion, dizziness, focal weakness, syncope Psychiatric: ABSENT: anxiety, depression, homidical ideation, suicidal ideation Endocrine: ABSENT: cold intolerance, heat intolerance, polydipsia, polyuria Hematologic/Lymphatic: ABSENT: easy bleeding, easy bruising Physical Exam Vital Signs: Temp Pulse Resp BP Pulse Ox 97.5 F 18 134/46 H 96 09/04/17 10:50 09/04/17 11:00 09/04/17 11:02 09/04/17 11:00 General appearance: PRESENT: cooperative, mild distress - Because of anxiety, morbidly obese Head exam: PRESENT: atraumatic, normocephalic Eye exam: PRESENT: conjunctiva pink, EOMI, PERRLA. ABSENT: scleral icterus Neck exam: ABSENT: carotid bruit, JVD, lymphadenopathy, thyromegaly Respiratory exam: PRESENT: decreased breath sounds. ABSENT: chest wall tenderness, rales, wheezes Cardiovascular exam: PRESENT: systolic murmur - grade 2/6. ABSENT: gallop, rubs Pulses: PRESENT: normal dorsalis pedis pul Vascular exam: PRESENT: normal capillary refill Musculoskeletal exam: PRESENT: ambulatory, full ROM, normal inspection. ABSENT : deformity, dislocation, tenderness, other Neurological exam: PRESENT: alert, awake, oriented to person, oriented to place , oriented to time, oriented to situation, CN II-XII grossly intact. ABSENT: motor sensory deficit Psychiatric exam: PRESENT: anxious, appropriate affect Results Laboratory Results: 09/04/17 09/04/17 09/04/17 10:51 10:51 10:51 RBC 3.43 L Hgb 10.3 L Hct 30.9 L RDW 15.4 H Sodium 146.1 H BUN 49 H Creatinine 2.51 H Est GFR ( Amer) 23 L Est GFR (Non-Af Amer) 19 L Glucose 139 H Calcium 7.8 L NT-Pro-B Natriuret Pep 6160 H EKG Comments: RBBB LVH Impressions: Chest X-Ray 09/04/17 10:59 IMPRESSION: Limited exam secondary to positioning with small to moderate bilateral pleural effusions. Assessment & Plan - Diagnosis (1) Chest pain Is this a current diagnosis for this admission?: Yes Plan: Chest pain lasted about 2 hours ; patient may have unstable angina Chest pain is relieved now The troponins are in intermediate range No acute changes on the EKG Continue patient's antiplatelet agents Patient may need to be anticoagulated with heparin We will defer management to Dr. Heller cardiology who was consulted (2) Chronic congestive heart failure Qualifiers: Heart failure type: diastolic Qualified Code(s): I50.32 - Chronic diastolic (congestive) heart failure Is this a current diagnosis for this admission?: Yes Plan: Acute on chronic diastolic CHF Last echocardiogram performed September 10, 2015 showed preserved left ventricular function; LVF; mild MR and mild AR Grade 2/6 diastolic dysfunction Patient's BNP is elevated She received 40 mg of Lasix IV in the ED We will reevaluate patient's needs in a.m. Noted that patient's creatinine is 2.5 and diuresis should be extremely careful (3) Chronic kidney disease (CKD) Qualifiers: Is this a current diagnosis for this admission?: Yes Plan: Stage IV CKD stable Patient is followed by Dr. 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 insulin use: with video poker floorman use Diabetes mellitus complication status: with neurologic complications Diabetes mellitus complication detail: with polyneuropathy Qualified Code(s): E11.42 - Type 2 diabetes mellitus with diabetic polyneuropathy; Z79.4 - signal integrity engineer (current) use of insulin; Z79.4 - penitentiary ( current) use of insulin; Z79.4 - penitentiary (current) use of insulin; Z79.4 - signal integrity engineer (current) use of insulin Is this a current diagnosis for this admission?: Yes Plan: Continue patient's home management (5) Sleep apnea syndrome Qualifiers: Sleep apnea type: unspecified type Qualified Code(s): G47.30 - Sleep apnea , unspecified
--- NOTE | 2017-09-04 14:26 | PDOC CONSULTATION ---
Consultation Consult Date: 09/04/17 Attending physician:: MATTHEW HAMMOND Consult reason:: Shortness of breath and chest pain History of Present Illness Admission Date/PCP: 09/04/17 13:36 MATIAS SOLIZ MD Patient complains of: Chest pain and shortness of breath History of Present Illness: KARINA ROGERS is a 62 year old female with a known history of diabetes mellitus type 1, morbid obesity, obstructive sleep apnea, chronic right-sided CHF, coronary artery disease CKD stage IV who presented to the ED with a history of chest pain Patient woke up this morning at around 9 AM with precordial chest pressure The pain was 8/10 radiating to the right arm; it was associated with shortness of breath It was pressure-like and extremely uncomfortable Patient called 911 she was brought to the ED for evaluation Patient was treated during transport the pain; eventually resolved It lasted a total of 2 hours. Patient was recently seen in the office. She has history of chronic kidney disease stage IV, coronary artery disease with prior non-STEMI's. Patient however denied ever having heart catheterization. This was primarily due to fear of getting on dialysis. Now she is more willing to go on to dialysis. Past Medical History Cardiac Medical History: Reports: Congestive Heart Failure, Coronary Artery Disease, Myocardial Infarction, Hyperlipidema, Hypertension Pulmonary Medical History: Reports: Chronic Obstructive Pulmonary Disease (COPD) , Pneumonia, Sleep Apnea Endocrine Medical History: Reports: Diabetes Mellitus Type 1, Diabetes Mellitus Type 2, Hypothyroidism GI Medical History: Reports: Gastroesophageal Reflux Disease Musculoskeltal Medical History: Reports: Arthritis Psychiatric Medical History: Reports: Depression Hematology: Denies: Anemia, Sickle Cell Disease Infectious Medical History: Reports: Methicillin-Resistant Staph Aureus Past Surgical History Past Surgical History: Reports: Cardiac Catheterization, Cholecystectomy, Coronary Stent, Hysterectomy, Orthopedic Surgery - 2 screws in the distal left femur, Tonsillectomy, Other - Cardiac surgery at age 4, Patent ductus? Denies: Amputation, Mastectomy Social History Information Source: Patient Smoking Status: Never Smoker Frequency of Alcohol Use: None Hx Recreational Drug Use: No Drugs: None Hx Prescription Drug Abuse: No - Advance Directive Resuscitation Status: Do Not Resuscitate Family History Family History: CAD, CVA, DM, Hypertension, Thyroid Disfunction Parental Family History Reviewed: Yes Children Family History Reviewed: Yes Sibling(s) Family History Reviewed.: Yes Medication/Allergy Allergies/Adverse Reactions: metformin [Metformin] Allergy (Intermediate, Verified 07/12/17 12:19) Nausea Sulfa (Sulfonamide Antibiotics) Allergy (Mild, Verified 07/12/17 12:19) Nausea fluoxetine Allergy (Verified 07/12/17 12:19) trimethoprim Allergy (Verified 07/12/17 12:19) diazepam [From Valium] Adverse Reaction (Verified 07/12/17 12:19) "BOUNCES ME OFF THE STRAUSS, DOES NOT RELAX" Review of Systems Review of Systems: Please see history of present illness and past medical history as wall. Constitutional: No fever or chills reported. Head : No recent chronic headaches, recent head injury. Eyes: No recent eye pain, diplopia, redness, discharge, acute visual changes. Ears: No recent chronic ear pain, acute hearing loss, ear discharge. Oral cavity: No recent ulcerations, bleeding, oral cavity discomfort. Neck: No recent acute neck pain reported. Hematologic: No recent easy bruising or bleeding or hematologic malignancy reported. Lymphatic: No recent lymphatic malignancy, chronic lymphadenopathy reported yet Cardiovascular system review: See history of present illness. Chest pain as above. Patient has noted increased pedal edema and some weight gain. Respiratory system review: No recent chronic cough, hemoptysis, blood clots in the lungs reported. Mild Shortness of breath on exertion Gastrointestinal system review: Negative for any recent acute or chronic abdominal pain, hematemesis, melena, recent change in bowel habits. Genitourinary system review: No recent acute or chronic hematuria, flank pain, UTI etc. reported. Skin system review: Negative for any recent abnormal bruising, no rash, no pruritus reported. Neurologic: No prior history of strokes, mini strokes, seizure disorder. Psychologic: No history of major psychosis or major depression reported. Musculoskeletal: Minor aches and pains reported. No acute joint swelling reported. Endocrine: No recent polyuria, polydipsia, recent heat or cold intolerance. Physical Exam Vital Signs: Temp Pulse Resp BP Pulse Ox 98 F 18 134/46 H 96 09/04/17 13:36 09/04/17 11:00 09/04/17 11:02 09/04/17 11:00 Exam: GENERAL: well-nourished and in no acute distress. Alert and oriented x3 HEAD: Atraumatic, normocephalic. EYES: Pupils equal round and reactive to light, extraocular movements intact, sclera anicteric, conjunctiva are normal. ENT: TMs normal, nares patent, oropharynx clear without exudates. Moist mucous membranes. No oral ulcerations or bleeding gums noted NECK: supple without lymphadenopathy. Trachea is central. No cervical or axillary lymphadenopathy noted. Carotids are 2+, JVD difficult to assess due to short fat neck but felt to be mildly distended. LUNGS: Respiration seems nonlabored, no significant accessory muscle action noted. Few bibasilar fine crackles noted. No wheezes rales or rhonchi noted. No significant dullness noted on percussion. CHEST: Palpation of the chest wall shows no significant chest wall tenderness. No other significant abnormalities noted. HEART: Lissie [employer], No PSH, 1/6 [place] aortic area, 1/6 quinones systolic murmur mitral area, no rubs, no gallops. ABDOMEN: Soft, no significant tenderness appreciated, normoactive bowel sounds. No guarding, no rebound. No rigidity noted . No masses appreciated. EXTREMITIES: Pedal pulses are 1-2+, no calf tenderness noted. No clubbing or cyanosis. 1+ pedal edema noted NEUROLOGICAL: Focused neurological exam showed no significant neurologic deficit. Normal speech, no focal weakness appreciated. PSYCH: Normal mood, normal affect. Judgment and insight within normal limits. SKIN: No significant ecchymosis, skin is noted to be warm. MUSCULOSKELETAL EXAM: No significant acute joint swelling noted. Results EKG Comments: Twelve-lead EKG not in the [facility]. In the ER noted to show sinus rhythm, no acute ST-T wave changes noted. Minor nonspecific IVCD noted. Impressions: Chest X-Ray 09/04/17 10:59 IMPRESSION: Limited exam secondary to positioning with small to moderate bilateral pleural effusions. Assessment & Plan - Diagnosis (1) Chest pain Qualifiers: Chest pain type: unspecified Qualified Code(s): R07.9 - Chest pain, unspecified Is this a current diagnosis for this admission?: Yes (2) Chronic congestive heart failure Qualifiers: Heart failure type: diastolic Qualified Code(s): I50.32 - Chronic diastolic (congestive) heart failure Is this a current diagnosis for this admission?: Yes (3) Chronic kidney disease (CKD) Qualifiers: Chronic kidney disease stage: stage 4 (severe) Is this a current diagnosis for this admission?: Yes (4) Sleep apnea syndrome Qualifiers: Sleep apnea type: unspecified type Qualified Code(s): G47.30 - Sleep apnea , unspecified Is this a current diagnosis for this admission?: Yes (5) Gastroesophageal reflux Qualifiers: Esophagitis presence: esophagitis presence not specified Qualified Code(s) : K21.9 - Gastro-esophageal reflux disease without esophagitis Is this a current diagnosis for this admission?: Yes - Notes Notes: Chest pain: Somewhat atypical but patient has known history of prior non-STEMI. At this point will optimize medical management. Will review previous cardiac evaluation. Patient claims that she was recently seen by manager lab at [facility]. Will try to obtain their evaluation. They had recently taken her off Ranexa for unknown reason. Will place patient back on this. Chronic congestive heart failure with acute exacerbation: Patient has noted weight gain. This is probably aspirated by volume overload. Will recommend aggressive diuretic therapy. Chronic kidney disease: It seems renal functions are stable. May consider nephrology evaluation. Sleep apnea syndrome: Patient has been advised to continue nightly CPAP therapy while in the hospital. Gastroesophageal reflux: Patient has a history of it. Recommend double dose proton pump inhibitor. Obesity: Patient has noted recent weight gain most likely due to fluid retention. Patient will benefit on long-term weight loss. Troponin I in the indeterminate range: Run more troponin ice and EKGs. This amount of elevation could be related to CHF and in the setting of chronic kidney disease. - Time Time Spent: 30 to 50 Minutes - CODE STATUS : was discussed, patient remains DO NOT RESUSCITATE. Surrogate decision-maker unchanged. Multiple medical problems were addressed. More than 50% of the time spent coordinating care, discussing management plans with involved caregivers. Management plans discussed with involved personnels. Medical decision making was of moderate to high complexity, patient's has multiple comorbidities. Medications reviewed and adjusted accordingly: Yes
[2017-09-04] MEDS ORDERED: ISOSORBIDE MONONITRATE 30 MG TAB.ER.24H PO SCH (14:30)
--- NOTE | 2017-09-04 14:59 | EKG REPORT ---
SEVERITY:- ABNORMAL ECG - SINUS RHYTHM IVCD, CONSIDER ATYPICAL RBBB ANTERIOR Q WAVES, POSSIBLY DUE TO LVH vs OLD ANTERIOR NM : Confirmed by: Martin Bear MD 04-Sep-2017 14:58:45
[2017-09-04] MEDS ORDERED: ISOSORBIDE MONONITRATE 60 MG TAB.ER.24H PO ONE (16:00)
[2017-09-04] MEDS: FUROSEMIDE INJ/PF 40 MG/4 ML SDV IV SCH (17:22)
[2017-09-04] MEDS: DOCUSATE SODIUM 100 MG CAPSULE PO SCH (17:22)
[2017-09-04] MEDS: RANOLAZINE 500 MG TAB.SR.12H PO SCH (17:22)
[2017-09-04] MEDS: BUPROPION HCL 75 MG TABLET PO SCH (17:22)
[2017-09-04] MEDS ORDERED: INSULIN GLARGINE,HUM.REC.ANLOG 300 UNIT/3 ML INSULN.PEN SUBCUT SCH (18:00)
--- NOTE | 2017-09-04 19:39 | RADIOLOGY REPORT (SQ) ---
EXAM DESCRIPTION: NM LUNG VENT/PERF SCAN COMPLETED DATE/TIME: 09/04/2017 7:18 pm REASON FOR STUDY: chest pain R/O PE COMPARISON: Chest films 09/04/2017, 07/27/2017 RADIONUCLIDE AND DOSE: 5.3 millicuries TC-99m MAA Intravenous 33 millicuries TC-99m DTPA Inhaled aerosol TECHNIQUE: Eight views of the lungs acquired post ventilation of DTPA aerosol. Eight matching views of the lungs acquired following injection of MAA. LIMITATIONS: None. FINDINGS: VENTILATION: Symmetric and homogeneous distribution of DTPA aerosol during ventilatory pha se. No significant areas of photopenia. PERFUSION: Perfusion images with normal homogenous activity and no wedge-shaped or segmental defects. No ventilation-perfusion mismatches. OTHER: No other significant finding. IMPRESSION: NORMAL VENTILATION-PERFUSION LUNG SCAN. NEGATIVE FOR PULMONARY EMBOLI. TECHNICAL DOCUMENTATION: JOB ID: [id number] [employer]- All Rights Reserved Reading location - IP/workstation name: [email or web address]
[2017-09-04] MEDS ORDERED: HYDRALAZINE HCL 50 MG TABLET PO SCH (22:00)
[2017-09-04] MEDS: ONDANSETRON HCL INJ/PF 4 MG/2 ML SDV IV PRN (22:10)
[2017-09-04] MEDS: ATORVASTATIN CALCIUM 80 MG TABLET PO SCH (22:11)
[2017-09-04] MEDS: METOPROLOL SUCCINATE 50 MG TAB.SR.24H PO SCH (22:17)
[2017-09-04] MEDS: HYDRALAZINE HCL 50 MG TABLET PO SCH (22:18)
[2017-09-05] MEDS: INSULIN GLARGINE,HUM.REC.ANLOG 1,000 UNIT/10 ML UNIT SUBCUT SCH ×3 (00:50→22:41)
[2017-09-05 04:06] LABS: CHOLESTEROL 113.42 mg/dL (0-200); TRIGLYCERIDES 205 mg/dL (<150)
[2017-09-05 04:17] LABS: DIRECT LDL 37 mg/dL (<100)
[2017-09-05 05:07] LABS: FREE T4 (FREE THYROXINE) 1.93 ng/dL (0.78-2.19); THYROID STIMULATING HORMONE 1.47 uIU/mL (0.47-4.68)
[2017-09-05] MEDS: FUROSEMIDE INJ/PF 40 MG/4 ML SDV IV SCH ×2 (05:25→17:30)
[2017-09-05] MEDS: RANOLAZINE 500 MG TAB.SR.12H PO SCH ×2 (05:25→17:30)
[2017-09-05] MEDS: LANSOPRAZOLE 30 MG TAB.RAP.DR PO SCH (05:25)
[2017-09-05] MEDS: HEPARIN SOD (PORCINE) 5,000 UNIT/ML 1 ML SYRINGE SUBCUT SCH ×3 (05:25→21:24)
[2017-09-05] MEDS: LEVOTHYROXINE SODIUM 0.15 MG TABLET PO SCH (05:25)
[2017-09-05] MEDS: HYDRALAZINE HCL 50 MG TABLET PO SCH ×3 (05:26→21:24)
[2017-09-05] MEDS ORDERED: (PENDING PHARMACY ID) (Levothyroxine Sodium [Synthroid] 300 MCG) PO SCH (06:00)
--- NOTE | 2017-09-05 08:14 | EKG REPORT ---
SEVERITY:- ABNORMAL ECG - SINUS RHYTHM PAC RBBB AND LAFB PROBABLE LVH WITH SECONDARY REPOL ABNRM : Confirmed by: Martin Bear MD 05-Sep-2017 08:13:15
[2017-09-05] MEDS: ACETAMINOPHEN 325 MG TABLET PO PRN (08:44)
[2017-09-05] MEDS: ASPIRIN 81 MG TABLET, ENT COATED PO SCH (09:31)
[2017-09-05] MEDS: ISOSORBIDE MONONITRATE 60 MG TAB.ER.24H PO SCH (09:31)
[2017-09-05] MEDS: EZETIMIBE 10 MG TABLET PO SCH (09:37)
[2017-09-05] MEDS: CLOPIDOGREL BISULFATE 75 MG TABLET PO SCH (09:41)
[2017-09-05] MEDS: BUPROPION HCL 75 MG TABLET PO SCH ×2 (09:42→17:30)
[2017-09-05] MEDS: METOPROLOL SUCCINATE 50 MG TAB.SR.24H PO SCH ×2 (09:43→21:24)
[2017-09-05] MEDS: DOCUSATE SODIUM 100 MG CAPSULE PO SCH ×2 (09:43→17:32)
[2017-09-05] MEDS ORDERED: (PENDING PHARMACY ID) (Bupropion Hcl [Wellbutrin Xl 150 Mg 24hr Tablet] 150 MG) PO SCH (10:00)
[2017-09-05] MEDS ORDERED: (PENDING PHARMACY ID) (Fluticasone/Vilanterol [Breo Ellipta 100-25 Mcg Inh] 1 PUFF) IH SCH (10:00)
--- NOTE | 2017-09-05 10:20 | PDOC PROGRESS REPORT ---
Subjective Progress Note for:: 09/05/17 Subjective:: Patient is complaining of a headache ; chest pain has resolved No shortness of breath No fever no chills no pleuritic pain Reason For Visit: CHF,CKD,UNSTABLE ANGINA Physical Exam Vital Signs: Temp Pulse Resp BP Pulse Ox 98.3 F 57 L 20 121/36 L 97 09/05/17 07:08 09/05/17 07:08 09/05/17 07:08 09/05/17 07:08 09/05/17 07:08 Intake & Output 09/04/17 09/05/17 09/06/17 00:59 00:59 00:59 Intake Total 328 20 Output Total 250 300 Balance 78 -280 Weight 119.7 kg 123.7 kg General appearance: PRESENT: no acute distress, obese Head exam: PRESENT: atraumatic, normocephalic Eye exam: PRESENT: conjunctiva pink, EOMI, PERRLA. ABSENT: scleral icterus Respiratory exam: PRESENT: clear to auscultation paula, decreased breath sounds. ABSENT: rales, rhonchi, wheezes Cardiovascular exam: PRESENT: RRR. ABSENT: diastolic murmur, rubs, systolic murmur GI/Abdominal exam: PRESENT: normal bowel sounds, soft. ABSENT: distended, guarding, mass, organolmegaly, rebound, tenderness Extremities exam: PRESENT: full ROM. ABSENT: calf tenderness, clubbing, pedal edema Neurological exam: PRESENT: alert, awake, oriented to person, oriented to place , oriented to time, oriented to situation, CN II-XII grossly intact. ABSENT: motor sensory deficit Results Laboratory Results: 09/05/17 09/05/17 03:33 03:33 Magnesium 2.2 Triglycerides 205 H Cholesterol 113.42 LDL Cholesterol Direct 37 VLDL Cholesterol 41.0 H HDL Cholesterol 38 L TSH 1.47 Free T4 1.93 09/04/17 09/04/17 09/05/17 15:10 21:17 03:33 Troponin I 0.026 0.033 0.038 NT-Pro-B Natriuret Pep 09/05/17 03:33 Troponin I NT-Pro-B Natriuret Pep 7300 H Impressions: Chest X-Ray 09/04/17 10:59 IMPRESSION: Limited exam secondary to positioning with small to moderate bilateral pleural effusions. Lung Scan-VQ NM 09/04/17 16:15 IMPRESSION: NORMAL VENTILATION-PERFUSION LUNG SCAN. NEGATIVE FOR PULMONARY EMBOLI. Assessment & Plan - Diagnosis (1) Chest pain Qualifiers: Chest pain type: unspecified Qualified Code(s): R07.9 - Chest pain, unspecified Is this a current diagnosis for this admission?: Yes Plan: Troponins remain in intermediate range There is no evidence of an acute coronary syndrome Management as per cardiology (2) Chronic congestive heart failure Qualifiers: Heart failure type: diastolic Qualified Code(s): I50.32 - Chronic diastolic (congestive) heart failure Is this a current diagnosis for this admission?: Yes Plan: Continue Lasix IV Noted that the BNP is slightly more elevated today Repeat BMP in a.m. (3) Chronic kidney disease (CKD) Qualifiers: Chronic kidney disease stage: stage 4 (severe) Is this a current diagnosis for this admission?: Yes Plan: Renal function stable (4) Diabetes mellitus Qualifiers: Diabetes mellitus type: type 2 Diabetes mellitus termination clerk insulin use: with prison use Diabetes mellitus complication status: with neurologic complications Diabetes mellitus complication detail: with polyneuropathy Qualified Code(s): E11.42 - Type 2 diabetes mellitus with diabetic polyneuropathy; Z79.4 - manager intermediate (current) use of insulin; Z79.4 - manager intermediate ( current) use of insulin; Z79.4 - alf (current) use of insulin; Z79.4 - manager intermediate (current) use of insulin Is this a current diagnosis for this admission?: Yes (5) Sleep apnea syndrome Qualifiers: Sleep apnea type: unspecified type Qualified Code(s): G47.30 - Sleep apnea , unspecified Is this a current diagnosis for this admission?: Yes Plan: Continue CPAP (6) Morbid obesity with BMI of 50.0-59.9, adult Is this a current diagnosis for this admission?: Yes (7) DNR (do not resuscitate) Is this a current diagnosis for this admission?: Yes - Time Time Spent with patient: Continue present management Time Spent with patient: 25-34 minutes
--- NOTE | 2017-09-05 10:59 | PDOC PROGRESS REPORT ---
Subjective Progress Note for:: 09/05/17 Subjective:: Patient seems to be doing better. Patient had mild right-sided chest discomfort last night. Patient denying any PND, orthopnea. Patient denied any sustained palpitations, dizziness, syncope, near syncope. Patient denying any fever chills. Patient denying any other significant discomfort. Patient is maintaining sinus rhythm. Review of systems: Rest review of systems negative. Medications: Medications have been reviewed. Reason For Visit: CHF,CKD,UNSTABLE ANGINA Physical Exam Vital Signs: Temp Pulse Resp BP Pulse Ox 98.3 F 57 L 20 121/36 L 97 09/05/17 07:08 09/05/17 07:08 09/05/17 07:08 09/05/17 07:08 09/05/17 07:08 Intake & Output 09/04/17 09/05/17 09/06/17 06:59 06:59 06:59 Intake Total 348 Output Total 550 Balance -202 Weight 123.7 kg Exam: GENERAL: well-nourished and in no acute distress. Alert and oriented x3 HEAD: Atraumatic, normocephalic. EYES: Pupils equal round and reactive to light, extraocular movements intact, sclera anicteric, conjunctiva are normal. ENT: TMs normal, nares patent, oropharynx clear without exudates. Moist mucous membranes. No oral ulcerations or bleeding gums noted NECK: supple without lymphadenopathy. Trachea is central. No cervical or axillary lymphadenopathy noted. Carotids are 2+, JVD WNL LUNGS: Respiration seems nonlabored, no significant accessory muscle action noted. Bibasilar fine crackles are noted. No wheezes rales or rhonchi noted. No significant dullness noted on percussion. CHEST: Palpation of the chest wall shows no significant chest wall tenderness. No other significant abnormalities noted. HEART: Arnett FOREIGN STUDENT ADVISER, No PSH, 1/6 [place]OR aortic area, 1/6 quinones systolic murmur mitral area, no rubs, no gallops. ABDOMEN: Soft, no significant tenderness appreciated, normoactive bowel sounds. No guarding, no rebound. No rigidity noted . No masses appreciated. EXTREMITIES: Pedal pulses are 1-2+, no calf tenderness noted. No clubbing or cyanosis. 1+ pedal edema noted NEUROLOGICAL: Focused neurological exam showed no significant neurologic deficit. Normal speech, no focal weakness appreciated. PSYCH: Normal mood, normal affect. Judgment and insight within normal limits. SKIN: No significant ecchymosis, skin is noted to be warm. MUSCULOSKELETAL EXAM: No significant acute joint swelling noted. Results Laboratory Results: 09/05/17 09/05/17 03:33 03:33 Magnesium 2.2 Triglycerides 205 H Cholesterol 113.42 LDL Cholesterol Direct 37 VLDL Cholesterol 41.0 H HDL Cholesterol 38 L TSH 1.47 Free T4 1.93 09/04/17 09/04/17 09/05/17 15:10 21:17 03:33 Troponin I 0.026 0.033 0.038 NT-Pro-B Natriuret Pep 09/05/17 03:33 Troponin I NT-Pro-B Natriuret Pep 7300 H Impressions: Chest X-Ray 09/04/17 10:59 IMPRESSION: Limited exam secondary to positioning with small to moderate bilateral pleural effusions. Lung Scan-VQ NM 09/04/17 16:15 IMPRESSION: NORMAL VENTILATION-PERFUSION LUNG SCAN. NEGATIVE FOR PULMONARY EMBOLI. Assessment & Plan - Diagnosis (1) Chest pain Qualifiers: Chest pain type: unspecified Qualified Code(s): R07.9 - Chest pain, unspecified Is this a current diagnosis for this admission?: Yes (2) Chronic congestive heart failure Qualifiers: Heart failure type: diastolic Qualified Code(s): I50.32 - Chronic diastolic (congestive) heart failure Is this a current diagnosis for this admission?: Yes (3) Chronic kidney disease (CKD) Qualifiers: Chronic kidney disease stage: stage 4 (severe) Qualified Code(s): N18.4 - Chronic kidney disease, stage 4 (severe) Is this a current diagnosis for this admission?: Yes (4) Sleep apnea syndrome Qualifiers: Sleep apnea type: unspecified type Qualified Code(s): G47.30 - Sleep apnea , unspecified Is this a current diagnosis for this admission?: Yes (5) Gastroesophageal reflux Qualifiers: Esophagitis presence: esophagitis presence not specified Qualified Code(s) : K21.9 - Gastro-esophageal reflux disease without esophagitis Is this a current diagnosis for this admission?: Yes - Notes Notes: Continue IV diuretics at current dose. Will try optimize medical management of her underlying presumed CAD and CHF. VQ scan results reviewed. This was noted to be negative for PE. VQ scan was ordered since patient had some pleuritic component to the chest pain. Chest pain: Somewhat atypical but patient has known history of prior non-STEMI. At this point will optimize medical management. Will review previous cardiac evaluation. Patient claims that she was recently seen by anesthesia associate at [facility]. Will try to obtain their evaluation. They had recently taken her off Ranexa for unknown reason. Will place patient back on this. Chronic congestive heart failure with acute exacerbation: Patient has noted weight gain. This is probably precipitated by volume overload. Will recommend aggressive diuretic therapy. Chronic kidney disease: It seems renal functions are stable. May consider nephrology evaluation. Sleep apnea syndrome: Patient has been advised to continue nightly CPAP therapy while in the hospital. Gastroesophageal reflux: Patient has a history of it. Recommend double dose proton pump inhibitor. Obesity: Patient has noted recent weight gain most likely due to fluid retention. Patient will benefit on long-term weight loss. Troponin I in the indeterminate range: Run more troponin ice and EKGs. This amount of elevation could be related to CHF and in the setting of chronic kidney disease. - Time Time with patient: Greater than 35 minutes - CODE STATUS : was discussed, patient remains DO NOT RESUSCITATE. Surrogate decision-maker unchanged. Multiple medical problems were addressed. More than 50% of the time spent coordinating care, discussing management plans with involved caregivers. Management plans discussed with involved personnels. Medical decision making was of moderate to high complexity, patient's has multiple comorbidities. Medications reviewed and adjusted accordingly: Yes
[2017-09-05] MEDS ORDERED: GLUCAGON,HUMAN RECOMB 1 MG INJ IM PRN (11:09)
[2017-09-05] MEDS ORDERED: DEXTROSE 40% GEL 15 GM TUBE PO PRN ×2 (11:09)
[2017-09-05] MEDS ORDERED: DEXTROSE 50%-WATER 25 GM/50 ML DISP.SYRIN IV PRN ×2 (11:09)
[2017-09-05] MEDS: ONDANSETRON HCL INJ/PF 4 MG/2 ML SDV IV PRN (14:46)
[2017-09-05] MEDS: INSULIN LISPRO 100 UNIT/ML 3 ML VIAL SUBCUT PRN (17:30)
[2017-09-05] MEDS: ATORVASTATIN CALCIUM 80 MG TABLET PO SCH (21:24)
[2017-09-06] MEDS: FUROSEMIDE INJ/PF 40 MG/4 ML SDV IV SCH (05:43)
[2017-09-06] MEDS: HYDRALAZINE HCL 50 MG TABLET PO SCH ×3 (05:44→21:13)
[2017-09-06] MEDS: HEPARIN SOD (PORCINE) 5,000 UNIT/ML 1 ML SYRINGE SUBCUT SCH ×3 (05:44→21:13)
[2017-09-06] MEDS: RANOLAZINE 500 MG TAB.SR.12H PO SCH ×2 (05:44→19:06)
[2017-09-06] MEDS: LEVOTHYROXINE SODIUM 0.15 MG TABLET PO SCH (05:44)
[2017-09-06] MEDS: LANSOPRAZOLE 30 MG TAB.RAP.DR PO SCH (05:44)
[2017-09-06] MEDS ORDERED: MORPHINE SULFATE 10 MG/ML INJ IV ONE (08:02)
--- NOTE | 2017-09-06 08:16 | EKG REPORT ---
SEVERITY:- ABNORMAL ECG - SINUS RHYTHM FIRST DEGREE AV BLOCK LVH WITH IVCD, LAD AND SECONDARY REPOL ABNRM CONSIDER ANTERIOR WA OLD : Confirmed by: Toni Heller 06-Sep-2017 08:15:49
[2017-09-06] MEDS: ONDANSETRON HCL INJ/PF 4 MG/2 ML SDV IV PRN ×2 (08:28→19:53)
--- NOTE | 2017-09-06 09:43 | XCELERA REPORT ---
[address] [address] Lower Extremity Venous Evaluation Name: KARINA ROGERS Age: 62 yrs Gender: Female : 1955 Patient Status: Inpatient Patient Location: [address] [place], [place] [id number] Study Date: 09/05/2017 12:41 PM Procedure: Color flow and duplex imaging bilaterally of the veins of the lower extremities as well as the Common Femoral veins. Reason For Study: SOB CP swelling left leg R/O DVT Ordering Physician: MATTHEW HAMMOND Performed By: Noemi Simons Right Sided Venous Evaluation Normal vessel filling wall to wall, compression and augmentation as well as Colour flow down to the infrageniculate veins. Left Sided Venous Evaluation Normal vessel filling wall to wall, compression and augmentation as well as Colour flow down to the infrageniculate veins. Interpretation Summary No duplex evidence of DVT or obstruction in the bilateral lower extremities. : MATTHEW HAMMOND > You Mays
[2017-09-06] MEDS: INSULIN GLARGINE,HUM.REC.ANLOG 1,000 UNIT/10 ML UNIT SUBCUT SCH ×2 (10:37→21:55)
[2017-09-06] MEDS: BUPROPION HCL 75 MG TABLET PO SCH ×2 (10:37→19:06)
[2017-09-06] MEDS: CLOPIDOGREL BISULFATE 75 MG TABLET PO SCH (10:38)
[2017-09-06] MEDS: ISOSORBIDE MONONITRATE 60 MG TAB.ER.24H PO SCH (10:39)
[2017-09-06] MEDS: METOPROLOL SUCCINATE 50 MG TAB.SR.24H PO SCH ×2 (10:39→21:12)
[2017-09-06] MEDS: EZETIMIBE 10 MG TABLET PO SCH (10:40)
[2017-09-06] MEDS: DOCUSATE SODIUM 100 MG CAPSULE PO SCH ×2 (10:40→19:09)
[2017-09-06] MEDS: ASPIRIN 81 MG TABLET, ENT COATED PO SCH (10:40)
[2017-09-06] MEDS ORDERED: FUROSEMIDE INJ/PF 40 MG/4 ML SDV IV SCH (10:49)
--- NOTE | 2017-09-06 10:49 | PDOC PROGRESS REPORT ---
Subjective Progress Note for:: 09/06/17 Subjective:: Patient had an episode of precordial chest pain this morning Is pressure-like associated with tingling of both arms; it lasted about 10 minutes It was relieved with morphine Repeat EKG and cardiac enzymes were performed Troponin is still in the intermediate range and EKG was unchanged Reason For Visit: CHF,CKD,UNSTABLE ANGINA Physical Exam Vital Signs: Temp Pulse Resp BP Pulse Ox 97.9 F 62 20 131/47 H 97 09/06/17 07:58 09/06/17 07:58 09/06/17 07:58 09/06/17 07:58 09/06/17 07:58 Intake & Output 09/05/17 09/06/17 09/07/17 00:59 00:59 00:59 Intake Total 328 1722 20 Output Total 250 1150 400 Balance 78 572 -380 Weight 119.7 kg 123.7 kg 122.6 kg Patient looks anxious pale chronically ill in no acute distress She is pale pupils are PERRLA extraocular motor intact conjunctivae pale Neck supple no nodes no bruits Heart regular rhythm Lungs decreased breath sounds bilaterally Abdomen is obese Extremities left lower extremity 1+ edema Neuro is intact Results Laboratory Results: 09/04/17 09/04/17 09/05/17 15:10 21:17 03:33 Troponin I 0.026 0.033 0.038 NT-Pro-B Natriuret Pep 09/05/17 09/06/17 03:33 08:38 Troponin I 0.033 NT-Pro-B Natriuret Pep 7300 H Impressions: Chest X-Ray 09/04/17 10:59 IMPRESSION: Limited exam secondary to positioning with small to moderate bilateral pleural effusions. Lung Scan-VQ NM 09/04/17 16:15 IMPRESSION: NORMAL VENTILATION-PERFUSION LUNG SCAN. NEGATIVE FOR PULMONARY EMBOLI. Assessment & Plan - Diagnosis (1) Chest pain Qualifiers: Chest pain type: unspecified Qualified Code(s): R07.9 - Chest pain, unspecified Is this a current diagnosis for this admission?: Yes Plan: Recurrent chest pain chest pain is somewhat atypical; pain was relieved with morphine The cardiac enzymes is still in the intermediate range EKG is unchanged We will schedule the patient for a Cardiolite stress test in a.m. as certainly we would be reluctant to discharge her home without further testing We suspect that the chest pain is musculoskeletal and associated with anxiety Continue the present management otherwise (2) Chronic congestive heart failure Qualifiers: Heart failure type: diastolic Qualified Code(s): I50.32 - Chronic diastolic (congestive) heart failure Is this a current diagnosis for this admission?: Yes Plan: Patient has not diuresed much we will increase the Lasix (3) Chronic kidney disease (CKD) Qualifiers: Chronic kidney disease stage: stage 4 (severe) Qualified Code(s): N18.4 - Chronic kidney disease, stage 4 (severe) Is this a current diagnosis for this admission?: Yes Plan: CKD stage IV is stable (4) Diabetes mellitus Qualifiers: Diabetes mellitus type: type 2 Diabetes mellitus terminal system operator insulin use: with group home use Diabetes mellitus complication status: with neurologic complications Diabetes mellitus complication detail: with polyneuropathy Qualified Code(s): E11.42 - Type 2 diabetes mellitus with diabetic polyneuropathy; Z79.4 - senior care (current) use of insulin; Z79.4 - long term ( current) use of insulin; Z79.4 - senior care (current) use of insulin; Z79.4 - long term (current) use of insulin Is this a current diagnosis for this admission?: Yes (5) Sleep apnea syndrome Qualifiers: Sleep apnea type: unspecified type Qualified Code(s): G47.30 - Sleep apnea , unspecified Is this a current diagnosis for this admission?: Yes (6) Morbid obesity with BMI of 50.0-59.9, adult Is this a current diagnosis for this admission?: Yes (7) DNR (do not resuscitate) Is this a current diagnosis for this admission?: Yes - Time Time Spent with patient: Continue to monitor Increase Lasix Stress test in a.m. Consider discharge in a.m. if stress test is negative for ischemia Time Spent with patient: 25-34 minutes
--- NOTE | 2017-09-06 15:06 | EKG REPORT ---
SEVERITY:- ABNORMAL ECG - SINUS RHYTHM FIRST DEGREE AV BLOCK IVCD, CONSIDER ATYPICAL RBBB ANTERIOR INFARCT, AGE INDETERMINATE : Confirmed by: Toni Heller 06-Sep-2017 15:05:38
[2017-09-06] MEDS: MORPHINE SULFATE 10 MG/ML INJ IV PRN ×2 (15:46→19:04)
[2017-09-06] MEDS: FUROSEMIDE INJ/PF 100 MG/10 ML SDV IV SCH (19:06)
[2017-09-06] MEDS: ATORVASTATIN CALCIUM 80 MG TABLET PO SCH (21:12)
[2017-09-07] MEDS: LEVOTHYROXINE SODIUM 0.15 MG TABLET PO SCH (05:25)
[2017-09-07] MEDS: LANSOPRAZOLE 30 MG TAB.RAP.DR PO SCH ×2 (05:25→16:37)
[2017-09-07] MEDS: HYDRALAZINE HCL 50 MG TABLET PO SCH ×3 (05:25→21:05)
[2017-09-07] MEDS: RANOLAZINE 500 MG TAB.SR.12H PO SCH ×2 (05:26→17:38)
[2017-09-07] MEDS: ONDANSETRON HCL INJ/PF 4 MG/2 ML SDV IV PRN ×2 (05:26→11:05)
[2017-09-07] MEDS: HEPARIN SOD (PORCINE) 5,000 UNIT/ML 1 ML SYRINGE SUBCUT SCH ×3 (05:26→21:06)
[2017-09-07] MEDS: FUROSEMIDE INJ/PF 100 MG/10 ML SDV IV SCH (05:26)
[2017-09-07 06:52] LABS: TROPONIN I 0.031 ng/mL
[2017-09-07 06:54] LABS: ANION GAP 14 (5-19); BLOOD UREA NITROGEN 57 mg/dL (7-20); CALCIUM 7.9 mg/dL (8.4-10.2); CARBON DIOXIDE 28 mmol/L (22-30); CHLORIDE 101 mmol/L (98-107); GLUCOSE 116 mg/dL (75-110); POTASSIUM 4.3 mmol/L (3.6-5.0); SODIUM 142.5 mmol/L (137-145)
--- NOTE | 2017-09-07 09:19 | EKG REPORT ---
SEVERITY:- ABNORMAL ECG - SINUS RHYTHM FIRST DEGREE AV BLOCK RBBB AND LAFB PROBABLE LVH WITH SECONDARY REPOL ABNRM CONSIDER ANTERIOR NE AGE INDETERMINATE : Confirmed by: Toni Heller 07-Sep-2017 09:19:29
[2017-09-07] MEDS: INSULIN GLARGINE,HUM.REC.ANLOG 1,000 UNIT/10 ML UNIT SUBCUT SCH (10:03)
[2017-09-07] MEDS: ISOSORBIDE MONONITRATE 60 MG TAB.ER.24H PO SCH (10:04)
[2017-09-07] MEDS: ASPIRIN 81 MG TABLET, ENT COATED PO SCH (10:04)
[2017-09-07] MEDS: METOPROLOL SUCCINATE 50 MG TAB.SR.24H PO SCH ×2 (10:04→21:05)
[2017-09-07] MEDS: CLOPIDOGREL BISULFATE 75 MG TABLET PO SCH (10:05)
[2017-09-07] MEDS: BUPROPION HCL 75 MG TABLET PO SCH ×2 (10:05→17:38)
[2017-09-07] MEDS: EZETIMIBE 10 MG TABLET PO SCH (10:06)
[2017-09-07] MEDS: DOCUSATE SODIUM 100 MG CAPSULE PO SCH ×2 (10:07→17:38)
--- NOTE | 2017-09-07 12:28 | DRAGON STRESS TEST REPORT ---
INTRAVENOUS LEXISCAN CARDIOLITE STRESS TEST USING SINGLE PHOTON EMMISION COMPUTERIZED TOMOGRAPHIC. DATE OF PROCEDURE: September 07, 2017, INDICATION : Chest pain CARDIAC RISK FACTORS: Diabetes, hypertension, dyslipidemia, family history of CAD, chronic kidney disease. RESTING EKG: Sinus rhythm, left axis deviation, right bundle branch block pattern, minor nonspecific ST-T wave changes STRESS EKG: No significant ST segment changes noted with LexiScan bolus REASON FOR TERMINATION: Protocol. PROCEDURE REPORT: Baseline heart rate 67 beats per minute with blood pressure of 137/49. Patient had no significant complaints. Patient was bolused with Lexiscan 0.4 mg intravenously followed by saline bolus. Heart rate at 2 minutes post bolus 80 with a blood pressure of 140/67. 3 minutes post bolus heart rate 88 with blood pressure of 151/66. No significant EKG changes were noted. Patient had no significant complaints during the procedure or postprocedure. Patient injected with Aminophyllin 75 mg at 3 minutes or later after Lexiscan bolus. CONCLUSIONS: Normal EKG and hemodynamic response to IV LexiScan. NUCLEAR DATA: At rest the patient was given 15.46 millicuries of technetium 99 sestamibi injected intravenously. As per protocol rest gated SPECT images were obtained. On day of stress test, the patient was given intravenous LexiScan at a dose of 0.4 mg in 5 mL intravenously, followed by flush with normal saline. Subsequently the stress dose of 45.6 millicuries of technetium 99 sestamibi was injected intravenously. As per protocol stress gated images were obtained. NUCLEAR INTERPRETATION: Both raw and processed data were used for interpretation. Visual, qualitative, computer-generated quantitative data was used. There was good myocardial uptake of technetium compound. Motion artifact and soft tissue attenuations were noted. Increased visceral uptake was noted. Significant breast attenuation artifact was noted. A very small area of distal inferior wall decreased uptake was noted however is felt to be related to differences in soft tissue attenuation and visceral uptake subtraction. Therefore no definitive areas of transient perfusion defect noted , overall SDS was just to therefore not significant. No definitive areas of fixed perfusion defect or scars noted. EKG gated imaging showed LV EF at 48 %, rest and stress gated EF similar visually. T. I D. ratio was 1.14. Lung heart ratio noted to be within normal limits 0.37. No significant extracardiac and abnormal radiotracer activities were noted. RV free wall uptake was noted to be WNL. IMPRESSION: Also refer to comments under nuclear interpretation. Also test results needs to be interpreted in the context of pretest probability. 1. No definitive areas of transient perfusion defect noted. 2. There is no definitive scintigraphic evidence of myocardial infarction/scar. 3. EKG gated imaging shows left ventricular ejection fraction of approx. 48 %. 4. Clinical correlation requested as occasionally single vessel disease or balanced ischemia could be missed. In approximately 10% of the cases Lexiscan may not cause adequate vasodilatory stress. RECOMMENDATIONS: Aggressive risk factor modification and medical management. Further evaluation may be needed if continued symptoms or other high risk indicators are noted on clinical evaluation. Close cardiology follow-up is also recommended. Clinical correlation with echocardiogram derived ejection fraction. Inability to exercise by itself can lead to increased cardiovascular event risks. Consider cardiology consultation and or follow-up if clinically indicated. I am available for cardiology evaluation and consultation if requested by the primary products inspectors, unless patient already has a paperhanger apprentice. YOBANI
[2017-09-07] MEDS ORDERED: AMINOPHYLLINE INJ/PF 250 MG/10 ML SDV IV ONE (13:40)
[2017-09-07] MEDS ORDERED: REGADENOSON INJ 0.4 MG/5 ML DISP.SYRIN IV ONE (13:40)
[2017-09-07] MEDS: PROMETHAZINE HCL INJ 25 MG/1 ML VIAL IM PRN (13:42)
--- NOTE | 2017-09-07 15:20 | PDOC PROGRESS REPORT ---
Subjective Progress Note for:: 09/07/17 Subjective:: Patient has been vomiting on and off since last night She is complaining of epigastric discomfort patient underwent stress testing this morning it was negative for ischemia Repeat labs this morning show a bump of her creatinine to 4.4 likely secondary to dehydration and diuresis with Lasix She has no chest pain Reason For Visit: CHF,CKD,UNSTABLE ANGINA Physical Exam Vital Signs: Temp Pulse Resp BP Pulse Ox 97.4 F 65 20 149/47 H 96 09/07/17 11:32 09/07/17 14:00 09/07/17 11:32 09/07/17 11:32 09/07/17 11:32 Intake & Output 09/06/17 09/07/17 09/08/17 00:59 00:59 00:59 Intake Total 1722 647 121 Output Total 1150 2300 1100 Balance 774 -5944 -485 Weight 123.7 kg 122.6 kg 117.5 kg She looks ill she is pale Pupils are PERRLA extraocular motor intact Neck supple Heart regular rhythm Lungs decreased breath sounds bilaterally The abdomen is tender in the epigastrium without guarding or rebound Extremities are intact Neuro is nonfocal Results Laboratory Results: 09/07/17 05:18 09/07/17 05:18 Sodium 142.5 Potassium 4.3 Chloride 101 Carbon Dioxide 28 Anion Gap 14 BUN 57 H Creatinine 4.00 H Est GFR ( Amer) 14 L Est GFR (Non-Af Amer) 11 L Glucose 116 H Calcium 7.9 L Magnesium 2.1 09/04/17 09/04/17 09/05/17 15:10 21:17 03:33 Troponin I 0.026 0.033 0.038 NT-Pro-B Natriuret Pep 09/05/17 09/06/17 09/07/17 03:33 08:38 05:18 Troponin I 0.033 0.031 NT-Pro-B Natriuret Pep 7300 H 5470 H Impressions: Chest X-Ray 09/04/17 10:59 IMPRESSION: Limited exam secondary to positioning with small to moderate bilateral pleural effusions. Lung Scan-VQ NM 09/04/17 16:15 IMPRESSION: NORMAL VENTILATION-PERFUSION LUNG SCAN. NEGATIVE FOR PULMONARY EMBOLI. Assessment & Plan - Diagnosis (1) Chest pain Qualifiers: Chest pain type: unspecified Qualified Code(s): R07.9 - Chest pain, unspecified Is this a current diagnosis for this admission?: Yes Plan: There is no evidence of an acute coronary syndrome Patient had recurrent chest pains during this hospitalization She underwent stress testing was negative Serial cardiac enzymes all were negative EKG was unchanged We do believe that the chest pain is actually GI in etiology as patient has had recurrent vomiting and epigastric discomfort We will reevaluate management; continue PPI We will add Carafate We will order CMP in the a.m. and lipase Obtain an ultrasound of the right upper quadrant (2) Chronic congestive heart failure Qualifiers: Heart failure type: diastolic Qualified Code(s): I50.32 - Chronic diastolic (congestive) heart failure Is this a current diagnosis for this admission?: Yes Plan: Somewhat improved Patient is on the dry side Initiate IV hydration carefully (3) Chronic kidney disease (CKD) Qualifiers: Chronic kidney disease stage: stage 4 (severe) Qualified Code(s): N18.4 - Chronic kidney disease, stage 4 (severe) Is this a current diagnosis for this admission?: Yes Plan: Acute on chronic renal failure Now creatinine is 4.4 Hydrate (4) Diabetes mellitus Qualifiers: Diabetes mellitus type: type 2 Diabetes mellitus fpc insulin use: with terminal supervisor use Diabetes mellitus complication status: with neurologic complications Diabetes mellitus complication detail: with polyneuropathy Qualified Code(s): E11.42 - Type 2 diabetes mellitus with diabetic polyneuropathy; Z79.4 - extermination supervisor (current) use of insulin; Z79.4 - extermination supervisor ( current) use of insulin; Z79.4 - nursing home (current) use of insulin; Z79.4 - extermination supervisor (current) use of insulin Is this a current diagnosis for this admission?: Yes Plan: Decrease Lantus as patient had poor intake (5) Sleep apnea syndrome Qualifiers: Sleep apnea type: unspecified type Qualified Code(s): G47.30 - Sleep apnea , unspecified Is this a current diagnosis for this admission?: Yes (6) Morbid obesity with BMI of 50.0-59.9, adult Is this a current diagnosis for this admission?: Yes (7) DNR (do not resuscitate) Is this a current diagnosis for this admission?: Yes - Time Time Spent with patient: I asked Dr. Zhu to consult Time Spent with patient: 25-34 minutes - Inpatient Certification Based on my medical assessment, after consideration of the patient's comorbidities, presenting symptoms, or acuity I expect that the services needed warrant INPATIENT care.: Yes I certify that my determination is in accordance with my understanding of Medicare's requirements for reasonable and necessary INPATIENT services [42 CFR 412.3e].: Yes Medical Necessity: Need Close Monitoring Due to Risk of Patient Decompensation, Need For Continuous Telemetry Monitoring, Need for IV Antibiotics
[2017-09-07] MEDS ORDERED: INSULIN GLARGINE,HUM.REC.ANLOG 1,000 UNIT/10 ML UNIT SUBCUT SCH (15:22)
--- NOTE | 2017-09-07 15:24 | Progress Note ---
Provider Note Provider Note: cancel US Patient is S/P cholecystectomy
[2017-09-07] MEDS: SUCRALFATE SUSP 1 GM/10 ML UDCUP PO SCH ×2 (16:36→21:04)
[2017-09-07] MEDS: NORMAL SALINE 1000 ML 1,000 ML IV PRN (16:38)
[2017-09-07] MEDS: ATORVASTATIN CALCIUM 80 MG TABLET PO SCH (21:05)
[2017-09-07] MEDS: INSULIN GLARGINE,HUM.REC.ANLOG 300 UNIT/3 ML INSULN.PEN SUBCUT SCH (21:52)
[2017-09-08] MEDS: PROMETHAZINE HCL INJ 25 MG/1 ML VIAL IM PRN (01:09)
[2017-09-08] MEDS: HEPARIN SOD (PORCINE) 5,000 UNIT/ML 1 ML SYRINGE SUBCUT SCH ×3 (05:25→21:19)
[2017-09-08] MEDS: RANOLAZINE 500 MG TAB.SR.12H PO SCH ×2 (05:26→17:44)
[2017-09-08] MEDS: LEVOTHYROXINE SODIUM 0.15 MG TABLET PO SCH (05:26)
[2017-09-08] MEDS: LANSOPRAZOLE 30 MG TAB.RAP.DR PO SCH ×2 (05:26→17:44)
[2017-09-08] MEDS: HYDRALAZINE HCL 50 MG TABLET PO SCH ×3 (05:26→21:24)
[2017-09-08 06:06] LABS: ALANINE AMINOTRANSFERASE 21 U/L (9-52); ALBUMIN 3.3 g/dL (3.5-5.0); ALKALINE PHOSPHATASE 76 U/L (38-126); ANION GAP 13 (5-19); ASPARTATE AMINO TRANSFERASE 15 U/L (14-36); BILIRUBIN,DIRECT 0.3 mg/dL (0.0-0.4); BILIRUBIN,TOTAL 0.3 mg/dL (0.2-1.3); BLOOD UREA NITROGEN 51 mg/dL (7-20); CARBON DIOXIDE 27 mmol/L (22-30); CHLORIDE 102 mmol/L (98-107); GLUCOSE 78 mg/dL (75-110); LIPASE 76.5 U/L (23-300); SODIUM 141.6 mmol/L (137-145); TOTAL PROTEIN 6.3 g/dL (6.3-8.2)
[2017-09-08] MEDS: SUCRALFATE SUSP 1 GM/10 ML UDCUP PO SCH ×4 (08:57→21:20)
[2017-09-08] MEDS: METOPROLOL SUCCINATE 50 MG TAB.SR.24H PO SCH ×2 (10:40→21:23)
[2017-09-08] MEDS: BUPROPION HCL 75 MG TABLET PO SCH ×2 (10:41→17:44)
[2017-09-08] MEDS: EZETIMIBE 10 MG TABLET PO SCH (10:41)
[2017-09-08] MEDS: CLOPIDOGREL BISULFATE 75 MG TABLET PO SCH (10:41)
[2017-09-08] MEDS: ISOSORBIDE MONONITRATE 60 MG TAB.ER.24H PO SCH (10:41)
[2017-09-08] MEDS: ASPIRIN 81 MG TABLET, ENT COATED PO SCH (10:41)
[2017-09-08] MEDS: INSULIN GLARGINE,HUM.REC.ANLOG 300 UNIT/3 ML INSULN.PEN SUBCUT SCH ×2 (10:43→22:43)
[2017-09-08] MEDS: DOCUSATE SODIUM 100 MG CAPSULE PO SCH ×2 (10:43→17:44)
--- NOTE | 2017-09-08 11:41 | RADIOLOGY REPORT (SQ) ---
EXAM DESCRIPTION: CHEST SINGLE VIEW COMPLETED DATE/TIME: 09/08/2017 10:10 am REASON FOR STUDY: Pleural effusions/abnormal lung sounds COMPARISON: 09/04/2017 EXAM PARAMETERS: NUMBER OF VIEWS: One view. TECHNIQUE: Single frontal radiographic view of the chest acquired. RADIATION DOSE: NA LIMITATIONS: Study is limited due to the patient's body habitus. FINDINGS: LUNGS AND PLEURA: The previously described small or moderate bilateral pleural effusions a re again identified. I cannot exclude some associated atelectasis or infiltrate in the lung bases MEDIASTINUM AND HILAR STRUCTURES: No masses. Contour normal. HEART AND VASCULAR STRUCTURES: Cardiac silhouette is partially obscured due to adjacent densities but appears enlarged. BONES: No acute findings. HARDWARE: None in the chest. OTHER: No other significant finding. IMPRESSION: No significant interval change. Findings as noted above. TECHNICAL DOCUMENTATION: JOB ID: [id number] [employer]- All Rights Reserved Reading location - IP/workstation name: [email or web address]
--- NOTE | 2017-09-08 13:46 | PDOC CONSULTATION ---
Consultation Consult Date: 09/08/17 Consult reason:: ARF/CKD 4 History of Present Illness Admission Date/PCP: 09/04/17 13:36 MATIAS SOLIZ MD History of Present Illness: KARINA ROGERS is a 62 year old female with past medical history of CAD, CHF, CKD 4, DM, HTN complaining of chest pain on admission. She at home having chest pain back on 09/04/17 that radiated to her right arm and was associated with SOB. She was having a chest pressure with a pain that was an 8 or 9 out of 10. She called EMS and pain was reduced to almost nothing on the way to the hospital. When in the ER an EKG and troponins were drawn. The EKG showed no changes from previous EKG that was done. Troponins were only slightly elevated. A chest x-ray was done that showed bilateral moderated pleural effusion. Patient also had a BNP of 6000. She was started on lasix. During her admission she has had a stress test that was negative. A V/Q scan was negative. Several liters have been removed. On 09/07/17 here creatinine elevated up to 4.0. Fluid was started at 50mL an hour due to the concern for dehydration from over diuresis. She also was having nausea. Today she says that she feels better. She denies chest pain, SOB, n/v/d/c. She was last seen by Dr. Zhu on 08/30/17. At that time her creatinine was elevated to 3.7 and she appeared to be dry. Past Medical History Cardiac Medical History: Reports: Coronary Artery Disease, Hyperlipidemia, Hypertension-primary, Myocardial Infarction Pulmonary Medical History: Reports: Chronic Obstructive Pulmonary Disease (COPD) , Pneumonia, Sleep Apnea Endocrine Medical History: Reports: Diabetes Mellitus Type 1, Diabetes Mellitus Type 2, Hypothyroidism Renal/ Medical History: Reports: Chronic Kidney Disease Stage III GI Medical History: Reports: Gastroesophageal Reflux Disease Musculoskeltal Medical History: Reports: Arthritis Psychiatric Medical History: Reports: Depression Infectious Medical History: Reports: Methicillin-resist Staph Aureus Past Surgical History Past Surgical History: Reports: Cardiac Catheterization, Cholecystectomy, Coronary Stent, Hysterectomy, Orthopedic Surgery - 2 screws in the distal left femur, Tonsillectomy, Other - Cardiac surgery at age 4, Patent ductus? Denies: Mastectomy Social History Smoking Status: Never Smoker Frequency of Alcohol Use: None Hx Recreational Drug Use: No Drugs: None Hx Prescription Drug Abuse: No - Advance Directive Resuscitation Status: Do Not Resuscitate Family History Parental Family History Reviewed: No Children Family History Reviewed: NA Sibling(s) Family History Reviewed.: NA Medication/Allergy Home Medications: Aspirin [Aspirin EC] 81 mg PO DAILY 09/04/17 Atorvastatin Calcium [Lipitor 80 mg Tablet] 80 mg PO QHS 09/04/17 Bupropion HCl [Wellbutrin Xl 150 mg 24hr Tablet] 150 mg PO DAILY 09/04/17 Clopidogrel Bisulfate [Plavix 75 mg Tablet] 75 mg PO DAILY 09/04/17 Ezetimibe [Zetia 10 mg Tablet] 10 mg PO DAILY 09/04/17 Fluticasone/Vilanterol [Breo Ellipta 100-25 Mcg INH] 1 puff IH DAILY 09/04/17 Furosemide [Lasix 40 mg Tablet] 60 mg PO BID 09/04/17 Hydralazine HCl [Apresoline 50 mg Tablet] 100 mg PO Q8 09/04/17 Insulin Aspart [Novolog Flexpen] 0 units SQ .PERSLIDINGSCALE 09/04/17 Insulin Glargine,Hum.rec.anlog [Lantus Solostar] 26 unit SQ BID 09/04/17 Isosorbide Mononitrate [Imdur 60 mg Tablet.er] 120 mg PO DAILY 09/04/17 Levothyroxine Sodium [Synthroid] 300 mcg PO Q6AM 09/04/17 Metoprolol Succinate [Toprol Xl 50 mg Tab.sr] 50 mg PO BID 09/04/17 Nitroglycerin [Nitrostat 0.4 mg (1/150 Gr) Tabs 25/Bottle] 0.4 mg SL Q5MP PRN Omeprazole 20 mg PO QHS 09/04/17 Ondansetron [Zofran Odt 4 mg Tablet] 4 mg SL Q8HP PRN 09/04/17 Ranolazine [Ranexa 500 mg Tab.sr] 500 mg PO Q12 09/04/17 Allergies/Adverse Reactions: metformin [Metformin] Allergy (Intermediate, Verified 07/12/17 12:19) Nausea Sulfa (Sulfonamide Antibiotics) Allergy (Mild, Verified 07/12/17 12:19) Nausea fluoxetine Allergy (Verified 07/12/17 12:19) trimethoprim Allergy (Verified 07/12/17 12:19) diazepam [From Valium] Adverse Reaction (Verified 07/12/17 12:19) "BOUNCES ME OFF THE STRAUSS, DOES NOT RELAX" Review of Systems Constitutional: ABSENT: anorexia, chills, fatigue, fever(s), headache(s), weakness Eyes: ABSENT: visual disturbances Ears: ABSENT: hearing changes Cardiovascular: PRESENT: chest pain, dyspnea on exertion, edema. ABSENT: orthropnea, palpitations Respiratory: PRESENT: dyspnea. ABSENT: cough, sputum Gastrointestinal: ABSENT: abdominal pain, constipation, diarrhea, nausea, vomiting Genitourinary: ABSENT: difficulty urinating, dysuria Neurological: ABSENT: confusion, dizziness, focal weakness, numbness, weakness Physical Exam Vital Signs: Temp Pulse Resp BP Pulse Ox 98.4 F 60 20 141/39 H 97 09/08/17 07:43 09/08/17 07:43 09/08/17 07:05 09/08/17 07:43 09/08/17 07:43 Intake & Output 09/07/17 09/08/17 09/09/17 06:59 06:59 06:59 Intake Total 648 1575 Output Total 2400 1775 Balance -1752 -200 Weight 117.5 kg 117.9 kg 117.9 kg General appearance: PRESENT: no acute distress, well-developed, well-nourished Mouth exam: PRESENT: moist, neck supple Respiratory exam: PRESENT: crackles, rales, rhonchi. ABSENT: accessory muscle use, clear to auscultation paula, wheezes Cardiovascular exam: PRESENT: RRR, +S1, +S2 GI/Abdominal exam: PRESENT: normal bowel sounds, soft. ABSENT: ascites, tenderness Extremities exam: PRESENT: tenderness. ABSENT: pedal edema, +1 edema, +2 edema Musculoskeletal exam: PRESENT: tenderness. ABSENT: normal inspection Neurological exam: PRESENT: alert, awake, oriented to person, oriented to place , oriented to time, oriented to situation Psychiatric exam: PRESENT: appropriate affect, normal mood Skin exam: PRESENT: dry, intact, warm. ABSENT: cyanosis Results Laboratory Results: 09/08/17 05:30 09/08/17 05:30 Sodium 141.6 Potassium 4.0 Chloride 102 Carbon Dioxide 27 Anion Gap 13 BUN 51 H Creatinine 3.65 H Est GFR ( Amer) 15 L Est GFR (Non-Af Amer) 13 L Glucose 78 Calcium 8.0 L Total Bilirubin 0.3 AST 15 ALT 21 Alkaline Phosphatase 76 Total Protein 6.3 Albumin 3.3 L Lipase 76.5 09/04/17 09/04/17 09/05/17 15:10 21:17 03:33 Troponin I 0.026 0.033 0.038 NT-Pro-B Natriuret Pep 09/05/17 09/06/17 09/07/17 03:33 08:38 05:18 Troponin I 0.033 0.031 NT-Pro-B Natriuret Pep 7300 H 5470 H Impressions: Lung Scan-VQ NM 09/04/17 16:15 IMPRESSION: NORMAL VENTILATION-PERFUSION LUNG SCAN. NEGATIVE FOR PULMONARY EMBOLI. Chest X-Ray 09/08/17 09:26 IMPRESSION: No significant interval change. Findings as noted above. Assessment & Plan - Diagnosis (1) Chest pain Qualifiers: Chest pain type: unspecified Qualified Code(s): R07.9 - Chest pain, unspecified Is this a current diagnosis for this admission?: Yes Plan: looks have resolved, currently being managed by cardiology. (2) Pleural effusion Plan: Pleural effusion looks to be unchanged, severl possible underlining etiologies. Could be from nephrotic level proteinuria or CHF. Pleural effusion did not reduce with 3 days of diuretics, patient may need a Thoracentesis to further remove pleural fluid. (3) Ulwav-ji-koiygcv kidney injury Qualifiers: Acute renal failure type: unspecified Chronic kidney disease stage: stage 3 (moderate) Qualified Code(s): N17.9 - Acute kidney failure, unspecified; N18.3 - Chronic kidney disease, stage 3 (moderate); N18.3 - Chronic kidney disease, stage 3 (moderate) Plan: most likely due to over diuresis, will look to keep fluid going at 50mL an hour for one more day. Will re-evaluate tomorrow morning. (4) Anemia Qualifiers: Anemia type: due to chronic kidney disease Chronic kidney disease stage: stage 3 (moderate) Qualified Code(s): N18.3 - Chronic kidney disease, stage 3 (moderate); D63.1 - Anemia in chronic kidney disease; D63.1 - Anemia in chronic kidney disease Plan: will look to get a CBC tomorrow, if low then will look to re-evaluate iron levels. (5) Chronic kidney disease (CKD), stage IV (severe) Plan: new baseline creatinine looks to be 2 to 2.5. 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; Z79.4 - senior living (current) use of insulin; Z79.4 - senior living (current) use of insulin Is this a current diagnosis for this admission?: Yes (8) Hypertension Qualifiers: Hypertension type: essential hypertension Qualified Code(s): I10 - Essential (primary) hypertension Plan: controlled (9) Nausea Plan: has nausea on and off at home, currently resolved (10) Sleep apnea syndrome Qualifiers: Sleep apnea type: unspecified type Qualified Code(s): G47.30 - Sleep apnea , unspecified Is this a current diagnosis for this admission?: Yes Plan: uses CPAP (11) Morbid obesity with BMI of 50.0-59.9, adult Is this a current diagnosis for this admission?: Yes
[2017-09-08] MEDS: NORMAL SALINE 1000 ML 1,000 ML IV PRN (14:22)
--- NOTE | 2017-09-08 18:28 | PDOC PROGRESS REPORT ---
Subjective Progress Note for:: 09/08/17 Subjective:: Patient states she is feeling better She has no chest pain no shortness of breath no abdominal pain no nausea vomiting Her creatinine is slightly improved since yesterday Reason For Visit: CHF,CKD,UNSTABLE ANGINA Physical Exam Vital Signs: Temp Pulse Resp BP Pulse Ox 97.8 F 63 20 148/43 H 100 09/08/17 15:41 09/08/17 15:41 09/08/17 15:41 09/08/17 15:41 09/08/17 15:41 Intake & Output 09/07/17 09/08/17 09/09/17 00:59 00:59 00:59 Intake Total 775 326 1792 Output Total 2305 8055 700 Balance -9163 -1903 937 Weight 122.6 kg 117.5 kg 117.9 kg She looks ill she is pale Pupils are PERRLA extraocular motor intact Neck supple Heart regular rhythm Lungs decreased breath sounds bilaterally The abdomen is tender in the epigastrium without guarding or rebound Extremities are intact Neuro is nonfocal Results Laboratory Results: 09/08/17 05:30 09/08/17 05:30 Sodium 141.6 Potassium 4.0 Chloride 102 Carbon Dioxide 27 Anion Gap 13 BUN 51 H Creatinine 3.65 H Est GFR ( Amer) 15 L Est GFR (Non-Af Amer) 13 L Glucose 78 Calcium 8.0 L Total Bilirubin 0.3 AST 15 ALT 21 Alkaline Phosphatase 76 Total Protein 6.3 Albumin 3.3 L Lipase 76.5 09/04/17 09/04/17 09/05/17 15:10 21:17 03:33 Troponin I 0.026 0.033 0.038 NT-Pro-B Natriuret Pep 09/05/17 09/06/17 09/07/17 03:33 08:38 05:18 Troponin I 0.033 0.031 NT-Pro-B Natriuret Pep 7300 H 5470 H Impressions: Lung Scan-VQ NM 09/04/17 16:15 IMPRESSION: NORMAL VENTILATION-PERFUSION LUNG SCAN. NEGATIVE FOR PULMONARY EMBOLI. Chest X-Ray 09/08/17 09:26 IMPRESSION: No significant interval change. Findings as noted above. Assessment & Plan - Diagnosis (1) Chest pain Qualifiers: Chest pain type: unspecified Qualified Code(s): R07.9 - Chest pain, unspecified Is this a current diagnosis for this admission?: Yes (2) Chronic congestive heart failure Qualifiers: Heart failure type: diastolic Qualified Code(s): I50.32 - Chronic diastolic (congestive) heart failure Is this a current diagnosis for this admission?: Yes (3) Chronic kidney disease (CKD) Qualifiers: Chronic kidney disease stage: stage 4 (severe) Qualified Code(s): N18.4 - Chronic kidney disease, stage 4 (severe) Is this a current diagnosis for this admission?: Yes (4) Diabetes mellitus Qualifiers: Diabetes mellitus type: type 2 Diabetes mellitus intermediate insulin use: with intermediate use Diabetes mellitus complication status: with neurologic complications Diabetes mellitus complication detail: with polyneuropathy Qualified Code(s): E11.42 - Type 2 diabetes mellitus with diabetic polyneuropathy; Z79.4 - nursing home (current) use of insulin; Z79.4 - nursing home ( current) use of insulin; Z79.4 - nursing home (current) use of insulin; Z79.4 - nursing home (current) use of insulin Is this a current diagnosis for this admission?: Yes (5) Sleep apnea syndrome Qualifiers: Sleep apnea type: unspecified type Qualified Code(s): G47.30 - Sleep apnea , unspecified Is this a current diagnosis for this admission?: Yes (6) Morbid obesity with BMI of 50.0-59.9, adult Is this a current diagnosis for this admission?: Yes (7) DNR (do not resuscitate) Is this a current diagnosis for this admission?: Yes (8) Trwrg-ff-rtbldtf kidney injury Qualifiers: Acute renal failure type: unspecified Chronic kidney disease stage: stage 3 (moderate) Qualified Code(s): N17.9 - Acute kidney failure, unspecified; N18.3 - Chronic kidney disease, stage 3 (moderate); N18.3 - Chronic kidney disease, stage 3 (moderate) Is this a current diagnosis for this admission?: Yes Plan: Continue prudent hydration Renal function seems to be improving some Management as per nephrology - Time Time Spent with patient: 25-34 minutes
--- NOTE | 2017-09-08 19:46 | XCELERA REPORT ---
[address] [address] Transthoracic Echocardiogram Report Name: KARINA ROGERS Age: 62 yrs Gender: Female : 1955 Patient Status: Inpatient Patient Location: [address] [place] [address] Study Date: 09/08/2017 09:26 AM Height: 61 in Weight: 259 lb BSA: 2.1 m2 Procedure: A complete two-dimensional transthoracic echocardiogram was performed (2D, M-mode, spectral and color flow Doppler). The study was technically difficult with many images being suboptimal in quality. Reason For Study: cp/sob Ordering Physician: MATTHEW HAMMOND Performed By: Lorna Hodge Interpretation Summary The left ventricular ejection fraction is normal. There is moderate concentric left ventricular hypertrophy. The left ventricle is grossly normal size. Doppler measurements suggest pseudonormalized left ventricular relaxation, which is associated with grade II/IV or mild to moderate diastolic dysfunction Wall motion cannot be accurately commented on, but no definite regional wall motion abnormalities noted. The right ventricle is mild to moderately dilated. The right ventricular systolic function is borderline reduced. The right ventricle appears to be hypertrophied There is a trace amount of mitral regurgitation There is no mitral valve stenosis. No aortic regurgitation is present. There is no aortic valve stenosis There is a trace or physiologic amount of tricuspid regurgitation Tricuspid regurgitation jet envelope not well defined to measure RV systolic pressure accurately. The aortic root is not well visualized but is probably normal size. The inferior vena cava appeared normal and decreased < 50% with respiration (RAP 10-15 mmHg) There is no pericardial effusion. MMode/2D Measurements & Calculations RVDd: 3.7 cm LVIDd: 4.2 cm FS: 42.2 % Ao root diam: 2.4 cm IVSd: 1.4 cm LVIDs: 2.4 cm EDV(Teich): 79.9 ml LVPWd: 1.4 cm ESV(Teich): 21.1 ml Ao root area: 4.6 cm2 EF(Teich): 73.6 % LA dimension: 3.8 cm Doppler Measurements & Calculations MV E max mc: MV P1/2t max mc: Ao V2 max: LV V1 max P.6 cm/sec 106.6 cm/sec 143.3 cm/sec 5.5 mmHg MV A max mc: MV P1/2t: 78.1 msec Ao max PG: LV V1 max: 64.7 cm/sec 8.2 mmHg 117.5 cm/sec MV E/A: 1.6 MVA(P1/2t): 2.8 cm2 MV dec slope: 399.7 cm/sec2 MV dec time: 0.26 sec PA V2 max: TR max mc: 111.6 cm/sec 221.3 cm/sec PA max PG: TR max P.6 mmHg 5.0 mmHg Left Ventricle The left ventricle is grossly normal size. There is moderate concentric left ventricular hypertrophy. The left ventricular ejection fraction is normal. Doppler measurements suggest pseudonormalized left ventricular relaxation, which is associated with grade II/IV or mild to moderate diastolic dysfunction. Wall motion cannot be accurately commented on, but no definite regional wall motion abnormalities noted. Right Ventricle The right ventricle is mild to moderately dilated. The right ventricle appears to be hypertrophied. The right ventricular systolic function is borderline reduced. Atria The right atrium is mildly dilated. The left atrium is mildly dilated. Interarterial septum not well visualized and not well dopplered. Cannot comment on ASD/PFO presence. Mitral Valve There is mild mitral leaflet calcification. There is mild mitral annular calcification. There is no mitral valve stenosis. There is a trace amount of mitral regurgitation. Aortic Valve The aortic valve is not well visualized secondary to technical limitations. There is no aortic valve stenosis. No aortic regurgitation is present. Tricuspid Valve The tricuspid valve is not well visualized, but is grossly normal. There is no tricuspid stenosis. There is a trace or physiologic amount of tricuspid regurgitation. Tricuspid regurgitation jet envelope not well defined to measure RV systolic pressure accurately. Pulmonic Valve The pulmonic valve is not well visualized. Great Vessels The aortic root is not well visualized but is probably normal size. The inferior vena cava appeared normal and decreased < 50% with respiration (RAP 10-15 mmHg). Effusions There is no pericardial effusion. : MATTHEW HAMMOND > Toni Heller
--- NOTE | 2017-09-08 20:04 | PDOC PROGRESS REPORT ---
Subjective Progress Note for:: 09/08/17 Subjective:: Patient seems to be doing better. No further chest pain. Nausea and vomiting improved. Creatinine somewhat lower than yesterday. Patient denying any PND, orthopnea. Patient denied any sustained palpitations, dizziness, syncope, near syncope. Patient denying any fever chills. Patient denying any other significant discomfort. Nuclear stress test results were again reviewed with the patient. Patient is maintaining sinus rhythm. No significant tachycardia or bradycardia noted. Review of systems: Rest review of systems negative. Medications: Medications have been reviewed. Reason For Visit: CHF,CKD,UNSTABLE ANGINA Physical Exam Vital Signs: Temp Pulse Resp BP Pulse Ox 97.8 F 63 20 148/43 H 100 09/08/17 15:41 09/08/17 19:00 09/08/17 15:41 09/08/17 15:41 09/08/17 15:41 Intake & Output 09/07/17 09/08/17 09/09/17 06:59 06:59 06:59 Intake Total 648 1575 957 Output Total 2400 1775 800 Balance -1752 -200 157 Weight 117.5 kg 117.9 kg 117.9 kg Exam: GENERAL: well-nourished and in no acute distress. Alert and oriented x3 HEAD: Atraumatic, normocephalic. EYES: Pupils equal round and reactive to light, extraocular movements intact, sclera anicteric, conjunctiva are normal. ENT: TMs normal, nares patent, oropharynx clear without exudates. Moist mucous membranes. No oral ulcerations or bleeding gums noted NECK: supple without lymphadenopathy. Trachea is central. No cervical or axillary lymphadenopathy noted. Carotids are 2+, JVD WNL LUNGS: Respiration seems nonlabored, no significant accessory muscle action noted. Few bibasilar crackles are noted.. No wheezes rales or rhonchi noted. No significant dullness noted on percussion. CHEST: Palpation of the chest wall shows no significant chest wall tenderness. No other significant abnormalities noted. 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 ABDOMEN: Soft, no significant tenderness appreciated, normoactive bowel sounds. No guarding, no rebound. No rigidity noted . No masses appreciated. EXTREMITIES: Pedal pulses are 1-2+, no calf tenderness noted. No clubbing or cyanosis. 1+ pedal edema noted NEUROLOGICAL: Focused neurological exam showed no significant neurologic deficit. Normal speech, no focal weakness appreciated. PSYCH: Normal mood, normal affect. Judgment and insight within normal limits. SKIN: No significant ecchymosis, skin is noted to be warm. MUSCULOSKELETAL EXAM: No significant acute joint swelling noted. Results Laboratory Results: 09/08/17 05:30 09/08/17 05:30 Sodium 141.6 Potassium 4.0 Chloride 102 Carbon Dioxide 27 Anion Gap 13 BUN 51 H Creatinine 3.65 H Est GFR ( Amer) 15 L Est GFR (Non-Af Amer) 13 L Glucose 78 Calcium 8.0 L Total Bilirubin 0.3 AST 15 ALT 21 Alkaline Phosphatase 76 Total Protein 6.3 Albumin 3.3 L Lipase 76.5 09/04/17 09/04/17 09/05/17 15:10 21:17 03:33 Troponin I 0.026 0.033 0.038 NT-Pro-B Natriuret Pep 09/05/17 09/06/17 09/07/17 03:33 08:38 05:18 Troponin I 0.033 0.031 NT-Pro-B Natriuret Pep 7300 H 5470 H EKG Comments: Telemetry shows sinus rhythm without any sustained tachycardia or bradycardia. Impressions: Lung Scan-VQ NM 09/04/17 16:15 IMPRESSION: NORMAL VENTILATION-PERFUSION LUNG SCAN. NEGATIVE FOR PULMONARY EMBOLI. Chest X-Ray 09/08/17 09:26 IMPRESSION: No significant interval change. Findings as noted above. Assessment & Plan - Diagnosis (1) Chest pain Qualifiers: Chest pain type: unspecified Qualified Code(s): R07.9 - Chest pain, unspecified Is this a current diagnosis for this admission?: Yes (2) Chronic congestive heart failure Qualifiers: Heart failure type: diastolic Qualified Code(s): I50.32 - Chronic diastolic (congestive) heart failure Is this a current diagnosis for this admission?: Yes (3) Chronic kidney disease (CKD) Qualifiers: Chronic kidney disease stage: stage 4 (severe) Qualified Code(s): N18.4 - Chronic kidney disease, stage 4 (severe) Is this a current diagnosis for this admission?: Yes (4) Sleep apnea syndrome Qualifiers: Sleep apnea type: unspecified type Qualified Code(s): G47.30 - Sleep apnea , unspecified Is this a current diagnosis for this admission?: Yes (5) Gastroesophageal reflux Qualifiers: Esophagitis presence: esophagitis presence not specified Qualified Code(s) : K21.9 - Gastro-esophageal reflux disease without esophagitis Is this a current diagnosis for this admission?: Yes - Notes Notes: Nuclear stress test results were reviewed with the patient. No definitive areas of transient or fixed defect noted. 2D echocardiogram shows normal LVEF, moderate LVH, moderate diastolic dysfunction is noted. Patient would be very volume dependent in view of moderate diastolic dysfunction and moderate stress test. Continue current therapeutic management. - Time Time with patient: 15-25 minutes - CODE STATUS : was discussed, patient remains DO NOT RESUSCITATE. Surrogate decision-maker unchanged. Multiple medical problems were addressed. More than 50% of the time spent coordinating care, discussing management plans with involved caregivers. Management plans discussed with involved personnels. Medical decision making was of moderate to high complexity, patient's has multiple comorbidities.
[2017-09-08] MEDS: ACETAMINOPHEN 325 MG TABLET PO PRN (21:20)
[2017-09-08] MEDS: ATORVASTATIN CALCIUM 80 MG TABLET PO SCH (21:20)
[2017-09-09] MEDS: ONDANSETRON HCL INJ/PF 4 MG/2 ML SDV IV PRN (03:28)
[2017-09-09] MEDS: HEPARIN SOD (PORCINE) 5,000 UNIT/ML 1 ML SYRINGE SUBCUT SCH ×3 (05:23→21:22)
[2017-09-09] MEDS: LEVOTHYROXINE SODIUM 0.15 MG TABLET PO SCH (05:24)
[2017-09-09] MEDS: LANSOPRAZOLE 30 MG TAB.RAP.DR PO SCH ×2 (05:24→18:01)
[2017-09-09] MEDS: RANOLAZINE 500 MG TAB.SR.12H PO SCH ×2 (05:24→18:01)
[2017-09-09] MEDS: HYDRALAZINE HCL 50 MG TABLET PO SCH ×3 (05:24→21:24)
[2017-09-09] MEDS: NORMAL SALINE 1000 ML 1,000 ML IV PRN (05:27)
[2017-09-09 05:44] LABS: HEMATOCRIT 28.7 % (36.0-47.0); HEMOGLOBIN 9.5 g/dL (12.0-15.5); MEAN CORPUSCULAR HEMOGLOBIN 30.1 pg (27.0-33.4); MEAN CORPUSCULAR HGB CONC 33.2 g/dL (32.0-36.0); MEAN CORPUSCULAR VOLUME 91 fl (80-97); PLATELET COUNT 263 10^3/uL (150-450); RED BLOOD COUNT 3.16 10^6/uL (3.72-5.28); RED CELL DISTRIBUTION WIDTH 15.7 % (11.5-14.0); WHITE BLOOD COUNT 6.9 10^3/uL (4.0-10.5)
[2017-09-09 05:54] LABS: ANION GAP 11 (5-19); BLOOD UREA NITROGEN 54 mg/dL (7-20); CALCIUM 7.9 mg/dL (8.4-10.2); CARBON DIOXIDE 26 mmol/L (22-30); CHLORIDE 104 mmol/L (98-107); GLUCOSE 101 mg/dL (75-110); POTASSIUM 4.3 mmol/L (3.6-5.0); SODIUM 141.2 mmol/L (137-145)
[2017-09-09] MEDS: INSULIN GLARGINE,HUM.REC.ANLOG 300 UNIT/3 ML INSULN.PEN SUBCUT SCH ×2 (09:02→21:23)
[2017-09-09] MEDS: BUPROPION HCL 75 MG TABLET PO SCH ×2 (09:03→18:01)
[2017-09-09] MEDS: SUCRALFATE SUSP 1 GM/10 ML UDCUP PO SCH ×4 (09:03→21:22)
[2017-09-09] MEDS: EZETIMIBE 10 MG TABLET PO SCH (09:03)
[2017-09-09] MEDS: CLOPIDOGREL BISULFATE 75 MG TABLET PO SCH (09:04)
[2017-09-09] MEDS: METOPROLOL SUCCINATE 50 MG TAB.SR.24H PO SCH ×2 (09:04→21:25)
[2017-09-09] MEDS: ISOSORBIDE MONONITRATE 60 MG TAB.ER.24H PO SCH (09:04)
[2017-09-09] MEDS: ASPIRIN 81 MG TABLET, ENT COATED PO SCH (09:04)
[2017-09-09] MEDS: DOCUSATE SODIUM 100 MG CAPSULE PO SCH ×2 (09:05→18:01)
--- NOTE | 2017-09-09 12:05 | PDOC PROGRESS REPORT ---
Subjective Progress Note for:: 09/07/17 Subjective:: Patient seems to be doing better. Patient had chest discomfort yesterday lasting an hour. Troponin I 2 has been negative patient is complaining of some nausea and some vomiting. Patient denying any PND, orthopnea. Patient denied any sustained palpitations, dizziness, syncope, near syncope. Patient denying any fever chills. Patient denying any other significant discomfort. Patient is maintaining sinus rhythm. No significant tachycardia or bradycardia noted. Review of systems: Rest review of systems negative. Medications: Medications have been reviewed. Reason For Visit: CHF,CKD,UNSTABLE ANGINA Physical Exam Vital Signs: Temp Pulse Resp BP Pulse Ox 97.4 F 66 20 149/47 H 96 09/07/17 11:32 09/07/17 18:58 09/07/17 11:32 09/07/17 11:32 09/07/17 11:32 Intake & Output 09/06/17 09/07/17 09/08/17 06:59 06:59 06:59 Intake Total 1722 648 325 Output Total 1250 2400 1100 Balance 472 -1752 -775 Weight 122.6 kg 117.5 kg Exam: GENERAL: well-nourished and in no acute distress. Alert and oriented x3 HEAD: Atraumatic, normocephalic. EYES: Pupils equal round and reactive to light, extraocular movements intact, sclera anicteric, conjunctiva are normal. ENT: TMs normal, nares patent, oropharynx clear without exudates. Moist mucous membranes. No oral ulcerations or bleeding gums noted NECK: supple without lymphadenopathy. Trachea is central. No cervical or axillary lymphadenopathy noted. Carotids are 2+, JVD WNL LUNGS: Respiration seems nonlabored, no significant accessory muscle action noted. Breath sounds clear to auscultation bilaterally and equal noted. No wheezes rales or rhonchi noted. No significant dullness noted on percussion. CHEST: Palpation of the chest wall shows no significant chest wall tenderness. 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 ABDOMEN: Soft, no significant tenderness appreciated, normoactive bowel sounds. No guarding, no rebound. No rigidity noted . No masses appreciated. EXTREMITIES: Pedal pulses are 1-2+, no calf tenderness noted. No clubbing or cyanosis. 1+ pedal edema noted NEUROLOGICAL: Focused neurological exam showed no significant neurologic deficit. Normal speech, no focal weakness appreciated. PSYCH: Normal mood, normal affect. Judgment and insight within normal limits. SKIN: No significant ecchymosis, skin is noted to be warm. MUSCULOSKELETAL EXAM: No significant acute joint swelling noted. Results Laboratory Results: 09/07/17 05:18 09/07/17 05:18 Sodium 142.5 Potassium 4.3 Chloride 101 Carbon Dioxide 28 Anion Gap 14 BUN 57 H Creatinine 4.00 H Est GFR ( Amer) 14 L Est GFR (Non-Af Amer) 11 L Glucose 116 H Calcium 7.9 L Magnesium 2.1 09/04/17 09/04/17 09/05/17 15:10 21:17 03:33 Troponin I 0.026 0.033 0.038 NT-Pro-B Natriuret Pep 09/05/17 09/06/17 09/07/17 03:33 08:38 05:18 Troponin I 0.033 0.031 NT-Pro-B Natriuret Pep 7300 H 5470 H EKG Comments: Telemetry strips reviewed showed sinus rhythm. No sustained tachycardia or bradycardia noted. Impressions: Chest X-Ray 09/04/17 10:59 IMPRESSION: Limited exam secondary to positioning with small to moderate bilateral pleural effusions. Lung Scan-VQ NM 09/04/17 16:15 IMPRESSION: NORMAL VENTILATION-PERFUSION LUNG SCAN. NEGATIVE FOR PULMONARY EMBOLI. Assessment & Plan - Diagnosis (1) Chest pain Qualifiers: Chest pain type: unspecified Qualified Code(s): R07.9 - Chest pain, unspecified Is this a current diagnosis for this admission?: Yes (2) Chronic congestive heart failure Qualifiers: Heart failure type: diastolic Qualified Code(s): I50.32 - Chronic diastolic (congestive) heart failure Is this a current diagnosis for this admission?: Yes (3) Chronic kidney disease (CKD) Qualifiers: Chronic kidney disease stage: stage 4 (severe) Qualified Code(s): N18.4 - Chronic kidney disease, stage 4 (severe) Is this a current diagnosis for this admission?: Yes (4) Sleep apnea syndrome Qualifiers: Sleep apnea type: unspecified type Qualified Code(s): G47.30 - Sleep apnea , unspecified Is this a current diagnosis for this admission?: Yes (5) Gastroesophageal reflux Qualifiers: Esophagitis presence: esophagitis presence not specified Qualified Code(s) : K21.9 - Gastro-esophageal reflux disease without esophagitis Is this a current diagnosis for this admission?: Yes - Notes Notes: Chest pain: Somewhat atypical but patient has known history of prior non-STEMI. Medical management has been optimized. Today patient underwent nuclear stress test. These results were reviewed with the patient. Patient questions were answered. Chronic congestive heart failure with acute exacerbation: Patient has been treated with diuretic therapy but now BUN and creatinine has risen. Currently diuretics on hold. Continue to monitor volume status very closely. Chronic kidney disease: It seems renal functions are now noted to be worse. May consider nephrology evaluation. Sleep apnea syndrome: Patient has been advised to continue nightly CPAP therapy while in the hospital. Patient also advised to use CPAP therapy while taking naps. Gastroesophageal reflux: Patient has a history of it. Recommend double dose proton pump inhibitor. Obesity: Patient has noted recent weight gain most likely due to fluid retention. Patient will benefit on long-term weight loss. Troponin I in the indeterminate range: This was evaluated by a 2D echocardiogram which shows normal LVEF. Nuclear stress test was performed which was noted to be negative. - Time Time with patient: Greater than 35 minutes - Patient was seen multiple times. Total time exceeds 40 minutes. In the morning nuclear stress test procedure, risks benefits, alternatives were discussed. Patient seen during the stress test. Patient also seen after stress test when results were discussed with the patient in detail. Patient's questions were answered. Nuclear stress test results were discussed with the patient. Patient was informed that no definitive evidence of pharmacologic stress-induced ischemia noted. No definite fixed defects were noted. Patient informed that occasionally significant single vessel disease or balanced ischemia could be missed. However based on the current study results, would recommend aggressive risk factor modification and medical therapy. It may also be worthwhile to consider evaluation or empiric management of other causes of chest pain. Should no other cause be found and if persistent in having chest pain, then cardiac catheterization should be considered. Right now, recommendations are for aggressive risk factor modification and medical management. More than 50% of the time spent coordinating care, discussing management plans with involved caregivers. Management plans discussed with involved personnels. Medical decision making was of moderate to high complexity, patient's has multiple comorbidities. Medications reviewed and adjusted accordingly: Yes
--- NOTE | 2017-09-09 13:44 | PDOC PROGRESS REPORT ---
Subjective Progress Note for:: 09/09/17 Reason For Visit: Patient seen today. Feels better.Pleuritic chest pains are much better. Denies any dyspnea. NO fever or chills. Labs and meds were reviewed with her. Physical Exam Vital Signs: Temp Pulse Resp BP Pulse Ox 98.1 F 62 17 151/37 H 98 09/09/17 11:47 09/09/17 11:47 09/09/17 11:47 09/09/17 11:47 09/09/17 11:47 Intake & Output 09/08/17 09/09/17 09/10/17 06:59 06:59 06:59 Intake Total 1575 2215 137 Output Total 1775 1400 125 Balance -200 815 12 Weight 117.9 kg 117.9 kg General appearance: PRESENT: no acute distress Respiratory exam: PRESENT: clear to auscultation paula. ABSENT: crackles, rhonchi Cardiovascular exam: PRESENT: RRR, +S1, +S2 GI/Abdominal exam: PRESENT: normal bowel sounds, soft. ABSENT: ascites, tenderness Extremities exam: PRESENT: pedal edema Neurological exam: PRESENT: awake, oriented to person, oriented to place Psychiatric exam: PRESENT: appropriate affect Results Laboratory Results: 09/09/17 05:14 09/09/17 05:14 09/09/17 09/09/17 05:14 05:14 WBC 6.9 RBC 3.16 L Hgb 9.5 L Hct 28.7 L MCV 91 MCH 30.1 MCHC 33.2 RDW 15.7 H Plt Count 263 Sodium 141.2 Potassium 4.3 Chloride 104 Carbon Dioxide 26 Anion Gap 11 BUN 54 H Creatinine 3.35 H Est GFR ( Amer) 17 L Est GFR (Non-Af Amer) 14 L Glucose 101 Calcium 7.9 L 09/04/17 09/04/17 09/05/17 15:10 21:17 03:33 Troponin I 0.026 0.033 0.038 NT-Pro-B Natriuret Pep 09/05/17 09/06/17 09/07/17 03:33 08:38 05:18 Troponin I 0.033 0.031 NT-Pro-B Natriuret Pep 7300 H 5470 H Impressions: Lung Scan-VQ NM 09/04/17 16:15 IMPRESSION: NORMAL VENTILATION-PERFUSION LUNG SCAN. NEGATIVE FOR PULMONARY EMBOLI. Chest X-Ray 09/08/17 09:26 IMPRESSION: No significant interval change. Findings as noted above. Assessment & Plan - Diagnosis (1) [id number] kidney injury Qualifiers: Acute renal failure type: unspecified Chronic kidney disease stage: stage 3 (moderate) Qualified Code(s): N17.9 - Acute kidney failure, unspecified; N18.3 - Chronic kidney disease, stage 3 (moderate); N18.3 - Chronic kidney disease, stage 3 (moderate) Is this a current diagnosis for this admission?: Yes Plan: Overdiuresis. Improving renal numbers and patient beginning to retain fluid.Asymptomatic. DC IVF. Continue gentle diuresis. No indication for PROGRAM DIRECTOR GROUP WORK. (2) Chronic kidney disease (CKD), stage IV (severe) Plan: She is slowly progressing into CKD 5 / ESRD. Need to get her prepared for HD soon. She looks like she would not need dialysis during this admission. (3) Hypertension Qualifiers: Hypertension type: essential hypertension Qualified Code(s): I10 - Essential (primary) hypertension Plan: Relatively controlled. Monitor. (4) Chest pain Qualifiers: Chest pain type: unspecified Qualified Code(s): R07.9 - Chest pain, unspecified Is this a current diagnosis for this admission?: Yes Plan: Pleuritic in nature. As per cardiology. (5) Anemia Qualifiers: Anemia type: due to chronic kidney disease Chronic kidney disease stage: stage 3 (moderate) Qualified Code(s): N18.3 - Chronic kidney disease, stage 3 (moderate); D63.1 - Anemia in chronic kidney disease; D63.1 - Anemia in chronic kidney disease Plan: Initiate work up. 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
[2017-09-09] MEDS ORDERED: FUROSEMIDE 20 MG TABLET PO ONE (15:00)
[2017-09-09] MEDS: INSULIN LISPRO 100 UNIT/ML 3 ML VIAL SUBCUT PRN (18:21)
[2017-09-09] MEDS: ATORVASTATIN CALCIUM 80 MG TABLET PO SCH (21:22)
[2017-09-10] MEDS: HEPARIN SOD (PORCINE) 5,000 UNIT/ML 1 ML SYRINGE SUBCUT SCH ×3 (05:10→23:51)
[2017-09-10] MEDS: RANOLAZINE 500 MG TAB.SR.12H PO SCH ×2 (05:11→17:46)
[2017-09-10] MEDS: HYDRALAZINE HCL 50 MG TABLET PO SCH ×3 (05:11→23:52)
[2017-09-10] MEDS: LANSOPRAZOLE 30 MG TAB.RAP.DR PO SCH ×2 (05:11→16:50)
[2017-09-10] MEDS: LEVOTHYROXINE SODIUM 0.15 MG TABLET PO SCH (05:11)
[2017-09-10 05:57] LABS: HEMATOCRIT 29.6 % (36.0-47.0); HEMOGLOBIN 9.8 g/dL (12.0-15.5); MEAN CORPUSCULAR HEMOGLOBIN 30.2 pg (27.0-33.4); MEAN CORPUSCULAR VOLUME 91 fl (80-97); PLATELET COUNT 266 10^3/uL (150-450); RED BLOOD COUNT 3.24 10^6/uL (3.72-5.28); RED CELL DISTRIBUTION WIDTH 15.9 % (11.5-14.0); RETICULOCYTE COUNT (AUTO) 2.77 % (0.66-2.85); WHITE BLOOD COUNT 6.9 10^3/uL (4.0-10.5)
[2017-09-10 06:11] LABS: ANION GAP 12 (5-19); BLOOD UREA NITROGEN 54 mg/dL (7-20); CALCIUM 8.5 mg/dL (8.4-10.2); CARBON DIOXIDE 26 mmol/L (22-30); CHLORIDE 105 mmol/L (98-107); GLUCOSE 121 mg/dL (75-110); IRON(TIBC) 51.8 ug/dL (37-170); POTASSIUM 4.3 mmol/L (3.6-5.0)
[2017-09-10 07:31] LABS: FOLATE 8.68 ng/mL (>2.76)
[2017-09-10] MEDS: SUCRALFATE SUSP 1 GM/10 ML UDCUP PO SCH ×4 (08:40→23:52)
[2017-09-10] MEDS: METOPROLOL SUCCINATE 50 MG TAB.SR.24H PO SCH ×2 (09:43→23:51)
[2017-09-10] MEDS: INSULIN GLARGINE,HUM.REC.ANLOG 300 UNIT/3 ML INSULN.PEN SUBCUT SCH ×2 (09:43→23:51)
[2017-09-10] MEDS: CLOPIDOGREL BISULFATE 75 MG TABLET PO SCH (09:43)
[2017-09-10] MEDS: EZETIMIBE 10 MG TABLET PO SCH (09:43)
[2017-09-10] MEDS: ASPIRIN 81 MG TABLET, ENT COATED PO SCH (09:43)
[2017-09-10] MEDS: DOCUSATE SODIUM 100 MG CAPSULE PO SCH ×2 (09:44→17:47)
[2017-09-10] MEDS: BUPROPION HCL 75 MG TABLET PO SCH ×2 (09:44→17:46)
[2017-09-10] MEDS: ISOSORBIDE MONONITRATE 60 MG TAB.ER.24H PO SCH (09:44)
[2017-09-10] MEDS: FUROSEMIDE 20 MG TABLET PO SCH (09:44)
--- NOTE | 2017-09-10 11:25 | PDOC DISCHARGE SUMMARY ---
General - Admit/Disc Date/PCP Admission Date/Primary Care Provider: 09/04/17 13:36 MATIAS SOLIZ MD MANAGER OF ORGANIZATIONAL DEVELOPMENT DR ZHU Discharge Date: 09/10/17 - Discharge Diagnosis (1) Chest pain Is this a current diagnosis for this admission?: Yes (2) Chronic congestive heart failure Is this a current diagnosis for this admission?: Yes (3) Chronic kidney disease (CKD) Is this a current diagnosis for this admission?: Yes (4) Diabetes mellitus Is this a current diagnosis for this admission?: Yes (5) Sleep apnea syndrome Is this a current diagnosis for this admission?: Yes (6) Morbid obesity with BMI of 50.0-59.9, adult Is this a current diagnosis for this admission?: Yes (7) DNR (do not resuscitate) Is this a current diagnosis for this admission?: Yes (8) [id number] kidney injury Is this a current diagnosis for this admission?: Yes - Additional Information Resuscitation Status: Do Not Resuscitate Discharge Diet: Cardiac, Diabetic Discharge Activity: Activity As Tolerated, Balance Activity w/Rest, Weigh Daily Prescriptions: Pantoprazole Sodium [Protonix] 40 mg PO QHS 30 Days #30 tablet. Furosemide [Lasix 20 mg Tablet] 20 mg PO DAILY 30 Days #30 tablet Insulin Glargine,Hum.rec.anlog [Lantus Insulin 100 Unit/mL] 10 unit SUBCUT Q12 30 Days #3 insuln.pen Sucralfate [Carafate Susp 1 gm/10 ml Udcup] 1 gm PO ACHS 14 Days #560 ml Home Medications: Aspirin [Aspirin EC] 81 mg PO DAILY 09/04/17 Atorvastatin Calcium [Lipitor 80 mg Tablet] 80 mg PO QHS 09/04/17 Bupropion HCl [Wellbutrin Xl 150 mg 24hr Tablet] 150 mg PO DAILY 09/04/17 Clopidogrel Bisulfate [Plavix 75 mg Tablet] 75 mg PO DAILY 09/04/17 Ezetimibe [Zetia 10 mg Tablet] 10 mg PO DAILY 09/04/17 Fluticasone/Vilanterol [Breo Ellipta 100-25 Mcg INH] 1 puff IH DAILY 09/04/17 Hydralazine HCl [Apresoline 50 mg Tablet] 100 mg PO Q8 09/04/17 Insulin Aspart [Novolog Flexpen] 0 units SQ .PERSLIDINGSCALE 09/04/17 Isosorbide Mononitrate [Imdur 60 mg Tablet.er] 120 mg PO DAILY 09/04/17 Levothyroxine Sodium [Synthroid] 300 mcg PO Q6AM 09/04/17 Metoprolol Succinate [Toprol Xl 50 mg Tab.sr] 50 mg PO BID 09/04/17 Nitroglycerin [Nitrostat 0.4 mg (1/150 Gr) Tabs 25/Bottle] 0.4 mg SL Q5MP PRN Ondansetron [Zofran Odt 4 mg Tablet] 4 mg SL Q8HP PRN 09/04/17 Ranolazine [Ranexa 500 mg Tab.sr] 500 mg PO Q12 09/04/17 Furosemide [Lasix 20 mg Tablet] 20 mg PO DAILY 30 Days #30 tablet 09/10/17 Insulin Glargine,Hum.rec.anlog [Lantus Insulin 100 Unit/mL] 10 unit SUBCUT Q12 30 Days #3 insuln.pen 09/10/17 Pantoprazole Sodium [Protonix] 40 mg PO QHS 30 Days #30 tablet.dr 09/10/17 Sucralfate [Carafate Susp 1 gm/10 ml Udcup] 1 gm PO ACHS 14 Days #560 ml History of Present Illness Patient complains of: CHEST PRESSURE History of Present Illness: KARINA ROGERS is a 62 year old female with a known history of diabetes mellitus type 1, morbid obesity, obstructive sleep apnea, chronic right-sided CHF, coronary artery disease CKD stage IV who presented to the ED with a history of chest pain Patient woke up this morning at around 9 AM with precordial chest pressure The pain was 8/10 radiating to the right arm; it was associated with shortness of breath It was pressure-like and extremely uncomfortable Patient called 911 she was brought to the ED for evaluation Patient was treated during transport the pain; eventually resolved It lasted a total of 2 hours Upon evaluation in the ED patient had an EKG suggestive of a right bundle branch block ST-T changes unchanged from the previous EKG; Troponins were in intermediate range; the BNP was 6000; chest x-ray showed bilateral pleural effusions Patient was given 40 mg of IV Lasix Hospitalist was called for admission A cardiology consult was obtained Hospital Course Hospital Course: (1) Chest pain Qualifiers: Chest pain type: unspecified Qualified Code(s): R07.9 - Chest pain, unspecified Is this a current diagnosis for this admission?: Yes Plan: There is no evidence of an acute coronary syndrome Patient had recurrent chest pains during this hospitalization She underwent stress testing was negative Serial cardiac enzymes all were negative EKG was unchanged We do believe that the chest pain is actually GI in etiology as patient has had recurrent vomiting and epigastric discomfort Patient would be discharged on PPI and Carafate (2) Chronic congestive heart failure Echocardiogram was performed and it showed preserved left ventricular function Grade 2/4 moderate diastolic dysfunction patient was diuresed during her stay-actually over diuresed as her renal function worsened Patient is back to previous renal function at discharge She will be discharged with Lasix 20 mg daily monitoring of BMP carefully (3) acute on chronic kidney disease stage IV (CKD) During hospitalization creatinine went up to 4.5 patient was treated with very small doses of Lasix and IV fluids the creatinine is down to 3.2 patient will be discharge With just Lasix 20 mg daily to be followed up closely with Dr. Zhu (4) Diabetes mellitus Adjusted Lantus Decrease Lantus insulin 10 units subcu every 12 (5) Sleep apnea syndrome Patient to resume CPAP patient will be assessed for home O2 prior to discharge Physical Exam Vital Signs: Temp Pulse Resp BP Pulse Ox 98.1 F 58 L 16 146/41 H 98 09/10/17 07:25 09/10/17 07:25 09/10/17 07:25 09/10/17 07:25 09/10/17 09:23 Intake & Output 09/09/17 09/10/17 09/11/17 00:59 00:59 00:59 Intake Total 2112 1540 153 Output Total 1400 1125 400 Balance 712 415 -247 Weight 117.9 kg She looks ill she is pale Pupils are PERRLA extraocular motor intact Neck supple Heart regular rhythm Lungs decreased breath sounds bilaterally The abdomen is tender in the epigastrium without guarding or rebound Extremities are intact Neuro is nonfocal Results Laboratory Results: 09/10/17 05:27 09/10/17 05:27 09/10/17 09/10/17 05:27 05:27 WBC 6.9 RBC 3.24 L Hgb 9.8 L Hct 29.6 L MCV 91 MCH 30.2 MCHC 33.0 RDW 15.9 H Plt Count 266 Retic Count (auto) 2.77 Absolute Retic 0.090 Sodium 143.0 Potassium 4.3 Chloride 105 Carbon Dioxide 26 Anion Gap 12 BUN 54 H Creatinine 3.20 H Est GFR ( Amer) 18 L Est GFR (Non-Af Amer) 15 L Glucose 121 H Calcium 8.5 Iron 51.8 TIBC 266 % Saturation 19 Ferritin 87.60 Vitamin B12 265.0 Folate 8.68 09/04/17 09/04/17 09/05/17 15:10 21:17 03:33 Troponin I 0.026 0.033 0.038 NT-Pro-B Natriuret Pep 09/05/17 09/06/17 09/07/17 03:33 08:38 05:18 Troponin I 0.033 0.031 NT-Pro-B Natriuret Pep 7300 H 5470 H Impressions: Lung Scan-VQ NM 09/04/17 16:15 IMPRESSION: NORMAL VENTILATION-PERFUSION LUNG SCAN. NEGATIVE FOR PULMONARY EMBOLI. Chest X-Ray 09/08/17 09:26 IMPRESSION: No significant interval change. Findings as noted above. Qualifiers - * PATEINT BEING DISCHARGED WITH ANY OF THE FOLLOWING DIAGNOSIS?: No
--- NOTE | 2017-09-10 13:49 | PDOC PROGRESS REPORT ---
Subjective Progress Note for:: 09/10/17 Reason For Visit: Patient seen today. She is quite comfortable. She denies any history of shortness of breath and the chest pain is very minimal now. No complaints of any fever or chills. Good appetite. She would like to go home. Labs and medications were reviewed. Physical Exam Vital Signs: Temp Pulse Resp BP Pulse Ox 97.8 F 64 17 150/38 H 97 09/10/17 11:16 09/10/17 11:16 09/10/17 11:16 09/10/17 11:16 09/10/17 11:16 Intake & Output 09/09/17 09/10/17 09/11/17 06:59 06:59 06:59 Intake Total 2215 790 354 Output Total 1400 1325 200 Balance 815 -535 154 Weight 117.9 kg General appearance: PRESENT: no acute distress Respiratory exam: PRESENT: clear to auscultation paula. ABSENT: crackles, rhonchi Cardiovascular exam: PRESENT: RRR, +S1, +S2 GI/Abdominal exam: PRESENT: normal bowel sounds, soft. ABSENT: ascites, tenderness Extremities exam: PRESENT: pedal edema - Trace plus Neurological exam: PRESENT: alert, awake, oriented to person, oriented to place , oriented to time Results Laboratory Results: 09/10/17 05:27 09/10/17 05:27 09/10/17 09/10/17 05:27 05:27 WBC 6.9 RBC 3.24 L Hgb 9.8 L Hct 29.6 L MCV 91 MCH 30.2 MCHC 33.0 RDW 15.9 H Plt Count 266 Retic Count (auto) 2.77 Absolute Retic 0.090 Sodium 143.0 Potassium 4.3 Chloride 105 Carbon Dioxide 26 Anion Gap 12 BUN 54 H Creatinine 3.20 H Est GFR ( Amer) 18 L Est GFR (Non-Af Amer) 15 L Glucose 121 H Calcium 8.5 Iron 51.8 TIBC 266 % Saturation 19 Ferritin 87.60 Vitamin B12 265.0 Folate 8.68 09/04/17 09/04/17 09/05/17 15:10 21:17 03:33 Troponin I 0.026 0.033 0.038 NT-Pro-B Natriuret Pep 09/05/17 09/06/17 09/07/17 03:33 08:38 05:18 Troponin I 0.033 0.031 NT-Pro-B Natriuret Pep 7300 H 5470 H Impressions: Lung Scan-VQ NM 09/04/17 16:15 IMPRESSION: NORMAL VENTILATION-PERFUSION LUNG SCAN. NEGATIVE FOR PULMONARY EMBOLI. Chest X-Ray 09/08/17 09:26 IMPRESSION: No significant interval change. Findings as noted above. Assessment & Plan - Diagnosis (1) [id number]-hkfwemf kidney injury Qualifiers: Acute renal failure type: unspecified Chronic kidney disease stage: stage 3 (moderate) Qualified Code(s): N17.9 - Acute kidney failure, unspecified; N18.3 - Chronic kidney disease, stage 3 (moderate); N18.3 - Chronic kidney disease, stage 3 (moderate) Is this a current diagnosis for this admission?: Yes Plan: Overdiuresis. Improving renal numbers. Continue gentle diuresis. I discussed this patient with Dr. Thomas/hospitalist.Renal numbers are improving nicely.She could be discharged home from the renal point of view.If she is discharged like to see her next week in the office with labs.Discharge her on 20 mg of p.o. Lasix. (2) Chronic kidney disease (CKD), stage IV (severe) Plan: She is slowly progressing into CKD 5. Need to get her prepared for HD soon. (3) Hypertension Qualifiers: Hypertension type: essential hypertension Qualified Code(s): I10 - Essential (primary) hypertension Plan: Relatively controlled. Monitor. (4) Chest pain Qualifiers: Chest pain type: unspecified Qualified Code(s): R07.9 - Chest pain, unspecified Is this a current diagnosis for this admission?: Yes (5) Anemia Qualifiers: Anemia type: due to chronic kidney disease Chronic kidney disease stage: stage 3 (moderate) Qualified Code(s): N18.3 - Chronic kidney disease, stage 3 (moderate); D63.1 - Anemia in chronic kidney disease; D63.1 - Anemia in chronic kidney disease Plan: Stable. (6) Diabetes mellitus Qualifiers: Diabetes mellitus type: type 2 Diabetes mellitus community relations representative insulin use: with penitentiary use Diabetes mellitus complication status: with neurologic complications Diabetes mellitus complication detail: with polyneuropathy Qualified Code(s): E11.42 - Type 2 diabetes mellitus with diabetic polyneuropathy; Z79.4 - edge molder (current) use of insulin; Z79.4 - edge molder ( current) use of insulin; Z79.4 - nursing home (current) use of insulin; Z79.4 - nursing home (current) use of insulin Is this a current diagnosis for this admission?: Yes Plan: .Complicated.Adv on tight control.
[2017-09-10] MEDS: ATORVASTATIN CALCIUM 80 MG TABLET PO SCH (23:52)
[2017-09-11 05:59] LABS: ANION GAP 11 (5-19); BLOOD UREA NITROGEN 57 mg/dL (7-20); CARBON DIOXIDE 27 mmol/L (22-30); CHLORIDE 106 mmol/L (98-107); GLUCOSE 116 mg/dL (75-110); POTASSIUM 4.2 mmol/L (3.6-5.0); SODIUM 143.8 mmol/L (137-145)
[2017-09-11] MEDS: HEPARIN SOD (PORCINE) 5,000 UNIT/ML 1 ML SYRINGE SUBCUT SCH (06:41)
[2017-09-11] MEDS: LEVOTHYROXINE SODIUM 0.15 MG TABLET PO SCH (06:41)
[2017-09-11] MEDS: LANSOPRAZOLE 30 MG TAB.RAP.DR PO SCH (06:41)
[2017-09-11] MEDS: HYDRALAZINE HCL 50 MG TABLET PO SCH (06:41)
[2017-09-11] MEDS: RANOLAZINE 500 MG TAB.SR.12H PO SCH (06:41)
[2017-09-11] MEDS: SUCRALFATE SUSP 1 GM/10 ML UDCUP PO SCH (08:12)
[2017-09-11 08:59] VITALS: BP 150/50
[2017-09-11] MEDS: ISOSORBIDE MONONITRATE 60 MG TAB.ER.24H PO SCH (09:32)
[2017-09-11] MEDS: METOPROLOL SUCCINATE 50 MG TAB.SR.24H PO SCH (09:32)
[2017-09-11] MEDS: CLOPIDOGREL BISULFATE 75 MG TABLET PO SCH (09:33)
[2017-09-11] MEDS: ASPIRIN 81 MG TABLET, ENT COATED PO SCH (09:33)
[2017-09-11] MEDS: BUPROPION HCL 75 MG TABLET PO SCH (09:33)
[2017-09-11] MEDS: FUROSEMIDE 20 MG TABLET PO SCH (09:33)
[2017-09-11] MEDS: INSULIN GLARGINE,HUM.REC.ANLOG 300 UNIT/3 ML INSULN.PEN SUBCUT SCH (09:34)
[2017-09-11] MEDS: EZETIMIBE 10 MG TABLET PO SCH (09:34)
[2017-09-11] MEDS: DOCUSATE SODIUM 100 MG CAPSULE PO SCH (09:38)
--- NOTE | 2017-09-11 13:42 | Progress Note ---
Provider Note Provider Note: 09/11 Patient's discharge was delayed yesterday as we were waiting for her portable O2 to be delivered Patient was found a candidate for home O2 She was discharged this morning with plans to be initiated on 09/10 Condition remained stable through the night and clinical status is unchanged
--- NOTE | 2017-09-11 18:41 | PDOC PROGRESS REPORT ---
Subjective Progress Note for:: 09/09/17 Subjective:: Patient seems to be doing better. No further chest pain. Nausea and vomiting improved. Creatinine somewhat lower than yesterday. Patient denying any PND, orthopnea. Patient denied any sustained palpitations, dizziness, syncope, near syncope. Patient denying any fever chills. Patient denying any other significant discomfort. Nuclear stress test results were again reviewed with the patient. Renal functions are improving. Nausea vomiting is improved. 2D echocardiogram results were also reviewed with the patient. Patient is maintaining sinus rhythm. No significant tachycardia or bradycardia noted. Review of systems: Rest review of systems negative. Medications: Medications have been reviewed. Reason For Visit: CHF,CKD,UNSTABLE ANGINA Physical Exam Vital Signs: Temp Pulse Resp BP Pulse Ox 97.8 F 58 L 15 144/47 H 97 09/09/17 07:45 09/09/17 07:45 09/09/17 07:45 09/09/17 07:45 09/09/17 08:00 Intake & Output 09/08/17 09/09/17 09/10/17 06:59 06:59 06:59 Intake Total 1575 2215 Output Total 1775 1400 Balance -200 815 Weight 117.9 kg 117.9 kg Exam: GENERAL: well-nourished and in no acute distress. Alert and oriented x3 HEAD: Atraumatic, normocephalic. EYES: Pupils equal round and reactive to light, extraocular movements intact, sclera anicteric, conjunctiva are normal. ENT: TMs normal, nares patent, oropharynx clear without exudates. Moist mucous membranes. No oral ulcerations or bleeding gums noted NECK: supple without lymphadenopathy. Trachea is central. No cervical or axillary lymphadenopathy noted. Carotids are 2+, JVD WNL LUNGS: Respiration seems nonlabored, no significant accessory muscle action noted. Breath sounds clear to auscultation bilaterally and equal noted. No wheezes rales or rhonchi noted. No significant dullness noted on percussion. CHEST: Palpation of the chest wall shows no significant chest wall tenderness. 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 ABDOMEN: Soft, no significant tenderness appreciated, normoactive bowel sounds. No guarding, no rebound. No rigidity noted . No masses appreciated. EXTREMITIES: Pedal pulses are 1-2+, no calf tenderness noted. No clubbing or cyanosis. Trace to 1+ pedal edema noted NEUROLOGICAL: Focused neurological exam showed no significant neurologic deficit. Normal speech, no focal weakness appreciated. PSYCH: Normal mood, normal affect. Judgment and insight within normal limits. SKIN: No significant ecchymosis, skin is noted to be warm. MUSCULOSKELETAL EXAM: No significant acute joint swelling noted. Results Laboratory Results: 09/09/17 05:14 09/09/17 05:14 09/09/17 09/09/17 05:14 05:14 WBC 6.9 RBC 3.16 L Hgb 9.5 L Hct 28.7 L MCV 91 MCH 30.1 MCHC 33.2 RDW 15.7 H Plt Count 263 Sodium 141.2 Potassium 4.3 Chloride 104 Carbon Dioxide 26 Anion Gap 11 BUN 54 H Creatinine 3.35 H Est GFR ( Amer) 17 L Est GFR (Non-Af Amer) 14 L Glucose 101 Calcium 7.9 L 09/04/17 09/04/17 09/05/17 15:10 21:17 03:33 Troponin I 0.026 0.033 0.038 NT-Pro-B Natriuret Pep 09/05/17 09/06/17 09/07/17 03:33 08:38 05:18 Troponin I 0.033 0.031 NT-Pro-B Natriuret Pep 7300 H 5470 H EKG Comments: Telemetry strip shows sinus rhythm without any sustained tachycardia or bradycardia. Impressions: Lung Scan-VQ NM 09/04/17 16:15 IMPRESSION: NORMAL VENTILATION-PERFUSION LUNG SCAN. NEGATIVE FOR PULMONARY EMBOLI. Chest X-Ray 09/08/17 09:26 IMPRESSION: No significant interval change. Findings as noted above. Assessment & Plan - Diagnosis (1) Chest pain Qualifiers: Chest pain type: unspecified Qualified Code(s): R07.9 - Chest pain, unspecified Is this a current diagnosis for this admission?: Yes (2) Chronic congestive heart failure Qualifiers: Heart failure type: diastolic Qualified Code(s): I50.32 - Chronic diastolic (congestive) heart failure Is this a current diagnosis for this admission?: Yes (3) Chronic kidney disease (CKD) Qualifiers: Chronic kidney disease stage: stage 4 (severe) Qualified Code(s): N18.4 - Chronic kidney disease, stage 4 (severe) Is this a current diagnosis for this admission?: Yes (4) Sleep apnea syndrome Qualifiers: Sleep apnea type: unspecified type Qualified Code(s): G47.30 - Sleep apnea , unspecified Is this a current diagnosis for this admission?: Yes (5) Gastroesophageal reflux Qualifiers: Esophagitis presence: esophagitis presence not specified Qualified Code(s) : K21.9 - Gastro-esophageal reflux disease without esophagitis Is this a current diagnosis for this admission?: Yes - Notes Notes: Chest pain: patient underwent nuclear stress test. These results were reviewed with the patient. Patient questions were answered. No ischemia noted. Chronic congestive heart failure with acute exacerbation: Patient has been treated with diuretic therapy but now BUN and creatinine has risen. Currently diuretics on hold. Continue to monitor volume status very closely. May need to be started back on some diuretics later on. Will be happy to follow patient closely as an outpatient. Chronic kidney disease: It seems renal functions are now noted to be worse. Nephrology have started reevaluating the patient and have initiated some orders.. Sleep apnea syndrome: Patient has been advised to continue nightly CPAP therapy while in the hospital. Patient also advised to use CPAP therapy while taking naps. Gastroesophageal reflux: Patient has a history of it. Recommend double dose proton pump inhibitor. Obesity: Patient has noted recent weight gain most likely due to fluid retention. Patient will benefit on long-term weight loss. Troponin I in the indeterminate range: This was evaluated by a 2D echocardiogram which shows normal LVEF. Nuclear stress test was performed which was noted to be negative. Medical management with aggressive risk factor modification is being advised. Please note patient CODE STATUS is DNR. - Time Time with patient: 15-25 minutes Medications reviewed and adjusted accordingly: Yes
== END 2017-09-11 10:49 | disposition home health service (06) | DRG 291 ==
LOC: ER 10:37 → EH 13:19 → UNDOADMIN 13:19 → EH 13:36 → 3W 16:15
PROVIDERS: ADMIT Internal Medicine; ATTEND Internal Medicine
DX: I13.0 Hypertensive heart and chronic kidney disease with heart failure and stage 1 through stage 4 chronic kidney disease, or unspecified chronic kidney disease (principal); I50.33 Acute on chronic diastolic (congestive) heart failure; N17.9 Acute kidney failure, unspecified; N18.4 Chronic kidney disease, stage 4 (severe); Z68.42 Body mass index [BMI] 45.0-49.9, adult; E11.22 Type 2 diabetes mellitus with diabetic chronic kidney disease; E11.42 Type 2 diabetes mellitus with diabetic polyneuropathy; Z66 Do not resuscitate; J44.9 Chronic obstructive pulmonary disease, unspecified; I25.10 Atherosclerotic heart disease of native coronary artery without angina pectoris; D63.1 Anemia in chronic kidney disease; E03.9 Hypothyroidism, unspecified; K21.9 Gastro-esophageal reflux disease without esophagitis; E66.01 Morbid (severe) obesity due to excess calories; G47.30 Sleep apnea, unspecified; I25.2 Old myocardial infarction; Z86.14 Personal history of Methicillin resistant Staphylococcus aureus infection; Z79.01 Long term (current) use of anticoagulants; Z79.82 Long term (current) use of aspirin; Z79.4 Long term (current) use of insulin; Z79.899 Other long term (current) drug therapy
CPT/HCPCS: 36415; 71045; 71046; 78452; 78582; 80048; 80053; 80061; 82607; 82728; 82746; 82962; 83036; 83540; 83550; 83690; 83735; 83880; 84439; 84443; 84466; 84484; 85025; 85027; 85045; 85610; 93005; 93010; 93017; 93306; 93970; 94660; 99291; A9500; A9540; A9567; J0280; J1644; J1815; J1940; J2270; J2405; J2550; J2785; J7030; Q9969

== ENCOUNTER 2017-09-25 10:21 | Emergency (ER) | payer MEDICARE ==
[2017-09-25] MEDS ORDERED: MORPHINE SULFATE 10 MG/ML INJ IV ONE (10:34)
[2017-09-25] MEDS ORDERED: ONDANSETRON HCL INJ/PF 4 MG/2 ML SDV IV ONE ×2 (10:34→12:17)
[2017-09-25] MEDS ORDERED: NITROGLYCERIN/D5W 50 MG/250 ML RTUINJ IV PRN (10:36)
--- NOTE | 2017-09-25 10:37 | ER Document Report ---
ED Cardiac - General Chief Complaint: Chest Pain Stated Complaint: CHEST PAIN Time Seen by Provider: 09/25/17 10:27 Notes: 62-year-old female to the emergency department via EMS for chief complaint of chest pain. Chest pain began at around 2 AM. Progressively got worse throughout the morning. EMS was notified at around 10:00 this morning. Patient was having 5/5 chest pain. Not relieved with nitro. Nothing making it better. Patient was noted to be having a difficulty breathing. Sweating. Accu -Chek blood sugar over 200. Has hypertension, diabetes, CHF, end-stage renal disease not on dialysis. Patient is a DO NOT RESUSCITATE. TRAVEL OUTSIDE OF THE [place] IN LAST 30 DAYS: No - HPI Patient complains to provider of: Chest pain, Chest tightness - Related Data Allergies/Adverse Reactions: metformin [Metformin] Allergy (Intermediate, Verified 09/25/17 10:56) Nausea Sulfa (Sulfonamide Antibiotics) Allergy (Mild, Verified 09/25/17 10:56) Nausea fluoxetine Allergy (Verified 09/25/17 10:56) trimethoprim Allergy (Verified 09/25/17 10:56) diazepam [From Valium] Adverse Reaction (Verified 09/25/17 10:56) "BOUNCES ME OFF THE STRAUSS, DOES NOT RELAX" Past Medical History - General Information source: Patient - Social History Smoking Status: Never Smoker Cigarette use (# per day): No Frequency of alcohol use: None Drug Abuse: None Lives with: Alone Family History: CAD, CVA, DM, Hypertension, Thyroid Disfunction - Past Medical History Cardiac Medical History: Reports: Hx Congestive Heart Failure, Hx Coronary Artery Disease, Hx Heart Attack, Hx Hypercholesterolemia, Hx Hypertension Pulmonary Medical History: Reports: Hx COPD, Hx Pneumonia, Hx Sleep Apnea Endocrine Medical History: Reports: Hx Diabetes Mellitus Type 1, Hx Diabetes Mellitus Type 2, Hx Hypothyroidism Renal/ Medical History: Reports: Hx Renal Insufficiency. Denies: Hx Peritoneal Dialysis GI Medical History: Reports: Hx Gastroesophageal Reflux Disease Musculoskeltal Medical History: Reports Hx Arthritis Psychiatric Medical History: Reports: Hx Depression Infectious Medical History: Reports: Hx MRSA Past Surgical History: Reports: Hx Cardiac Catheterization, Hx Cardiac Surgery - A hole in the heart closed at age 65 years old., Hx Cholecystectomy, Hx Coronary Stent, Hx Hysterectomy, Hx Open Heart Surgery - ASD or VSD closed at 4 years of age, Hx Orthopedic Surgery - 2 screws in the distal left femur, Hx Thyroid Surgery - Thyroidectomy, Hx Tonsillectomy, Other - Cardiac surgery at age 4, Patent ductus?. Denies: Hx Mastectomy - Immunizations Hx Diphtheria, Pertussis, Tetanus Vaccination: Yes - unknown Hx Pneumococcal Vaccination: 04/23/12 Review of Systems - Review of Systems Constitutional: Chills, Diaphoresis. denies: Fever, Malaise, Weakness EENT: denies: Ear pain, Throat pain, Mouth pain Cardiovascular: Chest pain. denies: Palpitations, Heart racing, Syncope, Dizziness, Lightheaded Respiratory: Short of breath. denies: Cough, Hurts to breathe, Wheezing Gastrointestinal: Nausea, Vomiting. denies: Abdominal pain, Diarrhea Genitourinary: denies: Burning, Dysuria, Discharge Musculoskeletal: denies: Back pain, Gout, Muscle pain Skin: denies: Change in color, Dryness, Lesions, Lumps, Rash Hematologic/Lymphatic: denies: Anemia, Blood clots, Easy bleeding, Easy bruising Neurological/Psychological: denies: Confusion, Weakness, Numbness Physical Exam - Vital signs Vitals: Pulse Ox 95 09/25/17 10:25 Interpretation: Hypertensive - General General appearance: Other - Appearing, diaphoretic in moderate distress In distress: Moderate - HEENT Head: Normocephalic Eyes: Normal Cornea: Normal - Respiratory Respiratory status: Tachypnea. No: Respiratory distress Chest status: Nontender Breath sounds: Normal Chest palpation: Normal - Cardiovascular Rhythm: Regular Heart sounds: Normal auscultation Murmur: No - Abdominal Inspection: Normal Distension: No distension Bowel sounds: Normal Tenderness: Nontender Organomegaly: No organomegaly - Back Back: Normal, Nontender - Extremities General upper extremity: Normal inspection, Nontender, Normal color, Normal ROM , Normal temperature General lower extremity: Normal inspection, Nontender, Edema, Normal color, Normal ROM, Normal temperature. No: Lynn's sign - Neurological Neuro grossly intact: Yes Cognition: Normal Orientation: AAOx4 [place] Coma Scale Eye Opening: Spontaneous [place] Coma Scale Verbal: Oriented [place] Coma Scale Motor: Obeys Commands [place] Coma Scale Total: 15 Speech: Normal Motor strength normal: LUE, RUE, LLE, RLE Sensory: Normal - Psychological Associated symptoms: Normal affect, Normal mood - Skin Skin Temperature: Warm Skin Moisture: Diaphoretic Skin Color: Normal Course - Re-evaluation Re-evalutation: 09/25/17 10:54 Having chest pain, ill-appearing and diaphoretic. Stat chest x-ray and cardiac labs ordered. Placed on monitor. Oxygen. Patient artery received 3 nitroglycerin with no pain relief. Morphine ordered. Nitroglycerin drip ordered. 09/25/17 11:41 Patient feeling much better after getting on a nitro drip. Obvious signs of congestive heart failure on chest x-ray with bilateral pleural effusions. Similar to previous studies. BNP grossly elevated at 7000. Will give a single dose of IV Lasix at this time. Continue with nitro drip. Cardiac labs are pending at this time. 09/25/17 12:33 Chest pain now resolved. Still having nausea. Getting second dose of Zofran. 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 Knows patient well. Dr. Heller recommends transferring patient where she can have evaluation for possible AV graft if needed for dialysis, urgent dialysis with PermCath if needed and cardiac catheterization. Patient has in the past refused transport however this time she states that she would like to go to [facility] in [facility] [place] and that she does want to be evaluated because she started having these chest pains. She still remains a DNR. 09/25/17 13:08 Dr. Shay accepting at [facility]. Will transfer at this time. 09/25/17 14:10 Troponin elevating at this time. Starting on heparin drip. Still maintaining chest pain-free at 5 mcg on the nitroglycerin drip. 09/25/17 15:58 Awaiting transport at this time. Patient remains stable. - Vital Signs Vital signs: Temp Pulse Resp BP Pulse Ox 98.0 F 26 H 151/48 H 95 09/25/17 15:42 09/25/17 15:42 09/25/17 15:42 09/25/17 15:42 - Laboratory Result Diagrams: 09/25/17 10:30 09/25/17 10:30 Laboratory results interpreted by me: 09/25/17 09/25/17 09/25/17 10:30 10:30 10:30 WBC 15.3 H RBC 3.34 L Hgb 10.1 L Hct 30.2 L RDW 15.1 H Seg Neutrophils % 83.0 H Lymphocytes % 8.6 L Absolute Neutrophils 12.7 H APTT Carbon Dioxide 18 L BUN 50 H Creatinine 2.62 H Est GFR ( Amer) 22 L Est GFR (Non-Af Amer) 18 L Glucose 194 H Direct Bilirubin 0.5 H NT-Pro-B Natriuret Pep 6920 H Urine Protein Urine Glucose (UA) 09/25/17 09/25/17 10:30 12:05 WBC RBC Hgb Hct RDW Seg Neutrophils % Lymphocytes % Absolute Neutrophils APTT 36.1 H Carbon Dioxide BUN Creatinine Est GFR ( Amer) Est GFR (Non-Af Amer) Glucose Direct Bilirubin NT-Pro-B Natriuret Pep Urine Protein 100 H Urine Glucose (UA) 50 H - EKG Interpretation by [facility] EKG shows normal: Orla, Intervals, QRS Complexes, ST-T Waves Orla/QRS: RBBB Critical Care Note - Critical Care Note Total time excluding time spent on procedures (mins): 45 Comments: Chest pain, intravenous blood pressure management, consultation with specialist. 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
[2017-09-25 11:05] LABS: ABSOLUTE BASOPHILS # (AUTO) 0.2 10^3/uL (0.0-0.2); ABSOLUTE EOSINOPHILS # (AUTO) 0.1 10^3/uL (0.0-0.6); ABSOLUTE LYMPHOCYTES (AUTO) 1.3 10^3/uL (0.5-4.7); ABSOLUTE NEUT (AUTO) 12.7 10^3/uL (1.7-8.2); BASOPHILS % (AUTO) 1.1 % (0-2); EOSINOPHILS % (AUTO) 0.6 % (0-6); HEMATOCRIT 30.2 % (36.0-47.0); HEMOGLOBIN 10.1 g/dL (12.0-15.5); LYMPHOCYTES % (AUTO) 8.6 % (13-45); MEAN CORPUSCULAR HEMOGLOBIN 30.3 pg (27.0-33.4); MEAN CORPUSCULAR HGB CONC 33.4 g/dL (32.0-36.0); MEAN CORPUSCULAR VOLUME 91 fl (80-97); MONOCYTES % (AUTO) 6.7 % (3-13); PLATELET COUNT 306 10^3/uL (150-450); RED BLOOD COUNT 3.34 10^6/uL (3.72-5.28); RED CELL DISTRIBUTION WIDTH 15.1 % (11.5-14.0); TOTAL CELLS COUNTED % (AUTO) 100 %; WHITE BLOOD COUNT 15.3 10^3/uL (4.0-10.5)
--- NOTE | 2017-09-25 11:07 | RADIOLOGY REPORT (SQ) ---
EXAM DESCRIPTION: CHEST SINGLE VIEW COMPLETED DATE/TIME: 09/25/2017 10:54 am REASON FOR STUDY: chest pain COMPARISON: 09/08/2017 NUMBER OF VIEWS: One view. TECHNIQUE: Single frontal radiographic view of the chest acquired. LIMITATIONS: None. FINDINGS: LUNGS AND PLEURA: Diffuse interstitial edema with moderate bilateral pleural effusions. MEDIASTINUM AND HILAR STRUCTURES: No masses or contour abnormality. HEART AND VASCULATURE: Cardiac enlargement. Vascular congestion. BONES: No acute findings. HARDWARE: None in the chest. OTHER: No other significant finding. IMPRESSION: MILD TO MODERATE INTERSTITIAL EDEMA WITH BILATERAL PLEURAL EFFUSIONS SIMILAR APPEARANCE TO PRIOR STUDY. TECHNICAL DOCUMENTATION: JOB ID: [id number] [employer]- All Rights Reserved Reading location - IP/workstation name: [email or web address]
[2017-09-25 11:32] LABS: ALANINE AMINOTRANSFERASE 29 U/L (9-52); ALBUMIN 3.7 g/dL (3.5-5.0); ALKALINE PHOSPHATASE 109 U/L (38-126); ANION GAP 18 (5-19); ASPARTATE AMINO TRANSFERASE 22 U/L (14-36); BILIRUBIN,DIRECT 0.5 mg/dL (0.0-0.4); BILIRUBIN,TOTAL 0.5 mg/dL (0.2-1.3); BLOOD UREA NITROGEN 50 mg/dL (7-20); CARBON DIOXIDE 18 mmol/L (22-30); CHLORIDE 107 mmol/L (98-107); CREATINE KINASE 66 U/L (30-135); GLUCOSE 194 mg/dL (75-110); POTASSIUM 4.4 mmol/L (3.6-5.0); SODIUM 143.2 mmol/L (137-145)
[2017-09-25 11:40] LABS: CREATINE KINASE MB 1.57 ng/mL (<4.55); TROPONIN I 0.021 ng/mL
[2017-09-25] MEDS ORDERED: FUROSEMIDE INJ/PF 40 MG/4 ML SDV IV ONE (11:41)
[2017-09-25 13:23] LABS: AMORPHOUS SEDIMENT,URINE TRACE /HPF; APPEARANCE,URINE CLOUDY; BILIRUBIN,URINE NEGATIVE (NEGATIVE); COLOR,URINE YELLOW; GLUCOSE, URINE 50 mg/dL (NEGATIVE); KETONES,URINE NEGATIVE (NEGATIVE); LEUKOCYTE ESTERASE,URINE NEGATIVE (NEGATIVE); NITRITE,URINE NEGATIVE (NEGATIVE); PROTEIN,URINE 100 mg/dL (NEGATIVE); URINE SPECIFIC GRAVITY 1.011; UROBILINOGEN,URINE NEGATIVE mg/dL (<2.0)
[2017-09-25] MEDS ORDERED: HEPARIN SOD (PORCINE) 1,000 UNIT/ML 10 ML VIAL IV ONE (13:49)
[2017-09-25] MEDS ORDERED: HEPARIN SODIUM,PORCINE/D5W 25,000 UNIT/250 ML RTUINJ IV PRN (13:49)
[2017-09-25 14:09] LABS: INTERNATIONAL RATION (INR) 1.04; PROTHROMBIN TIME 14.1 SEC (11.4-15.4)
[2017-09-25 14:10] LABS: PARTIAL THROMBOPLASTIN TIME 36.1 SEC (23.5-35.8)
[2017-09-25] MEDS ORDERED: HEPARIN SOD (PORCINE) 1,000 UNIT/ML 10 ML VIAL IV PRN (16:50)
[2017-09-25 17:38] VITALS: BP 149/57
--- NOTE | 2017-09-25 20:10 | EKG REPORT ---
SEVERITY:- ABNORMAL ECG - SINUS RHYTHM IVCD, CONSIDER ATYPICAL RBBB LVH WITH IVCD, LAD AND SECONDARY REPOL ABNRM : Confirmed by: Toni Heller 25-Sep-2017 20:09:17
== END 2017-09-25 17:47 | disposition short-term general hospital (02) ==
LOC: ER 10:21
DX: I21.4 Non-ST elevation (NSTEMI) myocardial infarction (principal); I13.2 Hypertensive heart and chronic kidney disease with heart failure and with stage 5 chronic kidney disease, or end stage renal disease; N18.6 End stage renal disease; I50.9 Heart failure, unspecified; E11.22 Type 2 diabetes mellitus with diabetic chronic kidney disease; I25.10 Atherosclerotic heart disease of native coronary artery without angina pectoris; R07.9 Chest pain, unspecified; R11.0 Nausea; I25.2 Old myocardial infarction; J44.9 Chronic obstructive pulmonary disease, unspecified
CPT/HCPCS: 93005; 99285; 96375; 96365; 96366; 36415; 82553; 82962; 82550; 83690; 85025; 85610; 85730; 80053; 81001; 84484; 83880; 71045; 93010; J1644 ×2; J1940; J2270; J2405; J3490

== ENCOUNTER → 2017-10-21 | Outpatient (CLI) | payer MEDICARE ==
[2017-10-21 09:19] LABS: HEMATOCRIT 28.3 % (36.0-47.0); HEMOGLOBIN 9.6 g/dL (12.0-15.5); MEAN CORPUSCULAR HEMOGLOBIN 30.4 pg (27.0-33.4); MEAN CORPUSCULAR HGB CONC 33.7 g/dL (32.0-36.0); MEAN CORPUSCULAR VOLUME 90 fl (80-97); PLATELET COUNT 353 10^3/uL (150-450); RED BLOOD COUNT 3.14 10^6/uL (3.72-5.28); RED CELL DISTRIBUTION WIDTH 15.3 % (11.5-14.0); WHITE BLOOD COUNT 7.9 10^3/uL (4.0-10.5)
[2017-10-21 09:27] LABS: APPEARANCE,URINE CLEAR; BILIRUBIN,URINE NEGATIVE (NEGATIVE); COLOR,URINE YELLOW; GLUCOSE, URINE 50 mg/dL (NEGATIVE); KETONES,URINE NEGATIVE (NEGATIVE); LEUKOCYTE ESTERASE,URINE TRACE (NEGATIVE); NITRITE,URINE NEGATIVE (NEGATIVE); PROTEIN,URINE >=500 mg/dL (NEGATIVE); URINE SPECIFIC GRAVITY 1.012; UROBILINOGEN,URINE NEGATIVE mg/dL (<2.0)
[2017-10-21 09:53] LABS: ANION GAP 12 (5-19); BLOOD UREA NITROGEN 66 mg/dL (7-20); CALCIUM 8.1 mg/dL (8.4-10.2); CARBON DIOXIDE 24 mmol/L (22-30); CHLORIDE 109 mmol/L (98-107); GLUCOSE 150 mg/dL (75-110); POTASSIUM 5.3 mmol/L (3.6-5.0); SODIUM 144.7 mmol/L (137-145)
== END ==
LOC: OD 08:00
PROVIDERS: ATTEND Internal Medicine Nephrology
DX: I13.0 Hypertensive heart and chronic kidney disease with heart failure and stage 1 through stage 4 chronic kidney disease, or unspecified chronic kidney disease (principal); N18.9 Chronic kidney disease, unspecified; I50.9 Heart failure, unspecified; E87.5 Hyperkalemia; R80.9 Proteinuria, unspecified; D47.2 Monoclonal gammopathy
CPT/HCPCS: 36415; 80048; 81001; 85027

== ENCOUNTER → 2017-11-15 | Outpatient (CLI) | payer MEDICARE ==
[2017-11-15 08:30] LABS: ABSOLUTE BASOPHILS # (AUTO) 0.1 10^3/uL (0.0-0.2); ABSOLUTE EOSINOPHILS # (AUTO) 0.2 10^3/uL (0.0-0.6); ABSOLUTE LYMPHOCYTES (AUTO) 1.6 10^3/uL (0.5-4.7); ABSOLUTE MONOCYTES (AUTO) 0.8 10^3/uL (0.1-1.4); ABSOLUTE NEUT (AUTO) 8.4 10^3/uL (1.7-8.2); HEMATOCRIT 31.2 % (36.0-47.0); HEMOGLOBIN 10.4 g/dL (12.0-15.5); LYMPHOCYTES % (AUTO) 14.5 % (13-45); MEAN CORPUSCULAR HEMOGLOBIN 30.4 pg (27.0-33.4); MEAN CORPUSCULAR HGB CONC 33.4 g/dL (32.0-36.0); MEAN CORPUSCULAR VOLUME 91 fl (80-97); MONOCYTES % (AUTO) 6.9 % (3-13); PLATELET COUNT 283 10^3/uL (150-450); RED BLOOD COUNT 3.43 10^6/uL (3.72-5.28); RED CELL DISTRIBUTION WIDTH 15.4 % (11.5-14.0); SEGMENTED NEUTROPHILS % (AUTO) 75.6 % (42-78); TOTAL CELLS COUNTED % (AUTO) 100 %; WHITE BLOOD COUNT 11.1 10^3/uL (4.0-10.5)
[2017-11-15 08:55] LABS: ALANINE AMINOTRANSFERASE 26 U/L (9-52); ALBUMIN 3.6 g/dL (3.5-5.0); ALKALINE PHOSPHATASE 80 U/L (38-126); ANION GAP 16 (5-19); ASPARTATE AMINO TRANSFERASE 17 U/L (14-36); BILIRUBIN,DIRECT 0.3 mg/dL (0.0-0.4); BILIRUBIN,TOTAL 0.3 mg/dL (0.2-1.3); BLOOD UREA NITROGEN 65 mg/dL (7-20); CARBON DIOXIDE 20 mmol/L (22-30); CHLORIDE 111 mmol/L (98-107); GLUCOSE 166 mg/dL (75-110); PHOSPHORUS 6.5 mg/dL (2.5-4.5); POTASSIUM 4.1 mmol/L (3.6-5.0); SODIUM 146.8 mmol/L (137-145); TOTAL PROTEIN 6.9 g/dL (6.3-8.2)
[2017-11-15 09:01] LABS: APPEARANCE,URINE CLEAR; BILIRUBIN,URINE NEGATIVE (NEGATIVE); COLOR,URINE STRAW; GLUCOSE, URINE 50 mg/dL (NEGATIVE); KETONES,URINE NEGATIVE (NEGATIVE); LEUKOCYTE ESTERASE,URINE NEGATIVE (NEGATIVE); NITRITE,URINE NEGATIVE (NEGATIVE); PROTEIN,URINE 100 mg/dL (NEGATIVE); URINE SPECIFIC GRAVITY 1.008; UROBILINOGEN,URINE NEGATIVE mg/dL (<2.0)
[2017-11-15 09:02] LABS: UR PRO/CREAT RATIO RESULT 2.9 mg/mg (0.0-0.2); URINE PROTEIN 73.3 mg/dL (<12)
== END ==
LOC: OD 08:02
PROVIDERS: ATTEND Internal Medicine Nephrology
DX: I12.9 Hypertensive chronic kidney disease with stage 1 through stage 4 chronic kidney disease, or unspecified chronic kidney disease (principal); N18.4 Chronic kidney disease, stage 4 (severe); E11.9 Type 2 diabetes mellitus without complications; R80.9 Proteinuria, unspecified; D64.9 Anemia, unspecified
CPT/HCPCS: 36415; 80053; 81001; 82570; 83735; 83970; 84100; 84156; 85025

== ENCOUNTER → 2017-12-29 | Outpatient (CLI) | payer MEDICARE ==
[2017-12-29 08:55] LABS: HEMATOCRIT 31.2 % (36.0-47.0); HEMOGLOBIN 10.3 g/dL (12.0-15.5); MEAN CORPUSCULAR HGB CONC 33.1 g/dL (32.0-36.0); MEAN CORPUSCULAR VOLUME 91 fl (80-97); PLATELET COUNT 387 10^3/uL (150-450); RED BLOOD COUNT 3.43 10^6/uL (3.72-5.28); RED CELL DISTRIBUTION WIDTH 14.8 % (11.5-14.0); WHITE BLOOD COUNT 9.7 10^3/uL (4.0-10.5)
[2017-12-29 09:09] LABS: ANION GAP 16 (5-19); BLOOD UREA NITROGEN 55 mg/dL (7-20); CALCIUM 8.8 mg/dL (8.4-10.2); CARBON DIOXIDE 19 mmol/L (22-30); CHLORIDE 112 mmol/L (98-107); GLUCOSE 75 mg/dL (75-110); PHOSPHORUS 5.5 mg/dL (2.5-4.5); SODIUM 147.4 mmol/L (137-145)
== END ==
LOC: OD 08:14
PROVIDERS: ATTEND Internal Medicine Nephrology
DX: N18.4 Chronic kidney disease, stage 4 (severe) (principal); I50.9 Heart failure, unspecified; R80.9 Proteinuria, unspecified; E87.5 Hyperkalemia
CPT/HCPCS: 36415; 80048; 83970; 84100; 85027

== ENCOUNTER 2018-04-29 22:29 | Emergency (ER) | payer MEDICARE ==
[2018-04-29 22:57] LABS: ABSOLUTE BASOPHILS # (AUTO) 0.1 10^3/uL (0.0-0.2); ABSOLUTE EOSINOPHILS # (AUTO) 0.2 10^3/uL (0.0-0.6); ABSOLUTE LYMPHOCYTES (AUTO) 0.9 10^3/uL (0.5-4.7); ABSOLUTE MONOCYTES (AUTO) 0.8 10^3/uL (0.1-1.4); BASOPHILS % (AUTO) 1.1 % (0-2); EOSINOPHILS % (AUTO) 1.5 % (0-6); HEMATOCRIT 30.5 % (36.0-47.0); HEMOGLOBIN 10.6 g/dL (12.0-15.5); LYMPHOCYTES % (AUTO) 7.9 % (13-45); MEAN CORPUSCULAR HEMOGLOBIN 31.8 pg (27.0-33.4); MEAN CORPUSCULAR HGB CONC 34.6 g/dL (32.0-36.0); MEAN CORPUSCULAR VOLUME 92 fl (80-97); MONOCYTES % (AUTO) 7.2 % (3-13); PLATELET COUNT 247 10^3/uL (150-450); RED BLOOD COUNT 3.32 10^6/uL (3.72-5.28); SEGMENTED NEUTROPHILS % (AUTO) 82.3 % (42-78); TOTAL CELLS COUNTED % (AUTO) 100 %
[2018-04-29 23:13] LABS: ANION GAP 14 (5-19); BLOOD UREA NITROGEN 71 mg/dL (7-20); CALCIUM 8.1 mg/dL (8.4-10.2); CARBON DIOXIDE 16 mmol/L (22-30); CHLORIDE 111 mmol/L (98-107); GLUCOSE 197 mg/dL (75-110); POTASSIUM 5.6 mmol/L (3.6-5.0); SODIUM 140.9 mmol/L (137-145)
--- NOTE | 2018-04-29 23:21 | RADIOLOGY REPORT (SQ) ---
EXAM DESCRIPTION: AP view of the chest CLINICAL HISTORY:62 years Female, cp Comparison: None FINDINGS: No focal lung consolidation. No pleural effusion. No pneumothorax. The cardiac silhouette is mildly enlarged. No acute osseous abnormality. Surgical clips are present in the lower neck bilaterally. IMPRESSION: No acute findings. No focal lung consolidation.
[2018-04-29] MEDS ORDERED: ATORVASTATIN CALCIUM 80 MG TABLET PO ONE (23:32)
[2018-04-29] MEDS ORDERED: HEPARIN SOD (PORCINE) 1,000 UNIT/ML 10 ML VIAL IV ONE (23:32)
[2018-04-29] MEDS ORDERED: HEPARIN SODIUM,PORCINE/D5W 25,000 UNIT/250 ML RTUINJ IV PRN (23:32)
[2018-04-29] MEDS ORDERED: ASPIRIN 81 MG TABLET, CHEWABLE PO ONE (23:32)
--- NOTE | 2018-04-30 00:05 | ER Document Report ---
ED General - General Stated Complaint: CHEST PAIN Time Seen by Provider: 04/29/18 22:41 Notes: Patient is a 62-year-old female with a past medical history of obesity, hypertension, hyperlipidemia, type 1 diabetes with insulin dependence, coronary artery disease without a history of stent placement or bypass grafting, who presents with left-sided chest pressure without radiation of the pain with associated nausea. The patient reports that these symptoms started several hours prior to arrival. She states that she took a nitroglycerin at home which resolved her chest pain but it did recur approximately 1 hour later prompting her to contact EMS. She states that in route to the hospital she received multiple doses of nitroglycerin and that her chest pain has been gone since that time. No obvious trigger or worsening factor for the pain. She has a history of chest pain in the past but denies ever having such severe symptoms. She has not contacted her primary care physician regarding today's concerns. TRAVEL OUTSIDE OF THE [place] IN LAST 30 DAYS: No - Related Data Allergies/Adverse Reactions: metformin [Metformin] Allergy (Intermediate, Verified 09/25/17 10:56) Nausea Sulfa (Sulfonamide Antibiotics) Allergy (Mild, Verified 09/25/17 10:56) Nausea fluoxetine Allergy (Verified 09/25/17 10:56) trimethoprim Allergy (Verified 09/25/17 10:56) diazepam [From Valium] Adverse Reaction (Verified 09/25/17 10:56) "BOUNCES ME OFF THE STRAUSS, DOES NOT RELAX" Past Medical History - General Information source: Patient - Social History Smoking Status: Never Smoker Frequency of alcohol use: None Drug Abuse: None Family History: CAD, CVA, DM, Hypertension, Thyroid Disfunction Patient has suicidal ideation: No Patient has homicidal ideation: No - Past Medical History Cardiac Medical History: Reports: Hx Congestive Heart Failure, Hx Coronary Artery Disease, Hx Heart Attack, Hx Hypercholesterolemia, Hx Hypertension Pulmonary Medical History: Reports: Hx COPD, Hx Pneumonia, Hx Sleep Apnea Endocrine Medical History: Reports: Hx Diabetes Mellitus Type 1, Hx Diabetes Mellitus Type 2, Hx Hypothyroidism Renal/ Medical History: Reports: Hx Renal Insufficiency. Denies: Hx Peritoneal Dialysis GI Medical History: Reports: Hx Gastroesophageal Reflux Disease Musculoskeletal Medical History: Reports Hx Arthritis Psychiatric Medical History: Reports: Hx Depression Infectious Medical History: Reports: Hx MRSA Past Surgical History: Reports: Hx Cardiac Catheterization, Hx Cardiac Surgery - A hole in the heart closed at age 65 years old., Hx Cholecystectomy, Hx Coronary Stent, Hx Hysterectomy, Hx Open Heart Surgery - ASD or VSD closed at 4 years of age, Hx Orthopedic Surgery - 2 screws in the distal left femur, Hx Thyroid Surgery - Thyroidectomy, Hx Tonsillectomy, Other - Cardiac surgery at age 4, Patent ductus?. Denies: Hx Mastectomy - Immunizations Hx Diphtheria, Pertussis, Tetanus Vaccination: Yes - unknown Hx Pneumococcal Vaccination: 04/23/12 Review of Systems - Review of Systems Notes: Constitutional: Negative for fever. HENT: Negative for sore throat. Eyes: Negative for visual changes. Cardiovascular: Positive for chest pain. Respiratory: Negative for shortness of breath. Gastrointestinal: Negative for abdominal pain, vomiting or diarrhea. Genitourinary: Negative for dysuria. Musculoskeletal: Negative for back pain. Skin: Negative for rash. Neurological: Negative for headaches, weakness or numbness. 10 point ROS negative except as marked above and in HPI. Physical Exam - Vital signs Vitals: Pulse Ox 98 04/29/18 22:43 Notes: PHYSICAL EXAMINATION: GENERAL: Well-appearing, well-nourished and in no acute distress. HEAD: Atraumatic, normocephalic. EYES: Pupils equal round and reactive to light, extraocular movements intact, sclera anicteric, conjunctiva are normal. ENT: nares patent, oropharynx clear without exudates. Moist mucous membranes. NECK: Normal range of motion, supple without lymphadenopathy LUNGS: Breath sounds clear to auscultation bilaterally and equal. No wheezes rales or rhonchi. HEART: Regular rate and rhythm, 3 out of 6 systolic ejection murmur ABDOMEN: Soft, nontender, normoactive bowel sounds. No guarding, no rebound. No masses appreciated. EXTREMITIES: Normal range of motion, no pitting or edema. No cyanosis. NEUROLOGICAL: No focal neurological deficits. Moves all extremities spontaneously and on command. PSYCH: Normal mood, normal affect. SKIN: Warm, Dry, normal turgor, no rashes or lesions noted. Course - Re-evaluation Re-evalutation: 04/30/18 00:03 Patient presents with an episode of chest pain that is currently resolved after receiving multiple doses of nitroglycerin by EMS and from her home dosing. This was a left-sided chest pressure with associated shortness of breath and nausea. The patient's troponin is elevated at 0.36 and she has no previous history of troponin elevations despite her chronic kidney disease. EKG shows a right bundle branch block, no acute ST changes, unchanged from previous. I have contacted [facility] and have requested transfer. The patient has received aspirin, atorvastatin and has been started on heparin. 04/30/18 00:33 I have discussed this case with the attending rounding machine operator on-call at [facility] who has accepted the patient. 04/30/18 03:03 Patient remains stable and appropriate for transport - Vital Signs Vital signs: Temp Pulse Resp BP Pulse Ox 98.2 F 71 24 H 137/50 H 98 04/30/18 00:33 04/30/18 00:05 04/30/18 02:01 04/30/18 02:01 04/30/18 02:01 - Laboratory Result Diagrams: 04/29/18 22:50 04/29/18 22:50 Laboratory results interpreted by me: 04/29/18 04/29/18 04/29/18 22:50 22:50 22:50 WBC 11.0 H RBC 3.32 L Hgb 10.6 L Hct 30.5 L Seg Neutrophils % 82.3 H Lymphocytes % 7.9 L Absolute Neutrophils 9.0 H APTT 38.4 H Potassium 5.6 H Chloride 111 H Carbon Dioxide 16 L BUN 71 H Creatinine 3.12 H Est GFR ( Amer) 18 L Est GFR (Non-Af Amer) 15 L Glucose 197 H Calcium 8.1 L Urine Protein Urine Glucose (UA) 04/30/18 00:05 WBC RBC Hgb Hct Seg Neutrophils % Lymphocytes % Absolute Neutrophils APTT Potassium Chloride Carbon Dioxide BUN Creatinine Est GFR ( Amer) Est GFR (Non-Af Amer) Glucose Calcium Urine Protein 100 H Urine Glucose (UA) 50 H - Diagnostic Test Radiology reviewed: Image reviewed, Reports reviewed Radiology results interpreted by me: 04/30/18 00:04 Chest x-ray: No acute infiltrate or pneumothorax - EKG Interpretation by Me Additional EKG results interpreted by me: 04/30/18 00:04 Sinus rhythm, rate 98. Right bundle branch block. No ST elevations or depressions. LVH is present. [id number] Discharge - Discharge Clinical Impression: NSTEMI (non-ST elevated myocardial infarction) Chest pain Qualifiers: Chest pain type: unspecified Qualified Code(s): R07.9 - Chest pain, unspecified Condition: Fair Disposition: [facility] Referrals: Josh MCDANIEL MD [Primary Care Provider] - Follow up as needed
[2018-04-30 00:13] LABS: INTERNATIONAL RATION (INR) 1.12
[2018-04-30 00:14] LABS: PARTIAL THROMBOPLASTIN TIME 38.4 SEC (23.5-35.8)
[2018-04-30 00:26] LABS: APPEARANCE,URINE CLEAR; BILIRUBIN,URINE NEGATIVE (NEGATIVE); COLOR,URINE STRAW; GLUCOSE, URINE 50 mg/dL (NEGATIVE); KETONES,URINE NEGATIVE (NEGATIVE); LEUKOCYTE ESTERASE,URINE NEGATIVE (NEGATIVE); NITRITE,URINE NEGATIVE (NEGATIVE); PROTEIN,URINE 100 mg/dL (NEGATIVE); UROBILINOGEN,URINE NEGATIVE mg/dL (<2.0)
[2018-04-30 02:15] VITALS: BP 137/50
[2018-04-30] MEDS ORDERED: HEPARIN SOD (PORCINE) 1,000 UNIT/ML 10 ML VIAL IV PRN (02:33)
--- NOTE | 2018-04-30 09:12 | EKG REPORT ---
SEVERITY:- ABNORMAL ECG - SINUS RHYTHM RIGHT BUNDLE BRANCH BLOCK LVH WITH IVCD AND SECONDARY REPOL ABNRM : Confirmed by: Toni Heller 30-Apr-2018 09:10:48
== END 2018-04-30 03:18 | disposition short-term general hospital (02) ==
LOC: ER 22:29
DX: I21.4 Non-ST elevation (NSTEMI) myocardial infarction (principal); R07.9 Chest pain, unspecified; E10.9 Type 1 diabetes mellitus without complications; Z79.4 Long term (current) use of insulin; I25.10 Atherosclerotic heart disease of native coronary artery without angina pectoris; R11.0 Nausea; I50.9 Heart failure, unspecified; I11.0 Hypertensive heart disease with heart failure; J44.9 Chronic obstructive pulmonary disease, unspecified
CPT/HCPCS: 93005; 96376; 99285; 96365; 96366; 36415; 85025; 85610; 85730; 80048; 81001; 84484; 71045; 93010; J1644 ×2; A9270

== ENCOUNTER 2018-06-13 09:57 | Day surgery (SDC) | payer MEDICARE ==
[2018-06-08 08:23] LABS: HEMATOCRIT 31.6 % (36.0-47.0); HEMOGLOBIN 10.7 g/dL (12.0-15.5); MEAN CORPUSCULAR HEMOGLOBIN 31.8 pg (27.0-33.4); MEAN CORPUSCULAR VOLUME 94 fl (80-97); PLATELET COUNT 271 10^3/uL (150-450); RED BLOOD COUNT 3.38 10^6/uL (3.72-5.28); RED CELL DISTRIBUTION WIDTH 14.5 % (11.5-14.0); WHITE BLOOD COUNT 9.7 10^3/uL (4.0-10.5)
[2018-06-08 08:54] LABS: ANION GAP 11 (5-19); BLOOD UREA NITROGEN 26 mg/dL (7-20); CALCIUM 8.1 mg/dL (8.4-10.2); CARBON DIOXIDE 30 mmol/L (22-30); CHLORIDE 97 mmol/L (98-107); GLUCOSE 171 mg/dL (75-110); POTASSIUM 5.2 mmol/L (3.6-5.0); SODIUM 137.6 mmol/L (137-145)
--- NOTE | 2018-06-08 17:54 | EKG REPORT ---
SEVERITY:- ABNORMAL ECG - SINUS RHYTHM RIGHT BUNDLE BRANCH BLOCK LVH WITH IVCD AND SECONDARY REPOL ABNRM : Confirmed by: Toni Heller 08-Jun-2018 17:54:24
[~2018-06-13 09:57] MED LIST: BACITRACIN INJ 50,000 UNIT VIAL ONE; BUPIVACAINE HCL 0.25 % INJ/PF (2.5 MG/1 ML) 30 ML VIAL ONE; HEPARIN SOD (PORCINE) 1,000 UNIT/ML 10 ML VIAL ONE; LIDOCAINE 0.5% INJ-PF (5 MG/ML) 50 ML SDV ONE; LIDOCAINE 1% INJ-PF (10 MG/ML) 30 ML SDV ONE
[2018-06-13] MEDS ORDERED: CEFAZOLIN 1 GM/D5W RTU 1 GM/50 ML RTUPB IV ONE (10:17)
[2018-06-13 11:19] LABS: INTERNATIONAL RATION (INR) 0.89; PROTHROMBIN TIME 12.5 SEC (11.4-15.4)
[2018-06-13 11:20] LABS: PARTIAL THROMBOPLASTIN TIME 26.5 SEC (23.5-35.8)
[2018-06-13] MEDS ORDERED: LIDOCAINE 2% INJ-PF (20 MG/ML) 10 ML AMPUL ONE (12:09)
[2018-06-13] MEDS ORDERED: MIDAZOLAM 2 MG/2 ML INJ ONE ×2 (12:10→13:29)
[2018-06-13] MEDS ORDERED: FENTANYL CITRATE INJ/PF 100 MCG/2 ML AMPUL ONE ×2 (12:10→12:32)
[2018-06-13] MEDS ORDERED: PROPOFOL INJ 200 MG/20 ML VIAL IV ONE ×2 (12:10→12:32)
[2018-06-13] MEDS ORDERED: ONDANSETRON HCL INJ/PF 4 MG/2 ML SDV ONE (12:11)
[2018-06-13] MEDS ORDERED: KETAMINE HCL INJ 500 MG/10 ML VIAL ONE (12:31)
[2018-06-13] MEDS ORDERED: NITROGLYCERIN/D5W 0 MG/0 ML RTUINJ IV ONE (12:45)
[2018-06-13] MEDS ORDERED: DIPHENHYDRAMINE HCL 50 MG/ML VIAL IV PRN (14:04)
[2018-06-13] MEDS ORDERED: ONDANSETRON HCL INJ/PF 4 MG/2 ML SDV IV PRN (14:04)
[2018-06-13] MEDS ORDERED: MEPERIDINE HCL/PF INJ 25 MG/1 ML DISP.SYRIN IV PRN (14:04)
[2018-06-13] MEDS ORDERED: FENTANYL CITRATE INJ/PF 100 MCG/2 ML AMPUL IV PRN ×3 (14:04)
--- NOTE | 2018-06-13 14:53 | Discharge Summary ---
Discharge Summary (SDC) - Discharge Final Diagnosis: #1 end-stage renal disease on hemodialysis. 2. Permacatheter in place. 3. Diabetes mellitus type 2. 4. Morbid obesity. 5. Hypertension. Date of Surgery: 06/13/18 Discharge Date: 06/13/18 Condition: Fair Forms: ASU Anesthesia D/C Instruction, Discharge POC-Surgical Service Treatment or Instructions: Discharge home [after recovery per ASU criteria]. Diet , [renal],, diabetic, as tolerated, when fully awake advance as tolerated. Activities within moderation encouraged. Follow up in my office by appointment in about [1 week]. Call for appointment. Leave wounds [covered], [keep clean and dry, until office visit in 1 week]. Hold of on school/work [until evaluation in office]. Meds per med rec. Percocet. May shower [in 48 hrs], [try to keep operated area as dry as possible]. Prescriptions: Oxycodone HCl/Acetaminophen [Percocet 5-325 mg Tablet] 1 tab PO ASDIR PRN #15 tab PRN Reason: Referrals: VAHE OCASIO MD [ACTIVE STAFF] - Discharge Diet: Other (Comments) - Renal, diabetic. Respiratory Treatments at Home: Deep Breathing/Coughing Discharge Activity: Activity As Tolerated Report the Following to Your Physician Immediately: Shortness of Breath
--- NOTE | 2018-06-13 14:59 | Operative Report ---
Operative Report DATE OF SURGERY: 06/13/18 PREOPERATIVE DIAGNOSIS: #1 end-stage renal disease on hemodialysis. 2. Permac atheter in place. 3. Diabetes mellitus type 2. 4. Morbid obesity. 5. Hypertension. POSTOPERATIVE DIAGNOSIS: #1 end-stage renal disease on hemodialysis. 2. Permacatheter in place. 3. Diabetes mellitus type 2. 4. Morbid obesity. 5. Hypertension. OPERATION: Insertion of brachial vein to brachial artery fistula, left arm, first stage. SURGEON: VAHE COLON SOFTWARE RELEASE ENGINEER: None. ANESTHESIA: LMAC TISSUE REMOVED OR ALTERED: Not applicable. COMPLICATIONS: None. ESTIMATED BLOOD LOSS: 5 mL. INTRAOPERATIVE FINDINGS: Of really incredibly small veins. Somuch so that this patient needed a femoral line in order to gain IV access dependably for the procedure. Survey of her veins, in reference to vein mapping showed a really small basilic vein. The brachial brachial fistula first stage was therefore elected and done. The artery was of significant disease with calcification and thickened intima. The adjacent brachial vein is. And the more superficial of t hem was anastomosed. The end result is a fistula which seems to be functioning adequately with slurred waveform the proximal brachial and almost continuous waveform in the anastomosed vein. Distally multiphasic. It is hoped that this vein will develop sufficiently to about 7 mm or so and allow for second stage transposition in about a month. In addition quite dense adventitia and adhesions were noted such as of the plane of the reach was almost eliminated. This certainly adds to the findings of quite significant atherosclerotic disease PROCEDURE: Operative Report PROCEDURE: After reviewing the procedure with the patient, [she] was taken to the operating room. The patient was sedated and the left upper extremity] prepared with chlorhexidine and draped out with sterile linen. After the "" universal timeout", in which it was verified that the patient [received IV antibiotics] the procedure commenced. The sterilely sheathed ultrasound probe was used to evaluate the left upper venous and arterial systems, pertinent to the previously done vein mapping. Local anesthesia was infiltrated and a longitudinal incision made over the lower arm near the antecubital fossa. Dissection proceeded through the subcutaneous tissues down to the brachial vessels. The vein was dissected out proximally and distally for about 4 cm. Likewise major branches. The brachial artery dissected out for a distance of about 1.5 cm. Rubber loops were placed on either end. The patient was given 2500 units of heparin intravenously. Coronary dilators were accepted up to 2 mm without trying for any widened dimension. Easily 15 cm of the arm the artery was controlled proximally and distally with rubber loops. An arteriotomy approximately [1.5 cm] in length was made, the artery was irrigated proximally and distally with heparinized solution. The transected vein was now spatulated, it was then anastomosed end to end to side into the brachial artery. This was done using a continuous suture of 6-0 Prolene. Controls of the fistula were now released and it was analyzed using a Doppler probe. Hemostasis was secured once optimal function was assured, the wound was irrigated with antibiotic containing solution and closed. The redundant vein was now transposed into the subcutaneous tissue laterally, to facilitate second stage. A 15 [place] Riley drain was now inserted inferior medially and anchored using 3-0 PDS. Closure was done using interrupted 3-0 PDS for the subcutaneous tissues. The skin was closed using a continuous subcutaneous suture of 4-0 Monocryl which was reinforced with Steri- Strips over benzoin. This allowed external auscultation of the fistula. Auscultation was [satisfactory]. The procedure was concluded by applying a Kerlix dressing over the surgical site. DICTATING PHYSICIAN: VAHE OCASIO M.D.
--- NOTE | 2018-06-13 15:01 | Operative Report ---
Operative Report DATE OF SURGERY: 06/13/18 PREOPERATIVE DIAGNOSIS: #1 end-stage renal disease on hemodialysis. 2. Permac atheter in place. 3. Diabetes mellitus type 2. 4. Morbid obesity. 5. Hypertension. POSTOPERATIVE DIAGNOSIS: #1 end-stage renal disease on hemodialysis. 2. Permacatheter in place. 3. Diabetes mellitus type 2. 4. Morbid obesity. 5. Hypertension. OPERATION: Ultrasound-guided insertion of right femoral triple-lumen catheter. SURGEON: VAHE COLON COMPUTER HELP DESK SPECIALIST: None. ANESTHESIA: Local TISSUE REMOVED OR ALTERED: Not applicable. COMPLICATIONS: None. ESTIMATED BLOOD LOSS: 5 mL. INTRAOPERATIVE FINDINGS: Of a satisfactory right femoral vein which accepted the instrumentation. Easy egress of blood and ingress of heparinized solution through all 3 ports. PROCEDURE: The patient was positioned supine at bedside. The[right groin] and adjacent areas were prepared with chlorhexidine and draped out with sterile linen. After the universal timeout the procedure commenced. A steriley sheathed ultrasound probe was used to evaluate the [right femoral vein]. Local anesthesia was infiltrated adjacent to the probe. Access into the right femoral was accomplished using a micropuncture needle followed, by micropuncture wire and then with a micropuncture catheter. This was followed by introduction of a 0.035 guidewire, the skin opening was enlarged slightly, serially larger dilators were now placed followed by introduction of a triple-lumen catheter. All of these transitions were smooth. Each lumen was aspirated of blood and irrigated with heparinized solution. The catheter was now sutured to the skin using 3-0 nylon. A Bio A patch was now applied, followed by sterile dressings. Caps were placed on the end of the each of the lumens. The procedure concluded. Copies dictated operative report to Dr. Vahe Mays MD.
[2018-06-13 16:33] VITALS: BP 159/87
== END 2018-06-13 16:25 | disposition home or self-care (01) ==
LOC: OROUT 09:57
PROVIDERS: ATTEND Surgery
DX: I13.2 Hypertensive heart and chronic kidney disease with heart failure and with stage 5 chronic kidney disease, or end stage renal disease (principal); I50.9 Heart failure, unspecified; N18.6 End stage renal disease; E11.22 Type 2 diabetes mellitus with diabetic chronic kidney disease; Z99.2 Dependence on renal dialysis; E78.00 Pure hypercholesterolemia, unspecified; E89.0 Postprocedural hypothyroidism; D64.9 Anemia, unspecified; M81.0 Age-related osteoporosis without current pathological fracture; Z79.899 Other long term (current) drug therapy; E66.01 Morbid (severe) obesity due to excess calories; I25.10 Atherosclerotic heart disease of native coronary artery without angina pectoris; J44.9 Chronic obstructive pulmonary disease, unspecified; Z95.1 Presence of aortocoronary bypass graft; Z68.41 Body mass index [BMI] 40.0-44.9, adult; Z79.4 Long term (current) use of insulin; Z88.8 Allergy status to other drugs, medicaments and biological substances; Z88.2 Allergy status to sulfonamides; Z88.3 Allergy status to other anti-infective agents
CPT/HCPCS: 93005; 36415 ×2; 82962; 84132; 85027; 85610; 85730; 80048; 93010; 36821; C1751; C1752; J2250; J3490 ×4; J0690; J3010; J1644; J2405; J2704; J1642; 1844

== ENCOUNTER 2018-06-20 09:07 | Emergency (ER) | payer MEDICARE ==
[2018-06-20] MEDS ORDERED: HYDROCODONE/ACETAMINOPHEN 5-325 MG TABLET PO ONE (09:46)
--- NOTE | 2018-06-20 11:12 | RADIOLOGY REPORT (SQ) ---
EXAM DESCRIPTION: FEMUR LEFT COMPLETED DATE/TIME: 06/20/2018 11:00 am REASON FOR STUDY: fall injury left thigh pain, left femur pain COMPARISON: Plain films Left knee same date NUMBER OF VIEWS: Two views. TECHNIQUE: Two radiographic images acquired of the left femur to include hip and knee in at least on e projection. LIMITATIONS: Obese patient, limited detail AP left hip due to beam scatter FINDINGS: MINERALIZATION: Normal. BONES: No acute fracture. No worrisome bone lesions. SOFT TISSUES: No obvious swelling or foreign body. OTHER: Bold orthopedic hardware distal left femur from healed distal femoral fracture. IMPRESSION: No acute fracture or malalignment. Old healed distal femoral fracture with 2 lag screws present. TECHNICAL DOCUMENTATION: JOB ID: [id number] [employer]- All Rights Reserved Reading location - IP/workstation name: [email or web address]
--- NOTE | 2018-06-20 11:13 | RADIOLOGY REPORT (SQ) ---
EXAM DESCRIPTION: KNEE LEFT 4 VIEW COMPLETED DATE/TIME: 06/20/2018 11:00 am REASON FOR STUDY: fall injury, left knee pain COMPARISON: Left femur films same date NUMBER OF VIEWS: Four views. TECHNIQUE: AP, lateral, and both oblique radiographic images acquired of the left knee. LIMITATIONS: None. FINDINGS: MINERALIZATION: Normal. BONES: No acute fracture or dislocation. No worrisome bone lesions. Old healed left distal femoral fracture with 2 lag screws in the distal left femoral metaphysis. JOINT: Small suprapatellar knee joint effusion. Tricompartment osteoarthritis with joint space narro wing. SOFT TISSUES: No soft tissue swelling. No radio-opaque foreign body. Atherosclerotic arterial vascu lar calcification OTHER: No other significant finding. IMPRESSION: No acute fracture or malalignment Small suprapatellar knee joint effusion TECHNICAL DOCUMENTATION: JOB ID: [id number] [employer]- All Rights Reserved Reading location - IP/workstation name: [email or web address]
--- NOTE | 2018-06-20 11:15 | RADIOLOGY REPORT (SQ) ---
EXAM DESCRIPTION: KNEE RIGHT 4 VIEWS COMPLETED DATE/TIME: 06/20/2018 11:00 am REASON FOR STUDY: fall injury, right knee pain COMPARISON: None. NUMBER OF VIEWS: Four views. TECHNIQUE: AP, lateral, and both oblique radiographic images acquired of the right knee. LIMITATIONS: None. FINDINGS: MINERALIZATION: Normal. BONES: No acute fracture or dislocation. No worrisome bone lesions. JOINT: Small suprapatellar knee joint effusion. Minimal patellofemoral and lateral compartment joint space narrowing SOFT TISSUES: No soft tissue swelling. No radio-opaque foreign body. Atherosclerotic arterial vascu lar calcification OTHER: No other significant finding. IMPRESSION: No acute fracture or malalignment. Small suprapatellar knee joint effusion TECHNICAL DOCUMENTATION: JOB ID: [id number] [employer]- All Rights Reserved Reading location - IP/workstation name: [email or web address]
--- NOTE | 2018-06-20 11:16 | RADIOLOGY REPORT (SQ) ---
EXAM DESCRIPTION: T SPINE AP/LAT COMPLETED DATE/TIME: 06/20/2018 11:00 am REASON FOR STUDY: fall injury, thoracic spine pain COMPARISON: Two-view chest 09/04/2017 NUMBER OF VIEWS: Two views. TECHNIQUE: AP and lateral radiographic images acquired of the thoracic spine. LIMITATIONS: None. FINDINGS: MINERALIZATION: Normal. ALIGNMENT: Normal. No scoliosis. VERTEBRAE: No fracture or bone lesion. Maintained height, normal segmentation. DISCS: Diffuse thoracic spine disc loss of height with anterior and rightward osteophyte formation HARDWARE: Clips post thyroidectomy. Right jugular central venous dialysis catheter. MEDIASTINUM AND SOFT TISSUES: Cardiomegaly VISUALIZED LUNG KEARNEY: Clear. OTHER: No other significant finding. IMPRESSION: No acute findings TECHNICAL DOCUMENTATION: JOB ID: [id number] [employer]- All Rights Reserved Reading location - IP/workstation name: SAM
--- NOTE | 2018-06-20 11:54 | ER Document Report ---
HPI - HPI Patient complains to provider of: Knee pain Time Seen by Provider: 06/20/18 09:37 Onset: This morning Onset/Duration: Sudden Quality of pain: Achy Pain Level: 4 Context: Patient states she tripped over a blanket and fell landing on both knees. Patient complains of bilateral knee pain left worse than right. Patient denies any head injury loss of consciousness nausea or vomiting. Patient complains of difficulty with ambulation. Associated Symptoms: Other - Bilateral knee pain. denies: Chest pain, Nonproductive cough, Fever Exacerbated by: Standing, Movement, Walking Relieved by: Denies Similar symptoms previously: No Recently seen / treated by doctor: Yes - Recently had a dialysis shunt placed - ROS ROS below otherwise negative: Yes - CONSTITUTIONAL Constitutional: DENIES: Fever, Chills - NEURO Neurology: DENIES: Headache, Weakness - GASTROINTESTINAL Gastrointestinal: DENIES: Nausea, Patient vomiting - REPRODUCTIVE Reproductive: DENIES: : - MUSCULOSKELETAL Musculoskeletal: REPORTS: Extremity pain - left knee - DERM Skin Color: Ecchymosis Skin Problems: None Past Medical History - General Information source: Patient - Social History Smoking Status: Never Smoker Frequency of alcohol use: None Drug Abuse: None Lives with: Friend Family History: CAD, CVA, DM, Hypertension, Thyroid Disfunction Patient has suicidal ideation: No Patient has homicidal ideation: No - Past Medical History Cardiac Medical History: Reports: Hx Congestive Heart Failure, Hx Coronary Artery Disease, Hx Heart Attack - with cardiac stent, Hx Hypercholesterolemia, Hx Hypertension Pulmonary Medical History: Reports: Hx COPD, Hx Pneumonia, Hx Sleep Apnea Denies: Hx Asthma, Hx Bronchitis Neurological Medical History: Denies: Hx Cerebrovascular Accident, Hx Seizures Endocrine Medical History: Reports: Hx Diabetes Mellitus Type 1, Hx Diabetes Mellitus Type 2, Hx Hypothyroidism Renal/ Medical History: Reports: Hx Hemodialysis, Hx Renal Insufficiency. Denies: Hx Peritoneal Dialysis - T, TH, S hemodialysis pt GI Medical History: Reports: Hx Gastroesophageal Reflux Disease Musculoskeletal Medical History: Reports Hx Arthritis Psychiatric Medical History: Reports: Hx Depression Infectious Medical History: Reports: Hx MRSA Past Surgical History: Reports: Hx Cardiac Catheterization, Hx Cardiac Surgery - A hole in the heart closed at age 65 years old., Hx Cholecystectomy, Hx Coronary Stent, Hx Hysterectomy, Hx Open Heart Surgery - ASD or VSD closed at 4 years of age, Hx Orthopedic Surgery - 2 screws in the distal left femur, Hx Thyroid Surgery - Thyroidectomy, Hx Tonsillectomy, Other - Cardiac surgery at age 4, Patent ductus?. Denies: Hx Mastectomy - Immunizations Hx Diphtheria, Pertussis, Tetanus Vaccination: No Hx Pneumococcal Vaccination: 05/24/17 Vertical Provider Document - CONSTITUTIONAL Agree With Documented VS: Yes Exam Limitations: No Limitations General Appearance: WD/WN, No Apparent Distress - INFECTION CONTROL TRAVEL OUTSIDE OF THE [place] IN LAST 30 DAYS: No - HEENT HEENT: Atraumatic, Normocephalic - NECK Neck: Normal Inspection, Supple - RESPIRATORY Respiratory: Breath Sounds Normal, No Respiratory Distress - CARDIOVASCULAR Cardiovascular: Regular Rate, Regular Rhythm Pulses: Normal: Dorsalis pedis - BACK Back: Abnormal Inspection Course - Re-evaluation Re-evalutation: 06/20/18 12:[address] Mays regarding patient's concern about her ability to use her upper extremity to use her walker. Patient is very anxious about being discharged home because she does not feel that she can manage ambulation with the walker and her knee pain and she is very concerned about being able to get to dialysis tomorrow. RN to consult with city planner for consultation with patient. Dr. Mays states that patient can use her left arm to use a walker but does not recommend any use of crutches because he does not want any compression underneath her arm. - Vital Signs Vital signs: Temp Pulse Resp BP Pulse Ox 97.8 F 71 24 H 144/52 H 100 06/20/18 09:14 06/20/18 09:14 06/20/18 09:14 06/20/18 09:14 06/20/18 09:14 - Diagnostic Test Radiology reviewed: Image reviewed, Reports reviewed Procedures - Immobilization Left Knee Pre-Proc Neuro Vasc Exam: Normal Immobilizer type: Paulie wrap Performed by: PCT Post-Proc Neuro Vasc Exam: Normal Alignment checked and good: Yes Right Knee Pre-Proc Neuro Vasc Exam: Normal Immobilizer type: Paulie wrap Performed by: PCT Post-Proc Neuro Vasc Exam: Normal Alignment checked and good: Yes Discharge - Discharge Clinical Impression: bilateral knee contusion, Upper back pain Fall Qualifiers: Encounter type: initial encounter Qualified Code(s): W19.XXXA - Unspecified fall, initial encounter Left knee sprain Qualifiers: Encounter type: initial encounter Involved ligament of knee: unspecified ligament Qualified Code(s): S83.92XA - Sprain of unspecified site of left knee, initial encounter Condition: Stable Disposition: HOME, SELF-CARE Instructions: Paulie Wrap ([facility]), Contusion ([facility]), Use of Crutches ([facility]), Ice & Elevation ([facility]), Knee Immobilizing Splint ([facility]), Sprained Knee ([facility]), Ultram ([facility]) Additional Instructions: Return immediately for any new or worsening symptoms Followup with your primary care provider, call tomorrow to make a followup appointment Follow-up with Dr. Montilla for recheck Use your walker at home to assist with ambulation Prescriptions: Tramadol HCl [Ultram 50 mg Tablet] 50 mg PO ASDIR PRN #15 tablet PRN Reason: Referrals: MATIAS SOLIZ MD [Primary Care Provider] - Follow up as needed SHELTON MONTILLA MD [ACTIVE STAFF] - Follow up in 3-5 days
[2018-06-20 12:44] VITALS: BP 147/51
== END 2018-06-20 13:00 | disposition home or self-care (01) ==
LOC: ER 09:07
DX: S83.92XA Sprain of unspecified site of left knee, initial encounter (principal); S80.01XA Contusion of right knee, initial encounter; M54.89 Other dorsalgia; M25.562 Pain in left knee; M25.561 Pain in right knee; W01.0XXA Fall on same level from slipping, tripping and stumbling without subsequent striking against object, initial encounter; N28.9 Disorder of kidney and ureter, unspecified; Z99.2 Dependence on renal dialysis; I10 Essential (primary) hypertension; J44.9 Chronic obstructive pulmonary disease, unspecified; E11.9 Type 2 diabetes mellitus without complications; I25.10 Atherosclerotic heart disease of native coronary artery without angina pectoris
CPT/HCPCS: 99283; 73552; 73564 ×2; 72070; L1830; A9270

== ENCOUNTER 2018-07-18 09:14 | Day surgery (SDC) | payer MEDICARE ==
[2018-07-11 12:07] LABS: HEMATOCRIT 25.1 % (36.0-47.0); HEMOGLOBIN 8.7 g/dL (12.0-15.5); MEAN CORPUSCULAR HEMOGLOBIN 32.4 pg (27.0-33.4); MEAN CORPUSCULAR HGB CONC 34.5 g/dL (32.0-36.0); MEAN CORPUSCULAR VOLUME 94 fl (80-97); PLATELET COUNT 376 10^3/uL (150-450); RED BLOOD COUNT 2.68 10^6/uL (3.72-5.28); RED CELL DISTRIBUTION WIDTH 14.7 % (11.5-14.0); WHITE BLOOD COUNT 10.1 10^3/uL (4.0-10.5)
[2018-07-11 12:29] LABS: ANION GAP 19 (5-19); BLOOD UREA NITROGEN 40 mg/dL (7-20); CALCIUM 8.3 mg/dL (8.4-10.2); CARBON DIOXIDE 25 mmol/L (22-30); CHLORIDE 99 mmol/L (98-107); GLUCOSE 159 mg/dL (75-110); POTASSIUM 4.6 mmol/L (3.6-5.0)
[~2018-07-18 09:14] MED LIST changes: -BACITRACIN INJ 50,000 UNIT VIAL ONE; -BUPIVACAINE HCL 0.25 % INJ/PF (2.5 MG/1 ML) 30 ML VIAL ONE; +DIAZEPAM 5 MG TABLET PO PRN; -HEPARIN SOD (PORCINE) 1,000 UNIT/ML 10 ML VIAL ONE; +LACTATED RINGERS 1000 ML IV PRN; -LIDOCAINE 0.5% INJ-PF (5 MG/ML) 50 ML SDV ONE; +LIDOCAINE 0.5% INJ-PF (5 MG/ML) 50 ML SDV SUBCUT PRN; -LIDOCAINE 1% INJ-PF (10 MG/ML) 30 ML SDV ONE
[2018-07-18 10:34] LABS: HEMATOCRIT 24.6 % (36.0-47.0); HEMOGLOBIN 8.3 g/dL (12.0-15.5); MEAN CORPUSCULAR HEMOGLOBIN 32.6 pg (27.0-33.4); MEAN CORPUSCULAR HGB CONC 33.9 g/dL (32.0-36.0); MEAN CORPUSCULAR VOLUME 96 fl (80-97); PLATELET COUNT 284 10^3/uL (150-450); RED BLOOD COUNT 2.56 10^6/uL (3.72-5.28); RED CELL DISTRIBUTION WIDTH 15.5 % (11.5-14.0); WHITE BLOOD COUNT 7.8 10^3/uL (4.0-10.5)
[2018-07-18] MEDS ORDERED: BUPIVACAINE HCL 0.25 % INJ/PF (2.5 MG/1 ML) 30 ML VIAL ONE (10:45)
[2018-07-18] MEDS ORDERED: HEPARIN SOD (PORCINE) 1,000 UNIT/ML 10 ML VIAL ONE (10:45)
[2018-07-18] MEDS ORDERED: LIDOCAINE 1% INJ-PF (10 MG/ML) 30 ML SDV ONE (10:45)
[2018-07-18] MEDS ORDERED: BACITRACIN INJ 50,000 UNIT VIAL ONE (10:46)
[2018-07-18] MEDS ORDERED: LIDOCAINE 0.5% INJ-PF (5 MG/ML) 50 ML SDV ONE (10:46)
[2018-07-18 10:57] LABS: ANION GAP 9 (5-19); BLOOD UREA NITROGEN 38 mg/dL (7-20); CARBON DIOXIDE 30 mmol/L (22-30); CHLORIDE 99 mmol/L (98-107); GLUCOSE 162 mg/dL (75-110); POTASSIUM 4.7 mmol/L (3.6-5.0)
[2018-07-18] MEDS ORDERED: MIDAZOLAM 2 MG/2 ML INJ ONE (11:36)
[2018-07-18] MEDS ORDERED: FENTANYL CITRATE INJ/PF 100 MCG/2 ML AMPUL ONE (11:36)
[2018-07-18] MEDS ORDERED: PROPOFOL INJ 200 MG/20 ML VIAL IV ONE ×3 (11:37→16:07)
[2018-07-18] MEDS ORDERED: FENTANYL CITRATE INJ/PF 100 MCG/2 ML AMPUL IV PRN ×3 (13:26)
[2018-07-18] MEDS ORDERED: DIPHENHYDRAMINE HCL 50 MG/ML VIAL IV PRN (13:26)
[2018-07-18] MEDS ORDERED: ONDANSETRON HCL INJ/PF 4 MG/2 ML SDV IV PRN (13:26)
[2018-07-18] MEDS ORDERED: MORPHINE SULFATE 10 MG/ML INJ IV PRN (13:26)
[2018-07-18] MEDS ORDERED: MEPERIDINE HCL/PF INJ 25 MG/1 ML DISP.SYRIN IV PRN (13:26)
[2018-07-18] MEDS ORDERED: PROMETHAZINE HCL INJ 25 MG/1 ML VIAL IV PRN ×2 (13:26)
[2018-07-18] MEDS ORDERED: CEFAZOLIN INJ 1 GM VIAL ONE (13:39)
--- NOTE | 2018-07-18 16:55 | Discharge Summary ---
Discharge Summary (SDC) - Discharge Final Diagnosis: #1 end-stage renal disease on hemodialysis. 2. Diabetes mellitus type 2. 3. Hypothyroidism. 4. Obesity. 5. Hyperlipidemia. Date of Surgery: 07/18/18 Discharge Date: 07/18/18 Condition: Fair Treatment or Instructions: Discharge home [after recovery per ASU criteria]. Diet , [renal],as tolerated, when fully awake advance as tolerated. Activities within moderation encouraged. Follow up in my office by appointment in about [1 week]. Call for appointment. Leave wounds [covered], [keep clean and dry, until office visit in 1 week]. Hold of on school/work [until evaluation in office]. Meds per med rec. Percocet. May shower [in 48 hrs], [try to keep operated area as dry as possible]. Prescriptions: Oxycodone HCl/Acetaminophen [Percocet 5-325 mg Tablet] 1 tab PO ASDIR PRN #15 tab PRN Reason: Referrals: MATIAS SOLIZ MD [Primary Care Provider] - Discharge Diet: Other (Comments) - Renal. Respiratory Treatments at Home: Deep Breathing/Coughing Discharge Activity: Activity As Tolerated Report the Following to Your Physician Immediately: Shortness of Breath, Unusual Bleeding
--- NOTE | 2018-07-18 17:03 | Operative Report ---
Operative Report DATE OF SURGERY: 07/18/18 PREOPERATIVE DIAGNOSIS: #1 end-stage renal disease on hemodialysis. 2. Diabet es mellitus type 2. 3. Hypothyroidism. 4. Obesity. 5. Hyperlipidemia. POSTOPERATIVE DIAGNOSIS: #1 end-stage renal disease on hemodialysis. 2. Diabetes mellitus type 2. 3. Hypothyroidism. 4. Obesity. 5. Hyperlipidemia. OPERATION: Insertion of left arm transposed brachial vein fistula. SURGEON: VAHE COLON PHLEBOTOMY TECHNICIAN: None. ANESTHESIA: LMAC TISSUE REMOVED OR ALTERED: Not applicable. COMPLICATIONS: None. ESTIMATED BLOOD LOSS: 20 mL. INTRAOPERATIVE FINDINGS: Of a functioning first stage left arm brachial vein fistula. Only modest dilatation about 3.1 mm lower in the arm, up to about 7 cm in the upper arm. The musculocutaneous nerve and its branches were unusually robust in this patient and the vein was transected and reanastomosed in order to preserve the nerves. Adequate transposition was obtained about 2 cm away from the main wound. Maturation will almost certainly be necessary providing the fistula survives. On the whole this has been a very challenging fistula to get established and unfortunately the patient may end up with a graft. Nevertheless given her relatively young years this rather tedious work seems well worth it. PROCEDURE: Operative Report PROCEDURE: After reviewing the procedure with the patient, and her family, she was taken to the operating room. The patient was sedated and the left upper extremity prepared with chlorhexidine and draped out with sterile linen. After the "" universal timeout", in which it was verified that the patient [received IV antibiotics] the procedure commenced. Local anesthesia was infiltrated and a longitudinal incision started just above the elbow incision and dissection proceeded down to the vein. Sequential infiltration of local anesthesia, incision and dissection of the vein proceeded up to the axillary fold. The brachial vein was now dissected away from its branches which were either clipped and/or ligated and divided. In this way the brachial vein was freed up for its entire visible length. The anterior lateral brachial vein was transmitted to the more medial posterior branch in this patient. The largest branches were selected and the small branches clipped. Thus the most viable continuous brachial vein was utilized. Its length was now measured with a dry umbilical tape which was used to transpose a tunnel onto the skin anteriorly and laterally. With this marked in ink, local anesthesia was infiltrated in the skin and subcutaneous tissue of the tunnel. A [place] tunneler was now used to transpose the vein which was transected distally, into the tunnel. This was done after first marking the anterior surface of the vein and transecting it at a particularly large branch point. This was done after heparinization with 2500 units of heparin heparin given intravenously. The brachial artery was controlled proximally and distally using rubber loops for a distance of about 2 cm. . An end vein to and vein anastomosis was now conducted using a continuous suture of 6-0 Prolene. This was done on the back wall and the suture tied on either side and then the front wall was done. Arterial control was released. It was interrogated and found to be satisfactory.. A 15 Lao Riley drain was now inserted through an inferiorly placed incision after obtaining local anesthesia. The drain was tailored to the lower one third of the wound. It was kept away from the vein, the wound was now closed using interrupted 3-0 PDS in the subcutaneous tissues. The skin was closed with a continuous subcutaneous suture of 4-0 Monocryl. Steri-Strips were applied over benzoin and then a Kerlix wrap. The procedure was concluded. Copies dictated operative report to Dr. Vahe Mays MD thank you. DICTATING PHYSICIAN: VAHE MAYS M.D.
[2018-07-18 20:26] VITALS: BP 133/44
== END 2018-07-18 18:40 | disposition home or self-care (01) ==
LOC: OROUT 09:14
PROVIDERS: ATTEND Surgery
DX: E11.22 Type 2 diabetes mellitus with diabetic chronic kidney disease (principal); I12.0 Hypertensive chronic kidney disease with stage 5 chronic kidney disease or end stage renal disease; N18.6 End stage renal disease; Z99.2 Dependence on renal dialysis; E89.0 Postprocedural hypothyroidism; E78.5 Hyperlipidemia, unspecified; E78.00 Pure hypercholesterolemia, unspecified; D64.9 Anemia, unspecified; E66.9 Obesity, unspecified; Z68.42 Body mass index [BMI] 45.0-49.9, adult; Z88.8 Allergy status to other drugs, medicaments and biological substances; Z88.2 Allergy status to sulfonamides; Z79.899 Other long term (current) drug therapy; Z79.4 Long term (current) use of insulin
CPT/HCPCS: 36415 ×2; 82962; 85027 ×2; 80048 ×2; 36821; J2250; J3490 ×3; J0690; J3010; J1644; J2704; 1844

== ENCOUNTER 2018-08-15 07:35 | Day surgery (SDC) | payer MEDICARE ==
[~2018-08-15 07:35] MED LIST changes: -LACTATED RINGERS 1000 ML IV PRN; -LIDOCAINE 0.5% INJ-PF (5 MG/ML) 50 ML SDV SUBCUT PRN; +OXYCODONE-ACETAMINOPHEN 5-325 MG TABLET PO PRN
[2018-08-15] MEDS ORDERED: OXYCODONE-ACETAMINOPHEN 5-325 MG TABLET ONE (07:48)
[2018-08-15 08:49] LABS: HEMATOCRIT 33.8 % (36.0-47.0); HEMOGLOBIN 11.4 g/dL (12.0-15.5); MEAN CORPUSCULAR HEMOGLOBIN 31.7 pg (27.0-33.4); MEAN CORPUSCULAR HGB CONC 33.8 g/dL (32.0-36.0); MEAN CORPUSCULAR VOLUME 94 fl (80-97); PLATELET COUNT 231 10^3/uL (150-450); RED CELL DISTRIBUTION WIDTH 16.2 % (11.5-14.0)
[2018-08-15 09:14] LABS: ANION GAP 12 (5-19); BLOOD UREA NITROGEN 44 mg/dL (7-20); CALCIUM 8.9 mg/dL (8.4-10.2); CARBON DIOXIDE 23 mmol/L (22-30); CHLORIDE 101 mmol/L (98-107); GLUCOSE 234 mg/dL (75-110); POTASSIUM 4.6 mmol/L (3.6-5.0); SODIUM 135.5 mmol/L (137-145)
[2018-08-15] MEDS ORDERED: MIDAZOLAM 2 MG/2 ML INJ ONE (09:22)
[2018-08-15] MEDS ORDERED: LIDOCAINE 0.5% INJ-PF (5 MG/ML) 50 ML SDV ONE (09:22)
[2018-08-15] MEDS ORDERED: HEPARIN SOD (PORCINE) 5,000 UNIT/ML 1 ML SYRINGE ONE (09:23)
[2018-08-15] MEDS ORDERED: FENTANYL CITRATE INJ/PF 100 MCG/2 ML AMPUL ONE (09:23)
--- NOTE | 2018-08-15 11:31 | Discharge Summary ---
Discharge Summary (SDC) - Discharge Final Diagnosis: #[address] 2. Malfunctioning AV fistula. 3. End-stage renal disease on hemodialysis. 4. Increased body mass index. 5. Diabetes mellitus type 2. 6. Coronary artery disease. 7. Hypertension. Date of Surgery: 08/15/18 Discharge Date: 08/15/18 Condition: Fair Treatment or Instructions: Discharge home [after recovery per ASU criteria]. Diet , [renal],as tolerated, when fully awake advance as tolerated. Activities within moderation encouraged. Follow up in my office by appointment in about [1 week]. Call for appointment. Leave wounds [covered], [keep clean and dry, until office visit in 1 week]. Hold of on school/work [until evaluation in office]. Meds per med rec. May shower [in 48 hrs], [try to keep operated area as dry as possible]. Referrals: MATIAS SOLIZ MD [Primary Care Provider] - Discharge Diet: Other (Comments) - Renal, diabetic. Respiratory Treatments at Home: Deep Breathing/Coughing Discharge Activity: Activity As Tolerated Report the Following to Your Physician Immediately: Shortness of Breath
--- NOTE | 2018-08-15 11:41 | Operative Report ---
Operative Report DATE OF SURGERY: 08/15/18 PREOPERATIVE DIAGNOSIS: #[address] 2. Malfunctioning AV fistula. 3. End-stage renal disease on hemodialysis. 4. Increased body mass index. 5. Diabetes mellitus type 2. 6. Coronary artery disease. 7. Hypertension. POSTOPERATIVE DIAGNOSIS: #[address] 2. Malfunctioning AV fistula. 3. End-stage renal disease on hemodialysis. 4. Increased body mass index. 5. Diabetes mellitus type 2. 6. Coronary artery disease. 7. Hypertension. OPERATION: 1. Ultrasound evaluation and insertion of needle, introducer. 2. Angioplasty. 3. Angiogram and interpretation. SURGEON: VAHE COLON BATCH MIXING TRUCK DRIVER: None. ANESTHESIA: Moderate Sedation TISSUE REMOVED OR ALTERED: Not applicable. COMPLICATIONS: Very challenging procedure with some extravasation. ESTIMATED BLOOD LOSS: 5 mL. INTRAOPERATIVE FINDINGS: Of a functioning but sluggish AV fistula left transposed basilic, small. Access was challenging as there was a palpable obstruction at about 15 cm from the anastomosis. This was done past with considerable manipulation using a 0.035 Glidewire. A 0.018 Glidewire was unsuccessful in passing this area. This area proved to be stenotic with a stenosis of about 70% of the adjacent lumen for about 3 cm long. Dilatation with a 5 mm and then a 6 mm angioplasty balloon, showed improvement but some persistence of stenosis and a rachell-fistula extravasation. Flow through the fistula sluggish throughout. I believe this is secondary to the cephalad relative obstruction. The plan will be to reevaluate this fistula in office in consider re-intervention. It is extremely small and is proven quite challenging. Outcome is challenging. PROCEDURE: PROCEDURE: After verifying the procedure and having obtained informed consent, the patient's left arm was prepared with Chlorhexidine and draped out with sterile linen. Local anesthesia infiltrated. Percutaneous access into the fistula , retrograde, obtained about [20 cm] from the arteriovenous anastomosis using a micro puncture needle followed by micro puncture wire and then the inner of a micro puncture catheter. This was done under ultrasound guidance into a fistula which is about 4 mm in diameter. Access was very challenging and there was inability to pass the micropuncture wire passed about 15 cm from the anastomosis. It was therefore the decided to abandon the retrograde approach. Local anesthesia infiltrated. Percutaneous access into the fistula ,[ antegrade], obtained about [3 cm] from the arteriovenous anastomosis using a micro puncture needle followed by micro puncture wire and then a micro puncture catheter. Angiogram demonstrated the aforementioned findings. Angioplasty was elected. A 0.035 Edwards wire was inserted, and manipulated through the area of stenosis into the main venous system. over this, a 5 Albanian short introducer was placed, this was followed by a [5 - mm] angioplasty balloon . Angioplasty was serially done in the culprit area. Inflating using a 3 mils syringe for a minute at a time.]. Completion angiogram demonstrated residual stenosis and a small area of extravasation. It was decided to replace the Glidewire with a 6 mm angioplasty balloon. Dilatation was cautiously done using a 3 mils syringe and hand injection for up to 3 minutes at a time. Completion angiogram demonstrated partly satisfactory result with remaining extravasation and some residual stenosis cephalad. Given the fragility of the system it was decided to accept the result. The instrumentation was now withdrawn over gentle hand pressure for 10 minutes . Dressings applied, procedure concluded. Exposure time: 1.9 minutes. Radiation: 13.77 Meredith edwards. Contrast: 5 mils of Omnipaque 300, low osmolality. DICTATING PHYSICIAN: VAHE OCASIO M.D. cc: VAHE OCASIO M.D. ([id number]) >>
[2018-08-15 12:16] VITALS: BP 145/66
--- NOTE | 2018-08-15 13:45 | RADIOLOGY REPORT (SQ) ---
EXAM DESCRIPTION: FISTULAGRAM W/PLASTY; GUIDANCE ULTRASOUND COMPLETED DATE/TIME: 08/15/2018 11:29 am; 08/15/2018 11:25 am REASON FOR STUDY: T82.858A T82.858A STENOSIS OF OTHER VASCULAR PROSTH DEV/GRFT, INIT COMPARISON: None. FLUOROSCOPY TIME: 1.9 minute. 71 images saved to PACS. TECHNIQUE: Intra-operative images acquired during surgical procedure to evaluate progress. NUMBER OF IMAGES: 71 images. LIMITATIONS: None. FINDINGS: Imaging in fluoroscopy during left upper extremity dialysis access evaluation and plasty b y Dr. Mays . Please refer to the operative report for further details. IMPRESSION: INTRA PROCEDURAL IMAGING ABOVE . COMMENT: Quality ID [id number]: Final reports for procedures using fluoroscopy that document radiation exp osure indices, or exposure time and number of fluorographic images (if radiation exposure indices are not available) Please consult full operative report of the attending physician for description of the procedure. TECHNICAL DOCUMENTATION: JOB ID: [id number] [employer]- All Rights Reserved Reading location - IP/workstation name: [email or web address]
--- NOTE | 2018-08-15 13:45 | RADIOLOGY REPORT (SQ) ---
EXAM DESCRIPTION: FISTULAGRAM W/PLASTY; GUIDANCE ULTRASOUND COMPLETED DATE/TIME: 08/15/2018 11:29 am; 08/15/2018 11:25 am REASON FOR STUDY: T82.858A T82.858A STENOSIS OF OTHER VASCULAR PROSTH DEV/GRFT, INIT COMPARISON: None. FLUOROSCOPY TIME: 1.9 minute. 71 images saved to PACS. TECHNIQUE: Intra-operative images acquired during surgical procedure to evaluate progress. NUMBER OF IMAGES: 71 images. LIMITATIONS: None. FINDINGS: Imaging in fluoroscopy during left upper extremity dialysis access evaluation and plasty b y Dr. Mays . Please refer to the operative report for further details. IMPRESSION: INTRA PROCEDURAL IMAGING ABOVE . COMMENT: Quality ID 145: Final reports for procedures using fluoroscopy that document radiation exp osure indices, or exposure time and number of fluorographic images (if radiation exposure indices are not available) Please consult full operative report of the attending physician for description of the procedure. TECHNICAL DOCUMENTATION: JOB ID: [id number] [employer]- All Rights Reserved Reading location - IP/workstation name: [email or web address]
== END 2018-08-15 12:00 | disposition home or self-care (01) ==
LOC: CCL 07:35
PROVIDERS: ATTEND Surgery
DX: T82.858A Stenosis of other vascular prosthetic devices, implants and grafts, initial encounter (principal); Y83.2 Surgical operation with anastomosis, bypass or graft as the cause of abnormal reaction of the patient, or of later complication, without mention of misadventure at the time of the procedure; I12.0 Hypertensive chronic kidney disease with stage 5 chronic kidney disease or end stage renal disease; E11.22 Type 2 diabetes mellitus with diabetic chronic kidney disease; N18.6 End stage renal disease; Z99.2 Dependence on renal dialysis; I25.10 Atherosclerotic heart disease of native coronary artery without angina pectoris; E78.00 Pure hypercholesterolemia, unspecified; E03.9 Hypothyroidism, unspecified; D64.9 Anemia, unspecified; E89.0 Postprocedural hypothyroidism; E66.9 Obesity, unspecified; F41.9 Anxiety disorder, unspecified; Z68.42 Body mass index [BMI] 45.0-49.9, adult; Z88.8 Allergy status to other drugs, medicaments and biological substances; Z88.2 Allergy status to sulfonamides; Z79.899 Other long term (current) drug therapy; Z79.4 Long term (current) use of insulin; Z01.818 Encounter for other preprocedural examination
CPT/HCPCS: 36415; 85027; 80048; 36902; 76937; C1752; C1725 ×2; C1887; C1769; J2250; J1644 ×2; J3010; J3490; A9270

== ENCOUNTER 2018-09-28 09:52 | Day surgery (SDC) | payer MEDICARE ==
[2018-09-19 08:43] LABS: INTERNATIONAL RATION (INR) 0.95; PARTIAL THROMBOPLASTIN TIME 34.3 SEC (23.5-35.8); PROTHROMBIN TIME 13.2 SEC (11.4-15.4)
[2018-09-19 09:53] LABS: APPEARANCE,URINE CLOUDY; BILIRUBIN,URINE NEGATIVE (NEGATIVE); COLOR,URINE YELLOW; GLUCOSE, URINE 50 mg/dL (NEGATIVE); KETONES,URINE NEGATIVE (NEGATIVE); LEUKOCYTE ESTERASE,URINE LARGE (NEGATIVE); NITRITE,URINE NEGATIVE (NEGATIVE); PROTEIN,URINE >=500 mg/dL (NEGATIVE); URINE SPECIFIC GRAVITY 1.013; UROBILINOGEN,URINE NEGATIVE mg/dL (<2.0)
--- NOTE | 2018-09-19 10:40 | RADIOLOGY REPORT (SQ) ---
EXAM DESCRIPTION: CHEST PA/LATERAL COMPLETED DATE/TIME: 09/19/2018 9:43 am REASON FOR STUDY: PRE-OP COMPARISON: AP chest 04/29/2018, 09/25/2017, 05/02/2015 EXAM PARAMETERS: NUMBER OF VIEWS: two views TECHNIQUE: Digital Frontal and Lateral radiographic views of the chest acquired. RADIATION DOSE: NA LIMITATIONS: none FINDINGS: LUNGS AND PLEURA: No acute infiltrates. Trace fluid in the major and minor fissures and p osterior costophrenic sulci with mild pulmonary vascular prominence. No pneumothorax. MEDIASTINUM AND HILAR STRUCTURES: No masses or contour abnormalities. HEART AND VASCULAR STRUCTURES: Stable moderate cardiomegaly and pulmonary vascular prominence BONES: No acute findings. HARDWARE: Right jugular central venous dialysis catheter tip in the right atrium. Surgical clips pos t thyroidectomy/parathyroidectomy OTHER: No other significant finding. IMPRESSION: Pulmonary vascular congestion with trace fluid in the major and minor fissures. TECHNICAL DOCUMENTATION: JOB ID: [id number] [employer]- All Rights Reserved Reading location - IP/workstation name: [email or web address]
--- NOTE | 2018-09-19 19:23 | EKG REPORT ---
SEVERITY:- ABNORMAL ECG - SINUS RHYTHM RBBB AND LAFB LEFT VENTRICULAR HYPERTROPHY : Confirmed by: Toni Heller 19-Sep-2018 19:22:29
[~2018-09-28 09:52] MED LIST changes: +CEFAZOLIN 1 GM/D5W RTU 1 GM/50 ML RTUPB IV PRN; -DIAZEPAM 5 MG TABLET PO PRN; +EPHEDRINE SULFATE INJ 50 MG/1 ML AMPULE ONE; +FENTANYL CITRATE INJ/PF 100 MCG/2 ML AMPUL ONE; +KETAMINE HCL INJ 500 MG/10 ML VIAL ONE; +LIDOCAINE 2% INJ-PF (100 MG/5 ML) SYRINGE ONE; +MIDAZOLAM 2 MG/2 ML INJ ONE; +NORMAL SALINE 1000 ML 1,000 ML IV PRN; +ONDANSETRON HCL INJ/PF 4 MG/2 ML SDV ONE; -OXYCODONE-ACETAMINOPHEN 5-325 MG TABLET PO PRN; +PROPOFOL INJ 200 MG/20 ML VIAL IV ONE
[2018-09-28] MEDS ORDERED: LIDOCAINE 0.5% INJ-PF (5 MG/ML) 50 ML SDV ONE (10:53)
[2018-09-28] MEDS ORDERED: HEPARIN SOD (PORCINE) 1,000 UNIT/ML 10 ML VIAL ONE (10:53)
[2018-09-28] MEDS ORDERED: BUPIVACAINE HCL 0.25 % INJ/PF (2.5 MG/1 ML) 30 ML VIAL ONE (10:53)
[2018-09-28] MEDS ORDERED: LIDOCAINE 1% INJ-PF (10 MG/ML) 30 ML SDV ONE (10:53)
[2018-09-28] MEDS ORDERED: BACITRACIN INJ 50,000 UNIT VIAL ONE (10:53)
[2018-09-28] MEDS ORDERED: VANCOMYCIN HCL 500 MG in DEXTROSE 5%-WATER 100 ML IV PRN (11:03)
[2018-09-28 11:34] LABS: HEMOGLOBIN 12.5 g/dL (12.0-15.5); MEAN CORPUSCULAR HEMOGLOBIN 29.6 pg (27.0-33.4); MEAN CORPUSCULAR HGB CONC 32.8 g/dL (32.0-36.0); MEAN CORPUSCULAR VOLUME 90 fl (80-97); PLATELET COUNT 222 10^3/uL (150-450); RED BLOOD COUNT 4.22 10^6/uL (3.72-5.28); RED CELL DISTRIBUTION WIDTH 16.6 % (11.5-14.0); WHITE BLOOD COUNT 6.4 10^3/uL (4.0-10.5)
[2018-09-28 11:52] LABS: ANION GAP 11 (5-19); BLOOD UREA NITROGEN 47 mg/dL (7-20); CALCIUM 8.5 mg/dL (8.4-10.2); CARBON DIOXIDE 27 mmol/L (22-30); CHLORIDE 101 mmol/L (98-107); GLUCOSE 204 mg/dL (75-110); POTASSIUM 4.4 mmol/L (3.6-5.0); SODIUM 138.6 mmol/L (137-145)
[2018-09-28] MEDS ORDERED: MEPERIDINE HCL/PF INJ 25 MG/1 ML DISP.SYRIN IV PRN (14:01)
[2018-09-28] MEDS ORDERED: ONDANSETRON HCL INJ/PF 4 MG/2 ML SDV IV PRN (14:01)
[2018-09-28] MEDS ORDERED: PROMETHAZINE HCL INJ 25 MG/1 ML VIAL IV PRN (14:01)
[2018-09-28] MEDS ORDERED: FENTANYL CITRATE INJ/PF 100 MCG/2 ML AMPUL IV PRN ×3 (14:01)
[2018-09-28] MEDS ORDERED: DIPHENHYDRAMINE HCL 50 MG/ML VIAL IV PRN (14:01)
[2018-09-28] MEDS ORDERED: PROPOFOL INJ 200 MG/20 ML VIAL IV ONE ×2 (14:59→15:00)
[2018-09-28] MEDS ORDERED: THROMBIN (BOVINE) TOPICAL 5000 UNIT VIAL ONE (15:08)
[2018-09-28] MEDS ORDERED: FENTANYL CITRATE INJ/PF 100 MCG/2 ML AMPUL ONE (15:51)
--- NOTE | 2018-09-28 16:05 | Discharge Summary ---
Discharge Summary (SDC) - Discharge Final Diagnosis: #[address] 2. End-stage renal disease on hemodialysis. 3. Diabetes mellitus type 2. 4. Hypertension. Date of Surgery: 09/28/18 Discharge Date: 09/28/18 Condition: Fair Treatment or Instructions: Discharge home [after recovery per ASU criteria]. Diet , [renal],as tolerated, when fully awake advance as tolerated. Activities within moderation encouraged. Follow up in my office by appointment in about [1 week]. Call for appointment. Leave wounds [covered], [keep clean and dry, until office visit in 1 week]. Hold of on school/work [until evaluation in office]. Meds per med rec. Percocet May shower [in 48 hrs], [try to keep operated area as dry as possible]. Prescriptions: Oxycodone HCl/Acetaminophen [Percocet 5-325 mg Tablet] 1 tab PO ASDIR PRN #15 tab PRN Reason: Referrals: MATIAS SOLIZ MD [Primary Care Provider] - Discharge Diet: Other (Comments) - Renal, diabetic. Respiratory Treatments at Home: Deep Breathing/Coughing Discharge Activity: Activity As Tolerated Report the Following to Your Physician Immediately: Shortness of Breath, Unusual Bleeding
--- NOTE | 2018-09-28 16:33 | Operative Report ---
Operative Report DATE OF SURGERY: 09/28/18 PREOPERATIVE DIAGNOSIS: #[address] 2. End-stage renal disease on h emodialysis. 3. Diabetes mellitus type 2. 4. Hypertension. POSTOPERATIVE DIAGNOSIS: #[address] 2. End-stage renal disease on hemodialysis. 3. Diabetes mellitus type 2. 4. Hypertension. OPERATION: Insertion of bridge fistula in the right brachial axillary position. SURGEON: VAHE COLON DOUGHNUT BATTER MIXER: None. ANESTHESIA: LMAC TISSUE REMOVED OR ALTERED: Not applicable. COMPLICATIONS: None. ESTIMATED BLOOD LOSS: 10 mL. INTRAOPERATIVE FINDINGS: Of a relatively small vein about 5 mm at the axillary. Satisfactory for arteriovenous fistula. The artery on the small side about 3.5 mm. Satisfactory anastomosis conducted, satisfactory bruit at the end of the procedure. Blood loss about 10 mL. PROCEDURE: Operative Report This patient has had a transposed brachial vein fistula on the left which has failed. She has really small veins and the only reasonable option at this point is a bridge fistula to the right axillary vein which is only vein which is of reasonable sized to accommodate the flow of the fistula. The patient is agreeable. She understands the risks which include infection, bleeding, heart, lung complications, injury to other structures, hand ischemia or tissue loss. Her questions and concerns addressed and she wishes to proceed. PROCEDURE: After reviewing the procedure with the patient, [she] was taken to the operating room. The patient was sedated and the right upper extremity] prepared with chlorhexidine and draped out with sterile linen. After the "" uni versal timeout", in which it was verified that the patient [received IV antibiotics] the procedure commenced. The sterilely sheathed ultrasound probe was used to evaluate the left venous and arterial systems, pertinent to the previously done vein mapping. Local anesthesia was infiltrated and a longitudinal incision made over uppermost medial arm extending to the inferior axillary crease. Artery. Dissection proceeded through the subcutaneous tissues down to the radial artery. This was dissected out proximally and distally for dissection proceeded through the subcutaneous tissue and fascia to the axillary vein. The axillary vein was dissected out for a distance of about 3 cm rubber loops were placed on either end. Through a separate incision just above the elbow crease a 2 cm segment of the brachial artery was dissected out through a separate incision. A 4 to 6mm graft was now tunneled between the 2 incisions observing strict antisepsis. The patient was given 3000 units of heparin intravenously. The axillary vein was controlled proximally and distally with the previously placed rubber nose and a longitudinal venotomy made approximately 1.5 cm in length. The vein was irrigated proximally distally with heparinized solution. The graft was anastomosed into the venotomy. This was done using a continuous suture of 6-0 Prolene. Controls of the vein were now released and it was irrigated with heparinized solution after ensuring backflow and the graft clamped about 3 cm away from the anastomosis. The brachial artery was now controlled proximally and distally using rubber loops and an arteriotomy 5 mm in length made. The adjacent 4 mm graft was transected and anastomosed into the artery using a continuous suture of 6-0 Prolene. The controls were released and the fistula allowed to fill. It was analyzed. There was appropriate pulsation. There was an excellent bruit auscultated table in the [place] vein using a Doppler. Hemostasis was secured once optimal function was assured. This involved 2 interrupted sutures of 6-0 Prolene at the arterial anastomosis. It also involved application of fibrin to the graft for about 3 cm from the anastomosis. This is because of persistent leakage from the graft at this point., the wound was irrigated with antibiotic containing solution and closed. Closure was done using interrupted 3-0 PDS for the subcutaneous tissues. The skin was closed, in either wound, using a continuous subcutaneous suture of 4-0 Monocryl which was reinforced with Steri-Strips over benzoin. I then left the operative field and returned with a stethoscope covered with a sterile Tegaderm dressing. This allowed external auscultation of the fistula. Auscultation was [satisfactory]. The procedure was concluded by applying a Kerlix dressing over the surgical site. DICTATING PHYSICIAN: VAHE OCASIO M.D.
[2018-09-28 17:43] VITALS: BP 168/50
== END 2018-09-28 17:44 | disposition home or self-care (01) ==
LOC: OROUT 09:52
PROVIDERS: ATTEND Surgery
DX: T82.858A Stenosis of other vascular prosthetic devices, implants and grafts, initial encounter (principal); Y83.2 Surgical operation with anastomosis, bypass or graft as the cause of abnormal reaction of the patient, or of later complication, without mention of misadventure at the time of the procedure; I13.2 Hypertensive heart and chronic kidney disease with heart failure and with stage 5 chronic kidney disease, or end stage renal disease; I50.9 Heart failure, unspecified; E11.22 Type 2 diabetes mellitus with diabetic chronic kidney disease; N18.6 End stage renal disease; Z99.2 Dependence on renal dialysis; E78.00 Pure hypercholesterolemia, unspecified; M81.0 Age-related osteoporosis without current pathological fracture; D64.9 Anemia, unspecified; E89.0 Postprocedural hypothyroidism; E66.9 Obesity, unspecified; Z88.8 Allergy status to other drugs, medicaments and biological substances; Z79.4 Long term (current) use of insulin; Z79.899 Other long term (current) drug therapy; Z01.818 Encounter for other preprocedural examination; Z98.890 Other specified postprocedural states
CPT/HCPCS: 36821; 93005; 36415 ×2; 82962; 84132; 85027; 85610; 85730; 80048; 81001; 71046; 93010; C1768; J2250; J3490 ×6; J3010; J1644 ×2; J2001; J2405; J3370; J7060; J2704; 1844

== ENCOUNTER 2018-11-03 10:12 | Day surgery (SDC) | payer MEDICARE ==
[~2018-11-03 10:12] MED LIST changes: -CEFAZOLIN 1 GM/D5W RTU 1 GM/50 ML RTUPB IV PRN; +DIAZEPAM 5 MG TABLET PO PRN; -EPHEDRINE SULFATE INJ 50 MG/1 ML AMPULE ONE; -FENTANYL CITRATE INJ/PF 100 MCG/2 ML AMPUL ONE; -KETAMINE HCL INJ 500 MG/10 ML VIAL ONE; -LIDOCAINE 2% INJ-PF (100 MG/5 ML) SYRINGE ONE; -MIDAZOLAM 2 MG/2 ML INJ ONE; -NORMAL SALINE 1000 ML 1,000 ML IV PRN; -ONDANSETRON HCL INJ/PF 4 MG/2 ML SDV ONE; -PROPOFOL INJ 200 MG/20 ML VIAL IV ONE
[2018-11-03 11:22] LABS: HEMATOCRIT 41.6 % (36.0-47.0); HEMOGLOBIN 13.8 g/dL (12.0-15.5); MEAN CORPUSCULAR HEMOGLOBIN 30.3 pg (27.0-33.4); MEAN CORPUSCULAR HGB CONC 33.1 g/dL (32.0-36.0); MEAN CORPUSCULAR VOLUME 92 fl (80-97); PLATELET COUNT 217 10^3/uL (150-450); RED BLOOD COUNT 4.54 10^6/uL (3.72-5.28); RED CELL DISTRIBUTION WIDTH 17.7 % (11.5-14.0); WHITE BLOOD COUNT 7.7 10^3/uL (4.0-10.5)
[2018-11-03 11:37] LABS: ANION GAP 9 (5-19); BLOOD UREA NITROGEN 43 mg/dL (7-20); CALCIUM 8.7 mg/dL (8.4-10.2); CARBON DIOXIDE 26 mmol/L (22-30); CHLORIDE 102 mmol/L (98-107); GLUCOSE 227 mg/dL (75-110); POTASSIUM 4.9 mmol/L (3.6-5.0); SODIUM 137.3 mmol/L (137-145)
[2018-11-03 12:26] VITALS: BP 137/47
[2018-11-03] MEDS ORDERED: ALTEPLASE INJ 2 MG VIAL (CATH CLEARANCE) INJ PRN (13:12)
--- NOTE | 2018-11-03 13:31 | PDOC CONSULTATION ---
Consultation Consult Date: 11/03/18 Attending physician:: VAHE OCASIO Provider Consulted: TETE BLAKELY Consult reason:: Preoperative cardiovascular exam History of Present Illness Admission Date/PCP: MATIAS SOLIZ MD Patient complains of: Here for AVF revision History of Present Illness: KARINA ROGERS is a 63 year old female with the following active problems 1. Systemic hypertension 2. CAD PCI RUI 04/2008 3. Dyslipidemia 4. ESRD on HD 5. Obesity Here for RUE AVF revision. Has existing LUE AVF not working and right chest wall permacath. No symptoms of chest pain , effort intolerance or angina. Past Medical History Cardiac Medical History: Reports: Congestive Heart Failure, Coronary Artery Disease, Myocardial Infarction - with cardiac stent, Hyperlipidema, Hypertension Pulmonary Medical History: Reports: Chronic Obstructive Pulmonary Disease (COPD), Pneumonia, Sleep Apnea Denies: Asthma, Bronchitis Neurological Medical History: Denies: Seizures Endocrine Medical History: Reports: Diabetes Mellitus Type 1, Diabetes Mellitus Type 2, Hypothyroidism GI Medical History: Reports: Gastroesophageal Reflux Disease Denies: Hepatitis, Hiatal Hernia Musculoskeltal Medical History: Reports: Arthritis - Arms and legs Psychiatric Medical History: Reports: Depression Hematology: Denies: Anemia, Sickle Cell Disease Infectious Medical History: Reports: Methicillin-Resistant Staph Aureus Past Surgical History Past Surgical History: Reports: Cardiac Catheterization, Cholecystectomy, Coronary Stent, Hysterectomy, Orthopedic Surgery - 2 screws in the distal left femur, Tonsillectomy, Other - Cardiac surgery at age 4, Patent ductus? Denies: Amputation, Mastectomy Social History Smoking Status: Never Smoker Frequency of Alcohol Use: None Hx Recreational Drug Use: No Drugs: None Hx Prescription Drug Abuse: No Family History Family History: CAD, CVA, DM, Hypertension, Thyroid Disfunction Parental Family History Reviewed: No Children Family History Reviewed: No Sibling(s) Family History Reviewed.: No Medication/Allergy Home Medications: Aspirin [Aspirin EC] 81 mg PO DAILY 09/04/17 Atorvastatin Calcium [Lipitor 80 mg Tablet] 80 mg PO QHS 09/04/17 Clopidogrel Bisulfate [Plavix 75 mg Tablet] 75 mg PO DAILY 09/04/17 Ezetimibe [Zetia 10 mg Tablet] 10 mg PO DAILY 09/04/17 Fluticasone/Vilanterol [Breo Ellipta 100-25 Mcg INH] 1 puff IH DAILY 09/04/17 Hydralazine HCl [Apresoline 50 mg Tablet] 100 mg PO TID 09/04/17 Levothyroxine Sodium [Synthroid] 175 mcg PO Q6AM 09/04/17 Nitroglycerin [Nitrostat 0.4 mg (1/150 Gr) Tabs 25/Bottle] 0.4 mg SL Q5MP PRN 09/04/17 Ranolazine [Ranexa 500 mg Tab.sr] 500 mg PO Q12 09/04/17 Calcium Acetate [Phoslo 667 mg Capsule] 3 cap PO TID 06/08/18 Furosemide [Lasix 20 mg Tablet] 80 mg PO BID 06/08/18 Insulin Glargine,Hum.rec.anlog [Lantus Insulin 100 Unit/mL Insulin Pen] 32 unit SUBCUT BID 06/08/18 Insulin Lispro [Humalog Insulin (Lispro) 100 unit/mL] 0 unit SUBCUT .SLD SCALE 06/08/18 Metoprolol Succinate [Toprol Xl] 50 mg PO BID 06/08/18 Latanoprost [Xalatan] 2.5 ml OP QHS 07/11/18 Pantoprazole Sodium [Protonix] 40 mg PO QHS 07/11/18 Ergocalciferol (Vitamin D2) [Vitamin D2] 50,000 units PO .WEEKLY 09/19/18 Folic Acid/Vitamin B Comp W-C [Rosaura-Alicia Tablet] 0.8 mg PO DAILY 09/19/18 Allergies/Adverse Reactions: metformin [Metformin] Allergy (Intermediate, Verified 09/19/18 09:07) Nausea Sulfa (Sulfonamide Antibiotics) Allergy (Mild, Verified 09/19/18 09:07) Nausea fluoxetine Allergy (Verified 09/19/18 09:07) Jittery trimethoprim Allergy (Verified 09/19/18 09:07) Nausea diazepam [From Valium] Adverse Reaction (Verified 09/19/18 09:07) "BOUNCES ME OFF THE STRAUSS, DOES NOT RELAX" Review of Systems Constitutional: PRESENT: as per HPI - No chest pain or dyspnea Physical Exam Vital Signs: Temp Pulse Resp BP Pulse Ox 97.5 F 61 18 137/47 H 100 11/03/18 12:00 11/03/18 12:00 11/03/18 12:00 11/03/18 12:00 11/03/18 12:00 Intake & Output 11/02/18 11/03/18 11/04/18 06:59 06:59 06:59 Intake Total 0 Balance 0 General appearance: PRESENT: morbidly obese, obese Head exam: PRESENT: atraumatic, normocephalic Eye exam: PRESENT: EOMI Ear exam: PRESENT: normal external ear exam Mouth exam: PRESENT: moist Neck exam: PRESENT: full ROM Respiratory exam: PRESENT: unlabored Cardiovascular exam: PRESENT: RRR, +S1, +S2 Pulses: PRESENT: normal radial pulses GI/Abdominal exam: PRESENT: soft Musculoskeletal exam: PRESENT: normal inspection Neurological exam: PRESENT: alert, oriented to person, oriented to place, orie nted to time, oriented to situation Skin exam: PRESENT: dry, intact Results Laboratory Results: 11/03/18 10:44 11/03/18 10:44 11/03/18 11/03/18 10:44 10:44 WBC 7.7 RBC 4.54 Hgb 13.8 Hct 41.6 MCV 92 MCH 30.3 MCHC 33.1 RDW 17.7 H Plt Count 217 Sodium 137.3 Potassium 4.9 Chloride 102 Carbon Dioxide 26 Anion Gap 9 BUN 43 H Creatinine 3.13 H Est GFR ( Amer) 18 L Est GFR (Non-Af Amer) 15 L Glucose 227 H Calcium 8.7 Assessment & Plan - Diagnosis (1) Preop cardiovascular exam Is this a current diagnosis for this admission?: Yes Plan: No chest pain, No angina or anginal equivalent. Recent RUI 04/2018 Rigoberto Tillman On medical therapy Able to do more than 4 METS without limitations Continue GDMT for CAD At this time given absent symptoms and no recent changes risk stratification is not required. Patient is an acceptable risk for planned procedure. EKG today shows SR, RBBB and LAFB with LVH Septal Q . No significant change from prior EKG dated 09/19/2017 Echocardiogram LVEF normal Moderate diastolic dysfunction. RV dysfunction Stress test 09/07/2017 No ischemia. or scar EF48% (2) RBBB (right bundle branch block with left anterior fascicular block) Plan: Conduction system disease with no symptoms. To be monitored. (3) Coronary artery disease Qualifiers: Coronary Disease-Associated Artery/Lesion type: [place] artery [place] vs. tr ansplanted heart: [place] heart Associated angina: without angina Qualified Code(s): I25.10 - Atherosclerotic heart disease of [place] coronary artery without angina pectoris Is this a current diagnosis for this admission?: Yes Plan: Stable on medical therapy. Continue medications. - Notes Notes: Acceptable risk for procedure without further risk stratification. EKG shows no change from prior 11/02/2018 compared to 09/19/2017 EF normal on most recent study
--- NOTE | 2018-11-03 15:07 | PDOC H&P ---
General Chief Complaint: The patient was admitted for angioplasty of her malfunctioning right arm graft. - Diagnosis (1) End-stage renal disease on hemodialysis Is this a Current Diagnosis?: Yes (2) Hyperkalemia Is this a Current Diagnosis?: Yes (3) Sleep apnea syndrome Is this a Current Diagnosis?: Yes (4) Morbid obesity with BMI of 50.0-59.9, adult Is this a Current Diagnosis?: Yes - Current Medications/Allergies Home Medications: Aspirin [Aspirin EC] 81 mg PO DAILY 09/04/17 Atorvastatin Calcium [Lipitor 80 mg Tablet] 80 mg PO QHS 09/04/17 Clopidogrel Bisulfate [Plavix 75 mg Tablet] 75 mg PO DAILY 09/04/17 Ezetimibe [Zetia 10 mg Tablet] 10 mg PO DAILY 09/04/17 Fluticasone/Vilanterol [Breo Ellipta 100-25 Mcg INH] 1 puff IH DAILY 09/04/17 Hydralazine HCl [Apresoline 50 mg Tablet] 100 mg PO TID 09/04/17 Levothyroxine Sodium [Synthroid] 175 mcg PO Q6AM 09/04/17 Nitroglycerin [Nitrostat 0.4 mg (1/150 Gr) Tabs 25/Bottle] 0.4 mg SL Q5MP PRN 09/04/17 Ranolazine [Ranexa 500 mg Tab.sr] 500 mg PO Q12 09/04/17 Calcium Acetate [Phoslo 667 mg Capsule] 3 cap PO TID 06/08/18 Furosemide [Lasix 20 mg Tablet] 80 mg PO BID 06/08/18 Insulin Glargine,Hum.rec.anlog [Lantus Insulin 100 Unit/mL Insulin Pen] 32 unit SUBCUT BID 06/08/18 Insulin Lispro [Humalog Insulin (Lispro) 100 unit/mL] 0 unit SUBCUT .SLD SCALE 06/08/18 Metoprolol Succinate [Toprol Xl] 50 mg PO BID 06/08/18 Latanoprost [Xalatan] 2.5 ml OP QHS 07/11/18 Pantoprazole Sodium [Protonix] 40 mg PO QHS 07/11/18 Ergocalciferol (Vitamin D2) [Vitamin D2] 50,000 units PO .WEEKLY 09/19/18 Folic Acid/Vitamin B Comp W-C [Rosaura-Alicia Tablet] 0.8 mg PO DAILY 09/19/18 Allergies/Adverse Reactions: metformin [Metformin] Allergy (Intermediate, Verified 09/19/18 09:07) Nausea Sulfa (Sulfonamide Antibiotics) Allergy (Mild, Verified 09/19/18 09:07) Nausea fluoxetine Allergy (Verified 09/19/18 09:07) Jittery trimethoprim Allergy (Verified 09/19/18 09:07) Nausea diazepam [From Valium] Adverse Reaction (Verified 09/19/18 09:07) "BOUNCES ME OFF THE STRAUSS, DOES NOT RELAX" Past Medical History Cardiac Medical History: Reports: Congestive Heart Failure, Coronary Artery Disease, Myocardial Infarction - with cardiac stent, Hyperlipidema, Hypertension Pulmonary Medical History: Reports: Chronic Obstructive Pulmonary Disease (COPD), Pneumonia, Sleep Apnea Denies: Asthma, Bronchitis Neurological Medical History: Denies: Seizures Endocrine Medical History: Reports: Diabetes Mellitus Type 1, Diabetes Mellitus Type 2, Hypothyroidism GI Medical History: Reports: Gastroesophageal Reflux Disease Denies: Hepatitis, Hiatal Hernia Musculoskeltal Medical History: Reports: Arthritis - Arms and legs Psychiatric Medical History: Reports: Depression Hematology: Denies: Anemia, Sickle Cell Disease Infectious Medical History: Reports: Methicillin-Resistant Staph Aureus Past Surgical History Past Surgical History: Reports: Cardiac Catheterization, Cholecystectomy, Coronary Stent, Hysterectomy, Orthopedic Surgery - 2 screws in the distal left femur, Tonsillectomy, Other - Cardiac surgery at age 4, Patent ductus? Denies: Amputation, Mastectomy Family History Family History: CAD, CVA, DM, Hypertension, Thyroid Disfunction Parental Family History Reviewed: No Children Family History Reviewed: No Sibling(s) Family History Reviewed.: No Social History Smoking Status: Never Smoker Frequency of Alcohol Use: None Hx Recreational Drug Use: No Drugs: None Hx Prescription Drug Abuse: No Physical Exam Vital Signs: Temp Pulse Resp BP Pulse Ox 97.5 F 61 18 137/47 H 100 11/03/18 12:00 11/03/18 12:00 11/03/18 12:00 11/03/18 12:00 11/03/18 12:00 Intake & Output 11/02/18 11/03/18 11/04/18 06:59 06:59 06:59 Intake Total 0 Balance 0 Additional comments: Constitutional: Well-developed well-nourished lady, obese body habitus. No apparent acute distress. Eyes: Mucous membranes pink and moist, pupils equal and reactive to light. Conjunctiva normal. Cornea normal. ENT: Hearing grossly normal. External pinna normal to inspection. Tongue normal to inspection. Cardiac: Heart sounds normal. Respiratory: Normal respiratory effort. Psychiatric: Judgment, memory, insight seem normal. Mood is pleasant and appropriate. Extremities: Upper extremities show normal range of movement. Pulses present noted to the radial arteries. Capillary refill normal. No cyanosis noted. No muscle wasting noted. Nonfunctioning left arm transposed fistula noted. On the right side the graft has no thrill or bruit. Impression/Plan Plan: The patient was admitted for angioplasty on her right arm bridge fistula. Unfortunately it is nonfunctional. It was injected today with 2 mg of Activase solution in about 6 mils of saline. The plan will be to bring her back on Wednesday for thrombectomy in the [employer] and possibly angioplasty. The situation was discussed with her and she is agreeable.
--- NOTE | 2018-11-03 15:10 | Discharge Summary ---
Discharge Summary (SDC) - Discharge Final Diagnosis: 1. PermCath in place. 2. End-stage renal disease on hemodialysis. History of MRSA. 4. Multiple comorbidities. Date of Surgery: 11/03/18 Discharge Date: 11/03/18 Condition: Fair Treatment or Instructions: Discharge home [after recovery per ASU criteria]. Diet , [renal],as tolerated, when fully awake advance as tolerated. Activities within moderation encouraged. Follow up i for AV fistula thrombectomy next week. Referrals: MATIAS SOLIZ MD [Primary Care Provider] - Discharge Diet: Diabetic Respiratory Treatments at Home: Deep Breathing/Coughing Discharge Activity: Activity As Tolerated Report the Following to Your Physician Immediately: Shortness of Breath
[2018-11-03] MEDS ORDERED: ALTEPLASE INJ 2 MG VIAL (CATH CLEARANCE) ONE (16:21)
--- NOTE | 2018-11-03 18:45 | EKG REPORT ---
SEVERITY:- ABNORMAL ECG - SINUS RHYTHM RIGHT BUNDLE BRANCH BLOCK LEFT VENTRICULAR HYPERTROPHY ANTERIOR INFARCT, AGE INDETERMINATE : Confirmed by: Martin Bear MD 03-Nov-2018 18:44:51
== END 2018-11-03 15:15 | disposition home or self-care (01) ==
LOC: CCL 10:12
PROVIDERS: ATTEND Surgery
DX: Z01.810 Encounter for preprocedural cardiovascular examination (principal); E66.9 Obesity, unspecified; I25.10 Atherosclerotic heart disease of native coronary artery without angina pectoris; E78.5 Hyperlipidemia, unspecified; I13.2 Hypertensive heart and chronic kidney disease with heart failure and with stage 5 chronic kidney disease, or end stage renal disease; E10.22 Type 1 diabetes mellitus with diabetic chronic kidney disease; N18.6 End stage renal disease; J44.9 Chronic obstructive pulmonary disease, unspecified; K21.9 Gastro-esophageal reflux disease without esophagitis; E03.9 Hypothyroidism, unspecified; Z79.899 Other long term (current) drug therapy; Z86.14 Personal history of Methicillin resistant Staphylococcus aureus infection; Z79.4 Long term (current) use of insulin; Z79.82 Long term (current) use of aspirin
CPT/HCPCS: 36415; 82962; 85027; 80048; 93005; 93010; J2997

== ENCOUNTER 2018-11-07 07:17 | Day surgery (SDC) | payer MEDICARE ==
[2018-11-07] MEDS ORDERED: DIAZEPAM 5 MG TABLET ONE (08:01)
[2018-11-07 08:33] LABS: HEMATOCRIT 40.5 % (36.0-47.0); HEMOGLOBIN 13.4 g/dL (12.0-15.5); MEAN CORPUSCULAR HEMOGLOBIN 30.8 pg (27.0-33.4); MEAN CORPUSCULAR HGB CONC 33.1 g/dL (32.0-36.0); MEAN CORPUSCULAR VOLUME 93 fl (80-97); PLATELET COUNT 226 10^3/uL (150-450); RED BLOOD COUNT 4.34 10^6/uL (3.72-5.28); RED CELL DISTRIBUTION WIDTH 17.3 % (11.5-14.0); WHITE BLOOD COUNT 7.7 10^3/uL (4.0-10.5)
[2018-11-07] MEDS ORDERED: MIDAZOLAM 2 MG/2 ML INJ ONE (08:51)
[2018-11-07] MEDS ORDERED: FENTANYL CITRATE INJ/PF 100 MCG/2 ML AMPUL ONE (08:51)
[2018-11-07] MEDS ORDERED: HEPARIN SOD (PORCINE) 5,000 UNIT/ML 1 ML SYRINGE ONE (08:51)
[2018-11-07] MEDS ORDERED: LIDOCAINE 0.5% INJ-PF (5 MG/ML) 50 ML SDV ONE (09:58)
[2018-11-07 10:25] LABS: ANION GAP 10 (5-19); BLOOD UREA NITROGEN 39 mg/dL (7-20); CALCIUM 8.9 mg/dL (8.4-10.2); CARBON DIOXIDE 24 mmol/L (22-30); CHLORIDE 102 mmol/L (98-107); GLUCOSE 201 mg/dL (75-110); SODIUM 136.4 mmol/L (137-145)
[2018-11-07 10:31] LABS: POTASSIUM 6.7 mmol/L (3.6-5.0)
[2018-11-07] MEDS ORDERED: CALCIUM GLUCONATE 1000 MG/10 ML INJ IV ONE ×2 (10:48→11:25)
[2018-11-07] MEDS ORDERED: SODIUM POLYSTYRENE SULFONATE 15 GM/60 ML PO ONE (11:30)
[2018-11-07] MEDS ORDERED: DEXTROSE 50%-WATER 25 GM/50 ML DISP.SYRIN IV ONE (12:22)
[2018-11-07] MEDS ORDERED: INSULIN REG, HUMAN 100 UNIT/ML 3 ML VIAL (PYX) ONE (12:25)
--- NOTE | 2018-11-07 12:34 | HISTORY AND PHYSICAL E ---
History and Physical NAME: KARINA ROGERS : 1955 AGE: 63Y ADMITTED: 11/07/2018 ROOM: ADMITTING DIAGNOSES: 1. Clotted AV fistula, right arm. 2. Endstage renal disease on hemodialysis. 3. Diabetes mellitus, type-2. 4. Hypertension. 5. Multiple comorbidities. HISTORY OF THE PRESENTING COMPLAINT: This patient has a new bridge fistula in the right arm of about 2 months. It has been used once and has now clotted. She is admitted for an attempt at a revision. PAST MEDICAL HISTORY: As noted. MEDICATIONS: As noted. ALLERGIES: Numerous includin. DIAZEPAM. 2. SEPTRA. 3. TRIMETHOPRIM. 4. METFORMIN. PHYSICAL EXAMINATION: GENERAL: A very pleasant 63-year-old female. Obese body habitus. EYES: Mucous membranes moist. Sclerae anicteric. OROPHARYNX: Shows some missing dentition. RESPIRATORY: Breath sounds are normal and equal. CARDIAC: Heart sounds are normal. EXTREMITIES: Upper extremities show normal pulses down to the radials. Capillary refill normal. On the left side there is a nonfunctioning transposed basilic vein fistula. On the right side is a non-functioning bridge fistula PTFE in the brachial basilic position. PLAN: The recommendations are to proceed with thrombectomy and possible angioplasty. The results are not entirely optimistic since this is classic *------* and certainly thrombectomy would have to be done with caution. In addition, the patient's potassium, partially hemolyzed, was 6.7. This has been addressed with Kayexalate and calcium. We will also repeat this post procedure and consider earlier dialysis. The patient is so far asymptomatic. The risks, benefits, expected outcome, and alternatives are familiar to the patient, and she wishes to proceed. DICTATING PHYSICIAN: VAHE OCASIO M.D. [id number] PHY#: [id number] ID: [id number] JOB#: [id number] ACCT: [id number] cc:VAHE OCASIO M.D. >
--- NOTE | 2018-11-07 13:45 | Discharge Summary ---
Discharge Summary (SDC) - Discharge Final Diagnosis: #1 clotted AV fistula right arm. 2. End-stage renal disease on hemodialysis. 3. Hyperkalemia. 4. Morbid obesity. 5. Diabetes mellitus type 2. 6. Hypertension. Date of Surgery: 11/07/18 Discharge Date: 11/07/18 Condition: Fair Treatment or Instructions: Discharge home [after repeat potassium evaluation in the ambulatory surgical.. Diet , [renal],as tolerated, when fully awake advance as tolerated. Activities within moderation encouraged. Follow up in my office by appointment in about on Wednesday of this week. Call for appointment. Leave wounds [covered], [keep clean and dry, until office visit in 1 week]. Hold of on school/work [until evaluation in office]. Meds per med rec. Serum potassium to be redrawn and ambulatory. May shower [in 48 hrs], [try to keep operated area as dry as possible]. Referrals: MATIAS SOLIZ MD [Primary Care Provider] - Discharge Diet: Other (Comments) - Renal. Respiratory Treatments at Home: Deep Breathing/Coughing Discharge Activity: Activity As Tolerated Report the Following to Your Physician Immediately: Shortness of Breath, Unusual Bleeding
--- NOTE | 2018-11-07 13:52 | Operative Report ---
Operative Report DATE OF SURGERY: 11/07/18 PREOPERATIVE DIAGNOSIS: #1 clotted AV fistula right arm. 2. End-stage renal d isease on hemodialysis. 3. Hyperkalemia. 4. Morbid obesity. 5. Diabetes mellitus type 2. 6. Hypertension. POSTOPERATIVE DIAGNOSIS: #1 clotted AV fistula right arm. 2. End-stage renal disease on hemodialysis. 3. Hyperkalemia. 4. Morbid obesity. 5. Diabetes mellitus type 2. 6. Hypertension. OPERATION: 1. Needle access into arteriovenous graft right arm. 2. Second needle access into arteriovenous graft right arm. 3. Graft thrombectomy. 4. Angiogram and interpretation. SURGEON: VAHE COLON PERCHER: None. ANESTHESIA: Moderate Sedation TISSUE REMOVED OR ALTERED: Not applicable. COMPLICATIONS: Hyperkalemia. ESTIMATED BLOOD LOSS: 5 mL. INTRAOPERATIVE FINDINGS: Of an initial clotted AV fistula, right arm bridge. Thrombectomy done using aspiration and maceration with angioplasty balloons. Procedures and fistula seems patent. Pertinent to the graft closure is an area of stenosis at the tip of the [place] axillary vein, just cephalad to the stenosis. Of about 0.5 cm in the [place] vein and easily 90% of the adjacent lumen. Post angioplasty perhaps 10% rigid residual stenosis. PROCEDURE: PROCEDURE: After verifying the procedure and having obtained informed consent, the patient's right arm and forearm were prepared with Chlorhexidine and draped out with sterile linen. Local anesthesia infiltrated. Percutaneous access into the fistula antegrade then,[retrograde], obtained about [20 cm] and 2 cm from the arteriovenous anastomosis using a micro puncture needle followed by micro puncture wire and then a micro puncture catheter. 8 Peruvian introducer was placed antegrade and retrograde through the Acces as above. A 0.035 [place] wire was inserted, and over this, a Kumpe catheter was now placed antegrade and used to aspirate liquid blood. It was challenging to get the Glidewire into the [place] system of the subclavian. A torque device was used to bilaterally into the vessel. An angiogram was done to facilitate this and it showed the area of stenosis. Angioplasty was now done at this segment. This was done very carefully and in the up to 10 ronnie sustained for 2 minutes. With a 6 mm ultra burst high-pressure balloon. Angiogram demonstrated successful outcome. The Kumpe catheter was now inserted retrograde into the brachial artery and angiograms demonstrated sluggish flow through the graft. A 4 mm angioplasty balloon, ultra burst, high-pressure with no inserted retrograde and inflated with an inflation over the anastomosis and moving cephalad up to the introducer. . Inflating up to 2 atmospheres for a minute at a time.]. Completion angiogram demonstrated [satisfactory result]. With strict flow of contrast through the system. Slight residual stenosis noted just cephalad to the graft it was decided to accept this given the fresh nature of this graft. The expectations are modest the instrumentation was now withdrawn over a short piece of catheter and a 5-0 Prolene suture. Dressings applied, procedure concluded. Exposure time: 4.6 minutes Radiation: 24.82 Meredith edwards. Contrast: 25 mL of Isovue-M 300 low osmolality. DICTATING PHYSICIAN: VAHE OCASIO M.D. cc: VAHE OCASIO M.D. ([id number]) >>
[2018-11-07 14:44] VITALS: BP 228/75
--- NOTE | 2018-11-07 16:55 | RADIOLOGY REPORT (SQ) ---
EXAM DESCRIPTION: FISTULAGRAM W/PLASTY COMPLETED DATE/TIME: 11/07/2018 2:48 pm REASON FOR STUDY: T82.858A T82.858A STENOSIS OF OTHER VASCULAR PROSTH DEV/GRFT, INIT COMPARISON: 08/15/2018 FLUOROSCOPY TIME: 4.6 minutes 10 series of fluoroscopic digital images saved to PACS. TECHNIQUE: Intra-operative images acquired during surgical procedure to evaluate progress. NUMBER OF IMAGES: 10 series of fluoroscopic digital images LIMITATIONS: None. FINDINGS: Intra procedural imaging and plasty of right upper extremity dialysis access by Dr. Pierre ms IMPRESSION: IMAGE(S) OBTAINED DURING PROCEDURE. COMMENT: Quality ID [id number]: Final reports for procedures using fluoroscopy that document radiation exp osure indices, or exposure time and number of fluorographic images (if radiation exposure indices are not available) Please consult full operative report of the attending physician for description of the procedure. TECHNICAL DOCUMENTATION: JOB ID: [id number] [employer]- All Rights Reserved Reading location - IP/workstation name: [email or web address]
== END 2018-11-07 14:15 | disposition home or self-care (01) ==
LOC: CCL 07:17
PROVIDERS: ATTEND Surgery
DX: T82.858A Stenosis of other vascular prosthetic devices, implants and grafts, initial encounter (principal); Y83.2 Surgical operation with anastomosis, bypass or graft as the cause of abnormal reaction of the patient, or of later complication, without mention of misadventure at the time of the procedure; I12.0 Hypertensive chronic kidney disease with stage 5 chronic kidney disease or end stage renal disease; E11.9 Type 2 diabetes mellitus without complications; N18.6 End stage renal disease; Z99.2 Dependence on renal dialysis; E87.5 Hyperkalemia; E66.01 Morbid (severe) obesity due to excess calories; D64.9 Anemia, unspecified; E03.9 Hypothyroidism, unspecified; E78.00 Pure hypercholesterolemia, unspecified; Z79.899 Other long term (current) drug therapy; Z88.8 Allergy status to other drugs, medicaments and biological substances; Z88.2 Allergy status to sulfonamides; Z79.1 Long term (current) use of non-steroidal anti-inflammatories (NSAID); Z68.42 Body mass index [BMI] 45.0-49.9, adult; Z01.818 Encounter for other preprocedural examination; Z98.890 Other specified postprocedural states
CPT/HCPCS: 36415; 85027; 80048; 36902; C1887; Q9967; C1769; J2250; J0610; J1644 ×2; J3490 ×2; J3010; A9270; J1815

== ENCOUNTER 2018-11-24 20:59 | Emergency (ER) | payer MEDICARE ==
[2018-11-24] MEDS ORDERED: ASPIRIN 81 MG TABLET, CHEWABLE PO ONE (21:02)
[2018-11-24 21:28] LABS: ABSOLUTE BASOPHILS # (AUTO) 0.1 10^3/uL (0.0-0.2); ABSOLUTE EOSINOPHILS # (AUTO) 0.2 10^3/uL (0.0-0.6); ABSOLUTE LYMPHOCYTES (AUTO) 1.2 10^3/uL (0.5-4.7); ABSOLUTE MONOCYTES (AUTO) 0.8 10^3/uL (0.1-1.4); ABSOLUTE NEUT (AUTO) 7.4 10^3/uL (1.7-8.2); BASOPHILS % (AUTO) 0.9 % (0-2); EOSINOPHILS % (AUTO) 1.8 % (0-6); HEMATOCRIT 36.5 % (36.0-47.0); HEMOGLOBIN 12.4 g/dL (12.0-15.5); LYMPHOCYTES % (AUTO) 12.6 % (13-45); MEAN CORPUSCULAR HEMOGLOBIN 30.8 pg (27.0-33.4); MEAN CORPUSCULAR HGB CONC 33.8 g/dL (32.0-36.0); MEAN CORPUSCULAR VOLUME 91 fl (80-97); MONOCYTES % (AUTO) 7.9 % (3-13); PLATELET COUNT 236 10^3/uL (150-450); RED BLOOD COUNT 4.02 10^6/uL (3.72-5.28); RED CELL DISTRIBUTION WIDTH 16.5 % (11.5-14.0); SEGMENTED NEUTROPHILS % (AUTO) 76.8 % (42-78); TOTAL CELLS COUNTED % (AUTO) 100 %; WHITE BLOOD COUNT 9.6 10^3/uL (4.0-10.5)
--- NOTE | 2018-11-24 21:37 | ER Document Report ---
ED Cardiac - General Chief Complaint: Chest Pain Stated Complaint: CHEST PAIN Time Seen by Provider: 11/24/18 21:28 Primary Care Provider: MATIAS SOLIZ MD [Primary Care Provider] - Follow up as needed Notes: Patient is a 63-year-old female that comes emergency department for chief complaint of chest pain that started in the center of her chest at rest at about 7:30 PM tonight. She states that she felt numbness and discomfort in both arms. She does report some shortness of breath. She denies cough, nausea/vomiting, abdominal pain, fever. Past medical history of CAD with stents in April at [facility]. Also has a history of end-stage renal disease on dialysis, however she states that her "last dialysis is going to be Wednesday", she did have dialysis performed then but then had her access removed and states that she is taking herself off of dialysis. She states she has been through too much and she does not want to do anymore. She states that she has a DO NOT RESUSCITATE form at home. She has a history of insulin for diabetes, hypertension, hyperlipidemia, obesity. TRAVEL OUTSIDE OF THE [place] IN LAST 30 DAYS: No - Related Data Allergies/Adverse Reactions: metformin [Metformin] Allergy (Intermediate, Verified 09/19/18 09:07) Nausea Sulfa (Sulfonamide Antibiotics) Allergy (Mild, Verified 09/19/18 09:07) Nausea fluoxetine Allergy (Verified 09/19/18 09:07) Jittery trimethoprim Allergy (Verified 09/19/18 09:07) Nausea diazepam [From Valium] Adverse Reaction (Verified 09/19/18 09:07) "BOUNCES ME OFF THE STRAUSS, DOES NOT RELAX" Past Medical History - General Information source: Patient - Social History Smoking Status: Never Smoker Frequency of alcohol use: None Drug Abuse: None Lives with: Family Family History: CAD, CVA, DM, Hypertension, Thyroid Disfunction Patient has suicidal ideation: No Patient has homicidal ideation: No - Past Medical History Cardiac Medical History: Reports: Hx Congestive Heart Failure, Hx Coronary Artery Disease, Hx Heart Attack - with cardiac stent, Hx Hypercholesterolemia, Hx Hypertension Pulmonary Medical History: Reports: Hx COPD, Hx Pneumonia, Hx Sleep Apnea Denies: Hx Asthma, Hx Bronchitis Neurological Medical History: Denies: Hx Cerebrovascular Accident, Hx Seizures Endocrine Medical History: Reports: Hx Diabetes Mellitus Type 1, Hx Diabetes Mellitus Type 2, Hx Hypothyroidism Renal/ Medical History: Reports: Hx Hemodialysis, Hx Renal Insufficiency. Den ies: Hx Peritoneal Dialysis GI Medical History: Reports: Hx Gastroesophageal Reflux Disease. Denies: Hx Hepatitis, Hx Hiatal Hernia Musculoskeletal Medical History: Reports Hx Arthritis - Arms and legs Psychiatric Medical History: Reports: Hx Depression Infectious Medical History: Reports: Hx MRSA. Denies: Hx Hepatitis Past Surgical History: Reports: Hx Cardiac Catheterization, Hx Cardiac Surgery - A hole in the heart closed at age 65 years old., Hx Cholecystectomy, Hx Coronary Stent, Hx Hysterectomy, Hx Open Heart Surgery - ASD or VSD closed at 4 years of age, Hx Orthopedic Surgery - 2 screws in the distal left femur, Hx Thyroid Surgery - Thyroidectomy, Hx Tonsillectomy, Other - Cardiac surgery at age 4, Patent ductus?. Denies: Hx Mastectomy - Immunizations Hx Diphtheria, Pertussis, Tetanus Vaccination: Yes Hx Pneumococcal Vaccination: 05/24/17 Review of Systems - Review of Systems Constitutional: No symptoms reported EENT: No symptoms reported Cardiovascular: See HPI Respiratory: No symptoms reported Gastrointestinal: No symptoms reported Genitourinary: No symptoms reported Female Genitourinary: No symptoms reported Musculoskeletal: No symptoms reported Skin: No symptoms reported Hematologic/Lymphatic: No symptoms reported Neurological/Psychological: No symptoms reported Physical Exam - Vital signs Vitals: Pulse Ox 99 11/24/18 21:02 - Notes Notes: GENERAL: Alert, interacts well. No acute distress. HEAD: Normocephalic, atraumatic. EYES: Pupils equal, round, and reactive to light. Extraocular movements intact. ENT: Oral mucosa moist, tongue midline. Oropharynx unremarkable. Airway patent. NECK: Full range of motion. Supple. Trachea midline. LUNGS: Clear to auscultation bilaterally, no wheezes, rales, or rhonchi. No respiratory distress. HEART: Regular rate and rhythm. No murmur ABDOMEN: Soft, non-tender. Non-distended. Bowel sounds present in all 4 quadrants. GENITOURINARY: Deferred EXTREMITIES: Moves all 4 extremities spontaneously. Minimal bilateral edema, less than 1+., normal radial and dorsalis pedis pulses bilaterally. No cyanosis. BACK: no cervical, thoracic, lumbar midline tenderness. Moves all extremities in full range of motion. NEUROLOGICAL: Alert and oriented x3. Normal speech. Cranial nerves II through XII grossly intact. PSYCH: Intermittently mildly anxious, otherwise unremarkable. SKIN: Warm, dry, normal turgor. Healing area over the right side of the chest which appears to have recently had a port catheter. No noted erythema or concerning tenderness. Course - Re-evaluation Re-evalutation: 11/24/18 23:40 Initially there was some confusion about the medications patient had received. She was going to be given aspirin but now we have found out the patient took 8 aspirin this morning, and then was given for additional aspirin by EMS. She was not given any more in the emergency department. She was given nitroglycerin initially and again, this helped, now her pain is about a 2 out of 5. Lungs clear, chest x-ray is unremarkable. EKG shows sinus rhythm at a rate of 92, intraventricular conduction delay, right bundle branch block, T wave inversions in leads I and aVL. Creatinine at 2.77. Troponin at 0.2 which is elevated beyond AMI cutoff. Initially patient was stating she wanted nothing and she was a DNR and she wanted to be comfort care only, however I have discussed her details with her now and different options. Patient was still having some discomfort after the initial nitroglycerin, almost resolved after second nitroglycerin, completely resolved with low-dose morphine. Troponin was cycled and is rising at 0.765. Consistent with an NSTEMI. Patient reevaluated and is still chest pain-free. I asked if she would be interested in medical treatment versus interventional cardiology. Patient seems slightly surp rised about her renal functioning, patient is only 63 years old, she does not have hyperkalemia. Patient states that if needed she would prefer to have interventional cardiology perform another heart catheterization and stent. Patient states she hopes to avoid dialysis however. I did explain that heart catheterization requires dye and there is a possibility she may need 1 or 2 episodes of dialysis at least afterwards depending on how well she does. Patient does state understanding and states she still is interested in tertiary care and interventional cardiology and potential cardiac catheterization. Patient has been placed on heparin. Discussed with Dr. Torres. Patient tells me that she was at [facility] for her previous catheterization and stent, is requesting the same location. Spoke with coating machine operator, they spoke with hospitalist, recommends cardiology consult first. Discussed with Dr. Bond but patient has been following with [facility]. 11/25/18 02:[address] Guerra, he recommends that patient be admitted to the hospitalist service with cardiology consult. 11/25/18 03:[address] Mayberry, patient accepted for transfer. 11/25/18 05:29 Patient's recycled troponin is 4.4. However she remains chest pain-free without any significant change. Transfer center will be updated. Still waiting on room assignment/transfer. 11/25/18 05:[address] Guerra, he is aware of trending troponin. No status change cheryl mmendations given. 11/25/18 07:06 Patient has been reevaluated and updated on the latest lab values and details. She still is asymptomatic with no current complaints. She has been kept n.p.o. 11/25/18 08:15 Report given to Norman Diamond PA-C at bedside. - Vital Signs Vital signs: Temp Pulse Resp BP Pulse Ox 98.0 F 19 149/61 H 100 11/25/18 03:02 11/25/18 07:02 11/25/18 07:02 11/25/18 07:02 - Laboratory Result Diagrams: 11/24/18 21:10 11/24/18 21:10 Laboratory results interpreted by me: 11/24/18 11/24/18 11/24/18 21:10 21:10 21:10 RDW 16.5 H Lymphocytes % 12.6 L Sodium 136.6 L Carbon Dioxide 21 L BUN 47 H Creatinine 2.77 H Est GFR ( Amer) 21 L Est GFR (Non-Af Amer) 17 L Glucose 352 H Calcium 8.3 L Creatine Kinase 183 H CK-MB (CK-2) 6.03 H Discharge - Discharge Clinical Impression: NSTEMI (non-ST elevated myocardial infarction) Chest pain Qualifiers: Chest pain type: unspecified Qualified Code(s): R07.9 - Chest pain, unspecified Chronic kidney disease (CKD) Qualifiers: Chronic kidney disease stage: unspecified stage Qualified Code(s): N18.9 - Chronic kidney disease, unspecified Condition: Stable Disposition: [facility] Referrals: MATIAS SOLIZ MD [Primary Care Provider] - Follow up as needed
[2018-11-24 21:54] LABS: ALANINE AMINOTRANSFERASE 19 U/L (9-52); ALBUMIN 3.9 g/dL (3.5-5.0); ALKALINE PHOSPHATASE 111 U/L (38-126); ANION GAP 15 (5-19); ASPARTATE AMINO TRANSFERASE 22 U/L (14-36); BILIRUBIN,DIRECT 0.4 mg/dL (0.0-0.4); BILIRUBIN,TOTAL 0.4 mg/dL (0.2-1.3); BLOOD UREA NITROGEN 47 mg/dL (7-20); CALCIUM 8.3 mg/dL (8.4-10.2); CARBON DIOXIDE 21 mmol/L (22-30); CHLORIDE 101 mmol/L (98-107); CREATINE KINASE 183 U/L (30-135); GLUCOSE 352 mg/dL (75-110); POTASSIUM 4.1 mmol/L (3.6-5.0); SODIUM 136.6 mmol/L (137-145); TOTAL PROTEIN 7.1 g/dL (6.3-8.2)
[2018-11-24 22:06] LABS: CREATINE KINASE MB 6.03 ng/mL (<4.55)
--- NOTE | 2018-11-24 22:09 | RADIOLOGY REPORT (SQ) ---
EXAM DESCRIPTION: RadLex: XR CHEST 1 VIEW CLINICAL HISTORY: 63 years Female, chest pain COMPARISON: 09/19/2018 FINDINGS: Lungs are clear, with no focal infiltrate, pneumothorax, or pleural effusion. Heart appears somewhat enlarged, although likely exaggerated by positioning. Surgical clips are again noted in the lower neck, likely previous thyroidectomy. Bony structures are unremarkable. IMPRESSION: 1. No acute pulmonary findings.
[2018-11-24 22:13] LABS: TROPONIN I 0.203 ng/mL
[2018-11-24] MEDS: NITROGLYCERIN 0.4 MG/TAB 25 TAB/BOTTLE SL PRN ×2 (23:18→23:32)
[2018-11-24] MEDS ORDERED: MORPHINE SULFATE 10 MG/ML INJ IV ONE (23:39)
[2018-11-24] MEDS ORDERED: NORMAL SALINE 500 ML IV ONE (23:42)
[2018-11-25 01:06] LABS: INTERNATIONAL RATION (INR) 0.93; PROTHROMBIN TIME 12.5 SEC (11.4-15.4)
[2018-11-25 01:07] LABS: PARTIAL THROMBOPLASTIN TIME 32.9 SEC (23.5-35.8)
[2018-11-25] MEDS ORDERED: HEPARIN SODIUM,PORCINE/D5W 25,000 UNIT/250 ML RTUINJ IV PRN (01:10)
[2018-11-25] MEDS ORDERED: HEPARIN SOD (PORCINE) 1,000 UNIT/ML 10 ML VIAL IV ONE (01:10)
[2018-11-25] MEDS ORDERED: HEPARIN SOD (PORCINE) 1,000 UNIT/ML 10 ML VIAL IV PRN (04:11)
[2018-11-25 08:22] LABS: APPEARANCE,URINE CLOUDY; BILIRUBIN,URINE NEGATIVE (NEGATIVE); COLOR,URINE YELLOW; GLUCOSE, URINE >=500 mg/dL (NEGATIVE); KETONES,URINE NEGATIVE (NEGATIVE); LEUKOCYTE ESTERASE,URINE MODERATE (NEGATIVE); NITRITE,URINE NEGATIVE (NEGATIVE); PROTEIN,URINE >=500 mg/dL (NEGATIVE); UROBILINOGEN,URINE NEGATIVE mg/dL (<2.0)
--- NOTE | 2018-11-25 12:31 | ER Document Report ---
Doctor's Note Notes: 11/25/18 12:30 Care of this patient was turned over to me during my shift. In short this patient had an end STEMI. She was being transferred to [facility] for further care. I went and evaluated the patient. She is having no difficulty breathing, no current chest pain. She did ask that she become a DNR. We talked at length about what this means. She voiced understanding,'s is of sound mind, and does want a DO NOT RESUSCITATE order placed. One was signed and given to the patient's payroll bookkeeper. Patient transferred to [facility] in stable condition.
[2018-11-25 12:44] VITALS: BP 158/52
--- NOTE | 2018-11-25 13:58 | EKG REPORT ---
SEVERITY:- ABNORMAL ECG - SINUS RHYTHM IVCD, CONSIDER ATYPICAL RBBB LVH WITH IVCD AND SECONDARY REPOL ABNRM : Confirmed by: Toni Heller 25-Nov-2018 13:58:02
== END 2018-11-25 12:44 | disposition short-term general hospital (02) ==
LOC: ER 20:59
DX: I21.4 Non-ST elevation (NSTEMI) myocardial infarction (principal); R07.9 Chest pain, unspecified; N18.9 Chronic kidney disease, unspecified; R20.0 Anesthesia of skin; E78.00 Pure hypercholesterolemia, unspecified; E11.22 Type 2 diabetes mellitus with diabetic chronic kidney disease; I50.9 Heart failure, unspecified; I13.0 Hypertensive heart and chronic kidney disease with heart failure and stage 1 through stage 4 chronic kidney disease, or unspecified chronic kidney disease; Z99.2 Dependence on renal dialysis; Z90.49 Acquired absence of other specified parts of digestive tract; Z88.2 Allergy status to sulfonamides; Z88.3 Allergy status to other anti-infective agents; Z86.14 Personal history of Methicillin resistant Staphylococcus aureus infection; Z90.710 Acquired absence of both cervix and uterus; I25.2 Old myocardial infarction
CPT/HCPCS: 93005; 96376; 99285; 96361; 96375; 96365; 96366; 36415; 82553; 82962; 82550; 80307; 85025; 85610; 85730; 80053; 81001; 84484; 71045; 93010; J1644 ×2; J2270; J7040